=== PATIENT | female | born 1945 | race Caucasian/White ===

== ENCOUNTER → 2017-02-06 | Outpatient (CLI) | payer MEDICARE, SELFPAY | PROVIDERS: Visit Provider Nurse Practitioner Obstetrics & Gynecology | DX: Z12.31 Encounter for screening mammogram for malignant neoplasm of breast (principal) | CPT/HCPCS: 77067; G0202 ==

== ENCOUNTER → 2017-06-05 09:12 | Outpatient (CLI) | payer MEDICARE, SELFPAY ==
[2017-06-05 10:52] LABS: Alanine Aminotransferase 19 U/L (12-78); Albumin/Globulin Ratio 1.3 (1.1-1.8); Alkaline Phosphatase 68 U/L (46-116); Anion Gap 10.3 mEq/L (5-15); Aspartate Amino Transferase 19 U/L (15-37); Bilirubin,Total 0.6 mg/dL (0.2-1.0); Blood Urea Nitrogen 15 mg/dL (7-18); Calcium 9.8 mg/dL (8.5-10.1); Carbon Dioxide 33 mmol/L (21.0-32.0); Chloride 100 mmol/L (98-107); Chol/HDL Ratio 3.6 (1-3.5); Cholesterol 203 mg/dL (140-200); Creatine Kinase 49 U/L (26-192); Creatinine,Serum 0.71 mg/dL (0.55-1.02); Estimated Glomerular Filt Rate 81 ml/min (>60); GFR (African American) 98 ML/MIN (>60); Globulin 3.1 gm/dl (1.3-3.2); Glucose 92 mg/dL (74-106); HDL Cholesterol 56 mg/dL (29-89); LDL Cholesterol 129 mg/dL (0-130); Magnesium 1.9 mg/dL (1.4-2.2); Potassium 4.3 mmoL/L (3.5-5.1); Sodium 139 mmol/L (136-145); Thyroid Stimulating Hormone 2.55 uIU/ml (0.358-3.740); Total Protein,Serum 7.1 gm/dL (6.4-8.2); Triglycerides 90 mg/dL (30-200); VLDL Cholesterol 18 mg/dL (0-40)
[2017-06-06 11:06] LABS: Vitamin D 25 Hydroxy 27.9 ng/mL (30.0-100.0)
== END ==
PROVIDERS: Visit Provider Physician Assistant
DX: M79.1 Myalgia (principal); Z13.29 Encounter for screening for other suspected endocrine disorder; Z13.220 Encounter for screening for lipoid disorders; E55.9 Vitamin D deficiency, unspecified; Z79.899 Other long term (current) drug therapy
CPT/HCPCS: 36415; 80053; 80061; 82550; 82652; 83735; 84443

== ENCOUNTER → 2017-06-11 08:54 | Outpatient (CLI) | payer MEDICARE, SELFPAY ==
--- NOTE | 2017-06-11 09:00 | XR_ITS ---
XR DEXA axial skeleton HISTORY: ITS.REASON: POSTMENOPAUSAL ORDERING PHYSICIAN: John Diallo MD PATIENT AGE: 72 years FINDINGS: The BMD measured at the right femoral neck is 0.826 g/cm squared with a T score of -1.5. This is considered Osteopenic according to the World Health Organization criteria. Fracture risk is Moderate. Treatment is advised. The L1 L4 density has a T score of 0.2 which is within normal limits. IMPRESSION: Osteopenia with moderate fracture risk. Treatment is suggested. Recommend follow-up exam May 2019
== END ==
PROVIDERS: Family Provider Family Medicine; PCP Family Medicine; Visit Provider Family Medicine
DX: Z78.0 Asymptomatic menopausal state (principal)
CPT/HCPCS: 77080

== ENCOUNTER → 2019-01-22 08:19 | Outpatient (CLI) | payer MEDICARE, SELFPAY ==
--- NOTE | 2019-01-22 08:23 | MM_ITS ---
PROCEDURE: MM DIG SC MAMM UNILAT LT CAD CLINICAL INDICATION: SCREENING There has been a previous mastectomy right breast. There is previous history of breast cancer in patient's maternal aunt and maternal great aunt. COMPARISON: [facility] DIG MAMM-SCREENING UNI-LT from 09/26/2014 [facility] DIG MAMM-SCREENING UNI-LT from 12/18/2015 [facility] DIG MAMM-SCREEN JAY W/CAD from 02/06/2017 TECHNIQUE: Standard CC and MLO images were obtained. R2 CAD reviewed. FINDINGS: Moderate fibroglandular densities are seen in the subareolar region. There is a biopsy clip upper outer quadrant. There is a stable small nodular density upper-outer quadrant just anterior and lateral to the biopsy clip. There is no suspicious lesion and no suspicious microcalcifications. IMPRESSION: Moderate breast density with no suspicious lesions seen BI-RAD Category: 2 Benign Finding(s) FOLLOW-UP: 1YR 1 Year Follow-up (A letter has been sent to the patient regarding results of the study.) Dictated by: Dr. Loco Spring MD 01/25/2019 13:[address] Loco Spring MD in [place] 01/25/2019 13:46
== END ==
PROVIDERS: PCP Family Medicine; Visit Provider Family Medicine
DX: Z12.31 Encounter for screening mammogram for malignant neoplasm of breast (principal)
CPT/HCPCS: 77067

== ENCOUNTER 2019-01-31 06:21 | Inpatient (IN) ==
[2019-01-31 06:54] LABS: Microscopic, Urine URINE MICROSCOPIC (MICROSCOPIC)
[2019-01-31 07:01] LABS: Bilirubin,Urine Negative (Negative); Blood, Urine Negative (Negative); Color,Urine YELLOW (Yellow); Glucose,Urine (UA) Negative (Negative); Ketones,Urine Negative (Negative); Leukocyte Esterase,Urine TRACE (Negative); Protein,Urine Negative (Negative); Specific Gravity, Urine 1.025 (1.005-1.030); Urobilinogen,Urine 0.2 EU/dl (0.2)
[2019-01-31 07:12] LABS: Alanine Aminotransferase 69 U/L (12-78); Albumin Level 3.6 gm/dL (3.4-5.0); Albumin/Globulin Ratio 1.1 (1.1-1.8); Alkaline Phosphatase 77 U/L (46-116); Amylase 58 U/L (25-115); Anion Gap 11.3 mEq/L (5-15); Aspartate Amino Transferase 129 U/L (15-37); Bilirubin,Total 0.8 mg/dL (0.2-1.0); Blood Urea Nitrogen 24 mg/dL (7-18); Carbon Dioxide 32 mmol/L (21.0-32.0); Chloride 101 mmol/L (98-107); Globulin 3.4 gm/dl (1.3-3.2); Glucose 122 mg/dL (74-106); Sodium 141 mmol/L (136-145)
[2019-01-31 07:12] LABS: Appearance,Urine Cloudy (Clear)
[2019-01-31 07:18] LABS: Basophils % 0.4 % (0.1-2.0); Eosinophils # 0.1 K/mm3 (0.0-0.4); Hematocrit 45.4 % (37.0-47.0); Hemoglobin 14.9 g/dL (12.2-16.2); Lymphocytes # 1.3 K/mm3 (0.7-4.5); Lymphocytes % 11.1 % (10-50); Mean Corpuscular HGB Conc 32.7 g/dL (31.8-35.4); Mean Corpuscular Volume 91.6 fl (81-99); Mean Platelet Volume 7.3 fl (7.4-10.4); Monocytes # 0.4 K/mm3 (0.1-1.0); Monocytes % 3.7 % (1.7-9.3); Neutrophils # 9.6 K/mm3 (1.8-7.8); Neutrophils % 83.9 % (37.0-80.0); Platelet Count 391 K/mm3 (142-424); Red Blood Count 4.96 M/mm3 (4.20-5.40); Red Cell Distribution Width 13.9 % (11.5-17.5); White Blood Count 11.5 K/mm3 (4.8-10.8)
[2019-01-31 07:20] LABS: Bacteria,Urine 4+ /lpf; Mucus,Urine 1+ /lpf
[2019-01-31 07:25] LABS: C-Reactive Protein < 0.2 mg/dL (0.0-0.9)
[2019-01-31 07:45] LABS: Erythrocyte Sedimentation Rate 6 mm/hr (0-30)
--- NOTE | 2019-01-31 08:22 | Emergency Department Note ---
ED Disposition Clinical Impression: Acute cholecystitis Disposition: Admitted As Inpatient Condition on Discharge: Serious Referrals: Rogelio Pastor MD [Primary Care Provider] - Time of Disposition: 08:45 - Critical Care Critical Care Time: No Attestation: On 01/31/19, the high probability of a clinically significant, sudden or life threatening deterioration of the following system(s) required my full and direct attention, intervention and personal management. The time I documented below is in addition to time spent performing reported procedures but includes the follow ing listed in this critical care notation. Medical Decision Making - Medical Records Medical records reviewed: Yes: I reviewed the patient's medical records. - Chris Inquiry Pt receiving controlled substance: No Vital Signs: 01/31/19 06:36 Temperature 98.1 F Temperature Source Oral Pulse Rate [Left Brachial] 83 Respiratory Rate 20 Blood Pressure [Left Arm] 184/99 H Blood Pressure Mean [Left Arm] 127 Blood Pressure Source [Left Arm] Automatic Cuff Blood Pressure Position [Left Arm] Sitting 02 Sat by Pulse Oximetry 97 Oxygen Delivery Method Room Air - Lab Data Lab results reviewed: Yes: I reviewed the patient's lab results. Lab Results 01/31/19 06:34: Urine Color Yellow, Urine Appearance Cloudy, Urine pH 6.0, Ur Specific [place] 1.025, Urine Protein Negative, Urine Glucose (UA) Negative, Urine Ketones Negative, Urine Blood Negative, Urine Nitrate Negative, Urine Bilirubin Negative, Urine Urobilinogen 0.2, Ur Leukocyte Esterase Trace, Urine RBC 3-5, Urine WBC 10-20, Ur Squamous Epith Cells 5-10, Urine Bacteria 4+, Urine Mucus 1+ 01/31/19 06:34: Influenza Type A Ag Negative, Influenza Type B Ag Negative 01/31/19 06:40: WBC 11.5 H, RBC 4.96, Hgb 14.9, Hct 45.4, MCV 91.6, MCH 30.0, MCHC 32.7, RDW 13.9, Plt Count 391, MPV 7.3 L, Neut % (Auto) 83.9 H, Lymph % (Auto) 11.1, [place] % (Auto) 3.7, Eos % (Auto) 1.0, Baso % (Auto) 0.4, Neut # (Auto) 9.6 H, Lymph # (Auto) 1.3, [place] # (Auto) 0.4, Eos # (Auto) 0.1, Baso # (Auto) 0.0, ESR 6 01/31/19 06:40: Sodium 141, Potassium 3.3 L, Chloride 101, Carbon Dioxide 32, Anion Gap 11.3, BUN 24 H, Creatinine 0.97, Estimated Creat Clear 54, Estimated GFR 56 L, Est GFR ( Amer) 68, Glucose 122 H, Calcium 9.0, Total Bilirubin 0.8, AST 129 H, ALT 69, Alkaline Phosphatase 77, Troponin I < 0.02, C-Reactive Protein < 0.2, Total Protein 7.0, Albumin 3.6, Globulin 3.4 H, Albumin/Globulin Ratio 1.1, Amylase 58 01/31/19 06:40: Lipase 366 Result diagrams: 01/31/19 06:40 01/31/19 06:40 Orders (Tests/Meds): ED MEDICATIONS Discontinued Medications Generic Name Dose Route Start Last Admin Trade Name Freq PRN Reason Stop Dose Admin Sodium Chloride 1,000 mls @ 999 mls/hr 01/31/19 06:45 01/31/19 06:46 Sod Chlor 0.9% 1000ml Bag IV 01/31/19 07:45 999 mls/hr .Q1H1M LILLI Administration Ioversol 75 ml 01/31/19 07:56 01/31/19 07:57 Rad-Optiray 350 100ml Vial IV 01/31/19 07:57 75 ml ONCE ONE Administration Protocol Morphine Sulfate 4 mg 01/31/19 06:44 01/31/19 06:46 Morphine 4mg/Ml Syringe IV 01/31/19 06:45 4 mg ONCE ONE Administration Ondansetron HCl 4 mg 01/31/19 06:44 01/31/19 06:46 Zofran 4mg/2ml Vial IV 01/31/19 06:45 4 mg ONCE ONE Administration Sodium Chloride 10 ml 01/31/19 07:56 01/31/19 07:57 Rad-Saline Flush 10ml Syringe IV 01/31/19 07:57 10 ml ONCE ONE Administration ORDERS Category Date Time Status CT abdomen pelvis w con Stat Cat Scan 01/31/19 06:43 Taken Troponin I Q3H Lab 01/31/19 09:45 Ordered Troponin I Q3H Lab 01/31/19 12:45 Ordered Urine Culture Stat Micro 01/31/19 06:34 Received 12-lead EKG Request [ECG Request by /Merna] Stat Y 01/31/19 06:43 Ordered - CT Data CT Scan: Abdomen, Pelvis Time Received: 08:[address] Reviewed: Yes: I have viewed the radiologist's interpretation Preliminary Findings: Abnormal (Findings indicative of acute cholecystitis.) Abdominal Pain HPI - General Chief Complaint: Abdominal Pain Stated Complaint: Pain in Abdomen around past surgical site Time Seen by Provider: 01/31/19 08:00 Mode of Arrival: Ambulatory Limitations: No Limitations Description of Symptoms (Recalled from ER Triage Doc. by RN): PATIENT PRESENTS TO TX 9 C/O EPIGASTRIC PAIN THAT WOKE HER UP THIS AM. STATES SHE HAS A HISTORY OF HIATAL HERNIA WITH SURGICAL REPAIR IN FEBRUARY 2018. STATES THIS FEELS EXACTLY LIKE THE LAST EPISODE PRIOR TO SURGERY. ALSO REPORTS NAUSEA AND DRY HEAVES. - History of Present Illness HPI narrative: 74-year-old female awoke with sudden severe upper abdominal pain this morning. MD complaint: abdominal pain Onset (ago): hour(s) (4) Consistency: constant Location: epigastric Severity: severe Quality: aching Radiation: none Migration to: no migration Relieving factors: nothing Exacerbating factors: nothing Associated symptoms: nausea, vomiting - Related Data Home Medications Medication Instructions Recorded Confirmed Nebivolol HCl [Bystolic] 5 mg PO DAILY 01/31/19 01/31/19 hydroCHLOROthiazide [HCTZ 12.5mg 12.5 mg PO DAILY 01/31/19 01/31/19 capsule] Allergies Allergy/AdvReac Type Severity Reaction Status Date / Time Penicillins Allergy swelling Verified 07/02/17 09:22 promethazine [From Phenergan] AdvReac Verified 03/02/18 11:17 [facility] History - Hepatitis A Screen Drug use history?: No High risk sexual behaviors?: No History of sexually transmitted infection?: No Currently employed?: No Childcare worker?: No Do you have indoor plumbing?: Yes Do you have electricity?: Yes Attestation statement:: This patient has been screened for Hepatitis A risk factors. I have reviewed the patient's past medical history: Yes Medical History: Reports:: Hypertension Denies:: Diabetes Mellitus Type 1, Diabetes Mellitus Type 2, Internal Pacemaker, Lung Disease, Seizures Comment: Diverticulitis Laterality Cases: Right: Mastectomy Other Surgeries: Yes: Cancer Surgery, Colonoscopy, EGD. No: Pacemaker - Social History Smoking Status: Never smoker Alcohol Intake: never Alcohol Intake Frequency:: other Substance Use Type: denies use Occupational Status: retired Housing: house Household Members: spouse Family Hx:: Hypertension ROS Obtained: Yes Systems reviewed as appropriate & no additional complaints - Constitutional Constitutional: Reports malaise - Eyes Eyes: Reports system reviewed and no additional complaints, except as docu - ENT Ears, Nose, Mouth, and Throat: Reports system reviewed and no additional complaints, except as docu - Cardiovascular Cardiovascular: Reports system reviewed and no additional complaints, except as docu - Respiratory Respiratory: Yes system reviewed and no additional complaints, except as docu - Gastrointestinal Gastrointestingal: Reports: abdominal pain, nausea, vomiting - Genitourinary Female Genitourinary: Reports system reviewed and no additional complaints, except as docu - Musculoskeletal Musculoskeletal: Reports system reviewed and no additional complaints, except as docu - Integumentary/Breasts Skin/Breast: Reports system reviewed and no additional complaints, except as docu - Neurologic Neurologic: Reports system reviewed and no additional complaints, except as docu - Endocrine Endocrine: Reports system reviewed and no additional complaints, except as docu - Hematologic/Lymphatic Henatologic/Lymphatic: Reports system reviewed and no additional complaints, except as docu - Allergic/Immunologic Allergic/Immunologic: Reports system reviewed and no additional complaints, except as docu Physical Exam - General General appearance: alert, in no apparent distress - Head Head exam: atraumatic, normocephalic, normal inspection - Eye Eye exam: Present: normal appearance, PERRL, EOMI - ENT ENT exam: Present: normal exam, normal oropharynx, mucous membranes moist, normal external ear exam - Neck Neck exam: Present: normal inspection, full ROM, trachea midline. Absent: meningismus, lymphadenopathy - Chest Chest inspection: Present: normal inspection, symmetric chest wall rise. Absent: tenderness - Respiratory Respiratory exam: Present: normal lung sounds bilaterally. Absent: respiratory distress - Cardiovascular Cardiovascular exam: Present: regular rate, normal rhythm, normal heart sounds. Absent: JVD - Abdominal Exam Abdominal exam: Present: soft, tenderness, hypoactive bowel sounds. Absent: distention, guarding Abdominal tenderness: Present: epigastrium - Extremities Exam Extremities exam: Present: normal inspection, full ROM, normal capillary refill. Absent: calf tenderness - Back Exam Back exam: Present: normal inspection. Absent: tenderness - Neurological Exam Neurological exam: Present: alert, oriented X3, CN II-XII intact, normal gait. Absent: motor sensory deficit - Psychiatric Psychiatric exam: Present: normal affect, normal mood - Skin Skin exam: Present: warm, dry, intact, normal color
--- NOTE | 2019-01-31 10:25 | History & Physical Report ---
*Admission Date: 01/31/19 *Chief complaint: Epigastric abd pain *History of present illness: 74 year female who was awoken from sleep last night with fairly severe, rated at 9/10, epigastric abdominal pain. She states she had nausea and numerous dry heaves. She denies fever and chills and diarrhea. Patient does have a history of hiatal hernia and gastric outlet obstruction that was treated surgically at in February of 2018. She had a hiatal hernia repair with mesh and a toupet fundoplication. She had an EGD with PEG placement at that time as well. She reports doing well after the surgery and never had to use the PEG tube so it was removed about 6 weeks postoperatively. [facility] History Medical History: Reports:: Cancer (breast cancer 1991), Hyperlipidemia, Hypertension Denies:: Diabetes Mellitus Type 1, Diabetes Mellitus Type 2, Internal Pacemaker, Lung Disease, MRSA, Seizures *Have you ever received a pneumonia vaccine?: Yes (2016) *Have you received a flu vaccine this season?: No Laterality Cases: Right: Mastectomy Other Surgeries: Yes: Cancer Surgery, Colonoscopy, EGD, Other (Hiatal hernia repair with mesh and toupet fundoplication at Feb 2018). No: Pacemaker Amputation: No - *Social History Educational Level: Completed Graduate School Smoking Status: Never smoker Alcohol Intake: never Alcohol Intake Frequency:: other Substance Use Type: denies use *Occupational Status:: retired Housing: house Household Members: spouse *Travel in the last 8 weeks: Inside the [facility] Family Hx:: Hypertension Review of Systems - Constitutional Denies chills, Denies fever(s) - Eyes Denies change in vision - ENT Denies dry mouth, Denies difficulty swallowing - *Cardiovascular Denies chest pain - *Respiratory Denies cough - *Genitourinary Denies difficulty urinating - *Musculoskeletal Denies joint pain - Integumentary/Breasts Denies rash - *Neurologic Denies dizziness Meds Home Medications Medication Instructions Recorded Confirmed Type Nebivolol HCl [Bystolic] 5 mg PO DAILY 01/31/19 01/31/19 History hydroCHLOROthiazide [HCTZ 12.5mg 12.5 mg PO DAILY 01/31/19 01/31/19 History capsule] Allergies Allergy/AdvReac Type Severity Reaction Status Date / Time Penicillins Allergy swelling Verified 01/31/19 10:07 promethazine [From Phenergan] AdvReac Verified 01/31/19 10:07 Exam Vital signs and Labs for Last 24 Hours: Temp Pulse Resp BP Pulse Ox 98.1 F 87 18 145/78 H 97 01/31/19 09:36 01/31/19 09:36 01/31/19 09:36 01/31/19 09:36 01/31/19 06:36 Laboratory Results - last 24 hr 01/31/19 06:34: Urine Color Yellow, Urine Appearance Cloudy, Urine pH 6.0, Ur Specific [place] 1.025, Urine Protein Negative, Urine Glucose (UA) Negative, Urine Ketones Negative, Urine Blood Negative, Urine Nitrate Negative, Urine Bilirubin Negative, Urine Urobilinogen 0.2, Ur Leukocyte Esterase Trace, Urine RBC 3-5, Urine WBC 10-20, Ur Squamous Epith Cells 5-10, Urine Bacteria 4+, Urine Mucus 1+ 01/31/19 06:34: Influenza Type A Ag Negative, Influenza Type B Ag Negative 01/31/19 06:40: WBC 11.5 H, RBC 4.96, Hgb 14.9, Hct 45.4, MCV 91.6, MCH 30.0, MCHC 32.7, RDW 13.9, Plt Count 391, MPV 7.3 L, Neut % (Auto) 83.9 H, Lymph % (Auto) 11.1, [place] % (Auto) 3.7, Eos % (Auto) 1.0, Baso % (Auto) 0.4, Neut # (Auto) 9.6 H, Lymph # (Auto) 1.3, [place] # (Auto) 0.4, Eos # (Auto) 0.1, Baso # (Auto) 0.0, ESR 6 01/31/19 06:40: Sodium 141, Potassium 3.3 L, Chloride 101, Carbon Dioxide 32, Anion Gap 11.3, BUN 24 H, Creatinine 0.97, Estimated Creat Clear 54, Estimated GFR 56 L, Est GFR ( Amer) 68, Glucose 122 H, Calcium 9.0, Total Bilirubin 0.8, AST 129 H, ALT 69, Alkaline Phosphatase 77, Troponin I < 0.02, C-Reactive Protein < 0.2, Total Protein 7.0, Albumin 3.6, Globulin 3.4 H, Albumin/Globulin Ratio 1.1, Amylase 58 01/31/19 06:40: Lipase 366 01/31/19 09:15: Troponin I < 0.02 I & O for Last 24 hours: Intake & Output 01/28/19 01/29/19 01/30/19 01/31/19 23:59 23:59 23:59 23:59 Intake Total 1000 / 1000 Balance 1000 / 1000 Weight 155 lb Radiology Reports for the Last 24 Hours: CT Abd/Pelvis shows evidence of acute cholecystitis - Constitutional no acute distress - *Routine HEENT Exam Head: Present: normocephalic Eye: Present: EOMI, PERRL ENT: Present: mucous membranes moist - *Routine Neck Exam Present: supple. Absent: lymphadenopathy - *Routine Respiratory Exam Present: CTA bilaterally - *Routine Cardiovascular Exam Present: RRR - *Routine Abdominal Exam Present: soft, normoactive bowel sounds. Absent: tenderness - *Routine Extremities Exam Absent: cyanosis, clubbing, edema - *Routine Skin Exam Present: warm. Absent: rash - *Routine Neurological Exam Present: alert, oriented X3 Assessment and Plan (1) HTN (hypertension) Current visit: Yes Status: Acute Category: Medical Code(s): I10 - Essential (primary) hypertension (2) Acute cholecystitis Current visit: Yes Status: Acute Category: Medical Code(s): K81.0 - Acute cholecystitis (3) Hypokalemia Current visit: Yes Status: Acute Category: Medical Code(s): E87.6 - Hypokalemia - Assessment and plan all Dx Assessment and Plan for all problems:: Patient admitted to [facility] for further evaluation and treatment. General surgery has been consulted and patient has been made NPO
--- NOTE | 2019-01-31 18:47 | Consult Report ---
*Admission Date: 01/31/19 *Reason for consult:: Acute cholecystitis. *History of present illness: Ms. Daugherty is a 74-year-old female that awoke from sleep earlier this morning with acute onset epigastric abdominal pain. No radiation. "Burning" in nature. No alleviating factors. Secondary onset of nausea and dry heaves. No significant emesis volume. No other significant complaints. She has not been recently ill. Typically has regular bowel movements. No hematochezia or melena. Reflux symptoms are noted with prior fundoplication in February 2018 at [facility]. Prior colonoscopy noted with Dr. Simpson. Past medical history remarkable for right breast cancer for which she has undergone right mastectomy in 1991. No prior history of biliary tract or liver disease. Review of Systems - Review of Systems Review of systems:: pertinent systems reviewed and negative unless documented below - *Neurologic Denies dizziness [facility] History Medical History: Reports:: Cancer (breast cancer 1991), Hyperlipidemia, Hypertension Denies:: Diabetes Mellitus Type 1, Diabetes Mellitus Type 2, Internal Pacemaker, Lung Disease, MRSA, Seizures *Have you ever received a pneumonia vaccine?: Yes (2016) *Have you received a flu vaccine this season?: No Laterality Cases: Right: Mastectomy Other Surgeries: Yes: Cancer Surgery, Colonoscopy, EGD, Other (Hiatal hernia repair with mesh and toupet fundoplication at Feb 2018). No: Pacemaker Amputation: No - *Social History Educational Level: Completed Graduate School Smoking Status: Never smoker Alcohol Intake: never Alcohol Intake Frequency:: other Substance Use Type: denies use *Occupational Status:: retired Housing: house Household Members: spouse *Travel in the last 8 weeks: Inside the [facility] Family Hx:: Hypertension Meds Home Medications Medication Instructions Recorded Confirmed Type Nebivolol HCl [Bystolic] 5 mg PO DAILY 01/31/19 01/31/19 History hydroCHLOROthiazide [HCTZ 12.5mg 12.5 mg PO DAILY 01/31/19 01/31/19 History capsule] Allergies Allergy/AdvReac Type Severity Reaction Status Date / Time Penicillins Allergy swelling Verified 01/31/19 10:07 promethazine [From Phenergan] AdvReac Verified 01/31/19 10:07 Exam Vital signs and Labs for Last 24 Hours: Temp Pulse Resp BP Pulse Ox 99.9 F H 83 18 113/67 94 L 01/31/19 16:00 01/31/19 16:00 01/31/19 16:00 01/31/19 16:00 01/31/19 16:00 Laboratory Results - last 24 hr 01/31/19 06:34: Urine Color Yellow, Urine Appearance Cloudy, Urine pH 6.0, Ur Specific [place] 1.025, Urine Protein Negative, Urine Glucose (UA) Negative, Urine Ketones Negative, Urine Blood Negative, Urine Nitrate Negative, Urine Bilirubin Negative, Urine Urobilinogen 0.2, Ur Leukocyte Esterase Trace, Urine RBC 3-5, Urine WBC 10-20, Ur Squamous Epith Cells 5-10, Urine Bacteria 4+, Urine Mucus 1+ 01/31/19 06:34: Influenza Type A Ag Negative, Influenza Type B Ag Negative 01/31/19 06:40: WBC 11.5 H, RBC 4.96, Hgb 14.9, Hct 45.4, MCV 91.6, MCH 30.0, MCHC 32.7, RDW 13.9, Plt Count 391, MPV 7.3 L, Neut % (Auto) 83.9 H, Lymph % (Auto) 11.1, [place] % (Auto) 3.7, Eos % (Auto) 1.0, Baso % (Auto) 0.4, Neut # (Auto) 9.6 H, Lymph # (Auto) 1.3, [place] # (Auto) 0.4, Eos # (Auto) 0.1, Baso # (Auto) 0.0, ESR 6 01/31/19 06:40: Sodium 141, Potassium 3.3 L, Chloride 101, Carbon Dioxide 32, Anion Gap 11.3, BUN 24 H, Creatinine 0.97, Estimated Creat Clear 54, Estimated GFR 56 L, Est GFR ( Amer) 68, Glucose 122 H, Calcium 9.0, Total Bilirubin 0.8, AST 129 H, ALT 69, Alkaline Phosphatase 77, Troponin I < 0.02, C-Reactive Protein < 0.2, Total Protein 7.0, Albumin 3.6, Globulin 3.4 H, Albumin/Globulin Ratio 1.1, Amylase 58 01/31/19 06:40: Lipase 366 01/31/19 09:15: Troponin I < 0.02 I & O for Last 24 hours: Intake & Output 12/01/30/19 01/31/19 02/01/19 11:59 11:59 11:59 11:59 Intake Total 1000 / 999 240 / 240 Balance 999 / 999 240 / 240 Weight 74.843 kg - Constitutional Comments: No distress. Pleasant. - *Routine Respiratory Exam Comments: Chest clear. - *Routine Cardiovascular Exam Comments: Regular rate and rhythm. - *Routine Abdominal Exam Comments: Soft. Nondistended. Nontender. No Sanches sign. Results - Labs 01/31/19 06:40 01/31/19 06:40 Laboratory Results - last 24 hr 01/31/19 06:34: Urine Color Yellow, Urine Appearance Cloudy, Urine pH 6.0, Ur Specific [place] 1.025, Urine Protein Negative, Urine Glucose (UA) Negative, Urine Ketones Negative, Urine Blood Negative, Urine Nitrate Negative, Urine Bilirubin Negative, Urine Urobilinogen 0.2, Ur Leukocyte Esterase Trace, Urine RBC 3-5, Urine WBC 10-20, Ur Squamous Epith Cells 5-10, Urine Bacteria 4+, Urine Mucus 1+ 01/31/19 06:34: Influenza Type A Ag Negative, Influenza Type B Ag Negative 01/31/19 06:40: WBC 11.5 H, RBC 4.96, Hgb 14.9, Hct 45.4, MCV 91.6, MCH 30.0, MCHC 32.7, RDW 13.9, Plt Count 391, MPV 7.3 L, Neut % (Auto) 83.9 H, Lymph % (Auto) 11.1, [place] % (Auto) 3.7, Eos % (Auto) 1.0, Baso % (Auto) 0.4, Neut # (Auto) 9.6 H, Lymph # (Auto) 1.3, [place] # (Auto) 0.4, Eos # (Auto) 0.1, Baso # (Auto) 0.0, ESR 6 01/31/19 06:40: Sodium 141, Potassium 3.3 L, Chloride 101, Carbon Dioxide 32, Anion Gap 11.3, BUN 24 H, Creatinine 0.97, Estimated Creat Clear 54, Estimated GFR 56 L, Est GFR ( Amer) 68, Glucose 122 H, Calcium 9.0, Total Bilirubin 0.8, AST 129 H, ALT 69, Alkaline Phosphatase 77, Troponin I < 0.02, C-Reactive Protein < 0.2, Total Protein 7.0, Albumin 3.6, Globulin 3.4 H, Albumin/Globulin Ratio 1.1, Amylase 58 01/31/19 06:40: Lipase 366 01/31/19 09:15: Troponin I < 0.02 - Imaging CT scan - abdomen: report reviewed, image reviewed CT scan - pelvis: report reviewed, image reviewed Assessment and Plan (1) HTN (hypertension) Current visit: Yes Status: Acute Category: Medical Code(s): I10 - Ess ential (primary) hypertension (2) Acute cholecystitis Current visit: Yes Status: Acute Category: Medical Code(s): K81.0 - Acute cholecystitis (3) Hypokalemia Current visit: Yes Status: Acute Category: Medical Code(s): E87.6 - Hypokalemia - Assessment and plan all Dx Assessment and Plan for all problems:: 1. Epigastric abdominal pain. CT imaging completed. Distended gallbladder noted with trace thickening of gallbladder wall. No definitive stones. Symptoms overlap with history of reflux and prior fundoplication. Mildly elevated WBC. Levaquin started. Obtain ultrasound in a.m. Allow clear liquids tonight. NPO after midnight. Clinical history is most consistent with biliary colic/cholecystitis. Will confirm with ultrasound.
[2019-02-01 06:50] LABS: Albumin Level 2.8 gm/dL (3.4-5.0); Albumin/Globulin Ratio 0.9 (1.1-1.8); Anion Gap 9.9 mEq/L (5-15); Bilirubin,Total 0.7 mg/dL (0.2-1.0); Calcium 8.3 mg/dL (8.5-10.1); Chol/HDL Ratio 2.4 (1-3.5); Phosphorous 3.3 mg/dL (2.4-4.9); Total Protein,Serum 5.8 gm/dL (6.4-8.2)
[2019-02-01 07:19] LABS: Eosinophils # 0.2 K/mm3 (0.0-0.4); Monocytes # 0.5 K/mm3 (0.1-1.0); Red Cell Distribution Width 13.9 % (11.5-17.5)
--- NOTE | 2019-02-01 07:22 | Pharmacy Consult Notes ---
[facility] Pharmacy VTE Monitoring - Patient Demographics Admission date: 01/31/19 Report Date: 02/01/19 Time: 07:21 Allergies/Adverse Reactions: Patient Allergies Penicillins Allergy (Verified 01/31/19 10:07) swelling promethazine [From Phenergan] Adverse Reaction (Verified 01/31/19 10:07) Height: 1.6 m Weight: 75.07 kg Patient Problems: Current Active Problems Acute cholecystitis (Acute) HTN (hypertension) (Acute) Hypokalemia (Acute) - VTE Risk Labs: VTE Related Lab Results Hgb 14.9 g/dL (12.2-16.2) 01/31/19 06:40 Hct 45.4 % (37.0-47.0) 01/31/19 06:40 Plt Count 391 K/mm3 (142-424) 01/31/19 06:40 BUN 8 mg/dL (7-18) D 02/01/19 05:36 Creatinine 0.75 mg/dL (0.55-1.02) D 02/01/19 05:36 Estimated Creat Clear 57 mL/min (50-200) 02/01/19 05:36 Was VTE Risk Assessment Performed: No VTE Score: 2 VTE Risk Level: Very Low Risk - Prophylaxis VTE Prophylaxis Ordered?: Yes Types of VTE Prophylaxis: TEDS Knee High Location of Applied Device: Bilateral Lower Extremeties - VTE Diagnosis Confirmed Treatment or plan recommended: Continue Current Treatment
[2019-02-01 07:30] LABS: Basophils # 0.1 K/mm3 (0-0.2); Basophils % 0.8 % (0.1-2.0); Eosinophils % 2.8 % (0.1-12.0); Hematocrit 40.1 % (37.0-47.0); Lymphocytes # 0.9 K/mm3 (0.7-4.5); Mean Corpuscular Volume 91.6 fl (81-99); Mean Platelet Volume 7.8 fl (7.4-10.4); Monocytes % 8.2 % (1.7-9.3); Neutrophils % 72.1 % (37.0-80.0); Platelet Count 301 K/mm3 (142-424); Red Blood Count 4.38 M/mm3 (4.20-5.40); White Blood Count 5.5 K/mm3 (4.8-10.8)
[2019-02-01 07:33] LABS: Hemoglobin 13.2 g/dL (12.2-16.2)
--- NOTE | 2019-02-01 07:59 | Progress Note ---
Subjective Narrative: Patient is a very pleasant 74-year-old female who had antireflux procedure earlier this year [facility]. She was in her usual state of health until yesterday morning at which time she awoke with acute epigastric pain and nausea and dry heaves. She presented to the emergency department where she underwent evaluation and was found to have CT scan possibly suggestive of gallbladder disease. She was admitted for inpatient management. Patient feels somewhat better today. She is having ultrasound today. Exam Vital signs and Labs for Last 24 Hours: Temp Pulse Resp BP Pulse Ox 97.9 F 70 20 146/87 H 94 L 02/01/19 04:00 02/01/19 04:00 02/01/19 04:00 02/01/19 04:00 02/01/19 04:00 Laboratory Results - last 24 hr 01/31/19 09:15: Troponin I < 0.02 02/01/19 05:36: WBC 5.5 D, RBC 4.38, Hgb 13.2 D, Hct 40.1, MCV 91.6, MCH 30.2, MCHC 33.0, RDW 13.9, Plt Count 301, MPV 7.8, Neut % (Auto) 72.1, Lymph % (Auto) 16.0, [place] % (Auto) 8.2, Eos % (Auto) 2.8, Baso % (Auto) 0.8, Neut # (Auto) 4.0, Lymph # (Auto) 0.9, [place] # (Auto) 0.5, Eos # (Auto) 0.2, Baso # (Auto) 0.1 02/01/19 05:36: Sodium 141, Potassium 3.9, Chloride 104, Carbon Dioxide 31, Anion Gap 9.9, BUN 8 D, Creatinine 0.75 D, Estimated Creat Clear 57, Estimated GFR 75, Est GFR ( Amer) 91 D, Glucose 112 H, Calcium 8.3 L, Phosphorus 3.3, Magnesium 1.6, Total Bilirubin 0.7, AST 128 H, ALT 171 H D, Alkaline Phosphatase 81, Total Protein 5.8 L, Albumin 2.8 L D, Globulin 3.0, Albumin/Globulin Ratio 0.9 L, Triglycerides 59, Cholesterol 150, LDL Cholesterol 75, VLDL Cholesterol 12, HDL Cholesterol 63, Cholesterol/HDL Ratio 2.4 I & O for Last 24 hours: Intake & Output 01/29/19 01/30/19 01/31/19 02/01/19 11:59 11:59 11:59 11:59 Intake Total 1000 / 1000 2943 / 2943 Output Total 1050 / 1050 Balance 1000 / 1000 1893 / 1893 Weight 165 lb 165 lb 8 oz Microbiology Reports for the Last 24 Hours: Microbiology 01/31/19 06:34 Urine,Clean Catch Urine Culture - Preliminary NO GROWTH AFTER 24 HOURS - *Routine Abdominal Exam Present: soft. Absent: tenderness Progress Note: A&P (1) HTN (hypertension) Status: Acute Current Visit: Yes (2) Acute cholecystitis Status: Acute Current Visit: Yes (3) Hypokalemia Status: Acute Current Visit: Yes Assessment and Plan for All Diagnoses:: Follow-up on ultrasound today. Possible patient may be able to be managed as an outpatient pending ultrasound findings and post procedure tolerance of liquids.
--- NOTE | 2019-02-01 08:53 | Progress Note ---
Internal Medicine - PN: Subj *Date: 02/01/19 *Time: 08:51 Interval history: No new complaints today, feels much better today. Exam Vital signs and Labs for Last 24 Hours: Temp Pulse Resp BP Pulse Ox 97.9 F 70 20 146/87 H 94 L 02/01/19 04:00 02/01/19 04:00 02/01/19 04:00 02/01/19 04:00 02/01/19 04:00 Laboratory Results - last 24 hr 01/31/19 09:15: Troponin I < 0.02 02/01/19 05:36: WBC 5.5 D, RBC 4.38, Hgb 13.2 D, Hct 40.1, MCV 91.6, MCH 30.2, MCHC 33.0, RDW 13.9, Plt Count 301, MPV 7.8, Neut % (Auto) 72.1, Lymph % (Auto) 16.0, [place] % (Auto) 8.2, Eos % (Auto) 2.8, Baso % (Auto) 0.8, Neut # (Auto) 4.0, Lymph # (Auto) 0.9, [place] # (Auto) 0.5, Eos # (Auto) 0.2, Baso # (Auto) 0.1 02/01/19 05:36: Sodium 141, Potassium 3.9, Chloride 104, Carbon Dioxide 31, Anion Gap 9.9, BUN 8 D, Creatinine 0.75 D, Estimated Creat Clear 57, Estimated GFR 75, Est GFR ( Amer) 91 D, Glucose 112 H, Calcium 8.3 L, Phosphorus 3.3, Magnesium 1.6, Total Bilirubin 0.7, AST 128 H, ALT 171 H D, Alkaline Phosphatase 81, Total Protein 5.8 L, Albumin 2.8 L D, Globulin 3.0, Albumin/Globulin Ratio 0.9 L, Triglycerides 59, Cholesterol 150, LDL Cholesterol 75, VLDL Cholesterol 12, HDL Cholesterol 63, Cholesterol/HDL Ratio 2.4 Vital Signs - 24 hr 01/31/19 09:36 01/31/19 10:54 01/31/19 16:00 Temperature 98.1 F 98.2 F 99.9 F H Pulse Rate 87 Pulse Rate [Left Brachial] 69 83 Respiratory Rate 18 18 18 Blood Pressure 145/78 H Blood Pressure [Left Arm] 144/86 H 113/67 02 Sat by Pulse Oximetry 96 94 L 01/31/19 20:00 02/01/19 04:00 Temperature 98.2 F 97.9 F Pulse Rate Pulse Rate [Left Brachial] 83 70 Respiratory Rate 22 20 Blood Pressure Blood Pressure [Left Arm] 126/73 146/87 H 02 Sat by Pulse Oximetry 94 L 94 L I & O for Last 24 hours: Intake & Output 01/29/19 01/30/19 01/31/19 02/01/19 23:59 23:59 23:59 23:59 Intake Total 1600 / 1600 2343 / 2343 Output Total 1050 / 1050 Balance 1600 / 1600 1293 / 1293 Weight 165 lb 165 lb 8 oz Microbiology Reports for the Last 24 Hours: Microbiology 01/31/19 06:34 Urine,Clean Catch Urine Culture - Preliminary NO GROWTH AFTER 24 HOURS - Constitutional no acute distress - *Routine HEENT Exam Head: Present: normocephalic Eye: Present: EOMI ENT: Present: mucous membranes moist - *Routine Neck Exam Present: supple. Absent: lymphadenopathy - *Routine Respiratory Exam Present: CTA bilaterally - *Routine Cardiovascular Exam Present: RRR - *Routine Abdominal Exam Present: soft, normoactive bowel sounds. Absent: tenderness - *Routine Extremities Exam Absent: cyanosis, clubbing, edema - *Routine Skin Exam Present: warm. Absent: rash - *Routine Neurological Exam Present: alert, oriented X3 Assessment and Plan (1) HTN (hypertension) Current visit: Yes Status: Acute Category: Medical Code(s): I10 - Essential (primary) hypertension (2) Acute cholecystitis Current visit: Yes Status: Acute Category: Medical Code(s): K81.0 - Acute cholecystitis (3) Hypokalemia Current visit: Yes Status: Acute Category: Medical Code(s): E87.6 - Hypokalemia - Assessment and plan all Dx Assessment and Plan for all problems:: Will decrease IVF rate today, await RUQ U/S results.
--- NOTE | 2019-02-01 14:52 | Progress Note ---
Subjective Narrative: Patient did tolerate some full liquid diet. However, she still has have some symptomatology. Her ultrasound reveals multiple gallstones but less impressive than her CT scan. Exam Vital signs and Labs for Last 24 Hours: Temp Pulse Resp BP Pulse Ox 98.8 F 77 18 146/76 H 95 02/01/19 11:58 02/01/19 11:58 02/01/19 11:58 02/01/19 11:58 02/01/19 11:58 Laboratory Results - last 24 hr 01/31/19 06:34: Urine Color Yellow, Urine Appearance Cloudy, Urine pH 6.0, Ur Specific [place] 1.025, Urine Protein Negative, Urine Glucose (UA) Negative, Urine Ketones Negative, Urine Blood Negative, Urine Nitrate Negative, Urine Bilirubin Negative, Urine Urobilinogen 0.2, Ur Leukocyte Esterase Trace, Urine RBC 3-5, Urine WBC 10-20, Ur Squamous Epith Cells 5-10, Urine Bacteria 4+, Urine Mucus 1+ 02/01/19 05:36: WBC 5.5 D, RBC 4.38, Hgb 13.2 D, Hct 40.1, MCV 91.6, MCH 30.2, MCHC 33.0, RDW 13.9, Plt Count 301, MPV 7.8, Neut % (Auto) 72.1, Lymph % (Auto) 16.0, [place] % (Auto) 8.2, Eos % (Auto) 2.8, Baso % (Auto) 0.8, Neut # (Auto) 4.0, Lymph # (Auto) 0.9, [place] # (Auto) 0.5, Eos # (Auto) 0.2, Baso # (Auto) 0.1 02/01/19 05:36: Sodium 141, Potassium 3.9, Chloride 104, Carbon Dioxide 31, Anion Gap 9.9, BUN 8 D, Creatinine 0.75 D, Estimated Creat Clear 57, Estimated GFR 75, Est GFR ( Amer) 91 D, Glucose 112 H, Calcium 8.3 L, Phosphorus 3.3, Magnesium 1.6, Total Bilirubin 0.7, AST 128 H, ALT 171 H D, Alkaline Phosphatase 81, Total Protein 5.8 L, Albumin 2.8 L D, Globulin 3.0, Albumin/Globulin Ratio 0.9 L, Triglycerides 59, Cholesterol 150, LDL Cholesterol 75, VLDL Cholesterol 12, HDL Cholesterol 63, Cholesterol/HDL Ratio 2.4 I & O for Last 24 hours: Intake & Output 01/30/19 01/31/19 02/01/19 02/02/19 11:59 11:59 11:59 11:59 Intake Total 1000 / 1000 3043 / 3043 0 / 0 Output Total 1050 / 1050 Balance 1000 / 1000 1992 0 / 0 Weight 165 lb 165 lb 8 oz Microbiology Reports for the Last 24 Hours: Microbiology 01/31/19 06:34 Urine,Clean Catch Urine Culture - Preliminary Gram Negative Rods - *Routine Abdominal Exam Present: soft Progress Note: A&P (1) HTN (hypertension) Status: Acute Current Visit: Yes (2) Acute cholecystitis Status: Acute Current Visit: Yes (3) Hypokalemia Status: Acute Current Visit: Yes Assessment and Plan for All Diagnoses:: Given the ongoing symptomatology and findings ultrasound the best plan of action may be to proceed with cholecystectomy while an inpatient. I will make arrangements for laparoscopic possibly open cholecystectomy to be done tomorrow. She does have some increased risk from prior emergent laparoscopic fundoplication procedure and gastrostomy tube.
--- NOTE | 2019-02-01 16:59 | Electrocardiograph Report ---
APPROVED REPORT Exam: Resting ECG HR:73 bpm ECG Measurements Heart Rate 73 AXES MN 170 P -9 QRSd 88 QRS -3 QT 408 T2 QTc 449 <Conclusion> Normal sinus rhythm Nonspecific ST-T wave abnormalities Abnormal ECG Electronically signed by : Bradley Velez, 02/01/2019 16:58:44
--- NOTE | 2019-02-02 06:57 | Progress Note ---
Subjective Patient reports: no new complaints Exam Vital signs and Labs for Last 24 Hours: Temp Pulse Resp BP Pulse Ox 98.1 F 74 18 142/87 H 94 L 02/02/19 04:00 02/02/19 04:00 02/02/19 04:00 02/02/19 04:00 02/02/19 04:00 Laboratory Results - last 24 hr 01/31/19 06:34: Urine Color Yellow, Urine Appearance Cloudy, Urine pH 6.0, Ur Specific [place] 1.025, Urine Protein Negative, Urine Glucose (UA) Negative, Urine Ketones Negative, Urine Blood Negative, Urine Nitrate Negative, Urine Bilirubin Negative, Urine Urobilinogen 0.2, Ur Leukocyte Esterase Trace, Urine RBC 3-5, Urine WBC 10-20, Ur Squamous Epith Cells 5-10, Urine Bacteria 4+, Urine Mucus 1+ 02/01/19 05:36: WBC 5.5 D, RBC 4.38, Hgb 13.2 D, Hct 40.1, MCV 91.6, MCH 30.2, MCHC 33.0, RDW 13.9, Plt Count 301, MPV 7.8, Neut % (Auto) 72.1, Lymph % (Auto) 16.0, [place] % (Auto) 8.2, Eos % (Auto) 2.8, Baso % (Auto) 0.8, Neut # (Auto) 4.0, Lymph # (Auto) 0.9, [place] # (Auto) 0.5, Eos # (Auto) 0.2, Baso # (Auto) 0.1 02/01/19 05:36: Sodium 141, Potassium 3.9, Chloride 104, Carbon Dioxide 31, Anion Gap 9.9, BUN 8 D, Creatinine 0.75 D, Estimated Creat Clear 57, Estimated GFR 75, Est GFR ( Amer) 91 D, Glucose 112 H, Calcium 8.3 L, Phosphorus 3.3, Magnesium 1.6, Total Bilirubin 0.7, AST 128 H, ALT 171 H D, Alkaline Phosphatase 81, Total Protein 5.8 L, Albumin 2.8 L D, Globulin 3.0, Albumin/Globulin Ratio 0.9 L, Triglycerides 59, Cholesterol 150, LDL Cholesterol 75, VLDL Cholesterol 12, HDL Cholesterol 63, Cholesterol/HDL Ratio 2.4 I & O for Last 24 hours: Intake & Output 01/30/19 01/31/19 02/01/19 02/02/19 11:59 11:59 11:59 11:59 Intake Total 1000 / 1000 3043 / 3043 2229 / 2229 Output Total 1050 / 1050 1475 / 1475 Balance 1000 / 1000 1992 754 / 754 Weight 165 lb 165 lb 8 oz 162 lb Microbiology Reports for the Last 24 Hours: Microbiology 01/31/19 06:34 Urine,Clean Catch Urine Culture - Preliminary Gram Negative Rods - *Routine Abdominal Exam Present: soft Progress Note: A&P (1) HTN (hypertension) Status: Acute Current Visit: Yes (2) Acute cholecystitis Status: Acute Assessment and plan: Tentatively plan for laparoscopic possibly open cholecystectomy later this morning. However, due to slight elevation of transaminases and generous common bile duct on ultrasound we will tentatively plan for cholangiogram as well if feasible. Plan to recheck liver function test this morning. Current Visit: Yes (3) Hypokalemia Status: Acute Current Visit: Yes
--- NOTE | 2019-02-02 08:14 | Progress Note ---
<Lou Mclean - Last Filed: 02/02/19 08:11> Internal Medicine - PN: Subj *Date: 02/02/19 *Time: 08:11 Interval history: Patient has had no further nausea. Her abdomen is sore after the ultrasound yesterday. She is n.p.o. for surgery today. She did sleep some last night. She is voiding without difficulty. Bowels have not moved. Excited to have the surgery and move on Elevated liver function studies yesterday. Exam Vital signs and Labs for Last 24 Hours: Temp Pulse Resp BP Pulse Ox 97.8 F 75 18 158/96 H 95 02/02/19 08:00 02/02/19 08:00 02/02/19 08:00 02/02/19 08:00 02/02/19 08:00 Laboratory Results - last 24 hr 01/31/19 06:34: Urine Color Yellow, Urine Appearance Cloudy, Urine pH 6.0, Ur Specific [place] 1.025, Urine Protein Negative, Urine Glucose (UA) Negative, Urine Ketones Negative, Urine Blood Negative, Urine Nitrate Negative, Urine Bilirubin Negative, Urine Urobilinogen 0.2, Ur Leukocyte Esterase Trace, Urine RBC 3-5, Urine WBC 10-20, Ur Squamous Epith Cells 5-10, Urine Bacteria 4+, Urine Mucus 1+ I & O for Last 24 hours: Intake & Output 01/30/19 01/31/19 02/01/19 02/02/19 11:59 11:59 11:59 11:59 Intake Total 1000 / 1000 3043 / 3043 2229 / 2229 Output Total 1050 / 1050 1475 / 1475 Balance 1000 / 1000 1992 754 / 754 Weight 165 lb 165 lb 8 oz 162 lb Microbiology Reports for the Last 24 Hours: Microbiology 01/31/19 06:34 Urine,Clean Catch Urine Culture - Preliminary Gram Negative Rods Assessment and Plan (1) HTN (hypertension) Current visit: Yes Status: Acute Category: Medical Code(s): I10 - Essential (primary) hypertension (2) Acute cholecystitis Current visit: Yes Status: Acute Category: Medical Code(s): K81.0 - Acute cholecystitis (3) Hypokalemia Current visit: Yes Status: Acute Category: Medical Code(s): E87.6 - Hypokalemia (4) Abnormal results of liver function studies Current visit: Yes Status: Acute Category: Medical Code(s): R94.5 - Abnormal results of liver function studies - Assessment and plan all Dx Assessment and Plan for all problems:: To have cholecystectomy today. <Rogelio Pastor - Last Filed: 02/02/19 08:33> Internal Medicine - PN: Subj *Date: 02/02/19 *Time: 08:32 Exam Vital signs and Labs for Last 24 Hours: Temp Pulse Resp BP Pulse Ox 97.8 F 75 18 158/96 H 95 02/02/19 08:00 02/02/19 08:00 02/02/19 08:00 02/02/19 08:00 02/02/19 08:00 Laboratory Results - last 24 hr 01/31/19 06:34: Urine Color Yellow, Urine Appearance Cloudy, Urine pH 6.0, Ur Specific [place] 1.025, Urine Protein Negative, Urine Glucose (UA) Negative, Urine Ketones Negative, Urine Blood Negative, Urine Nitrate Negative, Urine Bilirubin Negative, Urine Urobilinogen 0.2, Ur Leukocyte Esterase Trace, Urine RBC 3-5, Urine WBC 10-20, Ur Squamous Epith Cells 5-10, Urine Bacteria 4+, Urine Mucus 1+ I & O for Last 24 hours: Intake & Output 01/30/19 01/31/19 02/01/19 02/02/19 23:59 23:59 23:59 23:59 Intake Total 1700 / 1700 3768 / 3768 804 / 804 Output Total 2525 / 2525 Balance 1700 / 1700 1243 / 1243 804 / 804 Weight 165 lb 165 lb 8 oz 162 lb Microbiology Reports for the Last 24 Hours: Microbiology 01/31/19 06:34 Urine,Clean Catch Urine Culture - Preliminary Gram Negative Rods Assessment and Plan (1) HTN (hypertension) Current visit: Yes Status: Acute Category: Medical Code(s): I10 - Essential (primary) hypertension (2) Acute cholecystitis Current visit: Yes Status: Acute Category: Medical Code(s): K81.0 - Acute cholecystitis (3) Hypokalemia Current visit: Yes Status: Acute Category: Medical Code(s): E87.6 - Hypokalemia (4) Abnormal results of liver function studies Current visit: Yes Status: Acute Category: Medical Code(s): R94.5 - Abnormal results of liver function studies - Assessment and plan all Dx Assessment and Plan for all problems:: Saw patient, agree with above note.
[2019-02-02 08:33] LABS: Albumin Level 3.2 gm/dL (3.4-5.0); Bilirubin,Direct 0.2 mg/dL (0.0-0.2); Bilirubin,Indirect 0.3 mg/dL (0.0-0.9); Bilirubin,Total 0.5 mg/dL (0.2-1.0); Total Protein,Serum 6.8 gm/dL (6.4-8.2)
--- NOTE | 2019-02-02 10:18 | Progress Note ---
[facility] Anesthesia Checklist - Patient Identification Patient Identification: Arm Band - Structural Data Admitted From: Inpatient Planned Operative Procedure/s: laparoscopic cholecystectomy Consent for Planned Operative Procedure(s) Verified: Yes Verified Documents: Surgical Consent, History and Physical - NPO Status Verified Time NPO: 00:00 - Additional verifications Anesthesia Reactions: No - Airway Assessment C-Spine Mobility Assessed: Yes (mp2) TMJ Mobility Assessed: Yes Dentition: Good Dentition - Neurological Assessment Level of Consciousness: Awake, Alert - Anesthesia Plan Anesthesia Risk discussed: Yes Anesthesia Plan: Verified ASA Class: II Anesthesia Type: General [facility] History I have reviewed the patient's past medical history: Yes Medical History: Reports:: Cancer (breast cancer 1991), Hyperlipidemia, Hyp ertension Denies:: Diabetes Mellitus Type 1, Diabetes Mellitus Type 2, Internal Pacemaker, Lung Disease, MRSA, Seizures *Have you ever received a pneumonia vaccine?: Yes (2016) *Have you received a flu vaccine this season?: No Anesthesia experience/problems:: nac Laterality Cases: Right: Mastectomy Other Surgeries: Yes: Cancer Surgery, Colonoscopy, EGD, Other (Hiatal hernia repair with mesh and toupet fundoplication at Feb 2018). No: Pacemaker Amputation: No - *Social History Educational Level: Completed Graduate School Smoking Status: Never smoker Alcohol Intake: never Alcohol Intake Frequency:: other Substance Use Type: denies use *Occupational Status:: retired Housing: house Household Members: spouse *Travel in the last 8 weeks: Inside the [facility] Family Hx:: Hypertension
--- NOTE | 2019-02-02 13:01 | Operative Note ---
Date of procedure: 02/02/19 Pre-op Diagnosis:: Cholecystitis Post-op Diagnosis:: Same Procedure performed:: 1. Laparoscopic cholecystectomy with intraoperative cholangiogram 2. Open repair of umbilical hernia Surgeon:: Diony Ramos MD Anesthesia: JU Estimated blood loss (mL): 20 Clinical Note:: Patient is a very pleasant 74-year-old female. She states that earlier this year she had undergone emergent laparoscopic repair of hiatal hernia [facility]. She did have a gastrostomy tube placed at that time as well. She had presented to the emergency department this past weekend with acute onset of epigastric pain. Evaluation in the emergency department included CT scan which revealed radiographic evidence of probable cholecystitis. She was admitted for inpatient management and surgical consultation was obtained the following morning, yesterday, 02/01/2019. She did have some improvement in her symptoms. She underwent dedicated gallbladder ultrasound which revealed gallstones with a 9 mm common bile duct. Plan was made for cholecystectomy the following morning. She did have her liver function tests rechecked as they were slightly elevated on 02/01/2019. She had some improvement in her transaminases but still somewhat above normal. Plan was made for attempt at laparoscopic with possibly open cholecystectomy with probable intraoperative cholangiogram given the ductal dilatation and slight elevation of transaminases. Operative findings:: She had a markedly distended gallbladder with adhesions. She did have adhesions in the epigastrium and right upper quadrant due to prior surgical intervention for hiatal hernia. She had a moderate hernia at the umbilical area with a defect measuring approximately 2-1/2 to 3 cm. Operative note:: Patient was taken to the operating room. She was given preoperative intravenous antibiotics. In the operating room she was placed in a supine position. General anesthesia was induced via endotracheal tube. Her abdomen was prepped and draped in the standard surgical fashion. Supraumbilical incision was made and her prior laparoscopy scar. Blunt dissection was carried down through subcutaneous tissues and the hernia sac was entered. Peritoneal cavity was entered. She did have a moderate sized hernia defect measuring approximately 2- 1/2 to 3 cm. 0 Vicryl fascial stay sutures were placed and Zaman blunt trocar was inserted into the peritoneal cavity. CO2 pneumoperitoneum was achieved to 15 mmHg. Laparoscope was inserted. Laparoscopic surveillance was carried out and she did have some adhesions of the stomach to the anterior abdominal wall and adhesions in the epigastrium from her prior surgical intervention. She was positioned in reverse Trendelenburg left side down. A couple of 5 mm trochars were inserted in the right upper abdomen under laparoscopic visualization. 10 mm trocar was inserted in the epigastrium. Gallbladder was grasped retracted anteriorly and superiorly over the dome of the liver. There were adhesions to the gallbladder which were taken down using blunt dissection. Gallbladder was appreciably distended and elongated. Infundibulum/Vargas's pouch the gallbladder was retracted anterior laterally. Blunt dissection was carried out at the neck of the gallbladder identifying and dissecting free the cystic duct and cystic artery. There was some bleeding from the cystic artery and clips were placed. This resulted in good hemostasis. The cystic duct was clipped proximal to the gallbladder. Through approximately a 2 mm incision in the right upper abdomen taut cholangiocatheter introducer was inserted. Cholangiocatheter was inserted. Small incision was made in the cystic duct and the cholangiocatheter was manipulated into the cystic duct where it was secured with a Hemoclip. Intraoperative cholangiogram was performed using fluoroscopy which revealed filling of the biliary tree without any evidence of obstruction. The common bile duct was generous but there was no evidence of any filling defect or obstruction. Please note that the final radiology report is pending. Patient was repositioned and the cholangiocatheter was removed. The cystic duct was multiply clipped and sharply divided. Cystic artery was carefully coagulated with BECCA ultrasonic harmonic delaney. Gallbladder was dissected free from the liver in a retrograde fashion using BECCA ultrasonic harmonic delaney. Gallbladder was placed within an Endo Catch retrieval device and removed from the peritoneal cavity via the umbilical trocar site. Gallbladder fossa was irrigated and aspirated until clear. There is good hemostasis. Trochars were removed as CO2 pneumoperitoneum was evacuated. At this point inspection of the hernia defect revealed this to be an appreciable hernia. Hernia sac was dissected free from subcutaneous tissues and down to the fascial edges using electrocautery. Ext raneous peritoneum of the hernia sac was sent off as specimen labeled hernia sac. The fascial defect was then closed with multiple interrupted 0 Ethibond sutures. Approximately 8 sutures were placed. Local anesthetic was infiltrated. Skin was closed with 4-0 Monocryl in a subcuticular fashion. Steri-Strips and dressings were applied. Condition: stable Disposition: PACU Specimens:: Gallbladder and contents Hernia sac Complications:: None immediately apparent
--- NOTE | 2019-02-02 13:11 | Progress Note ---
[facility] Anesthesia Record Part I Intake, IV Amount: 1,300 Estimated blood loss (mL): 10 Urine output (mL): 0 Blood Pressure: 153/97 SaO2: 95 Pulse Rate: 91 Respiratory Rate: 16 Temperature: 99 F Patient is:: Drowsy, Stable Stable to PACU at:: 13:00
--- NOTE | 2019-02-02 13:37 | Progress Note ---
[facility] Anesthesia Record Part II Discharge Time: 13:30 Destination: Medical Surgical Department PACU nurse assessment reviewed?: Yes Patient Condition:: Good Anesthesia Complications:: None Swallowing reflex intact?: Yes Cyanosis?: No Blood Pressure: 155/88 Pulse Rate: 72 Temperature: 97.9 F Mental Status: Alert & Oriented Pain level:: 0 Nausea and/or vomitting:: None Intake, IV Amount: 0
--- NOTE | 2019-02-03 06:55 | Progress Note ---
Subjective Patient reports: feels better Exam Vital signs and Labs for Last 24 Hours: Temp Pulse Resp BP Pulse Ox 98.3 F 75 18 166/69 H 95 02/03/19 04:00 02/03/19 04:00 02/03/19 04:00 02/03/19 04:00 02/03/19 04:00 Laboratory Results - last 24 hr 02/02/19 08:10: Total Bilirubin 0.5, Direct Bilirubin 0.2, Indirect Bilirubin 0.3, AST 64 H D, ALT 127 H D, Alkaline Phosphatase 92, Total Protein 6.8, Albumin 3.2 L D I & O for Last 24 hours: Intake & Output 01/31/19 02/01/19 02/02/19 02/03/19 11:59 11:59 11:59 11:59 Intake Total 1000 / 1000 3143 / 3143 2229 / 2229 3338 / 3338 Output Total 1050 / 1050 1475 / 1475 Balance 1000 / 1000 2093 / 2093 754 / 754 3338 / 3338 Weight 165 lb 165 lb 8 oz 162 lb Microbiology Reports for the Last 24 Hours: Microbiology 01/31/19 06:34 Urine,Clean Catch Urine Culture - Final Escherichia coli - *Routine Abdominal Exam Present: soft Progress Note: A&P (1) HTN (hypertension) Status: Acute Current Visit: Yes (2) Acute cholecystitis Status: Acute Current Visit: Yes (3) Hypokalemia Status: Acute Current Visit: Yes (4) Abnormal results of liver function studies Status: Acute Current Visit: Yes Assessment and Plan for All Diagnoses:: Should be okay for discharge home today.
--- NOTE | 2019-02-03 08:10 | Progress Note ---
<Lou Mclean - Last Filed: 02/03/19 08:07> Internal Medicine - PN: Subj *Date: 02/03/19 *Time: 08:07 Interval history: Patient is ready to go home. She did well through the night. She received morphine and Zofran this morning. She is eating without further nausea. She has been up to the bathroom several times throughout the night. Urine culture shows E. coli sensitive to Levaquin which she is on. Exam Vital signs and Labs for Last 24 Hours: Temp Pulse Resp BP Pulse Ox 98.0 F 72 19 156/91 H 95 02/03/19 07:56 02/03/19 07:56 02/03/19 07:56 02/03/19 07:56 02/03/19 07:56 Laboratory Results - last 24 hr 02/02/19 08:10: Total Bilirubin 0.5, Direct Bilirubin 0.2, Indirect Bilirubin 0.3, AST 64 H D, ALT 127 H D, Alkaline Phosphatase 92, Total Protein 6.8, Albumin 3.2 L D I & O for Last 24 hours: Intake & Output 01/31/19 02/01/19 02/02/19 02/03/19 11:59 11:59 11:59 11:59 Intake Total 1000 / 1000 3143 / 3143 2229 / 2229 3338 / 3338 Output Total 1050 / 1050 1475 / 1475 Balance 1000 / 1000 2093 / 2093 754 / 754 3338 / 3338 Weight 165 lb 165 lb 8 oz 162 lb Microbiology Reports for the Last 24 Hours: Microbiology 01/31/19 06:34 Urine,Clean Catch Urine Culture - Final Escherichia coli - Constitutional no acute distress Comments: Sitting up in the bed eating her breakfast - *Routine Respiratory Exam Present: CTA bilaterally (Anteriorly and posteriorly) - *Routine Cardiovascular Exam Present: RRR - *Routine Abdominal Exam Present: soft, normoactive bowel sounds. Absent: distended Comments: Normal postop tenderness. Surgical sites with Telfa are clean and dry - *Routine Extremities Exam Absent: edema, calf tenderness - *Routine Neurological Exam Present: alert, oriented X3 Assessment and Plan (1) HTN (hypertension) Current visit: Yes Status: Acute Category: Medical Code(s): I10 - Essential (primary) hypertension (2) Acute cholecystitis Current visit: Yes Status: Acute Category: Medical Code(s): K81.0 - Acute cholecystitis (3) Hypokalemia Current visit: Yes Status: Acute Category: Medical Code(s): E87.6 - Hypokalemia (4) Abnormal results of liver function studies Current visit: Yes Status: Acute Category: Medical Code(s): R94.5 - Abnormal results of liver function studies (5) E. coli urinary tract infection Current visit: Yes Status: Acute Category: Medical Code(s): N39.0 - Urinary tract infection, site not specified; B96.20 - Unspecified Escherichia coli [E. coli] as the cause of diseases classified elsewhere - Assessment and plan all Dx Assessment and Plan for all problems:: Patient is ready to go home. Discussed diet with her. We will discharged her on antibiotic for her UTI. <Rogelio Pastor - Last Filed: 02/03/19 08:47> Internal Medicine - PN: Subj *Date: 02/03/19 *Time: 08:46 Exam Vital signs and Labs for Last 24 Hours: Temp Pulse Resp BP Pulse Ox 98.0 F 72 19 156/91 H 95 02/03/19 07:56 02/03/19 07:56 02/03/19 07:56 02/03/19 07:56 02/03/19 07:56 I & O for Last 24 hours: Intake & Output 01/31/19 02/01/19 02/02/19 02/03/19 23:59 23:59 23:59 23:59 Intake Total 1700 / 1700 3868 / 3868 3549 / 3549 593 / 593 Output Total 2525 / 2525 Balance 1700 / 1700 1343 / 1343 3549 / 3549 593 / 593 Weight 165 lb 165 lb 8 oz 162 lb Microbiology Reports for the Last 24 Hours: Microbiology 01/31/19 06:34 Urine,Clean Catch Urine Culture - Final Escherichia coli Assessment and Plan (1) HTN (hypertension) Current visit: Yes Status: Acute Category: Medical Code(s): I10 - Essential (primary) hypertension (2) Acute cholecystitis Current visit: Yes Status: Acute Category: Medical Code(s): K81.0 - Acute cholecystitis (3) Hypokalemia Current visit: Yes Status: Acute Category: Medical Code(s): E87.6 - Hypokalemia (4) Abnormal results of liver function studies Current visit: Yes Status: Acute Category: Medical Code(s): R94.5 - Abnormal results of liver function studies (5) E. coli urinary tract infection Current visit: Yes Status: Acute Category: Medical Code(s): N39.0 - Urina ry tract infection, site not specified; B96.20 - Unspecified Escherichia coli [E. coli] as the cause of diseases classified elsewhere - Assessment and plan all Dx Assessment and Plan for all problems:: Saw patient, agree with above note.
--- NOTE | 2019-02-03 16:46 | Discharge Summary ---
General - General Admission date:: 02/02/19 Discharge date: 02/03/19 HPI HPI: 74 year female who was awoken from sleep last night with fairly severe, rated at 9/10, epigastric abdominal pain. She states she had nausea and numerous dry heaves. She denies fever and chills and diarrhea. Patient does have a history of hiatal hernia and gastric outlet obstruction that was treated surgically at in February of 2018. She had a hiatal hernia repair with mesh and a toupet fundoplication. She had an EGD with PEG placement at that time as well. She reports doing well after the surgery and never had to use the PEG tube so it was removed about 6 weeks postoperatively. Hospital Course Hospital Course: The patient had a CT of her abdomen and pelvis showing findings consistent with a developing cholecystitis. Her common duct was dilated down to the ampulla and there was associated intrahepatic ductal dilatation and periportal edema. The patient was admitted and general surgery was consulted. She was seen by Dr. Pavon who started her on Levaquin and ordered an ultrasound. The ultrasound showed cholelithiasis with mild gallbladder distention and mild prominence of the common bile duct at 9 mm. She did begin feeling better. Her liver function tests were elevated. She was given a full liquid diet and still had some symptomatology. Dr. Ramos saw the patient in consultation and felt she would need to proceed with a cholecystectomy while inpatient and made arrangements. She had a cholecystectomy on 02/02/2019 and had an intraoperative cholangiogram which showed a prominent common bile duct without obvious retained common duct stones. There was possible spasm of the distal common bile duct versus a small stricture. Dr. Ramos also repaired an umbilical hernia during the cholecystectomy. The patient tolerated the procedure well and felt much better. Her liver function tests were trending down post-procedure. She began to eat without any nausea and was able to get up and go to the bathroom throughout the night. Her urine culture did return positive for E. coli sensitive to Levaquin, which she was taking. She was stable to be discharged home on pain medication as well as Levaquin. She will follow-up with Dr. Pastor as well as Dr. Ramos. Objective Vital signs: Temp Pulse Resp BP Pulse Ox 98.0 F 72 19 156/91 H 95 02/03/19 07:56 02/03/19 07:56 02/03/19 07:56 02/03/19 07:56 02/03/19 08:00 Narrative: - Constitutional no acute distress - *Routine HEENT Exam Head: Present: normocephalic Eye: Present: EOMI, PERRL ENT: Present: mucous membranes moist - *Routine Neck Exam Present: supple. Absent: lymphadenopathy - *Routine Respiratory Exam Present: CTA bilaterally - *Routine Cardiovascular Exam Present: RRR - *Routine Abdominal Exam Present: soft, normoactive bowel sounds. Absent: tenderness - *Routine Extremities Exam Absent: cyanosis, clubbing, edema - *Routine Skin Exam Present: warm. Absent: rash - *Routine Neurological Exam Present: alert, oriented X3 DS: Diagnosis - Discharge Diagnosis (1) HTN (hypertension) Status: Acute (2) Acute cholecystitis Status: Acute (3) Hypokalemia Status: Acute (4) Abnormal results of liver function studies Status: Acute (5) E. coli urinary tract infection Status: Acute Discharge Plan - Patient Discharge Instructions ACTIVITY: Continue current activity DIET: continue same diet Patient Instructions: Treatments for High Blood Pressure: More Than Just Taking a Pill, DI for Cholecystectomy, DI for Hypokalemia, DI for Surgical Site Infection, DI for Cholecystitis - Follow up Plan Follow up with: Rogelio Pastor MD [Primary Care Provider] - (as needed) Diony Ramos MD [Staff Physician] - 02/19/19 1:00 pm Disposition: Home, Self-Senior Care Medications: Home Medications Medication Instructions Recorded Confirmed Type Nebivolol HCl [Bystolic] 5 mg PO DAILY 01/31/19 01/31/19 History hydroCHLOROthiazide [HCTZ 12.5mg 12.5 mg PO DAILY 01/31/19 01/31/19 History capsule] Hydrocod/Acet 5/325 mg [[place] 1 - 2 tab PO Q6HP PRN #21 tab 02/03/19 Rx 5/325mg tablet] levoFLOXacin [Levaquin 500mg 500 mg PO DAILY #5 tab 02/03/19 Rx tab] Prescriptions/Medication Reconciliation: New Hydrocod/Acet 5/325 mg [[place] 5/325mg tablet] 1 - 2 tab PO Q6HP PRN #21 tab PRN Reason: Moderate Pain levoFLOXacin [Levaquin 500mg tab] 500 mg PO DAILY #5 tab Continued hydroCHLOROthiazide [HCTZ 12.5mg capsule] 12.5 mg PO DAILY Nebivolol HCl [Bystolic] 5 mg PO DAILY - Problem Reconciliation Problems Reviewed?: Yes
== END 2019-02-03 10:56 | disposition home or self-care (01) | DRG 418 ==
LOC: ER 06:21 → 2ND 09:18 → INTOOBSV 09:52
PROVIDERS: ADMIT Family Medicine; ATTEND Family Medicine
CPT/HCPCS: 36415; 74177; 74300; 76705; 80053; 80061; 80076; 81001; 82150; 83690; 83735; 84100; 84484; 85025; 85651; 86140; 87086; 87088; 87186; 87275; 87276; 88302; 88304; 90686; 93005; 96365; 96375; 99284; G0378; J1956; J2405; J2710; Q9967; S0077

== ENCOUNTER → 2019-10-26 09:28 | Outpatient (CLI) | payer MEDICARE, SELFPAY ==
[2019-10-26 10:46] LABS: Alanine Aminotransferase 14 U/L (12-78); Albumin Level 4.1 g/dl (3.5-5.0); Albumin/Globulin Ratio 1.5 (1.1-1.8); Alkaline Phosphatase 81 U/L (38-126); Anion Gap 11.4 mEq/L (5-15); Aspartate Amino Transferase 31 U/L (14-36); Bilirubin,Total 0.6 mg/dl (0.2-1.3); Blood Urea Nitrogen 14 mg/dl (7-17); Calcium 9.8 mg/dl (8.4-10.2); Carbon Dioxide 33 mmol/L (22.0-30.0); Chloride 98 mmol/L (98-107); Chol/HDL Ratio 3.3 (1-3.5); Cholesterol 216 mg/dl (140-200); Estimated Glomerular Filt Rate 97 ml/min (>60); GFR (African American) 118 ML/MIN (>60); Globulin 2.8 g/dL (1.3-3.2); Glucose 100 mg/dl (74-100); HDL Cholesterol 66 mg/dl (40-60); Potassium 4.4 mmoL/L (3.5-5.1); Sodium 138 mmol/L (136-145); Total Protein,Serum 6.9 g/dl (6.3-8.2); Triglycerides 97 mg/dl (30-150); VLDL Cholesterol 19 mg/dL (0-40)
[2019-10-26 11:19] LABS: Thyroid Stimulating Hormone 2.76 uIU/mL (0.465-4.68)
== END ==
PROVIDERS: Visit Provider Physician Assistant
DX: I10 Essential (primary) hypertension (principal); E55.9 Vitamin D deficiency, unspecified
CPT/HCPCS: 36415; 80053; 80061; 82306; 84443

== ENCOUNTER → 2020-05-12 08:08 | Outpatient (CLI) | payer MEDICARE, SELFPAY ==
--- NOTE | 2020-05-12 08:12 | XR_ITS ---
PROCEDURE: XR DEXA AXIAL SKELETON CLINICAL HISTORY: OSTEOPOROSIS COMPARISON: CR DEXAAX XR DEXA axial skeleton from 06/11/2017 FINDINGS: The right hip BMD is 0.635 with a T-score of -1.9. The left hip BMD is 0.624 with a T-score of -2.0. The lumbar spine BMD is 1.020 with a T-score of -0.2. Previously the lowest density was in the right femoral neck with a T-score of -1.5 IMPRESSION: This patient is considered osteopenic according to the World Health Organization criteria. Bone density is between 10 and 25 percent below young normal. Fracture risk is moderate. Treatment is advised. Based on these results a follow-up exam is recommended in 2 year. Dictated by: Alex Crenshaw MD 05/13/2020 03:46 Alex Crenshaw MD in [place] 05/13/2020 03:46
--- NOTE | 2020-05-12 08:12 | MM_ITS ---
PROCEDURE: MM DIG SC MAMM UNILAT LT CAD Digital Breast Tomosynthesis Included CLINICAL INDICATION: SCREENING COMPARISON: MG MM DIG SC MAMM UNILAT LT CAD from 01/22/2019 TECHNIQUE: Standard CC and MLO images and 3D Tomosynthesis was obtained. R2 CAD reviewed. FINDINGS: The left breast is heterogeneously dense, may obscure small masses. Nodular densities are noted in the left breast with central lucency, most likely represents intramammary lymph nodes. No dominant mass lesions, suspicious calcification or architectural distortion is noted. Biopsy marker is noted in the left upper outer quadrant. Benign-appearing calcification noted. IMPRESSION: Intramammary lymph nodes. No suspicious findings. BI-RAD Category: 2 Benign Finding(s) FOLLOW-UP: 1YR 1 Year Follow-up (A letter has been sent to the patient regarding results of the study.) Dictated by: Kayla Doshi 05/17/2020 13:20 Kayla Doshi in [place] 05/17/2020 13:20
== END ==
PROVIDERS: PCP Family Medicine; Visit Provider Family Medicine
DX: Z12.31 Encounter for screening mammogram for malignant neoplasm of breast (principal); M81.0 Age-related osteoporosis without current pathological fracture
CPT/HCPCS: 77063; 77067; 77080

== ENCOUNTER → 2020-08-09 09:01 | Outpatient (CLI) | payer MEDICARE, SELFPAY ==
[2020-08-09 09:20] LABS: Basophils # 0.1 K/mm3 (0-0.2); Basophils % 1.1 % (0.1-2.0); Eosinophils # 0.3 K/mm3 (0.0-0.4); Eosinophils % 3.2 % (0.1-12.0); Hematocrit 47.7 % (37.0-47.0); Hemoglobin 16.3 g/dL (12.2-16.2); Lymphocytes # 1.9 K/mm3 (0.7-4.5); Lymphocytes % 24.3 % (10-50); Mean Corpuscular HGB Conc 34.1 g/dL (31.8-35.4); Mean Corpuscular Hemoglobin 30.2 pg (27.0-31.2); Mean Corpuscular Volume 88.5 fl (81-99); Mean Platelet Volume 7.4 fl (7.4-10.4); Monocytes # 0.6 K/mm3 (0.1-1.0); Monocytes % 7.2 % (1.7-9.3); Neutrophils % 64.2 % (37.0-80.0); Platelet Count 500 K/mm3 (142-424); Red Blood Count 5.39 M/mm3 (4.20-5.40); Red Cell Distribution Width 13.8 % (11.5-17.5); White Blood Count 7.9 K/mm3 (4.8-10.8)
[2020-08-09 09:56] LABS: Anion Gap 11.2 mEq/L (5-15); Blood Urea Nitrogen 16 mg/dl (7-17); Calcium 9.5 mg/dl (8.4-10.2); Carbon Dioxide 34 mmol/L (22.0-30.0); Chloride 96 mmol/L (98-107); Estimated Glomerular Filt Rate 70 ml/min (>60); GFR (African American) 84 ML/MIN (>60); Glucose 105 mg/dl (74-100); Potassium 4.2 mmoL/L (3.5-5.1); Sodium 137 mmol/L (136-145)
== END ==
PROVIDERS: Visit Provider Surgery
DX: C44.629 Squamous cell carcinoma of skin of left upper limb, including shoulder (principal); Z01.812 Encounter for preprocedural laboratory examination; Z20.822 Contact with and (suspected) exposure to COVID-19
CPT/HCPCS: 36415; 80048; 85025; U0003

== ENCOUNTER 2020-08-11 08:58 | Day surgery (SDC) | payer MEDICARE, SELFPAY ==
[2020-08-07 12:53] VITALS: BMI 29.2
[2020-08-11] VITALS (10 sets, daily range): BP systolic 122–191; BP diastolic 51–103; PULSE 67–75; RESP 16–18; TEMP 36.4–36.9; O2SAT 93–98
--- NOTE | 2020-08-11 10:59 | P.PN_ITS ---
[facility] Anesthesia Checklist - Patient Identification Patient Identification: Arm Band - Structural Data Admitted From: Home Planned Operative Procedure/s: Excision neoplasm/lesion of lt hand Consent for Planned Operative Procedure(s) Verified: Yes - NPO Status Verified Time NPO: 00:00 - Additional verifications Anesthesia Reactions: No Hx Blood Transfusions: No Blood Transfusion Reaction: No - Airway Assessment C-Spine Mobility Assessed: Yes TMJ Mobility Assessed: Yes Dentition: Good Dentition - Neurological Assessment Level of Consciousness: Awake Hx Seizures: No Numbness or tingling in extremities: No - Anesthesia Plan Anesthesia Risk discussed: Yes Anesthesia Plan: Verified ASA Class: III Anesthesia Type: General [facility] History I have reviewed the patient's past medical history: Yes Medical History: Reports:: Cancer (breast cancer 1991), Hyperlipidemia, Hypertension Denies:: Diabetes Mellitus Type 1, Diabetes Mellitus Type 2, Internal Pacemaker, Lung Disease, MRSA, Seizures *Have you ever received a pneumonia vaccine?: Yes *Have you received a flu vaccine this season?: Yes Other Medical History: Denies: Blood Transfusion Reaction Anesthesia experience/problems:: None Laterality Cases: Right: Mastectomy Other Surgeries: Yes: Cancer Surgery, Cholecystectomy, Colonoscopy, EGD, Hernia Repair, Other (Hiatal hernia repair with mesh and toupet fundoplication at Feb 2018). No: Pacemaker Amputation: No Fractures: No - *Social History Last grade of school completed: Advanced degree Smoking Status: Never smoker Alcohol Intake: never Alcohol Intake Frequency:: other Substance Use Type: denies use *Occupational Status:: retired Housing: house Household Members: spouse *Travel in the last 8 weeks: None Family Hx:: Hypertension
--- NOTE | 2020-08-11 12:17 | HMH.OPNOTE ---
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 General anesthesia with laryngeal mask airway was achieved. Her left hand was prepped and draped in a sterile fashion. After infiltration with local anesthetic an elliptical incision was made around the lesion. At least a 5 mm margin was achieved (as dictated/limited by location). A combination of sharp dissection with scalpel and electrocautery was utilized to dissect the subcutaneous tissue. The thenar side of the lesion was marked with a short suture and the proximal side of the lesion was marked with a long suture (for orientation). The lesion was excised in toto and passed off for pathologic evaluation. Electrocautery was utilized to achieve hemostasis. The skin was then reapproximated with interrupted 4-0 nylon. Dressings were applied and the patient was transferred to recovery in stable condition after removal of her laryngeal mask airway Condition: stable Disposition: PACU Specimens:: Left hand squamous cell carcinoma Complications:: No immediate
--- NOTE | 2020-08-11 12:28 | P.PN_ITS ---
[facility] Anesthesia Record Part I Intake, IV Amount: 300 Estimated blood loss (mL): 5 Urine output (mL): 0 Blood Pressure: 149/79 SaO2: 93 Pulse Rate: 71 Respiratory Rate: 16 Temperature: 97.6 F Patient is:: Drowsy, Stable Stable to PACU at:: 12:25
--- NOTE | 2020-08-14 08:49 | HMH.ANESII ---
[facility] Anesthesia Record Part II Discharge Time: 12:55 Destination: Surgical Day Care (OP Surgery) PACU nurse assessment reviewed?: Yes Patient Condition:: Good Anesthesia Complications:: None Swallowing reflex intact?: Yes Cyanosis?: No Blood Pressure: 148/69 Pulse Rate: 73 Temperature: 97.5 F Mental Status: Alert & Oriented Pain level:: 0 Nausea and/or vomitting:: None Intake, IV Amount: 0
[2020-08-14 08:50] VITALS: BP 148/69; PULSE 73; TEMP 36.4
== END 2020-08-11 13:50 | disposition home or self-care (01) ==
LOC: OR 08:59
PROVIDERS: PCP Family Medicine; Visit Provider Surgery
DX: C44.629 Squamous cell carcinoma of skin of left upper limb, including shoulder; Z85.3 Personal history of malignant neoplasm of breast; E78.5 Hyperlipidemia, unspecified; I10 Essential (primary) hypertension; Z82.49 Family history of ischemic heart disease and other diseases of the circulatory system
CPT/HCPCS: 11622; 88305

== ENCOUNTER 2020-12-07 11:00 | Emergency (ER) | payer MEDICARE, SELFPAY ==
[2020-12-07 11:29] VITALS: BP 191/97; PULSE 80; RESP 18; TEMP 37; O2SAT 99; BMI 29.2
[2020-12-07 11:36] LABS: Apearance,Urine Clear (Clear); Bilirubin,Urine Negative (Negative); Blood, Urine Negative (Negative); Color,Urine Yellow (Yellow); Glucose,Urine (UA) Negative (Negative); Ketones,Urine Negative (Negative); PH,Urine 5.5 (5.0-8.5); Protein,Urine Negative (Negative); UTC Leukocyte Esterase,Urine Trace (Negative); Urobilinogen,Urine 0.2 EU/dl (0.2)
[2020-12-07 11:37] LABS: UTC Nitrate,Urine Negative (Negative)
--- NOTE | 2020-12-07 11:40 | HMH.EDUTC ---
[facility] Disposition Clinical Impression: UTI (urinary tract infection) Qualifiers: Urinary tract infection type: acute cystitis Hematuria presence: without hematuria Qualified Code(s): N30.00 - Acute cystitis without hematuria Disposition: Home, Self-Care Condition on Discharge: Good Instructions: Urinary Tract Infection Additional Instructions: Increase fluids, water and not soda or tea. Can drink cranberry juice or cranberry extract. White front to back Wear cotton underwear Empty bladder after intercourse Start antibiotics immediately and make sure you take the full course although you may start to see improvement over the next 48 hours. You can eat yogurt or take probiotics to decrease diarrhea or yeast infection caused by the antibiotic Be sure to follow-up anytime for new or worsening symptoms in 48 hours for wound urine culture results be sure to let you PCP no recent urine for culture so they can request records and ensure that you have appropriate antibiotic if you are not getting better or getting worse. If symptoms worsen or do not improve return or be seen in the ER. Follow-up with primary care this week. Prescriptions: cephALEXin [Cephalexin 500mg Tab] 500 mg PO BID 7 Days #14 tab Transmission Status: Pending to [id number] Referrals: Mima Dawson PA [Primary Care Provider] - Time of Disposition: 11:43 Medical Decision Making - Chris Inquiry Pt receiving controlled substance: No Vital Signs: 12/07/20 11:29 Temperature 98.6 F Temperature Source Oral Pulse Rate [Right Radial] 80 Respiratory Rate 18 Blood Pressure [Right Arm] 191/97 H Blood Pressure Mean [Right Arm] 128 Blood Pressure Source [Right Arm] Automatic Cuff Blood Pressure Position [Right Arm] Sitting 02 Sat by Pulse Oximetry 99 Oxygen Delivery Method Room Air - Lab Data Lab Results 12/07/20 11:33: Urine Color Yellow, Urine Appearance Clear, Urine pH 5.5, Ur Specific [place] 1.020, Urine Protein Negative, Urine Glucose (UA) Negative, Urine Ketones Negative, Urine Blood Negative, Urine Nitrate Negative, Urine Bilirubin Negative, Urine Urobilinogen 0.2, Ur Leukocyte Esterase Trace [facility] HPI - General Chief complaint: Urgent Treatment Center Stated complaint: possible uti Time Seen by Provider: 12/07/20 11:40 Mode of Arrival: Ambulatory Source of Information: Patient Limitations: No Limitations Description of Symptoms (Recalled from Triage Doc. by RN): c/o possible UTI HEENT Symptoms (Recalled from RN notes): No Resp Symptoms (Recalled from RN notes): No Skin Symptoms (Recalled from RN notes): No MS Symptoms (Recalled from RN notes): No Functional Status (Recalled from RN notes): n/a - History of Present Illness Provider Complaint: 75 yr old female presents for uti symptoms such as freq,urgency,burning and pressure. - Related Data Home Medications Medication Instructions Recorded Confirmed Nebivolol HCl [Bystolic] 5 mg PO DAILY 01/31/19 08/30/20 hydroCHLOROthiazide [HCTZ 12.5mg 12.5 mg PO DAILY 01/31/19 08/30/20 capsule] raloxifene 60 mg tablet 60 mg PO DAILY tab 08/02/20 08/30/20 irbesartan 300 mg tablet 300 mg PO DAILY tab 08/30/20 08/30/20 Previous Rx's Medication Instructions Recorded cephALEXin [Cephalexin 500mg Tab] 500 mg PO BID 7 Days #14 tab 12/07/20 Allergies Allergy/AdvReac Type Severity Reaction Status Date / Time Penicillins Allergy swelling Verified 08/30/20 14:08 promethazine [From Phenergan] AdvReac Verified 08/30/20 14:08 - Worker's Comp Is this a Worker's Comp case?: No [facility] History - Hepatitis A Screen Drug use history?: No High risk sexual behaviors?: No History of sexually transmitted infection?: No Currently employed?: No Childcare worker?: No Do you have indoor plumbing?: Yes Do you have electricity?: Yes Attestation statement:: This patient has been screened for Hepatitis A risk factors. I have reviewed the patient's past medical history: Yes
[2020-12-07 12:05] VITALS: BP 191/97; PULSE 80; RESP 18; TEMP 37; O2SAT 99
== END 2020-12-07 12:07 | disposition home or self-care (01) ==
PROVIDERS: Emergency Provider Nurse Practitioner Family; PCP Physician Assistant
DX: N30.00 Acute cystitis without hematuria (principal); I10 Essential (primary) hypertension; E78.5 Hyperlipidemia, unspecified
CPT/HCPCS: G0463; 81003; 87086; 99202

== ENCOUNTER → 2021-07-06 10:18 | Outpatient (CLI) | payer MEDICARE, SELFPAY ==
--- NOTE | 2021-07-06 10:22 | MM_ITS ---
PROCEDURE INFORMATION: Exam: MG Left Screening 3D Mammography Exam date and time: 07/06/2021 10:16 AM Age: 76 years old Clinical indication: Screening the mammogram. Left mastectomy for carcinoma TECHNIQUE: Imaging protocol: Left Screening tomosynthesis and 2D mammography including computer-aided detection (CAD) when performed. COMPARISON: 1. MG MM DIG SC MAMM UNILAT LT CAD 05/12/2020 8:32 AM 2. MG MM DIG SC MAMM UNILAT LT CAD 01/22/2019 8:44 AM 3. MG DMSB DIG MAMM-SCREEN JAY W/CAD 02/06/2017 9:16 AM 4. MG DMSUL DIG MAMM-SCREENING UNI-LT 12/18/2015 9:22 AM FINDINGS: MAMMOGRAPHY: Breast composition: The breast is heterogeneously dense, which may obscure small masses. Mass: Stable benign-appearing subcentimeter nodules are present in the left breast. No new or morphologically suspicious nodule has developed to suggest malignancy. Architectural distortion: No new or suspicious architectural distortion. Calcifications: No new or suspicious calcifications are present Asymmetric density: No new or suspicious asymmetric density is present Skin thickening: None. Axillary adenopathy: None. IMPRESSION: No mammographic evidence of malignancy. Recommend annual screening mammography unless otherwise clinically indicated. ASSESSMENT: BI-RADS category 2: Benign
== END ==
PROVIDERS: PCP Physician Assistant; Visit Provider Family Medicine
DX: Z12.31 Encounter for screening mammogram for malignant neoplasm of breast (principal)
CPT/HCPCS: 77063; 77067

== ENCOUNTER → 2022-05-15 11:48 | Outpatient (CLI) | payer MEDICARE, SELFPAY | PROVIDERS: PCP Nurse Practitioner Family; Visit Provider Nurse Practitioner Family | DX: N30.00 Acute cystitis without hematuria (principal); B96.89 Other specified bacterial agents as the cause of diseases classified elsewhere | CPT/HCPCS: 87086; 87088; 87186 ==

== ENCOUNTER → 2022-05-28 08:36 | Outpatient (POV) | payer MEDICARE, SELFPAY | PROVIDERS: Visit Provider Dermatology | DX: Z00.00 Encounter for general adult medical examination without abnormal findings (principal) ==

== ENCOUNTER → 2022-07-09 12:45 | Outpatient (POV) | payer MEDICARE, SELFPAY | PROVIDERS: Visit Provider Dermatology | DX: Z00.00 Encounter for general adult medical examination without abnormal findings (principal) ==

== ENCOUNTER 2023-05-08 09:05 | Outpatient (CLI) | payer MEDICARE, SELFPAY ==
--- NOTE | 2023-05-08 09:10 | XR_ITS ---
FINAL REPORT TECHNIQUE: Bone densitometry calculations of the lumbar spine and left hip were obtained. CLINICAL HISTORY: POSTMENOPAUSAL FINDINGS: Using L1-4, the bone mineral density of the spine is 1.020 g/cm2, corresponding to T-score of -0.2. Using the left hip, the bone mineral density of the femoral neck is 0.783 g/cm2, corresponding to a T-score of -1.3. Using the right hip, the bone mineral density of the femoral neck is 0.831 g/cm2, corresponding to a T-score of -0.9. NOTE: T-score: Standard deviation compared with peak bone mass of young adult mean. *Following the recommendations of the International Society of Bone densitometry, classification of hip BMD is based on the lower of two T-scores; total hip or femoral neck. IMPRESSION: Low bone mineral density of the lumbar spine and hips. Reviewed, Interpreted and Dictated by Diony Johnston III, MD Transcribed by Shantelle Gomes Authenticated and . [facility]
--- NOTE | 2023-05-08 09:10 | MM_ITS ---
PROCEDURE INFORMATION: Exam: MG Left Screening 3D Mammography Exam date and time: 05/08/2023 9:19 AM Age: 78 years old Clinical indication: Screening examination; h/o RT breast cancer treated with mastectomy TECHNIQUE: Imaging protocol: Left Screening tomosynthesis and 2D mammography including computer-aided detection (CAD) when performed. COMPARISON: 1. MG MM DIG SC MAMM UNILAT LT CAD 07/06/2021 10:16 AM 2. MG MM DIG SC MAMM UNILAT LT CAD 05/12/2020 8:32 AM FINDINGS: MAMMOGRAPHY: Breast composition: The breast is heterogeneously dense, which may obscure small masses. Mass: None. Architectural distortion: None. Calcifications: No suspicious calcifications. Asymmetric density: None. Skin thickening: None. Axillary adenopathy: None. Other findings: The patient is status post right mastectomy IMPRESSION: No mammographic evidence of malignancy. Annual screening is recommended unless otherwise clinically indicated. ASSESSMENT: BI-RADS Category 1: Negative
== END 2023-05-08 23:59 ==
LOC: RAD 09:06
PROVIDERS: PCP Physician Assistant; Visit Provider Physician Assistant
DX: Z78.0 Asymptomatic menopausal state (principal); Z12.31 Encounter for screening mammogram for malignant neoplasm of breast
CPT/HCPCS: 77063; 77067; 77080

== ENCOUNTER 2023-07-01 14:22 | Outpatient (CLI) | payer MEDICARE, SELFPAY ==
--- NOTE | 2023-07-01 14:29 | XR_ITS ---
FINAL REPORT CLINICAL HISTORY: cough, wheezing COMPARISON: None FINDINGS: Two views of the chest were obtained. The heart size and pulmonary vascularity are within normal limits. The mediastinum is normal. Mild linear opacities in both lungs are consistent with atelectasis. There is no pneumothorax. The bony thorax is intact. IMPRESSION: Bilateral mild linear opacities consistent with atelectasis. Reviewed, Interpreted and Dictated by Diony Johnston III, MD Transcribed by Lala Crisostomo Authenticated and [facility]
== END 2023-07-01 23:59 | disposition home or self-care (01) ==
PROVIDERS: PCP Family Medicine; Visit Provider Student in an Organized Health Care Education/Training Program
DX: R05.9 Cough, unspecified (principal); R06.2 Wheezing
CPT/HCPCS: 71046; 87635

== ENCOUNTER 2023-07-03 12:27 | Inpatient (IN) | payer MEDICARE, SELFPAY ==
[2023-07-03] VITALS (13 sets, daily range): BP systolic 136–170; BP diastolic 46–111; PULSE 62–83; RESP 16–18; TEMP 36.6–37; O2SAT 90–98; BMI 28.3; BMI 32.6
[2023-07-03 12:55] LABS: Basophils % 0.4 % (0.1-2.0); Eosinophils % 0.2 % (0.1-12.0); Hematocrit 50.1 % (37.0-47.0); Hemoglobin 16.7 g/dL (12.2-16.2); Lymphocytes # 1.4 K/mm3 (0.7-4.5); Lymphocytes % 14.9 % (10-50); Mean Corpuscular HGB Conc 33.3 g/dL (31.8-35.4); Mean Corpuscular Hemoglobin 30.3 pg (27.0-31.2); Mean Corpuscular Volume 91.2 fl (81-99); Mean Platelet Volume 7.5 fl (7.4-10.4); Monocytes # 0.5 K/mm3 (0.1-1.0); Monocytes % 5.4 % (1.7-9.3); Neutrophils # 7.6 K/mm3 (1.8-7.8); Neutrophils % 79.1 % (37.0-80.0); Platelet Count 608 K/mm3 (142-424); Red Blood Count 5.49 M/mm3 (4.20-5.40); Red Cell Distribution Width 14.3 % (11.5-17.5); White Blood Count 9.6 K/mm3 (4.8-10.8)
[2023-07-03 13:04] LABS: Chloride 82 mmol/L (98-107); Potassium 3.5 mmoL/L (3.5-5.1); Sodium 119 mmol/L (136-145)
[2023-07-03 13:07] LABS: Alanine Aminotransferase 23 U/L (12-78); Albumin Level 4.3 g/dl (3.5-5.0); Albumin/Globulin Ratio 1.3 (1.1-1.8); Alkaline Phosphatase 60 U/L (38-126); Anion Gap 14.5 mEq/L (5-15); Aspartate Amino Transferase 40 U/L (14-36); Blood Urea Nitrogen 19 mg/dl (7-17); Calcium 9.2 mg/dl (8.4-10.2); Carbon Dioxide 26 mmol/L (22.0-30.0); Creatinine Clearance Estimated 52 mL/min (50-200); Estimated Glomerular Filt Rate 69 ml/min (>60); GFR (African American) 84 ML/MIN (>60); Globulin 3.2 g/dL (1.3-3.2); Glucose 124 mg/dl (74-100); Total Protein,Serum 7.5 g/dl (6.3-8.2)
[2023-07-03 13:08] LABS: Magnesium 1.6 mg/dl (1.6-2.3)
[2023-07-03] MEDS: LACTATED RINGERS 1000ML 2,000 ML 999 ML IV (13:19)
[2023-07-03] MEDS: ONDANSETRON 4MG/2ML VIAL 4 MG IV ×3 (13:19→22:02)
--- NOTE | 2023-07-03 13:19 | HMH.EDGENADL ---
Discharge Plan Disposition Patient Disposition: Admitted Chief Complaint: Nausea/Vomiting/Diarrhea Prescriptions Prescriptions: No Action raloxifene 60 mg tablet 60 mg PO DAILY Patient Comments: TAKE 1 TABLET BY MOUTH ONCE DAILY irbesartan 300 mg tablet 300 mg PO DAILY Patient Comments: TAKE 1 TABLET BY MOUTH ONCE DAILY metoprolol succinate 100 mg tablet extended release 24 hr 100 mg PO DAILY Patient Comments: TAKE 1 TABLET BY MOUTH ONCE DAILY prednisone 10 mg tablet 10 mg PO BID Qty: 10 0RF levofloxacin 750 mg tablet 750 mg PO DAILY Qty: 7 0RF hydrochlorothiazide 12.5 MG capsule 12.5 mg PO DAILY Patient Comments: TAKE 1 CAPSULE BY MOUTH ONCE DAILY FOR 90 DAYS Referrals Follow up/Referrals: Mima Dawson PA [Primary Care Provider] - See instructions Clinical Impressions Clinical Impression: Acute hyponatremia, Vomiting, Generalized weakness Instructions Patient Instructions: DI for Diarrhea and Traveler's Diarrhea -- Adult, DI for Diarrhea and Traveler's Diarrhea -- Child, DI for Nausea -- Adult, DI for Nausea -- Child Discharge ED Provider: David Bell General Adult HPI General Chief complaint: Nausea/Vomiting/Diarrhea Stated complaint: nausea X2 days Time Seen by Provider: 07/03/23 12:37 Mode of Arrival: Wheelchair Source of Information: Patient Limitations: No Limitations Description of Symptoms (Recalled from ER Triage Doc. by RN): Patient states she was seen at [facility] on Friday and diagnosed with bronchitis was given medication, but is not feeling better, now has been having nausea and vomiting. Unable to tolerate PO intake. Patient denies pain, fever, and diarrhea. History of Present Illness HPI narrative: This is an incredibly pleasant 78-year-old female history of hypertension, hyperlipidemia, recent diagnosis pneumonia presenting with vomiting and decreased p.o. intake. This been going on for a few days. Patient saw family doctor, concern for pneumonia, started on levofloxacin and prednisone. Patient states that she has been vomiting and dry heaving the past few days, largely unable to keep anything down, has been able to keep her antibiotics down however. No fevers or chills, diarrhea, abdominal pain, or any other concerns. Feels that she is dehydrated, weak. No acute, focal complaints. Please note that above description of symptoms, in this electronic medical record under categorization of recalled from ER triage doctor by RN are reflective of an initial nursing assessment, however, is not reflective of my full history and physical exam that was personally taken and clarified. Consequentially, this preceding description of symptoms, which may include the patient's categorized chief complaint in the EMR, do not reflect my personal clinical impression, and the ultimate description of history of present illness and patient stated complaints should be deferred to this section of the note. Unless stated otherwise or congruent with this section of the note, additional signs, symptoms, or incongruence should be interpreted as inaccurate with my clinical impression. Related Data Home Medications Medication Instructions Recorded Confirmed hydrochlorothiazide 12.5 mg capsule 12.5 mg PO DAILY Hypertension 01/31/19 07/01/23 raloxifene 60 mg tablet 60 mg PO DAILY Supplement 08/02/20 07/01/23 irbesartan 300 mg tablet 300 mg PO DAILY 08/30/20 07/01/23 metoprolol succinate 100 mg 100 mg PO DAILY 07/01/23 07/01/23 tablet,extended release 24 hr Previous Rx's Medication Instructions Recorded levofloxacin 750 mg tablet 750 mg PO DAILY #7 tabs 07/01/23 prednisone 10 mg tablet 10 mg PO BID #10 tabs 07/01/23 Allergies Allergy/AdvReac Type Severity Reaction Status Date / Time Penicillins Allergy swelling Verified 07/01/23 13:35 promethazine [From Phenergan] AdvReac Verified 07/01/23 13:35 [facility] Disclaimer: The information contained in this section may have been updated after the patient was seen, as this information can be updated by other users. Medical History Acute cholecystitis Diaphragmatic hernia Gastric outlet obstruction Abnormal results of liver function studies Hypokalemia HTN (hypertension) Diverticulitis Surgical History No significant past surgical history Family History Other No significant family history Social History Smoking Status: Never smoker second hand exposure: Yes alcohol intake: never counseling provided: none substance use type: denies use current occupational status: retired Travel in the last 8 weeks: None household members: spouse housing: house caffeine: Yes ROS Obtained: Yes All systems reviewed & no additional complaints except as documented Physical Exam General General appearance: alert and in no apparent distress Head Head exam: atraumatic and normocephalic Eye Eye exam: Present normal appearance, PERRL and EOMI ENT ENT exam: Present mucous membranes moist Neck Neck exam: Present normal inspection, full ROM and trachea midline Respiratory Respiratory exam: Present normal lung sounds bilaterally; Absent respiratory distress, wheezes, stridor, accessory muscle use or prolonged expiratory phase Cardiovascular Cardiovascular exam: Present normal rhythm and tachycardia Abdominal Exam Abdominal exam: Present soft; Absent distention, tenderness, guarding, rebound or rigidity Extremities Exam Extremities exam: Absent edema Neurological Exam Neurological exam: Present alert, oriented X3, CN II-XII intact and normal gait; Absent motor sensory deficit Skin Skin exam: Present warm and dry; Absent diaphoresis or erythema Medical Decision Making Medical Records Medical records reviewed: Yes I reviewed the patient's medical records. Chris Inquiry Pt receiving controlled substance: No Chris was queried for this patient: No Vital Signs: 07/03/23 12:28 07/03/23 12:41 07/03/23 13:01 Temperature 98.4 F Temperature Source Oral Pulse Rate 63 62 Respiratory Rate 18 Blood Pressure 169/46 H 167/84 H Blood Pressure [Right Arm] 169/66 H Blood Pressure Mean 134 111 Blood Pressure Mean [Right Arm] 100 Blood Pressure Source [Right Arm] Automatic Cuff 02 Sat by Pulse Oximetry 96 95 96 Oxygen Delivery Method Room Air 07/03/23 13:31 07/03/23 14:00 07/03/23 14:31 Temperature Temperature Source Pulse Rate 63 62 64 Respiratory Rate Blood Pressure 136/66 149/78 H 166/83 H Blood Pressure [Right Arm] Blood Pressure Mean 100 101 110 Blood Pressure Mean [Right Arm] Blood Pressure Source [Right Arm] 02 Sat by Pulse Oximetry 91 L 92 L 92 L Oxygen Delivery Method 07/03/23 14:54 Temperature Temperature Source Pulse Rate 67 Respiratory Rate Blood Pressure 170/111 H Blood Pressure [Right Arm] Blood Pressure Mean Blood Pressure Mean [Right Arm] Blood Pressure Source [Right Arm] 02 Sat by Pulse Oximetry 93 L Oxygen Delivery Method Room Air Lab Data Lab Results 07/03/23 12:38: WBC 9.6, RBC 5.49 H, Hgb 16.7 H, Hct 50.1 H, MCV 91.2, MCH 30.3, MCHC 33.3, RDW 14.3, Plt Count 608 H, MPV 7.5, Neut % (Auto) 79.1, Lymph % (Auto) 14.9, [place] % (Auto) 5.4, Eos % (Auto) 0.2, Baso % (Auto) 0.4, Neut # (Auto) 7.6, Lymph # (Auto) 1.4, [place] # (Auto) 0.5, Eos # (Auto) 0.0, Baso # (Auto) 0.0, Sodium 119 L, Potassium 3.5, Chloride 82 L, Carbon Dioxide 26, Anion Gap 14.5, BUN 19 H, Creatinine 0.80, Estimated Creat Clear 52, Estimated GFR 69, Est GFR ( Amer) 84, Glucose 124 H, Calcium 9.2, Magnesium 1.6, Total Bilirubin 1.0, AST 40 H, ALT 23, Alkaline Phosphatase 60, Total Protein 7.5, Albumin 4.3, Globulin 3.2, Albumin/Globulin Ratio 1.3, Lipase 95 07/03/23 12:38 07/03/23 12:38 Orders (Tests/Meds): ED MEDICATIONS Discontinued Medications Generic Name Dose Route Start Last Admin Trade Name Freq PRN Reason Stop Dose Admin Lactated Ringer's 2,000 mls @ 999 mls/hr 07/03/23 12:47 07/03/23 13:19 Lactated Ringer's 1000 Ml Bag IV 07/03/23 14:47 999 mls/hr .Q2H1M ONE Administration Ondansetron HCl 4 mg 07/03/23 12:47 07/03/23 13:19 Ondansetron 4mg/2ml Vial IV 07/03/23 12:48 4 mg ONCE ONE Administration ORDERS Category Date Time Status CBC w/Auto Diff [Complete Blood Count Auto Diff] Stat Lab 07/03/23 12:38 Completed CMP [Comprehensive Metabolic Panel] Stat Lab 07/03/23 12:38 Completed Lipase Stat Lab 07/03/23 12:38 Completed Magnesium Stat Lab 07/03/23 12:38 Completed Medical Decision Narrative: This is an incredibly pleasant 78-year-old female history of hypertension, hyperlipidemia, recent diagnosis pneumonia presenting with vomiting and decreased p.o. intake. This been going on for a few days. Patient saw family doctor, concern for pneumonia, started on levofloxacin and prednisone. Patient states that she has been vomiting and dry heaving the past few days, largely unable to keep anything down, has been able to keep her antibiotics down however. No fevers or chills, diarrhea, abdominal pain, or any other concerns. Feels that she is dehydrated, weak. No acute, focal complaints. History was obtained via conversation with patient and daughter. On arrival, patient hemodynamically stable, alert, oriented x4, appropriate, GCS 15, moving all extremities spontaneously, pupils equal and reactive to light. Full physical exam performed and significant for tachycardic, hypertensive. Overall very well-appearing. Cardio exam within normal limits, no lower extremity edema. Differential includes gastritis, enteritis, ACS, AK, pancreatitis, dehydration, among others Patient was given 2 L fluid, Zofran 4 mg IV for symptomatic management and correction of underlying abnormalities. Workup independently interpreted and significant hypokalemia 119. Otherwise unremarkable workup. On reevaluation, patient feeling better in terms of nausea, still nauseated, but able to tolerate p.o. intake with Gatorade. States he feels generally weak, does not feel comfortable going home given profound weakness. Hospital medicine was contacted and case was discussed at length, patient be admitted for further evaluation. Java Developer [employer] disclaimer Much of this encounter note is an electronic superintendent horticulture spoken language to printed text. Electronic superintendent horticulture of the spoken language may permit errors. Although I have reviewed the note, some errors may still exist. Critical Care Critical Care Time Critical Care Time: No
[2023-07-03 13:33] LABS: Lipase 95 U/L (23-300)
--- NOTE | 2023-07-03 15:36 | PC.NURSE ---
rounded on pt. expressed no needs at this time.
[2023-07-03] MEDS: ACETAMINOPHEN 500MG TAB 1000 MG PO (16:17)
--- NOTE | 2023-07-03 16:19 | PC.NURSE ---
report called to [facility]
--- NOTE | 2023-07-03 16:43 | PC.NURSE ---
b/p not taken on right arm because of limb alert (mastectomy), nurse confirmed pt has history of elevated b/p
--- NOTE | 2023-07-03 16:59 | EXP.HP ---
History of Present Illness *Admission Date: 07/03/23 *Reason for visit:: nausea vomiting *History of present illness: Patient is a 78-year-old female with past medical history of hypertension who presented to hospital due to nausea vomiting and decreased p.o. intake. According to patient, symptoms ongoing for about a week, has been getting worse, she has not been able to hold down any food. Denies any current nausea vomiting. She mentions she feels dehydrated. [facility] Disclaimer: The information contained in this section may have been updated after the patient was seen, as this information can be updated by other users. Medical History Abnormal results of liver function studies Hypokalemia HTN (hypertension) Acute cholecystitis Diverticulitis Diaphragmatic hernia Gastric outlet obstruction Surgical History Hx of cholecystectomy H/O hernia repair History of mastectomy No significant past surgical history Family History Other No significant family history Social History Smoking Status: Never smoker second hand exposure: Yes alcohol intake: never counseling provided: none substance use type: denies use current occupational status: retired Travel in the last 8 weeks: None household members: spouse housing: house caffeine: Yes Review of Systems Review of Systems Review of systems:: pertinent systems reviewed and negative unless documented below Meds Home Medications and Allergies Home Medications Medication Instructions Recorded Confirmed Type hydrochlorothiazide 12.5 mg capsule 12.5 mg PO DAILY Hypertension 01/31/19 07/03/23 History raloxifene 60 mg tablet 60 mg PO DAILY Supplement 08/02/20 07/03/23 History irbesartan 300 mg tablet 300 mg PO DAILY 08/30/20 07/03/23 History levofloxacin 750 mg tablet 750 mg PO DAILY #7 tabs 07/01/23 07/03/23 Rx metoprolol succinate 100 mg 100 mg PO DAILY 07/01/23 07/03/23 History tablet,extended release 24 hr prednisone 10 mg tablet 10 mg PO BID #10 tabs 07/01/23 07/03/23 Rx New Prescriptions to Start Prescriptions: Allergies Allergy/AdvReac Type Severity Reaction Status Date / Time Penicillins Allergy swelling Verified 07/01/23 13:35 promethazine [From Phenergan] AdvReac Verified 07/01/23 13:35 Exam Data for Last 24 hours Vital signs and Labs for Last 24 Hours: Temp Pulse Resp BP Pulse Ox O2 Del Method 98.3 F 83 17 169/92 H 92 L Room Air 07/03/23 16:43 07/03/23 15:31 07/03/23 16:43 07/03/23 16:43 07/03/23 16:43 07/03/23 16:43 Laboratory Results - last 24 hr 07/03/23 12:38: WBC 9.6, RBC 5.49 H, Hgb 16.7 H, Hct 50.1 H, MCV 91.2, MCH 30.3, MCHC 33.3, RDW 14.3, Plt Count 608 H, MPV 7.5, Neut % (Auto) 79.1, Lymph % (Auto) 14.9, [place] % (Auto) 5.4, Eos % (Auto) 0.2, Baso % (Auto) 0.4, Neut # (Auto) 7.6, Lymph # (Auto) 1.4, [place] # (Auto) 0.5, Eos # (Auto) 0.0, Baso # (Auto) 0.0, Sodium 119 L, Potassium 3.5, Chloride 82 L, Carbon Dioxide 26, Anion Gap 14.5, BUN 19 H, Creatinine 0.80, Estimated Creat Clear 52, Estimated GFR 69, Est GFR ( Amer) 84, Glucose 124 H, Calcium 9.2, Magnesium 1.6, Total Bilirubin 1.0, AST 40 H, ALT 23, Alkaline Phosphatase 60, Total Protein 7.5, Albumin 4.3, Globulin 3.2, Albumin/Globulin Ratio 1.3, Lipase 95 I & O for Last 24 hours: Intake & Output 06/30/23 07/01/23 07/02/23 07/03/23 23:59 23:59 23:59 23:59 Weight 86.268 kg Constitutional Constitutional: no acute distress *Routine HEENT Exam Head: Present normocephalic Eye: Present EOMI and PERRL ENT: Present mucous membranes moist *Routine Neck Exam Neck: Present supple; Absent lymphadenopathy *Routine Respiratory Exam Respiratory: Present CTA bilaterally *Routine Cardiovascular Exam Cardiovascular: Present RRR *Routine Abdominal Exam Abdominal: Present soft and normoactive bowel sounds; Absent tenderness *Routine Rectal Exam Rectal:: deferred *Routine Genitalia Exam Genitalia:: deferred *Routine Extremities Exam Extremities: Absent cyanosis, clubbing or edema *Routine Skin Exam Skin: Present warm; Absent rash *Routine Neurological Exam Neurological: Present alert and oriented X3 Assessment and Plan *Assessment and plan (1) Generalized weakness: Status: Acute Category: Medical Code(s): R53.1 - Weakness (2) Vomiting: Status: Acute Category: Medical Code(s): R11.10 - Vomiting, unspecified (3) Acute hyponatremia: Status: Acute Category: Medical Code(s): E87.1 - Hypo-osmolality and hyponatremia (4) HTN (hypertension): Status: Acute Qualifiers: Hypertension type: unspecified Qualified Code(s): I10 - Essential (primary) hypertension Category: Medical Code(s): I10 - Essential (primary) hypertension Plan Patient is a 78-year-old female with past medical history of hypertension who presented to hospital due to nausea vomiting and decreased p.o. intake. According to patient, symptoms ongoing for about a week, has been getting worse, she has not been able to hold down any food. Denies any current nausea vomiting. She mentions she feels dehydrated. Assessment and plan Hyponatremia likely secondary to dehydration Nausea vomiting Likely viral gastroenteritis Decreased p.o. intake Started on IV normal saline, check BMP every 12 hours Monitor and replace electrolytes Hold diuretics including HCTZ, irbesartan Hypotension Okay to continue metoprolol DVT prophylaxis-heparin
--- NOTE | 2023-07-03 17:14 | PC.NURSE ---
Patient new admit from ER. Patient a&ox4 and vss.
[2023-07-03] MEDS: 0.9 % SODIUM CHLORIDE 1000ML 1,000 ML 75 ML IV (18:01)
[2023-07-03] MEDS: predniSONE 10MG TAB 10 MG PO (20:26)
[2023-07-03] MEDS: PROCHLORPERAZINE 10MG/2ML VIAL 5 MG IV (23:24)
[2023-07-04] VITALS (7 sets, daily range): BP systolic 133–169; BP diastolic 61–109; PULSE 72–84; RESP 17–18; TEMP 36.6–37.2; O2SAT 92–95; BMI 33.1
--- NOTE | 2023-07-04 04:27 | PC.NURSE ---
Compazine worked well for nausea. Has a frontal H/A and requesting Tylenol. Has congested cough now. Justyn Lopez ACNP notified.
[2023-07-04] MEDS: ACETAMINOPHEN 325MG TAB 650 MG PO (04:36)
[2023-07-04] MEDS: guaiFENesin 600 MG TAB.ER.12H PO (04:36)
--- NOTE | 2023-07-04 04:49 | PC.NURSE ---
BP 166/109. PATIENT COUGHING/CONGESTED. Justyn ODONNELL ACNP NOTIFIED AND ORDERS FOR TYLENOL 650 MG AND MUCINEX 600 MG RECEIVED AND ADMINISTERED AT 0436. ER NURSE Chucky GREEN RN CAME AND INSERTED #18 G U/S GUIDED IV INTO NERY IV SITE TO LFA INFILTRATED AND IV SITE TO LAC PATENT BUT VERY POSITIONAL.
--- NOTE | 2023-07-04 05:15 | PC.NURSE ---
IVFs WILL NOT INFUSE TO NEW U/S GUIDED IV NERY OR LAC. (LFA SITE INFILTRATED AND REMOVED). HAS HAD A MASTECTOMY AND SAYS NO STICKS IN THE RA. Justyn ODONNELL [facility] NOTIFIED.
[2023-07-04 06:11] LABS: Basophils % 0.3 % (0.1-2.0); Eosinophils # 0.1 K/mm3 (0.0-0.4); Eosinophils % 0.5 % (0.1-12.0); Hematocrit 46.9 % (37.0-47.0); Hemoglobin 15.6 g/dL (12.2-16.2); Lymphocytes # 1.2 K/mm3 (0.7-4.5); Lymphocytes % 12.6 % (10-50); Mean Corpuscular HGB Conc 33.2 g/dL (31.8-35.4); Mean Corpuscular Hemoglobin 30.4 pg (27.0-31.2); Mean Corpuscular Volume 91.4 fl (81-99); Mean Platelet Volume 7.8 fl (7.4-10.4); Monocytes # 0.6 K/mm3 (0.1-1.0); Neutrophils # 7.8 K/mm3 (1.8-7.8); Neutrophils % 80.5 % (37.0-80.0); Platelet Count 527 K/mm3 (142-424); Red Blood Count 5.14 M/mm3 (4.20-5.40); Red Cell Distribution Width 14.4 % (11.5-17.5); White Blood Count 9.7 K/mm3 (4.8-10.8)
[2023-07-04 06:23] LABS: Anion Gap 12.7 mEq/L (5-15); Blood Urea Nitrogen 14 mg/dl (7-17); Calcium 8.3 mg/dl (8.4-10.2); Carbon Dioxide 24 mmol/L (22.0-30.0); Chloride 85 mmol/L (98-107); Creatinine Clearance Estimated 63 mL/min (50-200); Estimated Glomerular Filt Rate 96 ml/min (>60); GFR (African American) 117 ML/MIN (>60); Glucose 106 mg/dl (74-100); Potassium 3.7 mmoL/L (3.5-5.1); Sodium 118 mmol/L (136-145)
--- NOTE | 2023-07-04 07:13 | HMH.PHAINT1 ---
Pharmacy Intervention Comments: MEDICATION RECONCILIATION COMPLETED ON PATIENT USING EXTERNAL FILL HISTORY FROM PHARMACY AND DISCHARGE SUMMARY FROM ER VISIT. -VÍCTOR ALEXANDER, TAMMID
--- NOTE | 2023-07-04 08:37 | XR_ITS ---
FINAL REPORT CLINICAL HISTORY: wheezing COMPARISON: 07/01/2023 FINDINGS: A single portable view of the chest was obtained. Cardiomegaly is present. The mediastinum is within normal limits. There is linear bilateral atelectasis present in the lung abarca. On today's examination, multiple foreign bodies overlie the upper abdomen, and appear to be on the patient. The bony thorax is intact. IMPRESSION: Linear atelectasis present in the lung abarca bilaterally. There are multiple foreign bodies overlying the upper abdomen, which appear to be on the surface of the patient. Reviewed, Interpreted and Dictated by Diony Johnston III, MD Transcribed by Ssuan Art Authenticated and [facility]
--- NOTE | 2023-07-04 08:41 | EXP.ACUTE.PN ---
Subjective *Date: 07/04/23 *Time: 09:10 Interval history: Ms. Daugherty was inadvertently admitted to the hospitalist and is a patient of [facility], therefore we will be assuming care. She states that she had what she thought was bronchitis and was seen in the urgent treatment center and started on Levaquin and prednisone at the beginning of the week. She took 3 doses of Levaquin before admission to the hospital. She started having nausea, vomiting, and diarrhea a few days ago and has been unable to eat or drink anything. She was found to have hyponatremia in the ER and was admitted. IV access has been difficult, therefore she has not had appropriate fluids. She is now able to drink and would like gatorade. Medical Exam Vital signs and Labs for Last 24 Hours: Vital Signs Temp Pulse Pulse Resp BP BP BP 07/04/23 07:59 97.9 F 84 18 159/90 H 07/04/23 06:29 07/04/23 04:43 07/04/23 04:00 98.1 F 80 17 166/109 H 07/04/23 03:00 07/04/23 00:53 07/03/23 23:54 98.6 F 77 18 158/94 H 07/03/23 23:00 07/03/23 20:51 07/03/23 19:53 07/03/23 19:43 98.4 F 72 16 156/83 H 07/03/23 16:58 98 F 83 18 169/92 H 07/03/23 16:43 98.3 F 17 169/92 H 07/03/23 15:31 83 169/88 H 07/03/23 14:54 67 170/111 H 07/03/23 14:31 64 166/83 H 07/03/23 14:00 62 149/78 H 07/03/23 13:31 63 136/66 07/03/23 13:01 62 167/84 H 07/03/23 12:41 63 169/46 H 07/03/23 12:28 98.4 F 18 169/66 H Pulse Ox O2 Del Method 07/04/23 07:59 92 L Room Air 07/04/23 06:29 Room Air 07/04/23 04:43 Room Air 07/04/23 04:00 93 L Room Air 07/04/23 03:00 Room Air 07/04/23 00:53 Room Air 07/03/23 23:54 90 L Room Air 07/03/23 23:00 Room Air 07/03/23 20:51 Room Air 07/03/23 19:53 90 L Room Air 07/03/23 19:43 90 L Room Air 07/03/23 16:58 Room Air 07/03/23 16:43 92 L Room Air 07/03/23 15:31 98 Room Air 07/03/23 14:54 93 L Room Air 07/03/23 14:31 92 L 07/03/23 14:00 92 L 07/03/23 13:31 91 L 07/03/23 13:01 96 07/03/23 12:41 95 07/03/23 12:28 96 Room Air Intake and Output 07/03/23 07/04/23 07/04/23 19:59 03:59 11:59 Intake Total 270 / 2068 1057 / 2068 741 / 2068 Output Total 0 / 2 2 / 2 0 / 2 Balance 270 / 2066 1055 / 2066 741 / 2066 Intake: Intake, Oral Amount 270 / 1525 880 / 1525 375 / 1525 Intake, Total IV Amount 177 / 543 366 / 543 0.9 % Sodium Chloride 1000ML 1, 177 / 543 366 / 543 000 ml @ 75 mls/hr IV .[id number] [facility] Rx#:[id number] Output: Output, Urine Amount 0 / 2 2 / 2 0 / 2 Other: Number of Voids 3 Number of Unmeasured Voids 1 1 1 Weight 190 lb 3 oz 194 lb 3.2 oz Patient Weight 07/04/23 11:59 Weight 194 lb 3.2 oz Laboratory Results - last 24 hr 07/03/23 12:38: WBC 9.6, RBC 5.49 H, Hgb 16.7 H, Hct 50.1 H, MCV 91.2, MCH 30.3, MCHC 33.3, RDW 14.3, Plt Count 608 H, MPV 7.5, Neut % (Auto) 79.1, Lymph % (Auto) 14.9, [place] % (Auto) 5.4, Eos % (Auto) 0.2, Baso % (Auto) 0.4, Neut # (Auto) 7.6, Lymph # (Auto) 1.4, [place] # (Auto) 0.5, Eos # (Auto) 0.0, Baso # (Auto) 0.0, Sodium 119 L, Potassium 3.5, Chloride 82 L, Carbon Dioxide 26, Anion Gap 14.5, BUN 19 H, Creatinine 0.80, Estimated Creat Clear 52, Estimated GFR 69, Est GFR ( Amer) 84, Glucose 124 H, Calcium 9.2, Magnesium 1.6, Total Bilirubin 1.0, AST 40 H, ALT 23, Alkaline Phosphatase 60, Total Protein 7.5, Albumin 4.3, Globulin 3.2, Albumin/Globulin Ratio 1.3, Lipase 95 07/04/23 05:52: WBC 9.7, RBC 5.14, Hgb 15.6, Hct 46.9, MCV 91.4, MCH 30.4, MCHC 33.2, RDW 14.4, Plt Count 527 H, MPV 7.8, Neut % (Auto) 80.5 H, Lymph % (Auto) 12.6, [place] % (Auto) 6.0, Eos % (Auto) 0.5, Baso % (Auto) 0.3, Neut # (Auto) 7.8, Lymph # (Auto) 1.2, [place] # (Auto) 0.6, Eos # (Auto) 0.1, Baso # (Auto) 0.0, Sodium 118 L, Potassium 3.7, Chloride 85 L, Carbon Dioxide 24, Anion Gap 12.7, BUN 14 D, Creatinine 0.60 D, Estimated Creat Clear 63, Estimated GFR 96, Est GFR ( Amer) 117 D, Glucose 106 H, Calcium 8.3 L I & O for Labs for Last 24 Hours: Intake & Output 07/01/23 07/02/23 07/03/23 07/04/23 11:59 11:59 11:59 11:59 Intake Total 2067 Output Total Balance 2065 Weight 194 lb 3.2 oz Constitutional: Present no acute distress Respiratory: Present rhonchi and wheezes Cardiac: Present Reg Rate and Rhythm GI: Present soft and tenderness (diffuse); Absent distention Extremities: Present edema (bilateral LE) Skin: Present intact Neuro: Present alert and awake Assessment and Plan *Assessment and plan (1) Acute hyponatremia: Status: Acute Category: Medical Code(s): E87.1 - Hypo-osmolality and hyponatremia (2) Vomiting: Status: Acute Category: Medical Code(s): R11.10 - Vomiting, unspecified (3) Bronchitis: Status: Acute Category: Medical Code(s): J40 - Bronchitis, not specified as acute or chronic (4) Generalized weakness: Status: Acute Category: Medical Code(s): R53.1 - Weakness (5) HTN (hypertension): Status: Acute Qualifiers: Hypertension type: unspecified Qualified Code(s): I10 - Essential (primary) hypertension Category: Medical Code(s): I10 - Essential (primary) hypertension Plan Will get a respiratory panel and a CXR. Will start on nebs. Will get a midline for IV access so she can receive IVF's. Dr. Pastor entry - Saw patient, agree with above note.
[2023-07-04] MEDS: METOPROLOL SUCCINATE XL 100MG TABLET 100 MG PO (09:30)
[2023-07-04] MEDS: predniSONE 10MG TAB 10 MG PO ×2 (09:33→20:01)
[2023-07-04] MEDS: ALBUTEROL 0.083% 2.5 MG/3 ML NEB IH ×3 (10:05→19:02)
[2023-07-04] MEDS: RALOXIFENE 60 MG 60 EACH PO (10:05)
[2023-07-04 10:46] LABS: Adenovirus,PCR Not Detected (NotDetected); Bordetella Pertussis Not Detected (NotDetected); Chlamydophila Pneumoniae, PCR Not Detected (NotDetected); Coronavirus 19, PCR Not Detected (NotDetected); Coronavirus 229E Not Detected (NotDetected); Coronavirus NL63 Not Detected (NotDetected); Coronavirus OC43 Not Detected (NotDetected); Coronovirus HKU1,PCR Not Detected (NotDetected); Human Metapneumovirus Not Detected (NotDetected); Influenza A, PCR Not Detected (NotDetected); Influenza AH1, 2009 Not Detected (NotDetected); Influenza AH1, PCR Not Detected (NotDetected); Influenza AH3,PCR Not Detected (NotDetected); Influenza B, PCR Not Detected (NotDetected); Mycoplasma Pneumoniae, PCR Not Detected (NotDetected); Parainfluenza 1, PCR Not Detected (NotDetected); Parainfluenza 2, PCR Not Detected (NotDetected); Parainfluenza 4, PCR Not Detected (NotDetected); Respiratory Syncytial Virus Not Detected (NotDetected); Rhinovirus/Enterovirus Not Detected (NotDetected)
[2023-07-04 13:41] LABS: Parainfluenza 3, PCR Detected (NotDetected)
--- NOTE | 2023-07-04 18:21 | PC.NURSE ---
Pt has been up to chair this afternoon. Ambulated to BR with assist x1. Tolerated well. Midline to NERY. DSG changed this afternoon due to bloody drainage. Upon assessment this evening, it is C/D/I and is patent. NS infusing @ 75 ml/hr. No complaints stated. Call light within reach. Family at bedside.
[2023-07-04] MEDS: 0.9 % SODIUM CHLORIDE 1000ML 1,000 ML 75 ML IV (18:41)
[2023-07-04] MEDS: LEVOFLOXACIN/D5W 750 MG/150 ML 750 MG/150 ML PIGGYBACK 100 MG IV (18:42)
[2023-07-04] MEDS: ONDANSETRON 4MG/2ML VIAL 4 MG IV (23:04)
[2023-07-05] VITALS (8 sets, daily range): BP systolic 118–180; BP diastolic 74–99; PULSE 62–80; RESP 16–22; TEMP 36.5–37.1; O2SAT 92–95; BMI 33.1
[2023-07-05] MEDS: ACETAMINOPHEN 325MG TAB 650 MG PO (00:21)
--- NOTE | 2023-07-05 04:00 | PC.NURSE ---
paged dr sheffield regarding patient accidentally pulling her midline out when getting up to go to the bathroom. Stated patient has some intermittent confusion when going into the room, had an episode of vomiting, and made him aware of patients last sodium level and that shes been receiving iv normal saline and prn nausea med. he stated to not page surgery for midline placement that they aren't going to come out at [address] a line and to put a consult in for the morning. stated if we cant get iv access to switch her nausea meds to po.
[2023-07-05] MEDS: ONDANSETRON 4MG/2ML VIAL 4 MG IV ×3 (04:27→17:50)
--- NOTE | 2023-07-05 05:01 | PC.NURSE ---
paged dr sheffield over patients pressure being 180/95, stated to give 5mg amlodipine x1.
[2023-07-05] MEDS: AMLODIPINE 5MG TABLET 5 MG PO (05:06)
--- NOTE | 2023-07-05 06:04 | PC.NURSE ---
spoke with dr sheffield regarding placing iv in right side due to no sticks from a prior mastectomy. stated it was okay to use that arm for iv access
[2023-07-05] MEDS: ALBUTEROL 0.083% 2.5 MG/3 ML NEB IH ×3 (06:07→14:05)
--- NOTE | 2023-07-05 06:29 | PC.NURSE ---
pt had some intermittent confusion this shift, nausea and one episode of vomiting. pt is receiving iv fluids. daughter at bedside,
[2023-07-05 08:29] LABS: Potassium 3.4 mmoL/L (3.5-5.1)
[2023-07-05 08:31] LABS: Anion Gap 12.4 mEq/L (5-15); Blood Urea Nitrogen 8 mg/dl (7-17); Calcium 8.2 mg/dl (8.4-10.2); Carbon Dioxide 29 mmol/L (22.0-30.0); Chloride 77 mmol/L (98-107); Creatinine Clearance Estimated 63 mL/min (50-200); Estimated Glomerular Filt Rate 119 ml/min (>60); GFR (African American) 144 ML/MIN (>60); Glucose 109 mg/dl (74-100)
[2023-07-05 08:37] LABS: Sodium 115 mmol/L (136-145)
[2023-07-05 08:43] LABS: Basophils % 0.3 % (0.1-2.0); Eosinophils % 0.1 % (0.1-12.0); Hematocrit 47.3 % (37.0-47.0); Hemoglobin 16.2 g/dL (12.2-16.2); Lymphocytes # 1.5 K/mm3 (0.7-4.5); Lymphocytes % 13.3 % (10-50); Mean Corpuscular HGB Conc 34.2 g/dL (31.8-35.4); Mean Corpuscular Hemoglobin 30.7 pg (27.0-31.2); Mean Corpuscular Volume 89.9 fl (81-99); Mean Platelet Volume 8.1 fl (7.4-10.4); Monocytes # 0.7 K/mm3 (0.1-1.0); Monocytes % 6.5 % (1.7-9.3); Neutrophils # 8.9 K/mm3 (1.8-7.8); Neutrophils % 79.7 % (37.0-80.0); Platelet Count 659 K/mm3 (142-424); Red Blood Count 5.27 M/mm3 (4.20-5.40); Red Cell Distribution Width 14.5 % (11.5-17.5); White Blood Count 11.2 K/mm3 (4.8-10.8)
--- NOTE | 2023-07-05 08:58 | P.PN_ITS ---
Subjective *Date: 07/05/23 *Time: 08:58 Interval history: Patient had some confusion overnight and pulled out her mid line. A new peripheral IV was started. She feels a little better this morning but is still nauseated. Medical Exam Vital signs and Labs for Last 24 Hours: Vital Signs Temp Pulse Pulse Resp BP BP Pulse Ox 07/05/23 07:31 97.7 F 69 22 118/74 95 07/05/23 06:34 07/05/23 06:23 69 07/05/23 06:23 71 07/05/23 05:00 07/05/23 04:00 98.7 F 62 18 180/95 H 92 L 07/05/23 03:00 07/05/23 01:00 80 16 130/95 H 95 07/05/23 01:00 07/04/23 23:00 07/04/23 21:00 07/04/23 19:48 98.5 F 72 18 169/61 H 92 L 07/04/23 19:30 07/04/23 18:31 07/04/23 17:00 07/04/23 16:00 98.7 F 73 18 133/72 95 07/04/23 15:00 07/04/23 14:13 78 07/04/23 14:13 77 07/04/23 13:00 07/04/23 12:00 99.0 F 74 18 138/84 94 L 07/04/23 11:00 07/04/23 10:17 82 07/04/23 10:17 84 07/04/23 09:00 O2 Del Method 07/05/23 07:31 Room Air 07/05/23 06:34 Room Air 07/05/23 06:23 07/05/23 06:23 07/05/23 05:00 Room Air 07/05/23 04:00 Room Air 07/05/23 03:00 Room Air 07/05/23 01:00 Room Air 07/05/23 01:00 Room Air 07/04/23 23:00 Room Air 07/04/23 21:00 Room Air 07/04/23 19:48 Room Air 07/04/23 19:30 Room Air 07/04/23 18:31 Room Air 07/04/23 17:00 Room Air 07/04/23 16:00 Room Air 07/04/23 15:00 Room Air 07/04/23 14:13 07/04/23 14:13 07/04/23 13:00 Room Air 07/04/23 12:00 Room Air 07/04/23 11:00 Room Air 07/04/23 10:17 07/04/23 10:17 07/04/23 09:00 Room Air Intake and Output 07/04/23 07/05/23 07/05/23 23:59 07:59 15:59 Intake Total 1182 / 2668 475 / 475 Output Total 0 / 0 0 / 0 Balance 1182 / 2668 475 / 475 Intake: Intake, Oral Amount 1182 / 1927 100 / 100 Intake, Total IV Amount 375 / 375 0.9 % Sodium Chloride 1000ML 1, 375 / 375 000 ml @ 75 mls/hr IV .[id number] [facility] Rx#:[id number] Output: Output, Urine Amount 0 / 0 0 / 0 Other: Number of Voids 1 Number of Unmeasured Voids 2 1 Weight 194 lb 0.108 oz Patient Weight 07/05/23 23:59 Weight 194 lb 0.108 oz Laboratory Results - last 24 hr 07/04/23 10:40: Chlamy pneumoniae PCR Not detected, Adenovirus (PCR) Not detected, B. pertussis DNA (PCR) Not detected, Coronavirus OC43 (PCR) Not detected, Coronavirus HKU1 (PCR) Not detected, Coronavirus 229E (PCR) Not detected, SARS-CoV-2 (PCR) Not detected, Coronavirus NL63 (PCR) Not detected, Human Metapneumovir PCR Not detected, Influenza A (H1) PCR Not detected, Influ A (H1N1/09) PCR Not detected, Influenza A (H3) PCR Not detected, Influenza Type A (PCR) Not detected, Influenza Type B (PCR) Not detected, M. pneumoniae (PCR) Not detected, Parainfluenza 1 (PCR) Not detected, Parainfluenza 2 (PCR) Not detected, Parainfluenza 3 (PCR) Detected A, Parainfluenza 4 (PCR) Not detected, RSV (PCR) Not detected, Entero/Rhino (PCR) Not detected 07/05/23 06:30: Sodium 115 L, Potassium 3.4 L, Chloride 77 L, Carbon Dioxide 29, Anion Gap 12.4, BUN 8 D, Creatinine 0.50 L, Estimated Creat Clear 63, Estimated GFR 119, Est GFR ( Amer) 144 D, Glucose 109 H, Calcium 8.2 L I & O for Labs for Last 24 Hours: Intake & Output 07/02/23 07/03/23 07/04/23 07/05/23 23:59 23:59 23:59 23:59 Intake Total 1327 / 1327 2193 / 2668 475 / 475 Output Total / 0 / 0 0 / 0 Balance 1325 / 1325 2193 / 2668 475 / 475 Weight 190 lb 3 oz 194 lb 0.108 oz 194 lb 0.108 oz Constitutional: Present no acute distress Respiratory: Present normal respiratory effort Cardiac: Present Reg Rate and Rhythm GI: Present normal bowel sounds; Absent tenderness Extremities: Present normal inspection and full ROM Skin: Present intact; Absent erythema Neuro: Present Grossly Intact and moves all extremities Assessment and Plan *Assessment and plan (1) Acute hyponatremia: Status: Acute Category: Medical Code(s): E87.1 - Hypo-osmolality and hyponatremia (2) Vomiting: Status: Acute Category: Medical Code(s): R11.10 - Vomiting, unspecified (3) Bronchitis: Status: Acute Category: Medical Code(s): J40 - Bronchitis, not specified as acute or chronic (4) Generalized weakness: Status: Acute Category: Medical Code(s): R53.1 - Weakness (5) HTN (hypertension): Status: Acute Qualifiers: Hypertension type: unspecified Qualified Code(s): I10 - Essential (primary) hypertension Category: Medical Code(s): I10 - Essential (primary) hypertension Plan Will give some hypertonic saline today and recheck labs tomorrow. Add Lovenox for DVT prophylaxis.
[2023-07-05] MEDS: SODIUM CHLORIDE 3% 45 ML IV ×2 (09:23→22:19)
[2023-07-05] MEDS: ENOXAPARIN 40MG/0.4ML SYRINGE 40 MG SQ (09:24)
[2023-07-05] MEDS: RALOXIFENE 60 MG 60 EACH PO (09:25)
[2023-07-05] MEDS: METOPROLOL SUCCINATE XL 100MG TABLET 100 MG PO (09:25)
[2023-07-05] MEDS: predniSONE 10MG TAB 10 MG PO ×2 (09:26→20:45)
[2023-07-05] MEDS: LEVOFLOXACIN/D5W 750 MG/150 ML 750 MG/150 ML PIGGYBACK 100 MG IV (14:39)
--- NOTE | 2023-07-05 18:29 | PC.NURSE ---
no acute events this shift. has sat up to chair for most of the day. tolerating room air and ambulating to restroom. medicated for n/v x2 this shift.
--- NOTE | 2023-07-05 22:17 | PC.NURSE ---
Spoke to Angela regarding fluid order, Angela stated she would fix the order to [facility] i will be able to scan the new 500ml bag, Patient has currently only gotten 1 500ml bag, a 2nd bag needs to be hung in order to complete the order
[2023-07-05 22:30] LABS: Chloride 88 mmol/L (98-107)
[2023-07-05 22:31] LABS: Potassium 4.3 mmoL/L (3.5-5.1)
[2023-07-05 22:33] LABS: Anion Gap 10.3 mEq/L (5-15); Blood Urea Nitrogen 7 mg/dl (7-17); Carbon Dioxide 21 mmol/L (22.0-30.0); Creatinine Clearance Estimated 63 mL/min (50-200); Estimated Glomerular Filt Rate 154 ml/min (>60); GFR (African American) 186 ML/MIN (>60)
[2023-07-05 22:34] LABS: Calcium 8.1 mg/dl (8.4-10.2); Glucose 100 mg/dl (74-100)
[2023-07-05 22:42] LABS: Sodium 115 mmol/L (136-145)
[2023-07-06 04:00] VITALS: BP 162/87; PULSE 86; RESP 18; TEMP 37; O2SAT 94; BMI 34.0
--- NOTE | 2023-07-06 04:52 | PC.NURSE ---
Patient has had a great shift. Patient was up in the chair when RN came on shift and once patient got into the bed has been able to rest through the night. Has been up to void a couple times and has done well with 1 assist. No other issues this shift
[2023-07-06] MEDS: ALBUTEROL 0.083% 2.5 MG/3 ML NEB IH (06:46)
[2023-07-06 06:50] VITALS: PULSE 70; PULSE 72
[2023-07-06 08:00] VITALS: BP 163/95; PULSE 76; RESP 22; TEMP 36.9; O2SAT 94
[2023-07-06 08:13] LABS: Basophils % 0.3 % (0.1-2.0); Eosinophils % 0.1 % (0.1-12.0); Hematocrit 46.7 % (37.0-47.0); Hemoglobin 15.9 g/dL (12.2-16.2); Lymphocytes # 1.4 K/mm3 (0.7-4.5); Lymphocytes % 15.3 % (10-50); Mean Corpuscular HGB Conc 34.1 g/dL (31.8-35.4); Mean Platelet Volume 7.5 fl (7.4-10.4); Monocytes # 0.8 K/mm3 (0.1-1.0); Neutrophils # 7.2 K/mm3 (1.8-7.8); Neutrophils % 76.4 % (37.0-80.0); Platelet Count 620 K/mm3 (142-424); Red Blood Count 5.13 M/mm3 (4.20-5.40); Red Cell Distribution Width 14.5 % (11.5-17.5); White Blood Count 9.5 K/mm3 (4.8-10.8)
[2023-07-06 08:18] LABS: Chloride 94 mmol/L (98-107); Potassium 3.5 mmoL/L (3.5-5.1); Sodium 127 mmol/L (136-145)
[2023-07-06 08:21] LABS: Anion Gap 8.5 mEq/L (5-15); Blood Urea Nitrogen 8 mg/dl (7-17); Carbon Dioxide 28 mmol/L (22.0-30.0); Creatinine Clearance Estimated 65 mL/min (50-200); Estimated Glomerular Filt Rate 96 ml/min (>60); GFR (African American) 117 ML/MIN (>60)
[2023-07-06 08:22] LABS: Calcium 8.5 mg/dl (8.4-10.2); Glucose 113 mg/dl (74-100)
--- NOTE | 2023-07-06 08:40 | EXP.ACUTE.PN ---
Subjective *Date: 07/06/23 *Time: 08:40 Interval history: Patient slept well last night, feels much better today, tolerating a regular diet. Medical Exam Vital signs and Labs for Last 24 Hours: Vital Signs Temp Pulse Pulse Resp BP BP Pulse Ox 07/06/23 08:00 98.4 F 76 22 163/95 H 94 L 07/06/23 06:50 70 07/06/23 06:50 72 07/06/23 06:49 07/06/23 05:00 07/06/23 04:00 98.6 F 86 18 162/87 H 94 L 07/06/23 03:00 07/06/23 01:00 07/05/23 23:00 07/05/23 21:00 07/05/23 20:00 07/05/23 20:00 98.1 F 68 16 145/83 H 94 L 07/05/23 18:28 07/05/23 17:00 07/05/23 16:00 98.6 F 79 22 155/99 H 93 L 07/05/23 15:00 07/05/23 14:06 73 07/05/23 14:06 76 07/05/23 13:00 07/05/23 11:00 07/05/23 09:58 70 07/05/23 09:58 74 07/05/23 09:00 O2 Del Method 07/06/23 08:00 Room Air 07/06/23 06:50 07/06/23 06:50 07/06/23 06:49 Room Air 07/06/23 05:00 Room Air 07/06/23 04:00 Room Air 07/06/23 03:00 Room Air 07/06/23 01:00 Room Air 07/05/23 23:00 Room Air 07/05/23 21:00 Room Air 07/05/23 20:00 Room Air 07/05/23 20:00 Room Air 07/05/23 18:28 Room Air 07/05/23 17:00 Room Air 07/05/23 16:00 Room Air 07/05/23 15:00 Room Air 07/05/23 14:06 07/05/23 14:06 07/05/23 13:00 Room Air 07/05/23 11:00 Room Air 07/05/23 09:58 07/05/23 09:58 07/05/23 09:00 Room Air Intake and Output 07/05/23 07/06/23 07/06/23 23:59 07:59 15:59 Intake Total 240 / 1225 0 / 0 Output Total 0 / 0 0 / 0 0 / 0 Balance 240 / 1225 0 / 0 0 / 0 Intake: Intake, Oral Amount 240 / 850 0 / 0 Output: Output, Urine Amount 0 / 0 0 / 0 0 / 0 Other: Number of Unmeasured Voids 1 1 Weight 199 lb 6.4 oz Patient Weight 07/06/23 23:59 Weight 199 lb 6.4 oz Laboratory Results - last 24 hr 07/05/23 06:30: WBC 11.2 H, RBC 5.27, Hgb 16.2, Hct 47.3 H, MCV 89.9, MCH 30.7, MCHC 34.2, RDW 14.5, Plt Count 659 H D, MPV 8.1, Neut % (Auto) 79.7, Lymph % (Auto) 13.3, [place] % (Auto) 6.5, Eos % (Auto) 0.1, Baso % (Auto) 0.3, Neut # (Auto) 8.9 H, Lymph # (Auto) 1.5, [place] # (Auto) 0.7, Eos # (Auto) 0.0, Baso # (Auto) 0.0 07/05/23 22:05: Sodium 115 L, Potassium 4.3 D, Chloride 88 L, Carbon Dioxide 21 L, Anion Gap 10.3, BUN 7, Creatinine 0.40 L, Estimated Creat Clear 63, Estimated GFR 154, Est GFR ( Amer) 186 D, Glucose 100, Calcium 8.1 L 07/06/23 07:25: WBC 9.5, RBC 5.13, Hgb 15.9, Hct 46.7, MCV 91.0, MCH 31.0, MCHC 34.1, RDW 14.5, Plt Count 620 H, MPV 7.5, Neut % (Auto) 76.4, Lymph % (Auto) 15.3, [place] % (Auto) 8.0, Eos % (Auto) 0.1, Baso % (Auto) 0.3, Neut # (Auto) 7.2, Lymph # (Auto) 1.4, [place] # (Auto) 0.8, Eos # (Auto) 0.0, Baso # (Auto) 0.0, Sodium 127 L, Potassium 3.5, Chloride 94 L, Carbon Dioxide 28, Anion Gap 8.5, BUN 8, Creatinine 0.60 D, Estimated Creat Clear 65, Estimated GFR 96, Est GFR ( Amer) 117 D, Glucose 113 H, Calcium 8.5 I & O for Labs for Last 24 Hours: Intake & Output 07/03/23 07/04/23 07/05/23 07/06/23 23:59 23:59 23:59 23:59 Intake Total 1327 / 1327 2193 / 2668 1225 / 1225 0 / 0 Output Total 2 / 2 0 / 0 0 / 0 0 / 0 Balance 1325 / 1325 2193 / 2668 1225 / 1225 0 / 0 Weight 190 lb 3 oz 194 lb 0.108 oz 194 lb 0.108 oz 199 lb 6.4 oz Constitutional: Present no acute distress Respiratory: Present normal respiratory effort Cardiac: Present Reg Rate and Rhythm GI: Present normal bowel sounds; Absent tenderness Extremities: Present normal inspection and full ROM Skin: Present intact; Absent erythema Neuro: Present Grossly Intact and moves all extremities Assessment and Plan *Assessment and plan (1) Acute hyponatremia: Status: Acute Category: Medical Code(s): E87.1 - Hypo-osmolality and hyponatremia (2) Vomiting: Status: Acute Category: Medical Code(s): R11.10 - Vomiting, unspecified (3) Bronchitis: Status: Acute Category: Medical Code(s): J40 - Bronchitis, not specified as acute or chronic (4) Generalized weakness: Status: Acute Category: Medical Code(s): R53.1 - Weakness (5) HTN (hypertension): Status: Acute Qualifiers: Hypertension type: unspecified Qualified Code(s): I10 - Essential (primary) hypertension Category: Medical Code(s): I10 - Essential (primary) hypertension Plan Sodium is up to 127. OK to discharge home today, with office f/u later this week. Will hold HCTZ and double amlodipine dose for this week.
--- NOTE | 2023-07-08 00:04 | EXP.DC.SUM ---
General Admission date:: 07/03/23 Discharge date: 07/06/23 HPI HPI HPI: Patient is a 78-year-old female with past medical history of hypertension who presented to hospital due to nausea vomiting and decreased p.o. intake. According to patient, symptoms ongoing for about a week, has been getting worse, she has not been able to hold down any food. Denies any current nausea vomiting. She mentions she feels dehydrated. Hospital Course Hospital Course Hospital Course: The patient was started on IV fluids due to hyponatremia and dehydration. Her diuretics were held. She was inadvertently admitted to the hospitalist and was switched to [facility]. She did state she had had what she thought was bronchitis and was seen in the urgent treatment center and started on Levaquin and prednisone prior to her hospital admission. She did started having nausea, vomiting, and diarrhea a few days prior to admission and had been unable to eat or drink anything. IV access had been difficult. The patient was unable to get appropriate fluids via IV but she was able to drink some Gatorade. Her sodium continued to decline therefore a midline was ordered for IV access. A respiratory panel and a chest x-ray were also ordered and she was started on neb treatments. She had some confusion during the night and pulled out her midline. A new peripheral IV was started her respiratory panel came back for parainfluenza 3. Her sodium continued to decrease and was in 115 on 07/05/2023. She was given hypertonic saline and Lovenox was added for DVT prophylaxis. By 07/06/2023, she had slept well and felt much better. She was tolerating a regular diet and her sodium had improved to 127. She was stable to be discharged home and will follow-up in the office of [facility]. Her HCTZ will be held and her amlodipine dose will be doubled Exam Data for Last 24 hours Vital signs and Labs for Last 24 Hours: Temp Pulse Resp BP Pulse Ox O2 Del Method 98.4 F 76 22 163/95 H 94 L Room Air 07/06/23 08:00 07/06/23 08:00 07/06/23 08:00 07/06/23 08:00 07/06/23 08:00 07/06/23 08:00 I & O for Last 24 hours: Intake & Output 07/05/23 07/06/23 07/07/23 07/08/23 11:59 11:59 11:59 11:59 Intake Total 2196 750 / 750 Output Total 0 / 0 0 / 0 Balance 2196 750 / 750 Weight 194 lb 0.108 oz 199 lb 6.4 oz Narrative: Constitutional Constitutional: no acute distress *Routine HEENT Exam Head: Present normocephalic Eye: Present EOMI and PERRL ENT: Present mucous membranes moist *Routine Neck Exam Neck: Present supple; Absent lymphadenopathy *Routine Respiratory Exam Respiratory: Present CTA bilaterally *Routine Cardiovascular Exam Cardiovascular: Present RRR *Routine Abdominal Exam Abdominal: Present soft and normoactive bowel sounds; Absent tenderness *Routine Rectal Exam Rectal:: deferred *Routine Genitalia Exam Genitalia:: deferred *Routine Extremities Exam Extremities: Absent cyanosis, clubbing or edema *Routine Skin Exam Skin: Present warm; Absent rash *Routine Neurological Exam Neurological: Present alert and oriented X3 DS: Diagnosis Discharge Diagnosis (1) Acute hyponatremia: Status: Acute Code(s): E87.1 - Hypo-osmolality and hyponatremia (2) Vomiting: Status: Acute Code(s): R11.10 - Vomiting, unspecified (3) Bronchitis: Status: Acute Code(s): J40 - Bronchitis, not specified as acute or chronic (4) Generalized weakness: Status: Acute Code(s): R53.1 - Weakness (5) HTN (hypertension): Status: Acute Code(s): I10 - Essential (primary) hypertension Qualifiers: Hypertension type: unspecified Qualified Code(s): I10 - Essential (primary) hypertension Meds Home Medications and Allergies Home Medications Medication Instructions Recorded Confirmed Type hydrochlorothiazide 12.5 mg capsule 12.5 mg PO DAILY 01/31/19 07/03/23 History raloxifene 60 mg tablet 60 mg PO DAILY Supplement 08/02/20 07/03/23 History metoprolol succinate 100 mg 100 mg PO DAILY 07/01/23 07/03/23 History tablet,extended release 24 hr prednisone 10 mg tablet 10 mg PO BID #10 tabs 07/01/23 07/03/23 Rx amlodipine 5 mg tablet 10 mg (2 x 5 mg) PO DAILY #1 tab 07/06/23 07/04/23 Rx New Prescriptions to Start Prescriptions: Allergies Allergy/AdvReac Type Severity Reaction Status Date / Time Penicillins Allergy swelling Verified 07/01/23 13:35 promethazine [From Phenergan] AdvReac Verified 07/01/23 13:35 Discharge Plan Disposition Patient Disposition: Home, Self-Care Condition: Good Discharge Order Discharge Orders: Discharge Order (Routine); Ordered 07/06/23 Ordered By: Rogelio Pastor Follow up Plan Follow up with: Rogelio Pastor MD [Primary Care Provider] - 07/10/23 (Please call and make a follow up appt. ) Prescriptions/Medication Reconciliation: Continued raloxifene 60 mg tablet 60 mg PO DAILY Patient Comments: TAKE 1 TABLET BY MOUTH ONCE DAILY metoprolol succinate 100 mg tablet extended release 24 hr 100 mg PO DAILY Patient Comments: TAKE 1 TABLET BY MOUTH ONCE DAILY prednisone 10 mg tablet 10 mg PO BID Qty: 10 0RF Changed amlodipine 5 mg tablet 10 mg PO DAILY Qty: 1 0RF Patient Comments: TAKE 1 TABLET BY MOUTH ONCE DAILY FOR 90 DAYS Held hydrochlorothiazide 12.5 MG capsule 12.5 mg PO DAILY Hold Instructions: Resume on 07/11/23. Patient Comments: TAKE 1 CAPSULE BY MOUTH ONCE DAILY FOR 90 DAYS Discontinued levofloxacin 750 mg tablet 750 mg PO DAILY Qty: 7 0RF Problem Reconciliation Problems Reviewed?: Yes Patient Discharge Instructions ACTIVITY: Limited activity DIET: continue same diet Patient Instructions: DI for Dehydration -- Adult, DI for Hyponatremia, DI for Nausea -- Adult Providers Primary Care Provider: Rogelio Pastor Admit Provider: Ghislaine Mac Attending Provider: Rogelio Pastor
--- NOTE | 2023-07-08 14:35 | CARE MANAGER ---
Attempted to contact patient x2 related to hospital discharge. Left VM message. SUZANNA Moran
== END 2023-07-06 09:15 | disposition home or self-care (01) | DRG 641 ==
LOC: ER 15:32 → 2ND 16:18
PROVIDERS: Internal Medicine Adolescent Medicine; Physician Assistant; Admitting Provider Internal Medicine; Emergency Provider Emergency Medicine; PCP Family Medicine; Visit Provider Family Medicine
DX: E87.1 Hypo-osmolality and hyponatremia (principal); E86.0 Dehydration; I10 Essential (primary) hypertension; J40 Bronchitis, not specified as acute or chronic; E78.5 Hyperlipidemia, unspecified
CPT/HCPCS: 36410; 36415; 71045; 71046; 80048; 80053; 83690; 83735; 85025; 87581; 87632; 87635; 87798; 94640; 99285; J1956; J2405

== ENCOUNTER 2024-02-20 13:27 | Inpatient (IN) | payer MEDICARE, SELFPAY ==
[2024-02-20] VITALS (23 sets, daily range): BP systolic 111–174; BP diastolic 64–142; PULSE 54–141; RESP 16–28; TEMP 36.4–36.7; O2SAT 92–98; BMI 31.1
--- NOTE | 2024-02-20 13:52 | ECG_ITS ---
APPROVED REPORT Exam: Resting ECG HR:135 bpm ECG Measurements Heart Rate 135 AXES QRSd 89 QRS 97 QT 318 T 71 QTc 397 Conclusion ATRIAL FIBRILLATION WITH RAPID VENTRICULAR RESPONSE BORDERLINE RIGHT AXIS DEVIATION [QRS AXIS > 90] ABNORMAL RHYTHM ECG UNCONFIRMED REPORT Electronically signed by : Mumtaz Valdez, 02/20/2024 16:01:19
--- NOTE | 2024-02-20 13:55 | PC.NURSE ---
Dr. Valdez at [facility] for pt eval
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
[2024-02-20] MEDS: METOPROLOL TARTRATE 5MG/5ML VIAL 5 MG IV ×3 (14:05→16:26)
--- NOTE | 2024-02-20 14:06 | ED_ITS ---
Discharge Plan Disposition Patient Disposition: Admitted Chief Complaint: Arrhythmia/Palpitations Prescriptions Prescriptions: No Action raloxifene 60 mg tablet 60 mg PO DAILY Patient Comments: TAKE 1 TABLET BY MOUTH ONCE DAILY metoprolol succinate 100 mg tablet extended release 24 hr 100 mg PO DAILY Patient Comments: TAKE 1 TABLET BY MOUTH ONCE DAILY prednisone 10 mg tablet 10 mg PO BID Qty: 10 0RF hydrochlorothiazide 12.5 MG capsule 12.5 mg PO DAILY Patient Comments: TAKE 1 CAPSULE BY MOUTH ONCE DAILY FOR 90 DAYS amlodipine 5 mg tablet 10 mg PO DAILY Qty: 1 0RF Patient Comments: TAKE 1 TABLET BY MOUTH ONCE DAILY FOR 90 DAYS Referrals Follow up/Referrals: Mima Dawson PA [Primary Care Provider] - See instructions Clinical Impressions Clinical Impression: New onset of congestive heart failure, Atrial fibrillation, new onset, Pulmonary edema Print Language Print Language: Japanese Discharge ED Provider: David Bell General Adult HPI <Justyn Valdez MD - Last Filed: 02/20/24 15:48> General Chief complaint: Arrhythmia/Palpitations Stated complaint: bp 200/150 Time Seen by Provider: 02/20/24 13:54 History of Present Illness HPI narrative: Patient is an 79-year-old female who presents today with generalized malaise nausea and headache. No history of any arrhythmia that she is aware of. She denies any chest pain or shortness of breath. No neurologic complaints. No fevers or chills however she was diagnosed with the flu 2 weeks ago. She does take metoprolol and hydrochlorothiazide for chronic hypertension. Related Data Home Medications ?Medication ?Instructions ?Recorded ?Confirmed hydrochlorothiazide 12.5 mg capsule 12.5 mg PO DAILY 01/31/19 07/03/23 raloxifene 60 mg tablet 60 mg PO DAILY Supplement 08/02/20 07/03/23 metoprolol succinate 100 mg 100 mg PO DAILY 07/01/23 07/03/23 tablet,extended release 24 hr Previous Rx's ?Medication ?Instructions ?Recorded prednisone 10 mg tablet 10 mg PO BID #10 tabs 07/01/23 amlodipine 5 mg tablet 10 mg (2 x 5 mg) PO DAILY #1 tab 07/06/23 Allergies Allergy/AdvReac Type Severity Reaction Status Date / Time Penicillins Allergy swelling Verified 07/01/23 13:35 promethazine (From Phenergan) AdvReac Verified 07/01/23 13:35 PFSH <Justyn Valdez MD - Last Filed: 02/20/24 15:48> [facility] Disclaimer: The information contained in this section may have been updated after the patient was seen, as this information can be updated by other users. Medical History (Updated 02/20/24 @ 17:26 by David Bell MD) Abnormal results of liver function studies Hypokalemia HTN (hypertension) Acute cholecystitis Diverticulitis Diaphragmatic hernia Gastric outlet obstruction Surgical History Hx of cholecystectomy H/O hernia repair History of mastectomy No significant past surgical history Family History Other No significant family history Social History Smoking Status: Never smoker second hand exposure: Yes alcohol intake: never counseling provided: none substance use type: denies use current occupational status: retired Travel in the last 8 weeks: None household members: spouse housing: house caffeine: Yes Have you lived/traveled outside [place] in past 30 days?: No Contact w/someone who lives/traveled outside US past 30 days?: No Exposure to someone with infectious disease in past 14 days?: No Do you have a fever (greater than 100.4 F or 38 C)?: No Have you tested positive for COVID-19: No Exposed to someone with COVID-19 in past 14 days?: No Do you have a sore throat?: No Do you have a cough?: No Do you have any weakness?: No Do you have any diarrhea?: No Are you experiencing any unusual bleeding?: No Do you have any muscle aches/pain?: No Do you have any abdominal pain?: No Are you experiencing loss of taste or smell?: No Other Medical History Have you received the Flu Vaccine for this season: No Have you received the Pneumonia Vaccine: No <Justyn Valdez MD - Last Filed: 02/20/24 15:48> ROS Obtained: Yes All systems reviewed & no additional complaints except as documented Physical Exam <Justyn Valdez MD - Last Filed: 02/20/24 15:48> General General appearance: alert and in no apparent distress Respiratory Respiratory exam: Present normal lung sounds bilaterally Cardiovascular Cardiovascular exam: Present tachycardia and irregular rhythm Neurological Exam Neurological exam: Present alert and oriented X3 Medical Decision Making <Justyn Valdez MD - Last Filed: 02/20/24 15:48> Medical Records Screening: Per USPSTF and CDC recommendations, given the prevalence of disease in our region, it is our hospital?s policy to screen for HIV and viral Hepatitis for all patients aged 18 and over and those with ongoing risk factors. Chris Inquiry Pt receiving controlled substance: No Vital Signs: 02/20/24 14:00 02/20/24 14:20 02/20/24 14:30 Temperature 98.0 F Temperature Source Oral Pulse Rate 125 H 54 L Pulse Rate [Right Brachial] 141 H Respiratory Rate 20 28 H Blood Pressure 173/125 H 165/130 H Blood Pressure [Left Arm] 156/102 H Blood Pressure [Right Arm] 173/125 H Blood Pressure Mean [Left Arm] 120 Blood Pressure Mean [Right Arm] 141 Blood Pressure Source [Left Arm] Manual Cuff/ Palpation Blood Pressure Source [Right Arm] Automatic Cuff Blood Pressure Position [Left Arm] Sitting Blood Pressure Position [Right Arm] Sitting 02 Sat by Pulse Oximetry 93 L 96 94 L Oxygen Delivery Method Room Air Room Air Room Air 02/20/24 15:00 02/20/24 15:30 02/20/24 16:04 Temperature Temperature Source Pulse Rate 129 H 113 H Pulse Rate [Right Brachial] Respiratory Rate 25 H 27 H 18 Blood Pressure 151/113 H Blood Pressure [Left Arm] Blood Pressure [Right Arm] Blood Pressure Mean [Left Arm] Blood Pressure Mean [Right Arm] Blood Pressure Source [Left Arm] Blood Pressure Source [Right Arm] Blood Pressure Position [Left Arm] Blood Pressure Position [Right Arm] 02 Sat by Pulse Oximetry 93 L 92 L Oxygen Delivery Method Room Air Room Air 02/20/24 16:19 02/20/24 16:30 02/20/24 16:31 Temperature Temperature Source Pulse Rate 102 H 125 H Pulse Rate [Right Brachial] Respiratory Rate 23 16 27 H Blood Pressure 174/111 H Blood Pressure [Left Arm] Blood Pressure [Right Arm] Blood Pressure Mean [Left Arm] Blood Pressure Mean [Right Arm] Blood Pressure Source [Left Arm] Blood Pressure Source [Right Arm] Blood Pressure Position [Left Arm] Blood Pressure Position [Right Arm] 02 Sat by Pulse Oximetry 95 93 L Oxygen Delivery Method 02/20/24 16:45 Temperature Temperature Source Pulse Rate 97 H Pulse Rate [Right Brachial] Respiratory Rate 23 Blood Pressure Blood Pressure [Left Arm] Blood Pressure [Right Arm] Blood Pressure Mean [Left Arm] Blood Pressure Mean [Right Arm] Blood Pressure Source [Left Arm] Blood Pressure Source [Right Arm] Blood Pressure Position [Left Arm] Blood Pressure Position [Right Arm] 02 Sat by Pulse Oximetry 92 L Oxygen Delivery Method Lab Data Lab results reviewed: Yes I reviewed the patient's lab results. Lab Results 02/20/24 14:55: WBC 9.1, RBC 4.91, Hgb 14.8, Hct 44.0, MCV 89.6, MCH 30.1, MCHC 33.6, RDW 13.4, Plt Count 427 H, MPV 10.4, Neut % (Auto) 76.1, Lymph % (Auto) 14.1, [place] % (Auto) 7.8, Eos % (Auto) 0.7, Baso % (Auto) 0.8, Neut # (Auto) 6.9, Lymph # (Auto) 1.3, [place] # (Auto) 0.7, Eos # (Auto) 0.1, Baso # (Auto) 0.1, D- Dimer 0.70 H, Sodium 131 L, Potassium 3.8, Chloride 99, Carbon Dioxide 24, Anion Gap 11.8, BUN 15, Creatinine 0.60, Estimated Creat Clear 56, Estimated GFR 96, Est GFR ( Amer) 116, Glucose 111 H, Calcium 9.0, Magnesium 1.5 L, Total Bilirubin 0.9, AST 39 H, ALT 29, Alkaline Phosphatase 50, Troponin I < 0.01, N T-Pro-B Natriuret Pep 3730 H, Total Protein 6.3, Albumin 3.7, Globulin 2.6, Albumin/Globulin Ratio 1.4, TSH 2.46 02/20/24 14:55 02/20/24 14:55 Orders (Tests/Meds): ED MEDICATIONS Discontinued Medications Generic Name Dose Route Start Last Admin Trade Name Freq PRN Reason Stop Dose Admin Acetaminophen 1,000 mg 02/20/24 14:05 02/20/24 15:08 Acetaminophen 1,000mg/100ml Vial IV 02/20/24 14:06 1,000 mg ONCE ONE Administration Furosemide 40 mg 02/20/24 16:16 02/20/24 16:20 Furosemide 40mg/4ml Vial IV 02/20/24 16:17 40 mg ONCE ONE Administration Lactated Ringer's 1,000 mls @ 999 mls/hr 02/20/24 14:15 02/20/24 15:08 Lactated Ringer's 1000 Ml Bag IV 02/20/24 15:15 999 mls/hr .Q1H1M LILLI Administration Magnesium Sulfate 2 gm in 50 mls @ 50 mls/hr 02/20/24 14:01 02/20/24 15:07 Magnesium Sulfate 2gm/50ml Premix IV 02/20/24 15:00 50 mls/hr ONCE ONE Administration Magnesium Sulfate 2 gm in 50 mls @ 50 mls/hr 02/20/24 16:00 02/20/24 16:19 Magnesium Sulfate 2gm/50ml Premix IV 02/20/24 16:59 50 mls/hr ONCE ONE Administration Magnesium Oxide 800 mg 02/20/24 16:00 02/20/24 16:19 Magnesium Oxide 400mg Tablet PO 02/20/24 16:01 800 mg ONCE ONE Administration Metoprolol Tartrate 5 mg 02/20/24 14:01 02/20/24 14:05 Metoprolol Tartrate 5mg/5ml Vial IV 02/20/24 14:02 5 mg ONCE ONE Administration Metoprolol Tartrate 5 mg 02/20/24 16:22 02/20/24 16:00 Metoprolol Tartrate 5mg/5ml Vial IV 02/20/24 16:23 5 mg ONCE ONE Administration Metoprolol Tartrate 5 mg 02/20/24 16:24 02/20/24 16:26 Metoprolol Tartrate 5mg/5ml Vial IV 02/20/24 16:25 5 mg ONCE ONE Administration ORDERS Category Date Time Status CT chest wo con Stat Cat Scan 02/20/24 15:43 Taken CXR --portable [XR chest portable] Stat Exams 02/20/24 14:01 Completed BNP [NT Pro Brain Natriuretic Pep.] Stat Lab 02/20/24 14:55 Completed CBC w/Auto Diff [Complete Blood Count Auto Diff] Stat Lab 02/20/24 14:55 Completed CMP [Comprehensive Metabolic Panel] Stat Lab 02/20/24 14:55 Completed D-Dimer Stat Lab 02/20/24 14:55 Completed HIV (1&2) Antibody Rapid Stat Lab 02/20/24 14:28 Ordered Hep C Ab with Reflex to RNA Stat Lab 02/20/24 14:28 Ordered Magnesium Stat Lab 02/20/24 14:55 Completed TSH [Thyroid Stimulating Hormone] Stat Lab 02/20/24 14:55 Completed Trop I [Troponin I] Stat Lab 02/20/24 14:55 Completed Troponin I Q3H Lab 02/20/24 17:15 Ordered Troponin I Q3H Lab 02/20/24 20:15 Ordered ECG Data Tracing #1: I reviewed this ECG and interpreted as documented below: Ventricular rate of 135 atrial fibrillation with rapid ventricular sponsor no acute ischemic changes noted normal axis/borderline right axis deviation Medical Decision Narrative: 79-year-old nontoxic-appearing female presenting today with a tachycardic rhythm that is irregularly irregular and EKG consistent with A-fib with RVR. This is a new diagnosis for her. Will attempt to get her rate controlled with IV metoprolol given the fact that she already is taking a beta-robb also will administer IV magnesium. She will need to be anticoagulated and will need to be admitted for transition to appropriate oral regimen for rate control. Additional workup will need to include electrolyte abnormalities thyroid dysfunction underlying NE pulmonary embolism etc. Initial workup has been initiated and will reassess. Chest x-ray performed which I personally interpreted shows a hilar opacity versus mass will get a noncontrasted CT scan to further evaluate this. Still awaiting response from IV metoprolol we may need to add a beta- robb/diltiazem onto this patient if she cannot get rate control. Can will be transitioned to Dr. David Bell at 4 PM for final evaluation management disposition. <David Bell MD - Last Filed: 02/20/24 17:26> Vital Signs: 02/20/24 14:00 02/20/24 14:20 02/20/24 14:30 Temperature 98.0 F Temperature Source Oral Pulse Rate 125 H 54 L Pulse Rate [Right Brachial] 141 H Respiratory Rate 20 28 H Blood Pressure 173/125 H 165/130 H Blood Pressure [Left Arm] 156/102 H Blood Pressure [Right Arm] 173/125 H Blood Pressure Mean [Left Arm] 120 Blood Pressure Mean [Right Arm] 141 Blood Pressure Source [Left Arm] Manual Cuff/ Palpation Blood Pressure Source [Right Arm] Automatic Cuff Blood Pressure Position [Left Arm] Sitting Blood Pressure Position [Right Arm] Sitting 02 Sat by Pulse Oximetry 93 L 96 94 L Oxygen Delivery Method Room Air Room Air Room Air 02/20/24 15:00 02/20/24 15:30 02/20/24 16:04 Temperature Temperature Source Pulse Rate 129 H 113 H Pulse Rate [Right Brachial] Respiratory Rate 25 H 27 H 18 Blood Pressure 151/113 H Blood Pressure [Left Arm] Blood Pressure [Right Arm] Blood Pressure Mean [Left Arm] Blood Pressure Mean [Right Arm] Blood Pressure Source [Left Arm] Blood Pressure Source [Right Arm] Blood Pressure Position [Left Arm] Blood Pressure Position [Right Arm] 02 Sat by Pulse Oximetry 93 L 92 L Oxygen Delivery Method Room Air Room Air 02/20/24 16:19 02/20/24 16:30 02/20/24 16:31 Temperature Temperature Source Pulse Rate 102 H 125 H Pulse Rate [Right Brachial] Respiratory Rate 23 16 27 H Blood Pressure 174/111 H Blood Pressure [Left Arm] Blood Pressure [Right Arm] Blood Pressure Mean [Left Arm] Blood Pressure Mean [Right Arm] Blood Pressure Source [Left Arm] Blood Pressure Source [Right Arm] Blood Pressure Position [Left Arm] Blood Pressure Position [Right Arm] 02 Sat by Pulse Oximetry 95 93 L Oxygen Delivery Method 02/20/24 16:45 Temperature Temperature Source Pulse Rate 97 H Pulse Rate [Right Brachial] Respiratory Rate 23 Blood Pressure Blood Pressure [Left Arm] Blood Pressure [Right Arm] Blood Pressure Mean [Left Arm] Blood Pressure Mean [Right Arm] Blood Pressure Source [Left Arm] Blood Pressure Source [Right Arm] Blood Pressure Position [Left Arm] Blood Pressure Position [Right Arm] 02 Sat by Pulse Oximetry 92 L Oxygen Delivery Method Lab Data Lab Results 02/20/24 14:55: WBC 9.1, RBC 4.91, Hgb 14.8, Hct 44.0, MCV 89.6, MCH 30.1, MCHC 33.6, RDW 13.4, Plt Count 427 H, MPV 10.4, Neut % (Auto) 76.1, Lymph % (Auto) 14.1, [place] % (Auto) 7.8, Eos % (Auto) 0.7, Baso % (Auto) 0.8, Neut # (Auto) 6.9, Lymph # (Auto) 1.3, [place] # (Auto) 0.7, Eos # (Auto) 0.1, Baso # (Auto) 0.1, D- Dimer 0.70 H, Sodium 131 L, Potassium 3.8, Chloride 99, Carbon Dioxide 24, Anion Gap 11.8, BUN 15, Creatinine 0.60, Estimated Creat Clear 56, Estimated GFR 96, Est GFR ( Amer) 116, Glucose 111 H, Calcium 9.0, Magnesium 1.5 L, Total Bilirubin 0.9, AST 39 H, ALT 29, Alkaline Phosphatase 50, Troponin I < 0.01, N T-Pro-B Natriuret Pep 3730 H, Total Protein 6.3, Albumin 3.7, Globulin 2.6, Albumin/Globulin Ratio 1.4, TSH 2.46 Orders (Tests/Meds): ED MEDICATIONS Discontinued Medications Generic Name Dose Route Start Last Admin Trade Name Freq PRN Reason Stop Dose Admin Acetaminophen 1,000 mg 02/20/24 14:05 02/20/24 15:08 Acetaminophen 1,000mg/100ml Vial IV 02/20/24 14:06 1,000 mg ONCE ONE Administration Furosemide 40 mg 02/20/24 16:16 02/20/24 16:20 Furosemide 40mg/4ml Vial IV 02/20/24 16:17 40 mg ONCE ONE Administration Lactated Ringer's 1,000 mls @ 999 mls/hr 02/20/24 14:15 02/20/24 15:08 Lactated Ringer's 1000 Ml Bag IV 02/20/24 15:15 999 mls/hr .Q1H1M LILLI Administration Magnesium Sulfate 2 gm in 50 mls @ 50 mls/hr 02/20/24 14:01 02/20/24 15:07 Magnesium Sulfate 2gm/50ml Premix IV 02/20/24 15:00 50 mls/hr ONCE ONE Administration Magnesium Sulfate 2 gm in 50 mls @ 50 mls/hr 02/20/24 16:00 02/20/24 16:19 Magnesium Sulfate 2gm/50ml Premix IV 02/20/24 16:59 50 mls/hr ONCE ONE Administration Magnesium Oxide 800 mg 02/20/24 16:00 02/20/24 16:19 Magnesium Oxide 400mg Tablet PO 02/20/24 16:01 800 mg ONCE ONE Administration Metoprolol Tartrate 5 mg 02/20/24 14:01 02/20/24 14:05 Metoprolol Tartrate 5mg/5ml Vial IV 02/20/24 14:02 5 mg ONCE ONE Administration Metoprolol Tartrate 5 mg 02/20/24 16:22 02/20/24 16:00 Metoprolol Tartrate 5mg/5ml Vial IV 02/20/24 16:23 5 mg ONCE ONE Administration Metoprolol Tartrate 5 mg 02/20/24 16:24 02/20/24 16:26 Metoprolol Tartrate 5mg/5ml Vial IV 02/20/24 16:25 5 mg ONCE ONE Administration ORDERS Category Date Time Status CT chest wo con Stat Cat Scan 02/20/24 15:43 Taken CXR --portable [XR chest portable] Stat Exams 02/20/24 14:01 Completed BNP [NT Pro Brain Natriuretic Pep.] Stat Lab 02/20/24 14:55 Completed CBC w/Auto Diff [Complete Blood Count Auto Diff] Stat Lab 02/20/24 14:55 Completed CMP [Comprehensive Metabolic Panel] Stat Lab 02/20/24 14:55 Completed D-Dimer Stat Lab 02/20/24 14:55 Completed HIV (1&2) Antibody Rapid Stat Lab 02/20/24 14:28 Ordered Hep C Ab with Reflex to RNA Stat Lab 02/20/24 14:28 Ordered Magnesium Stat Lab 02/20/24 14:55 Completed TSH [Thyroid Stimulating Hormone] Stat Lab 02/20/24 14:55 Completed Trop I [Troponin I] Stat Lab 02/20/24 14:55 Completed Troponin I Q3H Lab 02/20/24 17:15 Ordered Troponin I Q3H Lab 02/20/24 20:15 Ordered Medical Decision Narrative: 79-year-old nontoxic-appearing female presenting today with a tachycardic rhythm that is irregularly irregular and EKG consistent with A-fib with RVR. This is a new diagnosis for her. Will attempt to get her rate controlled with IV metoprolol given the fact that she already is taking a beta-robb also will administer IV magnesium. She will need to be anticoagulated and will need to be admitted for transition to appropriate oral regimen for rate control. Additional workup will need to include electrolyte abnormalities thyroid dysfunction underlying NE pulmonary embolism etc. Initial workup has been initiated and will reassess. Chest x-ray performed which I personally interpreted shows a hilar opacity versus mass will get a noncontrasted CT scan to further evaluate this. Still awaiting response from IV metoprolol we may need to add a beta- robb/diltiazem onto this patient if she cannot get rate control. Can will be transitioned to Dr. David Bell at 4 PM for final evaluation management disposition. Arabella: I assumed primary responsibility for this patient after signout from previous physician. On my evaluation, patient speaking full sentences, no acute distress, has no acute complaints and appears very well. She does have a right upper sternal border murmur and apical murmur. Lungs are clear. After third dose of IV metoprolol 5 mg, patient's heart rate 100-1 10. Remains hypertensive 157/103. I feel patient's tachycardia and hypertension likely secondary to fluid overload and startling effect, so 40 mg IV Lasix administered. Patient also received 2 more grams magnesium IV and 800 p.o. Independent interpretation of hematologic workup with nonactionable CBC. Dimer 0.7 years and age-adjusted negative. Hyponatremia, likely secondary to hypervolemia. Troponin negative, BNP elevated over 3700. Chest x-ray independently interpreted and patient has cephalization of vessels, hilar fullness, left-sided pleural effusion and cardiomegaly CT of the chest was ordered to assess hilar fullness on the right to rule out mass. Consistent with pulmonary vascular congestion. Hospital medicine was contacted and case was discussed at length for admission and diuresis with further cardiac management, agreeable to this plan. Anticoagulation was not initiated down here after conversation with hospitalist who would like to initiate upstairs. Because patient high risk for clinical decompensation, deemed appropriate for inpatient admission. Results were relayed to patient who voiced understanding and patient was agreeable to inpatient admission and management. Patient was admitted to the hospital for further definitive management. Critical Care <Justyn Valdez MD - Last Filed: 02/20/24 15:48> Critical Care Time Critical Care Time: Yes Attestation: On , the high probability of a clinically significant, sudden or life threatening deterioration of the following system(s) required my full and direct attention, intervention and personal management. The time I documented below is in addition to time spent performing reported procedures but includes the following listed in this critical care notation. Total Time Total Critical Care Time: 35
--- NOTE | 2024-02-20 14:29 | PC.NURSE ---
pt. laying in bed. no needs at this time. Call light in reach
[2024-02-20] MEDS: MAGNESIUM SULFATE IN WATER 2 GM/50 ML PIGGYBACK IV ×2 (15:07→16:19)
[2024-02-20 15:08] LABS: Basophils # 0.1 K/mm3 (0-0.2); Eosinophils # 0.1 K/mm3 (0.0-0.4); Eosinophils % 0.7 % (0.1-12.0); Lymphocytes # 1.3 K/mm3 (0.7-4.5); Monocytes # 0.7 K/mm3 (0.1-1.0); Red Cell Distribution Width 13.4 % (11.5-17.5)
[2024-02-20] MEDS: LACTATED RINGERS 1000ML 1,000 ML 999 ML IV (15:08)
[2024-02-20] MEDS: ACETAMINOPHEN 1,000MG/100ML VIAL 1000 MG IV (15:08)
[2024-02-20 15:19] LABS: Alanine Aminotransferase 29 U/L (12-78); Albumin Level 3.7 g/dl (3.5-5.0); Albumin/Globulin Ratio 1.4 (1.1-1.8); Alkaline Phosphatase 50 U/L (38-126); Aspartate Amino Transferase 39 U/L (14-36); Bilirubin,Total 0.9 mg/dl (0.2-1.3); Blood Urea Nitrogen 15 mg/dl (7-17); Carbon Dioxide 24 mmol/L (22.0-30.0); Chloride 99 mmol/L (98-107); Creatinine Clearance Estimated 56 mL/min (50-200); Estimated Glomerular Filt Rate 96 ml/min (>60); GFR (African American) 116 ML/MIN (>60); Globulin 2.6 g/dL (1.3-3.2); Glucose 111 mg/dl (74-100); Magnesium 1.5 mg/dl (1.6-2.3); Sodium 131 mmol/L (136-145); Total Protein,Serum 6.3 g/dl (6.3-8.2)
[2024-02-20 15:32] LABS: NT Pro Brain Natriuretic Pep. 3730 pg/mL (0-450)
[2024-02-20 15:43] LABS: Troponin I < 0.01 ng/ml (0.00-0.034)
--- NOTE | 2024-02-20 15:43 | CT_ITS ---
FINAL REPORT TECHNIQUE: Axial images were obtained through the chest without contrast. Coronal and sagittal reconstruction images were obtained and reviewed. This study was performed with techniques to keep radiation doses as low as reasonably achievable, (ALARA). Individualized dose reduction techniques using automated exposure control or adjustment of mA and/or kV according to the patient's size were employed. CLINICAL HISTORY: f/u abnormal CXR; right perihilar and left lung base opacity COMPARISON: None FINDINGS: There are multiple small mediastinal lymph nodes measuring up to 1.6 cm individually. Prominence of the right hilum is probably related to underlying right hilar adenopathy which measures up to 2.0 cm. The heart size is normal. There is no pericardial or pleural effusion. There is minimal consolidation and atelectasis in the lingula and scarring at the lung bases. Limited images of the upper abdomen demonstrate no acute findings. The gallbladder is surgically absent. Densities at the GE junction are probably postsurgical, well seen on images 63-66 of series 3. IMPRESSION: Mild mediastinal adenopathy, particularly evident in the right hilar region, may be reactive postinflammatory. Mild consolidation and atelectasis in the lingula. Reviewed, Interpreted and Dictated by Nadeem Heredia MD Transcribed by Lala Crisostomo Authenticated and [facility]
[2024-02-20 15:51] LABS: Thyroid Stimulating Hormone 2.46 uIU/mL (0.465-4.68)
[2024-02-20 15:55] LABS: Anion Gap 11.8 mEq/L (5-15); Potassium 3.8 mmoL/L (3.5-5.1)
[2024-02-20 16:01] LABS: Basophils % 0.8 % (0.1-2.0); Hemoglobin 14.8 g/dL (12.2-16.2); Lymphocytes % 14.1 % (10-50); Mean Corpuscular HGB Conc 33.6 g/dL (31.8-35.4); Mean Corpuscular Hemoglobin 30.1 pg (27.0-31.2); Mean Corpuscular Volume 89.6 fl (81-99); Mean Platelet Volume 10.4 fl (7.4-10.4); Monocytes % 7.8 % (1.7-9.3); Neutrophils # 6.9 K/mm3 (1.8-7.8); Neutrophils % 76.1 % (37.0-80.0); Platelet Count 427 K/mm3 (142-424); Red Blood Count 4.91 M/mm3 (4.20-5.40); White Blood Count 9.1 K/mm3 (4.8-10.8)
[2024-02-20] MEDS: MAGNESIUM OXIDE 400MG TABLET 800 MG PO (16:19)
[2024-02-20] MEDS: FUROSEMIDE 40MG/4ML VIAL 40 MG IV (16:20)
--- NOTE | 2024-02-20 18:00 | PC.NURSE ---
Orders to hold nitro drip at this time per MD due to hypotension.
[2024-02-20] MEDS: ONDANSETRON 4MG/2ML VIAL 4 MG IV (18:09)
[2024-02-20 19:38] LABS: Troponin I < 0.01 ng/ml (0.00-0.034)
--- NOTE | 2024-02-20 19:57 | PC.NURSE ---
report called to Sandra BRISENO
[2024-02-20 20:27] LABS: HIV Combo NEGATIVE (Negative)
--- NOTE | 2024-02-20 20:50 | PC.NURSE ---
pt arrived to ICU unit via wheelchair @20:25
[2024-02-20] MEDS: ENOXAPARIN 100MG/ML SYRINGE 80 MG SUBCUT (21:39)
[2024-02-20] MEDS: METOPROLOL TARTRATE 25MG TABLET 25 MG PO (21:39)
[2024-02-20 23:00] LABS: Troponin I < 0.01 ng/ml (0.00-0.034)
[2024-02-21] VITALS (27 sets, daily range): BP systolic 119–158; BP diastolic 79–121; PULSE 85–122; RESP 16–24; TEMP 36.6–37; O2SAT 86–96; BMI 31.1; BMI 31.3
[2024-02-21 07:12] LABS: Basophils # 0.1 K/mm3 (0-0.2); Basophils % 0.6 % (0.1-2.0); Eosinophils # 0.1 K/mm3 (0.0-0.4); Eosinophils % 1.3 % (0.1-12.0); Hematocrit 42.2 % (37.0-47.0); Hemoglobin 14.2 g/dL (12.2-16.2); Lymphocytes # 1.5 K/mm3 (0.7-4.5); Lymphocytes % 15.6 % (10-50); Mean Corpuscular HGB Conc 33.6 g/dL (31.8-35.4); Mean Corpuscular Hemoglobin 29.6 pg (27.0-31.2); Mean Corpuscular Volume 88.1 fl (81-99); Mean Platelet Volume 9.7 fl (7.4-10.4); Monocytes # 0.8 K/mm3 (0.1-1.0); Monocytes % 8.7 % (1.7-9.3); Neutrophils % 73.4 % (37.0-80.0); Platelet Count 575 K/mm3 (142-424); Red Blood Count 4.79 M/mm3 (4.20-5.40); Red Cell Distribution Width 13.2 % (11.5-17.5); White Blood Count 9.5 K/mm3 (4.8-10.8)
[2024-02-21 07:34] LABS: Alanine Aminotransferase 27 U/L (12-78); Albumin Level 3.4 g/dl (3.5-5.0); Albumin/Globulin Ratio 1.3 (1.1-1.8); Alkaline Phosphatase 56 U/L (38-126); Aspartate Amino Transferase 35 U/L (14-36); Bilirubin,Total 0.6 mg/dl (0.2-1.3); Blood Urea Nitrogen 11 mg/dl (7-17); Calcium 8.8 mg/dl (8.4-10.2); Carbon Dioxide 31 mmol/L (22.0-30.0); Chloride 93 mmol/L (98-107); Creatinine Clearance Estimated 59 mL/min (50-200); Estimated Glomerular Filt Rate 81 ml/min (>60); GFR (African American) 97 ML/MIN (>60); Globulin 2.6 g/dL (1.3-3.2); Glucose 89 mg/dl (74-100); Magnesium 2.1 mg/dl (1.6-2.3); Sodium 131 mmol/L (136-145)
[2024-02-21 08:57] LABS: Anion Gap 10.3 mEq/L (5-15); Potassium 3.3 mmoL/L (3.5-5.1)
--- NOTE | 2024-02-21 09:54 | [facility].PHAINT1 ---
Pharmacy Intervention Comments: MEDICATION RECONCILIATION COMPLETE USING EXTERNAL PHARMACY FILL HISTORY.
--- NOTE | 2024-02-21 10:12 | P.HP_ITS ---
History of Present Illness *Admission Date: 02/20/24 *Reason for visit:: High blood pressure *History of present illness: Mrs. Daugherty is an 79 year old patient of [facility] who presented to [facility] ER yesterday with complaints of elevated blood pressure and some shortness of breath. She measured her blood pressure at home around 200/120 on several different BP monitors yesterday. She also noted some headache and generalized fatigue. She reports having a lumbar spine epidural a few days ago and her BP was noted to be high then as well. [facility] Disclaimer: The information contained in this section may have been updated after the patient was seen, as this information can be updated by other users. Medical History (Updated 02/21/24 @ 10:19 by Rogelio Pastor MD) Acute hyponatremia Rheumatoid arthritis Allergic rhinitis Rheumatic fever Age related osteoporosis Colon polyp Mitral regurgitation Breast cancer Hyperlipidemia Abnormal results of liver function studies Hypokalemia HTN (hypertension) Acute cholecystitis Diverticulitis Diaphragmatic hernia Gastric outlet obstruction Surgical History Hx of cholecystectomy H/O hernia repair History of mastectomy No significant past surgical history Family History Other No significant family history Social History (Updated 02/20/24 @ 18:16 by Ibis El RN) Smoking Status: Never smoker second hand exposure: Yes alcohol intake: never counseling provided: none substance use type: denies use current occupational status: retired Travel in the last 8 weeks: None household members: spouse housing: house caffeine: Yes Have you lived/traveled outside [place] in past 30 days?: No Contact w/someone who lives/traveled outside US past 30 days?: No Exposure to someone with infectious disease in past 14 days?: No Do you have a fever (greater than 100.4 F or 38 C)?: No Have you tested positive for COVID-19: No Exposed to someone with COVID-19 in past 14 days?: No Do you have a sore throat?: No Do you have a cough?: No Do you have any weakness?: No Do you have any diarrhea?: No Are you experiencing any unusual bleeding?: No Do you have any muscle aches/pain?: No Do you have any abdominal pain?: No Are you experiencing loss of taste or smell?: No Other Medical History Have you received the Flu Vaccine for this season: No Have you received the Pneumonia Vaccine: No Review of Systems Constitutional Constitutional: Denies chills and Denies fever(s) ENT Ears, Nose, Mouth, and Throat: Denies dizziness *Cardiovascular Cardiovascular: Denies chest pain and Reports dyspnea *Respiratory Respiratory: Reports dyspnea *Gastrointestinal Gastrointestinal: Denies abdominal pain *Genitourinary Genitourinary: Denies difficulty voiding *Musculoskeletal Musculoskeletal: Reports back pain *Neurologic Neurologic: Denies dizziness Meds Home Medications and Allergies Home Medications ?Medication ?Instructions ?Recorded ?Confirmed ?Type hydrochlorothiazide 12.5 mg capsule 12.5 mg PO DAILY 01/31/19 02/21/24 History raloxifene 60 mg tablet 60 mg PO DAILY Supplement 08/02/20 02/21/24 History metoprolol succinate 100 mg 100 mg PO DAILY 07/01/23 02/21/24 History tablet,extended release 24 hr hydroxychloroquine 200 mg tablet 200 mg PO BID 02/21/24 02/21/24 History meloxicam 7.5 mg tablet 7.5 mg PO DAILY 02/21/24 02/21/24 History New Prescriptions to Start Prescriptions: Allergies Allergy/AdvReac Type Severity Reaction Status Date / Time Penicillins Allergy swelling Verified 07/01/23 13:35 promethazine (From Phenergan) AdvReac Verified 07/01/23 13:35 Exam Data for Last 24 hours Vital signs and Labs for Last 24 Hours: Temp Pulse Resp BP Pulse Ox O2 Del Method O2 Flow Rate 97.9 F 122 H 20 120/80 95 Nasal Cannula 2 02/21/24 10:02/21/24 10:02/21/24 10:02/21/24 10:02/21/24 10:02/21/24 10:02/21/24 10:01 Laboratory Results - last 24 hr 02/20/24 14:55: WBC 9.1, RBC 4.91, Hgb 14.8, Hct 44.0, MCV 89.6, MCH 30.1, MCHC 33.6, RDW 13.4, Plt Count 427 H, MPV 10.4, Neut % (Auto) 76.1, Lymph % (Auto) 14.1, [place] % (Auto) 7.8, Eos % (Auto) 0.7, Baso % (Auto) 0.8, Neut # (Auto) 6.9, Lymph # (Auto) 1.3, [place] # (Auto) 0.7, Eos # (Auto) 0.1, Baso # (Auto) 0.1, D- Dimer 0.70 H, Sodium 131 L, Potassium 3.8, Chloride 99, Carbon Dioxide 24, Anion Gap 11.8, BUN 15, Creatinine 0.60, Estimated Creat Clear 56, Estimated GFR 96, Est GFR ( Amer) 116, Glucose 111 H, Calcium 9.0, Magnesium 1.5 L, Total Bilirubin 0.9, AST 39 H, ALT 29, Alkaline Phosphatase 50, Troponin I < 0.01, NT-Pro-B Natriuret Pep 3730 H, Total Protein 6.3, Albumin 3.7, Globulin 2.6, Albumin/Globulin Ratio 1.4, TSH 2.46 02/20/24 19:08: Troponin I < 0.01, HIV Ag/Ab Combo Qual Negative 02/20/24 22:28: Troponin I < 0.01 02/21/24 06:46: WBC 9.5, RBC 4.79, Hgb 14.2, Hct 42.2, MCV 88.1, MCH 29.6, MCHC 33.6, RDW 13.2, Plt Count 575 H D, MPV 9.7, Neut % (Auto) 73.4, Lymph % (Auto) 15.6, [place] % (Auto) 8.7, Eos % (Auto) 1.3, Baso % (Auto) 0.6, Neut # (Auto) 7.0, Lymph # (Auto) 1.5, [place] # (Auto) 0.8, Eos # (Auto) 0.1, Baso # (Auto) 0.1, Sodium 131 L, Potassium 3.3 L, Chloride 93 L, Carbon Dioxide 31 H, Anion Gap 10.3, BUN 11 D, Creatinine 0.70, Estimated Creat Clear 59, Estimated GFR 81, Est GFR ( Amer) 97, Glucose 89, Calcium 8.8, Magnesium 2.1 D, Total Bilirubin 0.6, AST 35, ALT 27, Alkaline Phosphatase 56, Total Protein 6.0 L, Albumin 3.4 L, Globulin 2.6, Albumin/Globulin Ratio 1.3 I & O for Last 24 hours: Intake & Output 02/18/24 02/19/24 02/20/24 02/21/24 23:59 23:59 23:59 23:59 Intake Total 120 / 120 Output Total 250 / 250 800 / 800 Balance -250 / -250 -680 / -680 Weight 182 lb 11.2 oz 182 lb 11.153 oz Constitutional Constitutional: no acute distress *Routine HEENT Exam Head: Present normocephalic Eye: Present EOMI and PERRL ENT: Present mucous membranes moist *Routine Neck Exam Neck: Present supple; Absent lymphadenopathy *Routine Respiratory Exam Respiratory: Present CTA bilaterally *Routine Cardiovascular Exam Cardiovascular: Present tachycardia and irregularly irregular *Routine Abdominal Exam Abdominal: Present soft and normoactive bowel sounds; Absent tenderness *Routine Rectal Exam Rectal:: deferred *Routine Genitalia Exam Genitalia:: deferred *Routine Extremities Exam Extremities: Absent cyanosis, clubbing or edema *Routine Skin Exam Skin: Present warm; Absent rash *Routine Neurological Exam Neurological: Present alert and oriented X3 Assessment and Plan *Assessment and plan (1) Pulmonary edema: Status: Acute Category: Medical Code(s): J81.1 - Chronic pulmonary edema (2) Atrial fibrillation, new onset: Status: Acute Category: Medical Code(s): I48.91 - Unspecified atrial fibrillation (3) Generalized weakness: Status: Acute Category: Medical Code(s): R53.1 - Weakness (4) HTN (hypertension): Status: Acute Qualifiers: Hypertension type: unspecified Qualified Code(s): I10 - Essential (primary) hypertension Category: Medical Code(s): I10 - Essential (primary) hypertension (5) Elevated brain natriuretic peptide (BNP) level: Status: Acute Category: Medical Code(s): R79.89 - Other specified abnormal findings of blood chemistry (6) Hypokalemia: Status: Resolved Category: Medical Code(s): E87.6 - Hypokalemia Plan Patient admitted for further evaluation and management. She was given IV Lasix, NTG and Metoprolol last night. BP has improved, she is still in A fib with RVR, will start Cardizem drip now and start Eliquis, check Echo, replace potassium.
[2024-02-21] MEDS: dilTIAZem HCL 100 MG in 0.9 % SODIUM CHLORIDE 100 ML IV ×2 (11:00→23:00)
[2024-02-21] MEDS: FUROSEMIDE 40MG/4ML VIAL 40 MG IV (11:01)
[2024-02-21] MEDS: APIXABAN 5MG TABLET 5 MG PO ×2 (11:01→20:15)
[2024-02-21] MEDS: POTASSIUM CHLORIDE 20MEQ TAB 20 MEQ PO ×2 (11:03→20:15)
[2024-02-21] MEDS: dilTIAZem 25MG/5ML VIAL 5 MG IV (12:09)
[2024-02-21] MEDS: ONDANSETRON 4MG/2ML VIAL 4 MG IV ×2 (15:18→17:37)
[2024-02-21] MEDS: FAMOTIDINE 20MG/2ML VIAL 20 MG IV (16:55)
[2024-02-22] VITALS (35 sets, daily range): BP systolic 110–171; BP diastolic 46–110; PULSE 43–111; RESP 11–27; TEMP 36.6–37.3; O2SAT 89–95; BMI 31.3
--- NOTE | 2024-02-22 02:58 | PC.NURSE ---
She is A&Ox4. She continues with 2LPM n/c. Cardizem gtt @5. She is voiding per purewick; was changed at the beginning of the shift. Her urine is yellow, clear. Family is at bedside. Afib on telemetry.
[2024-02-22 07:29] LABS: Basophils # 0.1 K/mm3 (0-0.2); Basophils % 0.6 % (0.1-2.0); Eosinophils # 0.1 K/mm3 (0.0-0.4); Eosinophils % 1.7 % (0.1-12.0); Hematocrit 41.2 % (37.0-47.0); Hemoglobin 13.9 g/dL (12.2-16.2); Lymphocytes # 1.5 K/mm3 (0.7-4.5); Lymphocytes % 18.2 % (10-50); Mean Corpuscular HGB Conc 33.7 g/dL (31.8-35.4); Mean Corpuscular Hemoglobin 29.7 pg (27.0-31.2); Mean Platelet Volume 9.7 fl (7.4-10.4); Monocytes # 0.8 K/mm3 (0.1-1.0); Monocytes % 9.7 % (1.7-9.3); Neutrophils # 5.6 K/mm3 (1.8-7.8); Neutrophils % 69.4 % (37.0-80.0); Platelet Count 511 K/mm3 (142-424); Red Blood Count 4.68 M/mm3 (4.20-5.40); Red Cell Distribution Width 13.1 % (11.5-17.5)
[2024-02-22] MEDS: POTASSIUM CHLORIDE 20MEQ TAB 20 MEQ PO ×2 (08:00→20:03)
[2024-02-22] MEDS: APIXABAN 5MG TABLET 5 MG PO ×2 (08:05→20:02)
[2024-02-22 08:08] LABS: HCV Ab Non Reactive (Non Reactive)
[2024-02-22 08:19] LABS: Alanine Aminotransferase 22 U/L (12-78); Albumin Level 3.3 g/dl (3.5-5.0); Albumin/Globulin Ratio 1.3 (1.1-1.8); Alkaline Phosphatase 47 U/L (38-126); Anion Gap 9.2 mEq/L (5-15); Aspartate Amino Transferase 48 U/L (14-36); Bilirubin,Total 0.8 mg/dl (0.2-1.3); Blood Urea Nitrogen 12 mg/dl (7-17); Calcium 8.6 mg/dl (8.4-10.2); Carbon Dioxide 27 mmol/L (22.0-30.0); Chloride 92 mmol/L (98-107); Creatinine Clearance Estimated 59 mL/min (50-200); Estimated Glomerular Filt Rate 96 ml/min (>60); GFR (African American) 116 ML/MIN (>60); Globulin 2.6 g/dL (1.3-3.2); Glucose 83 mg/dl (74-100); Magnesium 1.8 mg/dl (1.6-2.3); Potassium 4.2 mmoL/L (3.5-5.1); Sodium 124 mmol/L (136-145); Total Protein,Serum 5.9 g/dl (6.3-8.2)
--- NOTE | 2024-02-22 09:00 | EXP.ACUTE.PN ---
Subjective *Date: 02/22/24 *Time: 09:00 Interval history: Patient had some nausea yesterday, seems to be related to dizziness. Medical Exam Vital signs and Labs for Last 24 Hours: Vital Signs Temp Pulse Pulse Pulse Resp BP Pulse Ox 02/22/24 08:00 98.0 F 02/22/24 08:00 146/96 H 02/22/24 08:00 84 89 L 02/22/24 07:51 132/81 02/22/24 07:51 97 H 90 L 02/22/24 07:00 156/103 H 02/22/24 07:00 91 H 27 H 92 L 02/22/24 06:45 92 H 11 L 145/96 H 90 L 02/22/24 06:29 02/22/24 06:00 103 H 21 157/100 H 91 L 02/22/24 05:47 171/101 H 02/22/24 05:47 43 L 17 95 02/22/24 05:00 95 H 160/110 H 92 L 02/22/24 05:00 02/22/24 04:00 143/100 H 02/22/24 04:00 98.1 F 92 H 19 143/100 H 92 L 02/22/24 04:00 85 02/22/24 03:00 154/95 H 02/22/24 03:00 100 H 24 154/95 H 92 L 02/22/24 03:00 91 L 02/22/24 02:54 02/22/24 02:00 144/94 H 02/22/24 02:00 94 H 20 144/94 H 91 L 02/22/24 01:01 99 H 93 L 02/22/24 01:01 147/101 H 02/22/24 01:00 02/22/24 01:00 88 20 147/101 H 94 L 02/22/24 00:09 82 02/22/24 00:00 02/22/24 00:00 128/90 02/22/24 00:00 98.1 F 96 H 20 128/90 93 L 02/21/24 23:00 93 H 22 137/94 H 92 L 02/21/24 23:00 02/21/24 22:00 107 H 24 132/93 H 91 L 02/21/24 21:00 125/89 02/21/24 21:00 96 H 18 125/89 92 L 02/21/24 20:54 02/21/24 20:00 96 H 02/21/24 20:00 107 H 90 L 02/21/24 20:00 138/98 H 02/21/24 20:00 98.0 F 93 H 18 138/98 H 91 L 02/21/24 19:00 152/107 H 02/21/24 19:00 101 H 19 93 L 02/21/24 19:00 02/21/24 18:00 134/79 02/21/24 18:00 98 H 21 86 L 02/21/24 17:00 02/21/24 17:00 145/83 H 02/21/24 17:00 96 H 19 91 L 02/21/24 16:40 104 H 91 L 02/21/24 16:18 98.6 F 02/21/24 16:00 110 H 02/21/24 16:00 85 16 96 02/21/24 16:00 128/93 H 02/21/24 15:15 02/21/24 15:00 97 H 18 135/82 94 L 02/21/24 14:00 104 H 20 127/95 H 92 L 02/21/24 13:00 95 H 20 119/81 90 L 02/21/24 12:44 02/21/24 12:01 103 H 18 126/97 H 92 L 02/21/24 12:00 98.2 F 02/21/24 12:00 100 H 02/21/24 12:00 112 H 95 02/21/24 11:34 111 H 22 130/87 92 L 02/21/24 11:00 02/21/24 10:01 97.9 F 122 H 20 120/80 95 O2 Del Method O2 Flow Rate 02/22/24 08:00 02/22/24 08:00 02/22/24 08:00 02/22/24 07:51 02/22/24 07:51 02/22/24 07:00 02/22/24 07:00 02/22/24 06:45 02/22/24 06:29 Nasal Cannula 2 02/22/24 06:00 02/22/24 05:47 02/22/24 05:47 02/22/24 05:00 02/22/24 05:00 Nasal Cannula 2 02/22/24 04:00 02/22/24 04:00 Nasal Cannula 2 02/22/24 04:00 02/22/24 03:00 02/22/24 03:00 Nasal Cannula 2 02/22/24 03:00 Nasal Cannula 2 02/22/24 02:54 Nasal Cannula 2 02/22/24 02:00 02/22/24 02:00 Nasal Cannula 2 02/22/24 01:01 02/22/24 01:01 02/22/24 01:00 Nasal Cannula 02/22/24 01:00 Nasal Cannula 2 02/22/24 00:09 02/22/24 00:00 Nasal Cannula 2 02/22/24 00:00 02/22/24 00:00 Nasal Cannula 2 02/21/24 23:00 Nasal Cannula 2 02/21/24 23:00 Nasal Cannula 2 02/21/24 22:00 Nasal Cannula 2 02/21/24 21:00 02/21/24 21:00 Nasal Cannula 2 02/21/24 20:54 Nasal Cannula 2 02/21/24 20:00 02/21/24 20:00 Nasal Cannula 2 02/21/24 20:00 02/21/24 20:00 Nasal Cannula 2 02/21/24 19:00 02/21/24 19:00 02/21/24 19:00 Nasal Cannula 2 02/21/24 18:00 02/21/24 18:00 02/21/24 17:00 Nasal Cannula 2 02/21/24 17:00 02/21/24 17:00 02/21/24 16:40 Nasal Cannula 2 02/21/24 16:18 02/21/24 16:00 02/21/24 16:00 02/21/24 16:00 02/21/24 15:15 Nasal Cannula 2 02/21/24 15:00 Nasal Cannula 2 02/21/24 14:00 Nasal Cannula 2 02/21/24 13:00 Non-Rebreather 2 02/21/24 12:44 Nasal Cannula 2 02/21/24 12:01 Nasal Cannula 2 02/21/24 12:00 02/21/24 12:00 02/21/24 12:00 Nasal Cannula 2 02/21/24 11:34 Nasal Cannula 2 02/21/24 11:00 Nasal Cannula 02/21/24 10:01 Nasal Cannula 2 Intake and Output 02/21/24 02/22/24 02/22/24 23:59 07:59 15:59 Intake Total 48.766 / 996.466 265 / 810 545 / 810 Output Total 250 / 1550 260 / 260 Balance -201.234 / -553.534 5 / 550 545 / 550 Intake: Intake, Oral Amount 250 / 790 540 / 790 Intake, Total IV Amount 48.766 / 86.466 dilTIAZem HCL 100 mg In 0.9 % Sodium Chloride 100 ml @ 10 MG/ HR 10 mls/hr IV .Q10H [facility] Rx#: [id number] Output: Output, Urine Amount 250 / 1550 260 / 260 Other: Number of Unmeasured Voids 0 Weight 183 lb 7.005 oz Patient Weight 02/22/24 23:59 Weight 183 lb 7.005 oz Laboratory Results - last 24 hr 02/20/24 14:28: Hepatitis C Antibody Non reactive 02/22/24 06:21: WBC 8.0, RBC 4.68, Hgb 13.9, Hct 41.2, MCV 88.0, MCH 29.7, MCHC 33.7, RDW 13.1, Plt Count 511 H, MPV 9.7, Neut % (Auto) 69.4, Lymph % (Auto) 18.2, [place] % (Auto) 9.7 H, Eos % (Auto) 1.7, Baso % (Auto) 0.6, Neut # (Auto) 5.6, Lymph # (Auto) 1.5, [place] # (Auto) 0.8, Eos # (Auto) 0.1, Baso # (Auto) 0.1, Sodium 124 L, Potassium 4.2 D, Chloride 92 L, Carbon Dioxide 27, Anion Gap 9.2, BUN 12, Creatinine 0.60, Estimated Creat Clear 59, Estimated GFR 96, Est GFR ( Amer) 116, Glucose 83, Calcium 8.6, Magnesium 1.8 D, Total Bilirubin 0.8, AST 48 H D, ALT 22, Alkaline Phosphatase 47, Total Protein 5.9 L, Albumin 3.3 L, Globulin 2.6, Albumin/Globulin Ratio 1.3 I & O for Labs for Last 24 Hours: Intake & Output 02/19/24 02/20/24 02/21/24 02/22/24 23:59 23:59 23:59 23:59 Intake Total 731.466 / 996.466 810 / 810 Output Total 250 / 250 1550 / 1550 260 / 260 Balance -250 / -250 -818.534 / -553.534 550 / 550 Weight 182 lb 11.2 oz 183 lb 7 oz 183 lb 7.005 oz Constitutional: Present no acute distress Respiratory: Present normal respiratory effort Cardiac: Present Irregularly Regular and Tachycardia GI: Present normal bowel sounds; Absent tenderness Extremities: Present normal inspection and full ROM Skin: Present intact; Absent erythema Neuro: Present Grossly Intact and moves all extremities Assessment and Plan *Assessment and plan (1) Pulmonary edema: Status: Acute Category: Medical Code(s): J81.1 - Chronic pulmonary edema (2) Atrial fibrillation, new onset: Status: Acute Category: Medical Code(s): I48.91 - Unspecified atrial fibrillation (3) Generalized weakness: Status: Acute Category: Medical Code(s): R53.1 - Weakness (4) HTN (hypertension): Status: Acute Qualifiers: Hypertension type: unspecified Qualified Code(s): I10 - Essential (primary) hypertension Category: Medical Code(s): I10 - Essential (primary) hypertension (5) Elevated brain natriuretic peptide (BNP) level: Status: Acute Category: Medical Code(s): R79.89 - Other specified abnormal findings of blood chemistry (6) Hypokalemia: Status: Resolved Category: Medical Code(s): E87.6 - Hypokalemia Plan Patient is still in A. fib, will titrate cardizem drip up, plan a trial of Meclizine as well.
[2024-02-22] MEDS: MECLIZINE 25MG TABLET 25 MG PO (09:37)
[2024-02-22] MEDS: dilTIAZem HCL 100 MG in 0.9 % SODIUM CHLORIDE 100 ML 10 MG IV (13:37)
[2024-02-22] MEDS: FUROSEMIDE 40MG/4ML VIAL 40 MG IV (14:34)
--- NOTE | 2024-02-22 18:24 | PC.NURSE ---
MD called to check on pt, notified md that pt hr has been in the 90's but rhythm is still Afib. pt hr will increase to 110's when repositioning in bed, dilt infusing at 15ml. asked if md would like cardiology consult entered. ok per md to place cardiology consult and ok to transfer pt to [facility]. pt lungs are clear with crackles in [place] bases. pt remains on 1.5 lpm nc. pt bowel sounds are active in all quads, states she does feel like she may need to have a bm relatively soon. pt is voiding yellow urine per mikey. pt is a/o x 4 nad. pt is at bedside. pt has not had any episodes of dizziness or nv this shift. pt has received 1 dose of meclizine earlier in the shift.
--- NOTE | 2024-02-22 18:51 | ECG_ITS ---
APPROVED REPORT Exam: Resting ECG HR:99 bpm ECG Measurements Heart Rate 99 AXES FL 166 P -8 QRSd 88 QRS 101 QT 360 T 42 QTc 417 Conclusion SINUS RHYTHM RIGHT AXIS DEVIATION [QRS AXIS > 100] ABNORMAL ECG UNCONFIRMED REPORT Electronically signed by : Tomi Andrade MD 02/24/2024 10:48:10
--- NOTE | 2024-02-22 19:39 | PC.NURSE ---
She is A&Ox4. She has a limb alert on her right hand. She converted to NSR at shift change; MD was contacted and verbal order was given to give patient cardizem 30mg and then every 6 hours and turn cardizem gtt off in 1 hour. She was educated on the doctors orders and the process of getting her off the cardizem gtt; she verbalizes understanding. She denies any SOA, nausea, or pain. She does have trace edema at her ankles. She turns herself independently. She states that at home when she gets up that she had transitioned from a walker to a cane at home, but uses the walker while in the hospital. She is voiding per a ne. Her urine is yellow, clear. She states that she got cleaned up and her gown changed today and denies any additional needs at this time. Her is at the bedside.
[2024-02-22] MEDS: dilTIAZem 30MG TABLET 30 MG PO (19:40)
[2024-02-23] VITALS (32 sets, daily range): BP systolic 117–168; BP diastolic 55–110; PULSE 79–146; RESP 13–29; TEMP 36.6–37.2; O2SAT 88–96; BMI 32.3
[2024-02-23] MEDS: dilTIAZem 30MG TABLET 30 MG PO (02:52)
--- NOTE | 2024-02-23 03:03 | PC.NURSE ---
She continues on 1.5LPM n/c. She has been NSR majority of the shift since converting but does have some periods of tachycardia with an occasional PVC. She remains asymptomatic and denies any complaints. Purewick has been changed.
[2024-02-23] MEDS: ONDANSETRON 4MG/2ML VIAL 4 MG IV (04:42)
--- NOTE | 2024-02-23 04:45 | PC.NURSE ---
She woke up nauseated. PRN zofran given.
--- NOTE | 2024-02-23 06:21 | ECG_ITS ---
APPROVED REPORT Exam: Resting ECG HR:115 bpm ECG Measurements Heart Rate 115 AXES QRSd 94 QRS 99 QT 325 T 68 QTc 393 Conclusion ATRIAL FIBRILLATION WITH RAPID VENTRICULAR RESPONSE WITH ABERRANT CONDUCTION OR VENTRICULAR PREMATURE COMPLEXES BORDERLINE RIGHT AXIS DEVIATION [QRS AXIS > 90] ABNORMAL RHYTHM ECG UNCONFIRMED REPORT Electronically signed by : SOCO HOYOS, 02/23/2024 06:37:22
[2024-02-23] MEDS: METOCLOPRAMIDE HCL 10MG/2ML VIAL 5 MG IVP (06:34)
[2024-02-23] MEDS: dilTIAZem HCL 100 MG in 0.9 % SODIUM CHLORIDE 100 ML 15 MG IV ×2 (06:46→14:20)
[2024-02-23] MEDS: dilTIAZem 25MG/5ML VIAL 10 MG IV (06:48)
--- NOTE | 2024-02-23 07:00 | CA_ITS ---
APPROVED REPORT EXAM: Comprehensive 2D, Doppler, and color-flow Echocardiogram Utility Bagger: Reyna Leach RT(R) Ht: 5 ft 4 in Wt: 182lbs BSA: 1.88 BP: 179/111 mmHg Indications: Afib with RVR, HTN, flu 2 weeks ago, pulmonary edema. 2D Dimensions LA Volume 83.00 mL LA Volume Index 44.15 mL/m2 (M/F) 16-34 EF AP4 26.50 % GL Strain -0.8 % M-Mode Dimensions RVDd 3.18 cm (0.9-2.6) LA Diam 4.44 cm (1.9-4.0) LVDd 4.95 cm (3.5-5.7) LVDs 3.66 cm (3.5-5.7) IVSd 0.93 cm (0.6-1.1) PWd 0.93 cm (0.6-1.1) EF (Teich) 51.00% FS 26.10% EDV (Teich) 115.50 mL ESV (Teich) 56.60 mL Left Ventricle The left ventricle is normal size. There is moderate to severe reduction LV systolic function. Proximal septal thickening is noted. Diastolic function is indeterminate. There is moderate to severe global hypokinesis. LVEF is 30%. Right Ventricle The right ventricle is normal size. The right ventricular systolic function is normal. Atria The left atrium is moderately dilated. The right atrium is moderately dilated. There is notable evidence of interatrial shunt. Aortic Valve The aortic valve is mildly thickened. There is no hemodynamically significant aortic stenosis. Mild aortic regurgitation. Mitral Valve The mitral valve leaflets are mildly thickened. Mild mitral regurgitation. No evidence of mitral valve stenosis. Tricuspid Valve The tricuspid valve leaflets are thin and pliable. Trace tricuspid regurgitation. There is insufficient TR jet to estimate RVSP. Pulmonic Valve The pulmonary valve is normal in structure. Trace pulmonic regurgitation. Great Vessels The aortic root is normal in size. IVC is normal in size and collapses >50% with inspiration. Pericardium There is no pericardial effusion. Other Information Study Quality: Fair Conclusion Moderate to severe reduction global LV systolic function (LVEF 30%). Moderate biatrial dilation. Mild AI, mild MR. Electronically signed by : Lashon Newell MD 02/23/2024 17:12:10
[2024-02-23 07:39] LABS: Basophils # 0.1 K/mm3 (0-0.2); Basophils % 0.7 % (0.1-2.0); Eosinophils # 0.2 K/mm3 (0.0-0.4); Eosinophils % 2.4 % (0.1-12.0); Hematocrit 44.1 % (37.0-47.0); Hemoglobin 14.9 g/dL (12.2-16.2); Lymphocytes # 1.1 K/mm3 (0.7-4.5); Lymphocytes % 14.5 % (10-50); Mean Corpuscular HGB Conc 33.8 g/dL (31.8-35.4); Mean Corpuscular Hemoglobin 30.3 pg (27.0-31.2); Mean Corpuscular Volume 89.8 fl (81-99); Mean Platelet Volume 9.6 fl (7.4-10.4); Monocytes # 0.8 K/mm3 (0.1-1.0); Monocytes % 10.2 % (1.7-9.3); Neutrophils # 5.5 K/mm3 (1.8-7.8); Neutrophils % 71.4 % (37.0-80.0); Platelet Count 575 K/mm3 (142-424); Red Blood Count 4.91 M/mm3 (4.20-5.40); Red Cell Distribution Width 13.2 % (11.5-17.5); White Blood Count 7.6 K/mm3 (4.8-10.8)
[2024-02-23 07:58] LABS: Alanine Aminotransferase 20 U/L (12-78); Albumin Level 3.5 g/dl (3.5-5.0); Albumin/Globulin Ratio 1.4 (1.1-1.8); Alkaline Phosphatase 56 U/L (38-126); Aspartate Amino Transferase 32 U/L (14-36); Bilirubin,Total 0.5 mg/dl (0.2-1.3); Blood Urea Nitrogen 13 mg/dl (7-17); Carbon Dioxide 34 mmol/L (22.0-30.0); Chloride 91 mmol/L (98-107); Creatinine Clearance Estimated 61 mL/min (50-200); Estimated Glomerular Filt Rate 81 ml/min (>60); GFR (African American) 97 ML/MIN (>60); Globulin 2.5 g/dL (1.3-3.2); Glucose 96 mg/dl (74-100); Magnesium 1.8 mg/dl (1.6-2.3); Sodium 128 mmol/L (136-145)
[2024-02-23] MEDS: FUROSEMIDE 40MG/4ML VIAL 40 MG IV (08:53)
[2024-02-23] MEDS: POTASSIUM CHLORIDE 20MEQ TAB 20 MEQ PO ×2 (08:53→20:17)
[2024-02-23] MEDS: APIXABAN 5MG TABLET 5 MG PO ×2 (08:53→20:17)
--- NOTE | 2024-02-23 09:58 | EXP.ACUTE.PN ---
Subjective *Date: 02/23/24 *Time: 09:58 Interval history: Patient states her nausea is better today. Nurses report that she converted to sinus rhythm yesterday and was changed over to oral cardizem but early this morning she went back into A. fib with RVR and the cardizem drip was resumed. Medical Exam Vital signs and Labs for Last 24 Hours: Vital Signs Temp Pulse Pulse Resp BP BP Pulse Ox 02/23/24 09:00 02/23/24 09:00 102 H 18 122/89 92 L 02/23/24 08:00 02/23/24 08:00 144/81 H 02/23/24 08:00 98.9 F 102 H 20 144/81 H 90 L 02/23/24 06:04 02/23/24 06:00 133/79 02/23/24 06:00 120 H 22 90 L 02/23/24 05:00 79 16 90 L 02/23/24 05:00 106 H 20 138/82 92 L 02/23/24 04:46 02/23/24 04:00 143/82 H 02/23/24 04:00 101 H 19 89 L 02/23/24 03:39 90 02/23/24 03:00 109 H 18 93 L 02/23/24 03:00 98.0 F 84 22 140/85 96 02/23/24 02:55 93 L 02/23/24 02:54 02/23/24 02:00 138/81 02/23/24 02:00 98.0 F 83 16 138/81 93 L 02/23/24 01:00 98.4 F 100 H 14 126/83 92 L 02/23/24 01:00 100 H 93 L 02/23/24 00:37 02/23/24 00:00 125/80 02/23/24 00:00 89 21 94 L 02/22/24 23:20 90 02/22/24 23:00 117/73 02/22/24 23:00 97.9 F 86 25 H 125/80 91 L 02/22/24 23:00 02/22/24 22:00 125/84 02/22/24 22:00 103 H 24 89 L 02/22/24 21:00 94 H 27 H 92 L 02/22/24 21:00 126/80 02/22/24 20:46 02/22/24 20:00 98.7 F 104 H 14 125/84 91 L 02/22/24 20:00 98.1 F 97 H 27 H 127/76 92 L 02/22/24 20:00 90 02/22/24 19:51 92 L 02/22/24 19:01 96 H 22 125/70 90 L 02/22/24 19:00 100 H 23 91 L 02/22/24 18:41 02/22/24 18:01 111 H 26 H 110/46 L 92 L 02/22/24 17:14 02/22/24 17:02 104 H 18 140/90 93 L 02/22/24 16:47 107 H 93 L 02/22/24 16:00 99.1 F 02/22/24 16:00 116/77 02/22/24 16:00 88 19 92 L 02/22/24 16:00 90 02/22/24 15:13 02/22/24 15:00 81 22 121/71 92 L 02/22/24 14:01 109 H 21 136/84 90 L 02/22/24 13:18 02/22/24 13:00 90 23 90 L 02/22/24 13:00 150/86 H 02/22/24 12:00 107 H 21 130/98 H 93 L 02/22/24 12:00 90 02/22/24 12:00 105 H 94 L 02/22/24 11:00 103 H 23 146/94 H 94 L 02/22/24 11:00 02/22/24 10:00 145/94 H 02/22/24 10:00 100 H 12 93 L O2 Del Method O2 Flow Rate 02/23/24 09:00 Nasal Cannula 1.5 02/23/24 09:00 Nasal Cannula 3 02/23/24 08:00 Nasal Cannula 1.5 02/23/24 08:00 02/23/24 08:00 02/23/24 06:04 Nasal Cannula 1.5 02/23/24 06:00 02/23/24 06:00 02/23/24 05:00 02/23/24 05:00 02/23/24 04:46 Nasal Cannula 1.5 02/23/24 04:00 02/23/24 04:00 02/23/24 03:39 02/23/24 03:00 02/23/24 03:00 02/23/24 02:55 Room Air 02/23/24 02:54 Nasal Cannula 1.5 02/23/24 02:00 02/23/24 02:00 Nasal Cannula 1.5 02/23/24 01:00 Nasal Cannula 1.5 02/23/24 01:00 02/23/24 00:37 Nasal Cannula 1.5 02/23/24 00:00 02/23/24 00:00 02/22/24 23:20 02/22/24 23:00 02/22/24 23:00 Nasal Cannula 1.5 02/22/24 23:00 Nasal Cannula 1.5 02/22/24 22:00 02/22/24 22:00 Nasal Cannula 1.5 02/22/24 21:00 02/22/24 21:00 02/22/24 20:46 Nasal Cannula 1.5 02/22/24 20:00 Nasal Cannula 1.5 02/22/24 20:00 Room Air 02/22/24 20:00 02/22/24 19:51 Nasal Cannula 1.5 02/22/24 19:01 02/22/24 19:00 02/22/24 18:41 Nasal Cannula 1.5 02/22/24 18:01 Nasal Cannula 1.5 02/22/24 17:14 Nasal Cannula 1.5 02/22/24 17:02 Nasal Cannula 1.5 02/22/24 16:47 Nasal Cannula 1.5 02/22/24 16:00 02/22/24 16:00 02/22/24 16:00 02/22/24 16:00 02/22/24 15:13 Nasal Cannula 1.5 02/22/24 15:00 Nasal Cannula 1.5 02/22/24 14:01 Nasal Cannula 1.5 02/22/24 13:18 Nasal Cannula 1.5 02/22/24 13:00 02/22/24 13:00 02/22/24 12:00 Nasal Cannula 02/22/24 12:00 02/22/24 12:00 Nasal Cannula 2 02/22/24 11:00 Nasal Cannula 02/22/24 11:00 Nasal Cannula 1.5 02/22/24 10:00 02/22/24 10:00 Intake and Output 02/22/24 02/23/24 02/23/24 23:59 07:59 15:59 Intake Total 625.667 / 1924.750 Output Total 500 / 1000 0 / 0 Balance 125.667 / 924.750 . Intake: Intake, Oral Amount 535 / 1760 Intake, Oral Supplement Amount Intake, Total IV Amount 90.667 / 164.750 Output: Output, Urine Amount 500 / 1000 0 / 0 Other: Weight 189 lb 3 oz Patient Weight 02/23/24 23:59 Weight 189 lb 3 oz Laboratory Results - last 24 hr 02/23/24 06:27: WBC 7.6, RBC 4.91, Hgb 14.9, Hct 44.1, MCV 89.8, MCH 30.3, MCHC 33.8, RDW 13.2, Plt Count 575 H, MPV 9.6, Neut % (Auto) 71.4, Lymph % (Auto) 14.5, [place] % (Auto) 10.2 H, Eos % (Auto) 2.4, Baso % (Auto) 0.7, Neut # (Auto) 5.5, Lymph # (Auto) 1.1, [place] # (Auto) 0.8, Eos # (Auto) 0.2, Baso # (Auto) 0.1, Sodium 128 L, Potassium 4.0, Chloride 91 L, Carbon Dioxide 34 H, Anion Gap 7.0, BUN 13, Creatinine 0.70, Estimated Creat Clear 61, Estimated GFR 81, Est GFR ( Amer) 97, Glucose 96, Calcium 9.0, Magnesium 1.8, Total Bilirubin 0.5, AST 32 D, ALT 20, Alkaline Phosphatase 56, Total Protein 6.0 L, Albumin 3.5, Globulin 2.5, Albumin/Globulin Ratio 1.4 I & O for Labs for Last 24 Hours: Intake & Output 02/20/24 02/21/24 02/22/24 02/23/24 23:59 23:59 23:59 23:59 Intake Total 731.466 / 969.659 3986.750 / 1924.750 . / . Output Total 250 / 250 1550 / 1550 1000 / 1000 0 / 0 Balance -250 / -250 -818.534 / -553.534 924.750 / 924.750 94.25 / 94.25 Weight 182 lb 11.2 oz 183 lb 7 oz 183 lb 7.005 oz 189 lb 3 oz Constitutional: Present no acute distress Respiratory: Present normal respiratory effort Cardiac: Present Irregularly Regular and Tachycardia GI: Present normal bowel sounds; Absent tenderness Extremities: Present normal inspection and full ROM Skin: Present intact; Absent erythema Neuro: Present Grossly Intact and moves all extremities Assessment and Plan *Assessment and plan (1) Pulmonary edema: Status: Acute Category: Medical Code(s): J81.1 - Chronic pulmonary edema (2) Atrial fibrillation, new onset: Status: Acute Category: Medical Code(s): I48.91 - Unspecified atrial fibrillation (3) Generalized weakness: Status: Acute Category: Medical Code(s): R53.1 - Weakness (4) HTN (hypertension): Status: Acute Qualifiers: Hypertension type: unspecified Qualified Code(s): I10 - Essential (primary) hypertension Category: Medical Code(s): I10 - Essential (primary) hypertension (5) Elevated brain natriuretic peptide (BNP) level: Status: Acute Category: Medical Code(s): R79.89 - Other specified abnormal findings of blood chemistry (6) Hypokalemia: Status: Resolved Category: Medical Code(s): E87.6 - Hypokalemia Plan Cont. cardizem drip, echo and cardiology consult today.
--- NOTE | 2024-02-23 11:25 | PC.NURSE ---
Patient was given Lasix and has now had 950 mL out via purwick. Patient stated it won't stop coming out but I can't believe I am still dry with this thing on. Canister emptied and purwick changed. Patient offered assistance to get cleaned up/ bed linens changed and patient declined- she stated she would let me know if she wanted to later. Patient given bath yesterday. Patient's ice water refilled per request. Call light within reach and family at bedside.
[2024-02-23] MEDS: DIGOXIN 0.25MG/ML 2ML AMPUL 250 MCG IV (17:52)
[2024-02-23] MEDS: AMIODARONE HCL 150 MG in DEXTROSE 5 % IN WATER 100 ML 600 MG IV (17:52)
[2024-02-23] MEDS: AMIODARONE HCL 900 MG in DEXTROSE 5 % IN WATER 500 ML 34.53 MG IV (18:17)
[2024-02-23] MEDS: ESMOLOL HCL IN STERILE WATER 2,500 MG/250 ML PIGGYBACK 25.74 MG IV (18:25)
--- NOTE | 2024-02-23 18:40 | PC.NURSE ---
Dr. Draper paged due to patient's heart rate being 110's-160's. Patient's ef 30% and dilt drip d/c'd. Esmolol and amio started. Patient alert and oriented times 4, bp stable and patient remained on 1.5 LNC.
--- NOTE | 2024-02-23 21:04 | PC.NURSE ---
BP cuff readjusted to upper arm. BP 163/93
[2024-02-24] VITALS (46 sets, daily range): BP systolic 127–217; BP diastolic 73–157; PULSE 60–119; RESP 12–31; TEMP 36.4–37; O2SAT 89–99; BMI 31.4
--- NOTE | 2024-02-24 02:15 | PC.NURSE ---
This RN went to reassess BP cuff position on pt r/t high BP reading and noticed IV in upper chest was leaking from hub. IV dressing changed and hub tightened after confirming IV was still patent.
--- NOTE | 2024-02-24 02:16 | INFXCTL.NOTE ---
let nurse know about elevated b/p
[2024-02-24] MEDS: ESMOLOL HCL IN STERILE WATER 2,500 MG/250 ML PIGGYBACK 51.49 MG IV (04:10)
--- NOTE | 2024-02-24 04:14 | PC.NURSE ---
Esmolol titrated to 100mcg/kg/min d/t elevated BP at this time
--- NOTE | 2024-02-24 05:09 | PC.NURSE ---
Paged for manager call at this time
[2024-02-24] MEDS: NITROGLYCERIN 1 GM OINTMENT TD (06:04)
--- NOTE | 2024-02-24 06:12 | PC.NURSE ---
Addendum entered by Keyon Osborn RN 02/24/24 07:55: Time correction- Spoke with at 0521 and at 0533. Original Note: I spoke with and in regards to pt's elevated BP despite Esmolol titration. Both recommended and inch of nitro paste. Orders carried out per APR. Pt remains asymptomatic and has no complaints. Attempted a manual BP using left radial wrist. Able to hear systolic at 165.
--- NOTE | 2024-02-24 06:37 | PC.NURSE ---
Estella Draper MD d/t increasing BP and pt c/o headache now. Discussed with MD about source and reliability of BP measurement with pt hx of right masectomy. Determined to get a manual on right arm and BP was 175/110. Baron gave orders to start nipride gtt per protocol for BP.
[2024-02-24 07:08] LABS: Basophils # 0.1 K/mm3 (0-0.2); Basophils % 0.5 % (0.1-2.0); Eosinophils # 0.3 K/mm3 (0.0-0.4); Eosinophils % 2.5 % (0.1-12.0); Hematocrit 43.7 % (37.0-47.0); Hemoglobin 14.3 g/dL (12.2-16.2); Lymphocytes % 9.8 % (10-50); Mean Corpuscular HGB Conc 32.7 g/dL (31.8-35.4); Mean Corpuscular Hemoglobin 29.7 pg (27.0-31.2); Mean Corpuscular Volume 90.7 fl (81-99); Mean Platelet Volume 9.7 fl (7.4-10.4); Monocytes # 1.2 K/mm3 (0.1-1.0); Monocytes % 11.5 % (1.7-9.3); Neutrophils # 7.5 K/mm3 (1.8-7.8); Neutrophils % 75.2 % (37.0-80.0); Platelet Count 548 K/mm3 (142-424); Red Blood Count 4.82 M/mm3 (4.20-5.40); Red Cell Distribution Width 13.5 % (11.5-17.5)
[2024-02-24] MEDS: NITROPRUSSIDE SODIUM 50 MG in DEXTROSE 5 % IN WATER 250 ML 7.57 MG IV (07:10)
--- NOTE | 2024-02-24 07:15 | PC.NURSE ---
assessed pt prior to report being received. pt is a/o x 4, lung sounds are tight and diminished with expiratory wheezes throughout. bowel sounds are active in all quads.
--- NOTE | 2024-02-24 07:28 | PC.NURSE ---
Pt placed on BiPAP per Dr Florez
--- NOTE | 2024-02-24 07:38 | P.PN_ITS ---
Critical Care Event Note Summary Code activated: No Narrative: This case had a high probability of a clinically significant, sudden, or life threatening deterioration of this patient's condition which required my full and direct attention, intervention and personal management. I was called upstairs to evaluate the patient after a precipitous decline. In summary, this is an 79-year-old female who was admitted for hypertensive urgency with new onset atrial fibrillation. Her pressures were doing well throughout the night but this morning she began to precipitously climb and had significantly worsening respiratory distress. On arrival they were unable to get good cuff pressures, but they were suggesting pressures 230s over 150s. She was on nonrebreather with significant respiratory distress, crackles in all lung abarca, accessory muscle use. History and exam is consistent with sympathetic crashing acute pulmonary edema. Patient was on esmolol. I placed 2 peripheral IVs via ultrasound and placed a left radial ultrasound to better assess blood pressure in order to titrate medications. Patient was uptitrated to 200 mics per kilo per minute of esmolol and nitroprusside was added. Patient was also initiated on BiPAP. As I left, patient was much more comfortable from respiratory standpoint and blood pressure was 200s over 110s on the arterial line. Critical care time: 75 - 104 [address] [facility] Critical Care Exam Physical Exam Vital signs: Temp Pulse Resp BP Pulse Ox O2 Del Method O2 Flow Rate 97.9 F 85 25 H 168/105 H 93 L Nasal Cannula 2 02/24/24 03:50 02/24/24 06:00 02/24/24 06:00 02/24/24 06:00 02/24/24 06:00 02/24/24 04:00 02/24/24 04:00 FiO2 80 02/24/24 07:27 Narrative: in extremis Routine HEENT Exam Head: Present normocephalic and atraumatic Routine Neck Exam Neck: Present supple and full ROM Routine Chest/Breast/Axilla Exam Chest wall: Absent tenderness Routine Respiratory Exam Respiratory: Present accessory muscle use, rales, respiratory distress and wheezes Routine Abdominal Exam Abdominal: Present soft Routine Extremities Exam Extremities: Present edema Routine Skin Exam Skin: Present intact Routine Neurological Exam Neurological: Present alert and oriented X3 [facility] Cardiology Procedures Arterial Line Time out performed: Yes Size (Gauge): 20 Technique used: guide wire technique Post-Procedure: line sutured into place and dry sterile dressing placed Patient tolerated procedure: well Complications: none Site: left and radial EJ/Peripheral Line Arm L: Skin cleansed in sterile fashion: Yes Size (gauge): 18 IV secured and dressing applied: Yes Patient tolerated procedure: well Arm R: Skin cleansed in sterile fashion: Yes Size (gauge): 18 IV secured and dressing applied: Yes Patient tolerated procedure: well
--- NOTE | 2024-02-24 07:46 | XR_ITS ---
FINAL REPORT CLINICAL HISTORY: Shortness of breath COMPARISON: 02/20/2024 FINDINGS: The heart size is normal. The mediastinum is normal. New dense airspace opacity right perihilar region and left lung base, probably due to acute pneumonia. There are no pleural effusions. There is no pneumothorax. There is no osseous abnormality. IMPRESSION: Acute pneumonia right perihilar region and left lung base. Reviewed, Interpreted and Dictated by Nadeem Heredia MD Transcribed by Lala Crisostomo Authenticated and . [facility]
[2024-02-24] MEDS: FUROSEMIDE 40MG/4ML VIAL 40 MG IV ×2 (07:50→17:41)
--- NOTE | 2024-02-24 08:00 | PC.NURSE ---
0634- Nitro paste was removed. When attempting to find another IV site to start nipride gtt, pt seemed more uncomfortable and when asked if she had any new complaints other than her as mentioned headache, she stated it was a little harder to breath . Pt was placed on non-rebreather and Rapid response was called. arrived and assisted with obtaining IV access in right forearm (18g) and an art line in left radial wrist. 07- updated on situation 0734- Nipride gtt started at 0.1mcg/kg/min (3ml/hr) Orders for chest xray, EKG, ABG and to give 0900 40mg lasix dose now per Lou Mclean.
--- NOTE | 2024-02-24 08:04 | P.PN_ITS ---
Subjective *Date: 02/24/24 *Time: 08:47 Interval history: Narrative: This case had a high probability of a clinically significant, sudden, or life threatening deterioration of this patient's condition which required my full and direct attention, intervention and personal management. I was called upstairs to evaluate the patient after a precipitous decline. In summary, this is an 79-year-old female who was admitted for hypertensive urgency with new onset atrial fibrillation. Her pressures were doing well throughout the night but this morning she began to precipitously climb and had significantly worsening respiratory distress. On arrival they were unable to get good cuff pressures, but they were suggesting pressures 230s over 150s. She was on nonrebreather with significant respiratory distress, crackles in all lung abarca, accessory muscle use. History and exam is consistent with sympathetic crashing acute pulmonary edema. Patient was on esmolol. I placed 2 peripheral IVs via ultrasound and placed a left radial ultrasound to better assess blood pressure in order to titrate medications. Patient was uptitrated to 200 mics per kilo per minute of esmolol and nitroprusside was added. Patient was also initiated on BiPAP. As I left, patient was much more comfortable from respiratory standpoint and blood pressure was 200s over 110s on the arterial line. Critical care time: 75 - 104 mins Above event noted. Was being given Lasix as ordered for Dr. Pastor. With this visit patient indicates that she is feeling better. She feels her breathing is better since being placed on BiPAP. She remains on BiPAP. She denies any chest pain. She continues with a Esmolol and nitroprusside drips. Patient is also on an amiodarone drip. Art line was also placed per ER physician. Laboratory data this morning at 6:27 AM show low sodium at 128 which is low but improved. Potassium is 4. BUN is 13 and creatinine 0.7. Magnesium is normal at 1.8. CBC with a white blood cell count of 10,000 and hemoglobin is 14.3 and hematocrit 43.7. Medical Exam Vital signs and Labs for Last 24 Hours: Vital Signs Temp Pulse Pulse Resp BP BP Pulse Ox 02/24/24 07:27 02/24/24 07:00 02/24/24 06:00 85 25 H 168/105 H 93 L 02/24/24 05:48 173/110 H 02/24/24 05:48 85 25 H 94 L 02/24/24 05:30 156/99 H 02/24/24 05:30 21 02/24/24 05:07 172/115 H 02/24/24 05:07 83 20 92 L 02/24/24 05:01 167/116 H 02/24/24 05:01 93 H 12 96 02/24/24 05:00 02/24/24 05:00 90 16 96 02/24/24 05:00 178/106 H 02/24/24 04:59 182/114 H 02/24/24 04:59 89 19 92 L 02/24/24 04:57 185/108 H 02/24/24 04:57 84 22 97 02/24/24 04:30 83 27 H 167/104 H 94 L 02/24/24 04:00 85 02/24/24 04:00 92 H 96 02/24/24 03:50 97.9 F 02/24/24 03:30 91 H 20 149/79 H 94 L 02/24/24 03:00 02/24/24 02:59 90 26 H 95 02/24/24 02:33 72 24 169/111 H 99 02/24/24 02:01 110 H 26 H 140/107 H 91 L 02/24/24 01:00 85 151/94 H 93 L 02/24/24 01:00 02/24/24 00:30 90 156/93 H 92 L 02/24/24 00:00 90 02/24/24 00:00 90 167/93 H 91 L 02/23/24 23:32 97.9 F 02/23/24 23:00 95 H 164/97 H 91 L 02/23/24 23:00 02/23/24 22:05 91 H 150/86 H 94 L 02/23/24 21:04 85 16 168/93 H 88 L 02/23/24 20:50 02/23/24 20:30 97 H 26 H 139/110 H 95 02/23/24 20:16 114 H 28 H 157/97 H 93 L 02/23/24 20:07 98.4 F 02/23/24 20:00 110 H 02/23/24 20:00 97 H 94 L 02/23/24 20:00 111 H 15 154/110 H 94 L 02/23/24 19:00 115 H 25 H 132/101 H 93 L 02/23/24 18:38 02/23/24 18:01 101 H 17 94 L 02/23/24 18:01 136/96 H 02/23/24 18:00 105 H 13 94 L 02/23/24 17:52 114 H 02/23/24 17:00 146 H 29 H 91 L 02/23/24 17:00 119/86 02/23/24 17:00 02/23/24 16:01 131 H 17 93 L 02/23/24 16:01 98.0 F 117/55 L 02/23/24 16:00 100 H 17 93 L 02/23/24 16:00 114 H 02/23/24 15:37 02/23/24 15:00 120/79 02/23/24 15:00 124 H 29 H 92 L 02/23/24 15:00 02/23/24 14:00 134/80 02/23/24 14:00 117 H 22 95 02/23/24 13:00 118/77 02/23/24 13:00 110 H 19 91 L 02/23/24 13:00 02/23/24 12:00 100 H 02/23/24 12:00 123/73 02/23/24 12:00 92 H 21 91 L 02/23/24 11:00 124/89 02/23/24 11:00 86 23 90 L 02/23/24 11:00 02/23/24 10:00 79 16 133/76 90 L 02/23/24 09:00 02/23/24 09:00 102 H 18 122/89 92 L O2 Del Method O2 Flow Rate FiO2 02/24/24 07:27 80 02/24/24 07:00 Non-Rebreather 02/24/24 06:00 02/24/24 05:48 02/24/24 05:48 02/24/24 05:30 02/24/24 05:30 02/24/24 05:07 02/24/24 05:07 02/24/24 05:01 02/24/24 05:01 02/24/24 05:00 Nasal Cannula 2 02/24/24 05:00 02/24/24 05:00 02/24/24 04:59 02/24/24 04:59 02/24/24 04:57 02/24/24 04:57 02/24/24 04:30 02/24/24 04:00 02/24/24 04:00 Nasal Cannula 2 02/24/24 03:50 02/24/24 03:30 02/24/24 03:00 Nasal Cannula 2 02/24/24 02:59 02/24/24 02:33 02/24/24 02:01 02/24/24 01:00 02/24/24 01:00 Nasal Cannula 2 02/24/24 00:30 02/24/24 00:00 02/24/24 00:00 02/23/24 23:32 02/23/24 23:00 02/23/24 23:00 Nasal Cannula 2 02/23/24 22:05 02/23/24 21:04 02/23/24 20:50 Nasal Cannula 1.5 02/23/24 20:30 02/23/24 20:16 02/23/24 20:07 02/23/24 20:00 02/23/24 20:00 Nasal Cannula 1.5 02/23/24 20:00 02/23/24 19:00 02/23/24 18:38 Nasal Cannula 1.5 02/23/24 18:01 02/23/24 18:01 02/23/24 18:00 02/23/24 17:52 02/23/24 17:00 02/23/24 17:00 02/23/24 17:00 Nasal Cannula 1.5 02/23/24 16:01 02/23/24 16:01 02/23/24 16:00 02/23/24 16:00 02/23/24 15:37 Nasal Cannula 02/23/24 15:00 02/23/24 15:00 02/23/24 15:00 Nasal Cannula 1.5 02/23/24 14:00 02/23/24 14:00 02/23/24 13:00 02/23/24 13:00 02/23/24 13:00 Nasal Cannula 02/23/24 12:00 02/23/24 12:00 02/23/24 12:00 02/23/24 11:00 02/23/24 11:00 02/23/24 11:00 Nasal Cannula 1.5 02/23/24 10:00 Nasal Cannula 3 02/23/24 09:00 Nasal Cannula 1.5 02/23/24 09:00 Nasal Cannula 3 Intake and Output 02/23/24 02/24/24 02/24/24 19:59 03:59 11:59 Intake Total 775.75 / 775.75 522.698 / 1298.448 455.341 / 1753.789 Output Total 450 / 450 350 / 800 Balance 775.75 / 775.75 72.698 / 848.448 105.341 / 953.789 Intake: Intake, Oral Amount 720 / 720 Intake, Total IV Amount 55.75 / 55.75 522.698 / 578.448 455.341 / 1033.789 Amiodarone HCl 900 mg In 183 / 183 66 / 249 Dextrose 5 % in Water 500 ml @ 1 MG/MIN 34.533 mls/hr IV . Q15H1M [facility] Rx#:[id number] Esmolol HCl in Sterile Water 2, 140 / 140 93 / 233 500 mg In 250 ml @ 50 MCG/KG/ MIN 25.744 mls/hr IV .Q9H43M [facility] Rx#:[id number] Output: Output, Urine Amount 450 / 450 350 / 800 Other: Number of Unmeasured Voids 1 0 Weight 184 lb Patient Weight 02/24/24 11:59 Weight 184 lb Laboratory Results - last 24 hr 02/23/24 06:27: Sodium 128 L, Potassium 4.0, Chloride 91 L, Carbon Dioxide 34 H, Anion Gap 7.0, BUN 13, Creatinine 0.70, Estimated Creat Clear 61, Estimated GFR 81, Est GFR ( Amer) 97, Glucose 96, Calcium 9.0, Magnesium 1.8, Total Bilirubin 0.5, AST 32 D, ALT 20, Alkaline Phosphatase 56, Total Protein 6.0 L, Albumin 3.5, Globulin 2.5, Albumin/Globulin Ratio 1.4 02/24/24 06:27: WBC 10.0 D, RBC 4.82, Hgb 14.3, Hct 43.7, MCV 90.7, MCH 29.7, MCHC 32.7, RDW 13.5, Plt Count 548 H, MPV 9.7, Neut % (Auto) 75.2, Lymph % (Auto) 9.8 L, [place] % (Auto) 11.5 H, Eos % (Auto) 2.5, Baso % (Auto) 0.5, Neut # (Auto) 7.5, Lymph # (Auto) 1.0, [place] # (Auto) 1.2 H, Eos # (Auto) 0.3, Baso # (Auto) 0.1 I & O for Labs for Last 24 Hours: Intake & Output 02/21/24 02/22/24 02/23/24 02/24/24 11:59 11:59 11:59 11:59 Intake Total 120 / 120 1426.716 / 8488.056 9823.750 / 3269.433 4112.789 / 1753.789 Output Total 1050 / 1050 1010 / 1010 1690 / 1690 800 / 800 Balance -930 / -930 416.716 / 416.716 -486.250 / -486.250 953.789 / 953.789 Weight 182 lb 11.153 oz 183 lb 7.005 oz 189 lb 3 oz 184 lb Constitutional: Present moderate distress Comment:: On BiPAP and breathing appears easy at present. Respiratory: Present crackles (Bilateral) Cardiac: Present Irregularly Regular and pedal pulses present GI: Present soft and normal bowel sounds; Absent distention, tenderness or guarding Extremities: Absent tenderness or edema Skin: Present dry and warm Neuro: Present alert and awake Assessment and Plan *Assessment and plan (1) Pulmonary edema: Status: Acute Category: Medical Code(s): J81.1 - Chronic pulmonary edema (2) Atrial fibrillation, new onset: Status: Acute Category: Medical Code(s): I48.91 - Unspecified atrial fibrillation (3) Generalized weakness: Status: Acute Category: Medical Code(s): R53.1 - Weakness (4) HTN (hypertension): Status: Acute Qualifiers: Hypertension type: unspecified Qualified Code(s): I10 - Essential (primary) hypertension Category: Medical Code(s): I10 - Essential (primary) hypertension (5) Elevated brain natriuretic peptide (BNP) level: Status: Acute Category: Medical Code(s): R79.89 - Other specified abnormal findings of blood chemistry (6) Hypokalemia: Status: Resolved Category: Medical Code(s): E87.6 - Hypokalemia (7) Acute respiratory failure with hypoxia: Status: Acute Category: Medical Code(s): J96.01 - Acute respiratory failure with hypoxia (8) New onset of congestive heart failure: Status: Acute Category: Medical Code(s): I50.9 - Heart failure, unspecified (9) Hypertensive urgency: Status: Acute Category: Medical Code(s): I16.0 - Hypertensive urgency Plan Will also obtain chest x-ray, EKG, and ABGs. Continue with BiPAP. Cardiology also to see this a.m. Dr. Pastor entry - Saw patient, events of this morning reviewed with nurse. Patient has improved, she received IV Lasix and BP is 140's/90's now, HR is still around 110, will wean off of BiPAP to [place] oxygen, no need to check ABG now, Echo shows low LV EF of 30%.
[2024-02-24 08:40] LABS: Alanine Aminotransferase 19 U/L (12-78); Albumin Level 3.9 g/dl (3.5-5.0); Albumin/Globulin Ratio 1.6 (1.1-1.8); Alkaline Phosphatase 61 U/L (38-126); Anion Gap 13.2 mEq/L (5-15); Aspartate Amino Transferase 33 U/L (14-36); Bilirubin,Total 0.9 mg/dl (0.2-1.3); Blood Urea Nitrogen 15 mg/dl (7-17); Calcium 9.4 mg/dl (8.4-10.2); Carbon Dioxide 27 mmol/L (22.0-30.0); Chloride 93 mmol/L (98-107); Creatinine Clearance Estimated 59 mL/min (50-200); Estimated Glomerular Filt Rate 96 ml/min (>60); GFR (African American) 116 ML/MIN (>60); Globulin 2.5 g/dL (1.3-3.2); Glucose 181 mg/dl (74-100); Magnesium 1.6 mg/dl (1.6-2.3); Potassium 5.2 mmoL/L (3.5-5.1); Sodium 128 mmol/L (136-145); Total Protein,Serum 6.4 g/dl (6.3-8.2)
[2024-02-24] MEDS: APIXABAN 5MG TABLET 5 MG PO ×2 (09:09→20:07)
[2024-02-24] MEDS: ESMOLOL HCL IN STERILE WATER 2,500 MG/250 ML PIGGYBACK 77.23 MG IV ×4 (09:15→22:04)
--- NOTE | 2024-02-24 12:27 | ECG_ITS ---
APPROVED REPORT Exam: Resting ECG HR:92 bpm ECG Measurements Heart Rate 92 AXES DC 225 P 31 QRSd 87 QRS 124 QT 240 T 33 QTc 290 Conclusion SINUS RHYTHM WITH FIRST DEGREE AV BLOCK POSSIBLE RIGHT VENTRICULAR HYPERTROPHY [SOME/ALL OF: PROMINENT R IN V1, LATE TRANSITION, RAD, CAITLIN, SSS] ABNORMAL ECG UNCONFIRMED REPORT Electronically signed by : Tomi Andrade MD 02/28/2024 08:34:16
--- NOTE | 2024-02-24 12:37 | HMH.ITSTN ---
CALLED AND SPOKE WITH NURSE, ADVISED HER WE WOULD BRING PROTOCOL SHEET UP FOR CORONARY, TOLD HER WHAT [facility] RATE WAS AND SHE ADVISED SHE WOULD CALL US BACK WHEN SHE GETS EVERYTHING SITUATED.
[2024-02-24] MEDS: METOPROLOL SUCCINATE XL 100MG TABLET 100 MG PO ×2 (13:00→20:07)
[2024-02-24] MEDS: SPIRONOLACTONE 25MG TABLET 25 MG PO (13:00)
[2024-02-24] MEDS: SACUBITRIL/VALSARTAN 24-26MG TABLET 1 EACH PO ×2 (13:00→20:07)
[2024-02-24] MEDS: AMIODARONE HCL 900 MG in DEXTROSE 5 % IN WATER 500 ML 17.27 MG IV (13:08)
[2024-02-24] MEDS: ESMOLOL HCL IN STERILE WATER 2,500 MG/250 ML PIGGYBACK 102.98 MG IV ×2 (13:11→15:43)
[2024-02-24] MEDS: IVABRADINE HCL 7.5MG TABLET *IVABRADINE+METOPROLOL REGIMINE 15 MG PO (13:28)
--- NOTE | 2024-02-24 14:08 | EXP.CARD.CON ---
History of Present Illness History of Present Illness Consult date: 02/24/24 Requesting physician: Rogelio Pastor Chief complaint: high blood pressure History of present illness: This is an 79-year-old white female who presented to the emergency department with complaints of high blood pressure. The patient states that she had been having headaches and neck pain at home and decided to check her blood pressure. She states that it was extremely elevated at home and she also noticed her heart rate was elevated. Her blood pressure was high as 200/120 at home. Her daughter reports that on she went to see pain management and have a lumbar pain injection and at that time they told her her heart rate was irregular and her blood pressure was extremely elevated. She was told that she needed to be seen by her primary care provider as soon as possible. The patient had an appoint with her primary care provider the day of admission but she decided not to go because she did not feel bad. She ended up coming into the emergency department that evening. She denies any chest pain or pressure. She denies any shortness of breath until last night. She denied any lower extremity edema. She denied any fever, chills, nausea, vomiting, diarrhea, PND or orthopnea. She states that she only had headaches and neck pain when her blood pressure was extremely elevated. Upon arrival to the emergency department the patient was found to have malignant hypertension and atrial fibrillation with RVR. The patient was in the hospital being treated for the hypertension and atrial fibrillation. Through the night last night she did have a rapid response where her blood pressure significantly elevated and she was having shortness of breath with worsening respiratory distress. The patient was placed on a nonrebreather and was still having respiratory distress with crackles in her lungs and accessory muscle use. She was having acute flash pulmonary edema. An arterial line was placed and the patient was started on a nipride drip in addition to the esmolol and amiodarone for her atrial fibrillation. She was then initiated on BiPAP. Her respiratory status improved but her blood pressure remained elevated. This morning she remains on the esmolol, amiodarone and nipride drips. Her heart rate is improved down to the 80s and 90s and she appears to be in sinus rhythm. Her blood pressure is around 140-150 systolic. She currently denies any chest pain or pressure. She denies any shortness of breath. She states when she was put on BiPAP her shortness of breath resolved. [facility] Disclaimer: The information contained in this section may have been updated after the patient was seen, as this information can be updated by other users. Medical History (Updated 02/24/24 @ 14:15 by Caitlin Staley APRN) Atrial fibrillation, new onset Hypertensive urgency Acute respiratory failure with hypoxia Pulmonary edema Acute HFrEF (heart failure with reduced ejection fraction) Acute hyponatremia Rheumatoid arthritis Allergic rhinitis Rheumatic fever Age related osteoporosis Colon polyp Mitral regurgitation Breast cancer Hyperlipidemia Abnormal results of liver function studies Hypokalemia HTN (hypertension) Acute cholecystitis Diverticulitis Diaphragmatic hernia Gastric outlet obstruction Surgical History Hx of cholecystectomy H/O hernia repair History of mastectomy No significant past surgical history Family History Other No significant family history Social History (Updated 02/20/24 @ 18:16 by Ibis El RN) Smoking Status: Never smoker second hand exposure: Yes alcohol intake: never counseling provided: none substance use type: denies use current occupational status: retired Travel in the last 8 weeks: None household members: spouse housing: house caffeine: Yes Have you lived/traveled outside [place] in past 30 days?: No Contact w/someone who lives/traveled outside [place] past 30 days?: No Exposure to someone with infectious disease in past 14 days?: No Do you have a fever (greater than 100.4 F or 38 C)?: No Have you tested positive for COVID-19: No Exposed to someone with COVID-19 in past 14 days?: No Do you have a sore throat?: No Do you have a cough?: No Do you have any weakness?: No Do you have any diarrhea?: No Are you experiencing any unusual bleeding?: No Do you have any muscle aches/pain?: No Do you have any abdominal pain?: No Are you experiencing loss of taste or smell?: No Review of Systems Review of Systems Review of systems:: pertinent systems reviewed and negative unless documented below Constitutional Constitutional: Reports system reviewed and no additional complaints, except as documented, Reports fatigue, Reports headache(s) and Reports lethargy Eyes Eyes: Reports system reviewed and no additional complaints, except as documented ENT Ears, Nose, Mouth, and Throat: Reports system reviewed and no additional complaints, except as documented, Denies dizziness, Reports headache(s) and Reports neck pain *Cardiovascular Cardiovascular: Reports system reviewed and no additional complaints, except as documented, Denies chest pain and Reports dyspnea *Respiratory Respiratory: Reports system reviewed and no additional complaints, except as documented and Reports dyspnea *Gastrointestinal Gastrointestinal: Reports system reviewed and no additional complaints, except as documented *Genitourinary Genitourinary: Reports system reviewed and no additional complaints, except as documented *Musculoskeletal Musculoskeletal: Reports system reviewed and no additional complaints, except as documented and Reports neck pain Integumentary/Breasts Skin/Breast: Reports system reviewed and no additional complaints, except as documented *Neurologic Neurologic: Reports system reviewed and no additional complaints, except as documented, Denies dizziness and Reports headache(s) Psychiatric Psychiatric: Reports system reviewed and no additional complaints, except as documented Endocrine Endocrine: Reports system reviewed and no additional complaints, except as documented and Reports fatigue Hematologic/Lymphatic Hematologic/Lymphatic: Reports system reviewed and no additional complaints, except as documented Allergic/Immunologic Allergic/Immunologic: Reports system reviewed and no additional complaints, except as documented Exam Data for Last 24 hours Vital signs and Labs for Last 24 Hours: Temp Pulse Resp BP Pulse Ox O2 Del Method O2 Flow Rate 98.5 F 87 24 140/80 93 L Nasal Cannula 5 02/24/24 13:00 02/24/24 13:00 02/24/24 13:00 02/24/24 13:00 02/24/24 13:00 02/24/24 11:00 02/24/24 11:00 FiO2 80 02/24/24 07:27 Laboratory Results - last 24 hr 02/24/24 06:27: WBC 10.0 D, RBC 4.82, Hgb 14.3, Hct 43.7, MCV 90.7, MCH 29.7, MCHC 32.7, RDW 13.5, Plt Count 548 H, MPV 9.7, Neut % (Auto) 75.2, Lymph % (Auto) 9.8 L, [place] % (Auto) 11.5 H, Eos % (Auto) 2.5, Baso % (Auto) 0.5, Neut # (Auto) 7.5, Lymph # (Auto) 1.0, [place] # (Auto) 1.2 H, Eos # (Auto) 0.3, Baso # (Auto) 0.1, Sodium 128 L, Potassium 5.2 H D, Chloride 93 L, Carbon Dioxide 27, Anion Gap 13.2, BUN 15, Creatinine 0.60, Estimated Creat Clear 59, Estimated GFR 96, Est GFR ( Amer) 116, Glucose 181 H D, Calcium 9.4, Magnesium 1.6 D, Total Bilirubin 0.9, AST 33, ALT 19, Alkaline Phosphatase 61, Total Protein 6.4, Albumin 3.9 D, Globulin 2.5, Albumin/Globulin Ratio 1.6 I & O for Last 24 hours: Intake & Output 02/21/24 02/22/24 02/23/24 02/24/24 23:59 23:59 23:59 23:59 Intake Total 731.466 / 763.849 3507.750 / 3301.153 5576.00 / 1193.00 1535.838 / 1535.838 Output Total 1550 / 1550 1000 / 1000 950 / 1400 1450 / 1450 Balance -818.534 / -553.534 924.750 / 924.750 243.00 / -207.00 85.838 / 85.838 Weight 183 lb 7 oz 183 lb 7.005 oz 189 lb 3 oz 183 lb 15.965 oz Constitutional Constitutional: no acute distress and average body habitus *Routine HEENT Exam Head: Present normocephalic and atraumatic ENT: Present mucous membranes moist *Routine Neck Exam Neck: Present supple, full ROM and normal carotid upstroke; Absent JVD, carotid bruit or lymphadenopathy *Routine Respiratory Exam Respiratory: Present CTA bilaterally, normal respiratory effort, able to speak in complete sentences and symmetric chest movement *Routine Cardiovascular Exam Cardiovascular: Present RRR, Normal S1 and Normal S2; Absent murmur or gallop *Routine Abdominal Exam Abdominal: Present soft and normoactive bowel sounds; Absent tenderness, distended or organomegaly *Routine Extremities Exam Extremities: Present full ROM, pulses intact and normal capillary refill; Absent cyanosis, clubbing or edema *Routine Skin Exam Skin: Present intact and warm; Absent erythema *Routine Neurological Exam Neurological: Present alert, oriented X3 and CN II-XII intact; Absent sensory deficit or motor deficit Routine Psychiatric Exam Psychiatric: Present normal affect Meds Home Medications and Allergies Home Medications ?Medication ?Instructions ?Recorded ?Confirmed ?Type hydrochlorothiazide 12.5 mg capsule 12.5 mg PO DAILY 01/31/19 02/21/24 History raloxifene 60 mg tablet 60 mg PO DAILY Supplement 08/02/20 02/21/24 History metoprolol succinate 100 mg 100 mg PO DAILY 07/01/23 02/21/24 History tablet,extended release 24 hr hydroxychloroquine 200 mg tablet 200 mg PO BID 02/21/24 02/21/24 History meloxicam 7.5 mg tablet 7.5 mg PO DAILY 02/21/24 02/21/24 History New Prescriptions to Start Prescriptions: Allergies Allergy/AdvReac Type Severity Reaction Status Date / Time Penicillins Allergy swelling Verified 07/01/23 13:35 promethazine (From Phenergan) AdvReac Verified 07/01/23 13:35 Assessment and Plan *Assessment and plan (1) Acute HFrEF (heart failure with reduced ejection fraction): Status: Acute Category: Medical Code(s): I50.21 - Acute systolic (congestive) heart failure (2) Pulmonary edema: Status: Acute Qualifiers: Chronicity: acute Qualified Code(s): J81.0 - Acute pulmonary edema Category: Medical Code(s): J81.1 - Chronic pulmonary edema (3) Acute respiratory failure with hypoxia: Status: Acute Category: Medical Code(s): J96.01 - Acute respiratory failure with hypoxia (4) Hypertensive urgency: Status: Acute Category: Medical Code(s): I16.0 - Hypertensive urgency (5) Atrial fibrillation, new onset: Status: Acute Category: Medical Code(s): I48.91 - Unspecified atrial fibrillation Plan Plan: 1. The patient was admitted to the hospital with hypertensive urgency and atrial fibrillation with RVR. The patient was initially given diltiazem but her ejection fraction came back at 30% so the diltiazem had to be stopped. She was subsequently switched over to an amiodarone drip. The patient remained tachycardic in atrial fibrillation so she was also initiated on an esmolol drip. She was also given a one-time dose of IV digoxin. This morning she has converted to sinus rhythm. Will continue the esmolol and amiodarone drips to maintain sinus rhythm. 2. The patient has been started on Eliquis for long-term anticoagulation secondary to the atrial fibrillation. 3. The patient's blood pressure has remained malignantly elevated and she was started on a Nipride drip. Her blood pressure has improved and is around 1 40-150 systolic. Continue nipride drip. 4. Start Entresto 24/26 mg p.o. twice daily for better blood pressure control and HFrEF. 5. Start spironolactone 25 mg daily for better blood pressure control and HFrEF. 6. Start Toprol 100 mg twice daily for better blood pressure control and HFrEF. 7. Patient had an echocardiogram which shows an ejection fraction of 30% and mild AI and mild MR. This is new onset cardiomyopathy and HFrEF. The patient will need an ischemic evaluation. Will plan to proceed with CCTA to evaluate her coronary artery disease. 8. Increase her Lasix to 40 mg IV twice daily for diuresis secondary to her acute HFrEF and acute pulmonary edema exacerbation this morning. 9. Consider Jardiance once she is euvolemic. 10. Further recommendations were made pending the patient's response to treatment and the results of her CCTA today. Thank you for the opportunity to have participate in the care of this patient. All recommendations and orders are per Dr. Newell.
[2024-02-25] VITALS (48 sets, daily range): BP systolic 120–213; BP diastolic 74–121; PULSE 43–92; RESP 12–24; TEMP 36.4–36.5; O2SAT 82–96; BMI 32.5
--- NOTE | 2024-02-25 | IR_ITS ---
APPROVED REPORT Patient Location: Inpatient PROCEDURES Selective coronary angiogram Bilateral selective renal angiogram INDICATION Systolic congestive heart failure, Malignant hypertension, Suspected renal artery stenosis Informed consent was obtained prior to the procedure. COMPLICATIONS None Estimated Blood Loss: Less than 10 mls TECHNIQUE One percent lidocaine used to anesthetize the right anterior aspect of the wrist. The right radial artery was accessed via the Seldinger technique. A 6 Congolese sheath was placed in the right radial artery. 2.5 mg of Verapamil, 800 mcg of nitroglycerin, 1mg Lidocaine and 5000 U Heparin were given through the arterial sheath. The papa catheter was used to perform bilateral selective renal angiogram as well as selective coronary angiogram. At the end of the procedure the sheath was removed good hemostasis was achieved using Traclet band, patient was transferred to the postop holding area in stable condition. ANGIOGRAPHIC RESULTS The left main artery Normal The left anterior descending artery Mild diffuse 10% luminal regularities The circumflex artery Normal The right coronary artery Mild 10% luminal regularities The RYAN ventriculogram reveals Not performed The left ventricular end-diastolic pressure Not measured Right renal artery singular normal Left renal artery singular normal IMPRESSION Mild luminal regularities involving the coronary arteries Normal bilateral renal arteries PLAN 1. Treatment of LV dysfunction 2. Treatment of hypertension 3. Recommend starting carvedilol and uptitrating Electronically signed by : Nitin Draper MD 02/25/2024 16:21:24
[2024-02-25] MEDS: ONDANSETRON 4MG/2ML VIAL 4 MG IV ×3 (01:10→21:13)
[2024-02-25] MEDS: ESMOLOL HCL IN STERILE WATER 2,500 MG/250 ML PIGGYBACK 77.23 MG IV ×3 (01:23→11:54)
[2024-02-25 06:05] LABS: Basophils % 0.2 % (0.1-2.0); Eosinophils # 0.1 K/mm3 (0.0-0.4); Eosinophils % 0.7 % (0.1-12.0); Hematocrit 41.1 % (37.0-47.0); Hemoglobin 14.6 g/dL (12.2-16.2); Lymphocytes # 0.8 K/mm3 (0.7-4.5); Lymphocytes % 6.4 % (10-50); Mean Corpuscular HGB Conc 35.5 g/dL (31.8-35.4); Mean Corpuscular Hemoglobin 31.3 pg (27.0-31.2); Mean Corpuscular Volume 88.2 fl (81-99); Mean Platelet Volume 9.5 fl (7.4-10.4); Monocytes # 0.8 K/mm3 (0.1-1.0); Monocytes % 6.7 % (1.7-9.3); Neutrophils # 10.5 K/mm3 (1.8-7.8); Neutrophils % 85.3 % (37.0-80.0); Platelet Count 595 K/mm3 (142-424); Red Blood Count 4.66 M/mm3 (4.20-5.40); Red Cell Distribution Width 13.4 % (11.5-17.5); White Blood Count 12.4 K/mm3 (4.8-10.8)
[2024-02-25 06:11] LABS: MANUAL DIFFERENTIAL MANUAL DIFFERENTIAL (MANUAL DIFF)
[2024-02-25 06:15] LABS: Alanine Aminotransferase 20 U/L (12-78); Albumin Level 3.3 g/dl (3.5-5.0); Albumin/Globulin Ratio 1.4 (1.1-1.8); Alkaline Phosphatase 43 U/L (38-126); Anion Gap 9.1 mEq/L (5-15); Aspartate Amino Transferase 40 U/L (14-36); Bilirubin,Total 1.5 mg/dl (0.2-1.3); Blood Urea Nitrogen 14 mg/dl (7-17); Calcium 8.5 mg/dl (8.4-10.2); Carbon Dioxide 30 mmol/L (22.0-30.0); Chloride 84 mmol/L (98-107); Creatinine Clearance Estimated 61 mL/min (50-200); Estimated Glomerular Filt Rate 96 ml/min (>60); GFR (African American) 116 ML/MIN (>60); Globulin 2.4 g/dL (1.3-3.2); Glucose 124 mg/dl (74-100); Magnesium 1.4 mg/dl (1.6-2.3); Potassium 4.1 mmoL/L (3.5-5.1); Sodium 119 mmol/L (136-145); Total Protein,Serum 5.7 g/dl (6.3-8.2)
[2024-02-25 07:07] LABS: Lymphocytes % 10 % (10-50); Neutrophils % 90 % (42-76); Platelet Estimate Slight Increase; RBC Morphology Normal; Total Cells Counted 100
[2024-02-25] MEDS: APIXABAN 5MG TABLET 5 MG PO ×2 (08:39→20:40)
[2024-02-25] MEDS: METOPROLOL SUCCINATE XL 100MG TABLET 100 MG PO ×2 (08:40→20:40)
[2024-02-25] MEDS: FUROSEMIDE 40MG/4ML VIAL 40 MG IV ×2 (08:40→15:47)
--- NOTE | 2024-02-25 08:40 | P.PN_ITS ---
Subjective *Date: 02/25/24 *Time: 09:18 Interval history: Patient is nauseated and her BP is up again this am. She has vomited a few times. She denies any pain or SOA. Medical Exam Vital signs and Labs for Last 24 Hours: Vital Signs Temp Pulse Pulse Resp BP BP Pulse Ox 02/25/24 06:55 02/25/24 06:00 177/91 H 02/25/24 06:00 64 20 177/91 H 93 L 02/25/24 05:00 02/25/24 05:00 167/84 H 02/25/24 05:00 64 15 167/84 H 95 02/25/24 04:01 80 16 94 L 02/25/24 04:01 213/114 H 02/25/24 04:00 70 02/25/24 04:00 97.6 F 63 143/75 H 92 L 02/25/24 04:00 75 16 95 02/25/24 04:00 63 91 L 02/25/24 03:00 02/25/24 03:00 189/95 H 02/25/24 03:00 63 14 189/95 H 95 02/25/24 02:00 176/92 H 02/25/24 02:00 63 18 96 02/25/24 01:50 02/25/24 01:00 02/25/24 01:00 157/74 H 02/25/24 01:00 62 16 157/74 H 89 L 02/25/24 00:00 97.6 F 02/25/24 00:00 60 90 L 02/25/24 00:00 60 02/25/24 00:00 63 21 170/87 H 94 L 02/25/24 00:00 170/87 H 02/24/24 23:16 02/24/24 23:00 02/24/24 23:00 174/89 H 02/24/24 23:00 65 20 93 L 02/24/24 22:12 164/85 H 02/24/24 22:12 67 16 90 L 02/24/24 22:10 64 19 169/79 H 91 L 02/24/24 22:10 169/79 H 02/24/24 22:01 152/79 H 02/24/24 22:01 62 20 152/79 H 89 L 02/24/24 22:00 63 19 90 L 02/24/24 21:00 02/24/24 21:00 66 20 153/76 H 95 02/24/24 20:00 70 02/24/24 20:00 70 20 148/75 H 91 L 02/24/24 20:00 98.6 F 02/24/24 19:54 75 93 L 02/24/24 19:32 69 23 152/95 H 89 L 02/24/24 19:32 152/95 H 02/24/24 19:18 02/24/24 19:00 72 20 130/79 91 L 02/24/24 18:00 82 17 152/89 H 96 02/24/24 17:00 83 18 136/78 94 L 02/24/24 17:00 02/24/24 16:00 76 91 L 02/24/24 16:00 60 02/24/24 16:00 98.5 F 86 23 127/73 93 L 02/24/24 15:00 02/24/24 15:00 85 17 165/96 H 97 02/24/24 14:00 87 24 158/92 H 93 L 02/24/24 13:00 02/24/24 13:00 98.5 F 87 24 140/80 93 L 02/24/24 12:50 89 94 L 02/24/24 12:00 90 02/24/24 12:00 89 26 H 151/86 H 95 02/24/24 11:00 02/24/24 11:00 88 20 159/93 H 96 02/24/24 10:00 86 21 152/85 H 92 L 02/24/24 09:00 O2 Del Method O2 Flow Rate FiO2 02/25/24 06:55 Nasal Cannula 5 02/25/24 06:00 02/25/24 06:00 02/25/24 05:00 Nasal Cannula 2 02/25/24 05:00 02/25/24 05:00 02/25/24 04:01 02/25/24 04:01 02/25/24 04:00 02/25/24 04:00 02/25/24 04:00 02/25/24 04:00 Nasal Cannula 5 02/25/24 03:00 Nasal Cannula 5 02/25/24 03:00 02/25/24 03:00 02/25/24 02:00 02/25/24 02:00 02/25/24 01:50 80 02/25/24 01:00 Nasal Cannula 5 02/25/24 01:00 02/25/24 01:00 02/25/24 00:00 02/25/24 00:00 Nasal Cannula 5 02/25/24 00:00 02/25/24 00:00 02/25/24 00:00 02/24/24 23:16 Nasal Cannula 5 02/24/24 23:00 Nasal Cannula 5 02/24/24 23:00 02/24/24 23:00 02/24/24 22:12 02/24/24 22:12 02/24/24 22:10 02/24/24 22:10 02/24/24 22:01 02/24/24 22:01 02/24/24 22:00 02/24/24 21:00 Nasal Cannula 5 02/24/24 21:00 Vapotherm 40 02/24/24 20:00 02/24/24 20:00 02/24/24 20:00 02/24/24 19:54 Nasal Cannula 5 02/24/24 19:32 02/24/24 19:32 02/24/24 19:18 Nasal Cannula 5 02/24/24 19:00 02/24/24 18:00 02/24/24 17:00 Nasal Cannula 02/24/24 17:00 Nasal Cannula 5 02/24/24 16:00 Nasal Cannula 5 02/24/24 16:00 02/24/24 16:00 02/24/24 15:00 Nasal Cannula 5 02/24/24 15:00 02/24/24 14:00 02/24/24 13:00 Nasal Cannula 5 02/24/24 13:00 02/24/24 12:50 Nasal Cannula 5 02/24/24 12:00 02/24/24 12:00 02/24/24 11:00 Nasal Cannula 5 02/24/24 11:00 5 02/24/24 10:00 02/24/24 09:00 Nasal Cannula 5 Intake and Output 02/24/24 02/25/24 02/25/24 19:59 03:59 11:59 Intake Total 1241.601 / 2102.597 586.015 / 2102.597 274.981 / 2102.597 Output Total 650 / 1850 1200 / 1850 Balance 591.601 / 252.597 -613.985 / 252.597 274.981 / 252.597 Intake: Intake, Oral Amount 360 / 360 0 / 360 0 / 360 Intake, Total IV Amount 881.601 / 1742.597 586.015 / 1742.597 274.981 / 1742.597 Output: Output, Urine Amount 650 / 1850 1200 / 1850 Other: Number of Unmeasured Voids 1 0 Weight 190 lb 4.8 oz Patient Weight 02/25/24 11:59 Weight 190 lb 4.8 oz Laboratory Results - last 24 hr 02/24/24 06:27: Sodium 128 L, Potassium 5.2 H D, Chloride 93 L, Carbon Dioxide 27, Anion Gap 13.2, BUN 15, Creatinine 0.60, Estimated Creat Clear 59, Estimated GFR 96, Est GFR ( Amer) 116, Glucose 181 H D, Calcium 9.4, Magnesium 1.6 D, Total Bilirubin 0.9, AST 33, ALT 19, Alkaline Phosphatase 61, Total Protein 6.4, Albumin 3.9 D, Globulin 2.5, Albumin/Globulin Ratio 1.6 02/25/24 05:25: WBC 12.4 H, RBC 4.66, Hgb 14.6, Hct 41.1, MCV 88.2, MCH 31.3 H, MCHC 35.5 H, RDW 13.4, Plt Count 595 H, MPV 9.5, Neut % (Auto) 85.3 H, Lymph % (Auto) 6.4 L, [place] % (Auto) 6.7, Eos % (Auto) 0.7, Baso % (Auto) 0.2, Neut # (Auto) 10.5 H, Lymph # (Auto) 0.8, [place] # (Auto) 0.8, Eos # (Auto) 0.1, Baso # (Auto) 0.0, Total Counted 100, Neutrophils % (Manual) 90 H, Lymphocytes % (Manual) 10, Platelet Estimate Slight increase, RBC Morphology Normal, Sodium 119 L, Potassium 4.1 D, Chloride 84 L, Carbon Dioxide 30, Anion Gap 9.1, BUN 14, Creatinine 0.60, Estimated Creat Clear 61, Estimated GFR 96, Est GFR ( Amer) 116, Glucose 124 H D, Calcium 8.5, Magnesium 1.4 L D, Total Bilirubin 1.5 H, AST 40 H, ALT 20, Alkaline Phosphatase 43, Total Protein 5.7 L, Albumin 3.3 L D, Globulin 2.4, Albumin/Globulin Ratio 1.4 I & O for Labs for Last 24 Hours: Intake & Output 02/22/24 02/23/24 02/24/24 02/25/24 11:59 11:59 11:59 11:59 Intake Total 1426.716 / 5487.208 0793.750 / 3670.899 6240.236 / 2282.236 2102.597 / 2102.597 Output Total 1010 / 1010 1690 / 1690 800 / 1450 1850 / 1850 Balance 416.716 / 416.716 -486.250 / -599.233 3867.236 / 832.236 252.597 / 252.597 Weight 183 lb 7.005 oz 189 lb 3 oz 183 lb 15.965 oz 190 lb 4.8 oz Constitutional: Present mild distress Respiratory: Present crackles (Bilateral) Cardiac: Present Irregularly Regular (rate in the 70's) and pedal pulses present GI: Present soft and normal bowel sounds; Absent distention, tenderness or guarding Extremities: Absent tenderness or edema Skin: Present dry and warm Neuro: Present alert and awake Assessment and Plan *Assessment and plan (1) Pulmonary edema: Status: Acute Qualifiers: Chronicity: acute Qualified Code(s): J81.0 - Acute pulmonary edema Category: Medical Code(s): J81.1 - Chronic pulmonary edema (2) Atrial fibrillation, new onset: Status: Acute Category: Medical Code(s): I48.91 - Unspecified atrial fibrillation (3) Generalized weakness: Status: Acute Category: Medical Code(s): R53.1 - Weakness (4) HTN (hypertension): Status: Acute Qualifiers: Hypertension type: unspecified Qualified Code(s): I10 - Essential (primary) hypertension Category: Medical Code(s): I10 - Essential (primary) hypertension (5) Elevated brain natriuretic peptide (BNP) level: Status: Acute Category: Medical Code(s): R79.89 - Other specified abnormal findings of blood chemistry (6) Hypokalemia: Status: Resolved Category: Medical Code(s): E87.6 - Hypokalemia (7) Acute respiratory failure with hypoxia: Status: Acute Category: Medical Code(s): J96.01 - Acute respiratory failure with hypoxia (8) New onset of congestive heart failure: Status: Acute Category: Medical Code(s): I50.9 - Heart failure, unspecified (9) Hypertensive urgency: Status: Acute Category: Medical Code(s): I16.0 - Hypertensive urgency (10) Acute HFrEF (heart failure with reduced ejection fraction): Status: Acute Category: Medical Code(s): I50.21 - Acute systolic (congestive) heart failure Plan Patient was unable to tolerate BIPAP. She is now on NC at 5L. Her HR has improved into the 70's. BP has gone back up. Cardiology to follow. Dr. Pastor entry - Saw patient, agree with above note.
[2024-02-25] MEDS: SPIRONOLACTONE 25MG TABLET 25 MG PO (08:41)
[2024-02-25] MEDS: SACUBITRIL/VALSARTAN 24-26MG TABLET 1 EACH PO (08:41)
[2024-02-25] MEDS: MECLIZINE 25MG TABLET 25 MG PO (08:42)
--- NOTE | 2024-02-25 09:40 | PC.NURSE ---
919 upon am rounds it was noted that pt r ua iv appeared infiltrated. site was swollen and solid to touch. medications infusing were Amiodarone and Esmolol. infusions were changed to drip in upper left arm at this time. 914 called and spoke to pharmacy in regards to if an antidote was needed for those medications. per pharmacy both of the medications use the same antidote. recommendations are to apply warm compress for 24 hours, apply topical steroid cream tid to affected area and inject 0.2units of hyaluronidase 150units/ml. [address] Pastor. advised him of iv infiltrating and pharmacy recommendations for antidote. ok per md to order meds per pharm recommendations.
[2024-02-25 09:54] LABS: Chol/HDL Ratio 3.8 (1-3.5); Cholesterol 150 mg/dl (140-200); HDL Cholesterol 40 mg/dl (40-60); Triglycerides 88 mg/dl (30-150); VLDL Cholesterol 18 mg/dL (0-40)
[2024-02-25 10:05] LABS: Direct LDL Cholesterol 88.94 mg/dL (100-129)
[2024-02-25] MEDS: HYALURONIDASE, HUMAN RECOMB. 150 UNIT/ML VIAL IJ (10:46)
--- NOTE | 2024-02-25 11:01 | P.PN_ITS ---
Subjective Subjective Date: 02/25/24 Time: 10:00 Principal diagnosis: acute HFrEF, pulmonary edema, hypertensive urgency/malignant hypertension Interval history: The patient was admitted to the hospital with malignant hypertension. She is also found to have acute HFrEF and was in atrial fibrillation with RVR. She did convert to sinus rhythm and remains on an amiodarone and esmolol drip this morning. She also remains on nipride drip this morning for her blood pressure. The patient's blood pressure remains elevated. She denies any chest pain or pressure this morning. She has been having intermittent episodes of shortness of breath. She did have flash pulmonary edema early yesterday morning and had to be placed on a BiPAP. She is currently on room IR. She states that she does not feel well today. She states that she is extremely fatigued and tired. She states that she feels very nauseated but does not have to vomit. She denies any fever, chills, vomiting, diarrhea. Exam Data for Last 24 hours Vital signs and Labs for Last 24 Hours: Temp Pulse Resp BP Pulse Ox O2 Del Method O2 Flow Rate 97.6 F 68 23 168/83 H 95 Nasal Cannula 5 02/25/24 04:00 02/25/24 10:00 02/25/24 10:00 02/25/24 10:00 02/25/24 10:00 02/25/24 09:00 02/25/24 09:00 FiO2 80 02/25/24 01:50 Laboratory Results - last 24 hr 02/25/24 05:25: WBC 12.4 H, RBC 4.66, Hgb 14.6, Hct 41.1, MCV 88.2, MCH 31.3 H, MCHC 35.5 H, RDW 13.4, Plt Count 595 H, MPV 9.5, Neut % (Auto) 85.3 H, Lymph % (Auto) 6.4 L, Bland % (Auto) 6.7, Eos % (Auto) 0.7, Baso % (Auto) 0.2, Neut # (Auto) 10.5 H, Lymph # (Auto) 0.8, Bland # (Auto) 0.8, Eos # (Auto) 0.1, Baso # (Auto) 0.0, Total Counted 100, Neutrophils % (Manual) 90 H, Lymphocytes % (Manual) 10, Platelet Estimate Slight increase, RBC Morphology Normal, Sodium 119 L, Potassium 4.1 D, Chloride 84 L, Carbon Dioxide 30, Anion Gap 9.1, BUN 14, Creatinine 0.60, Estimated Creat Clear 61, Estimated GFR 96, Est GFR ( Amer) 116, Glucose 124 H D, Calcium 8.5, Magnesium 1.4 L D, Total Bilirubin 1.5 H, AST 40 H, ALT 20, Alkaline Phosphatase 43, Total Protein 5.7 L, Albumin 3.3 L D, Globulin 2.4, Albumin/Globulin Ratio 1.4, Triglycerides 88, Cholesterol 150, LDL Cholesterol Direct 88.94 L, VLDL Cholesterol 18, HDL Cholesterol 40, Cholesterol/HDL Ratio 3.8 H I & O for Last 24 hours: Intake & Output 02/22/24 02/23/24 02/24/24 02/25/24 23:59 23:59 23:59 23:59 Intake Total 1924.750 / 8859.532 5430.00 / 1193.00 2675.087 / 2675.087 610.996 / 610.996 Output Total 1000 / 1000 950 / 1400 1450 / 2650 1200 / 1200 Balance 924.750 / 924.750 243.00 / -207.00 1225.087 / 25.087 -589.004 / -589.004 Weight 183 lb 7.005 oz 189 lb 3 oz 183 lb 15.965 oz 190 lb 4.8 oz Constitutional Constitutional: no acute distress and average body habitus *Routine HEENT Exam Head: Present normocephalic and atraumatic ENT: Present mucous membranes moist *Routine Neck Exam Neck: Present supple, full ROM and normal carotid upstroke; Absent JVD, carotid bruit or lymphadenopathy *Routine Respiratory Exam Respiratory: Present CTA bilaterally, normal respiratory effort, able to speak in complete sentences and symmetric chest movement *Routine Cardiovascular Exam Cardiovascular: Present RRR, Normal S1 and Normal S2; Absent murmur or gallop *Routine Abdominal Exam Abdominal: Present soft and normoactive bowel sounds; Absent tenderness, distended or organomegaly *Routine Extremities Exam Extremities: Present full ROM, pulses intact and normal capillary refill; Absent cyanosis, clubbing or edema *Routine Skin Exam Skin: Present intact and warm; Absent erythema *Routine Neurological Exam Neurological: Present alert, oriented X3 and CN II-XII intact; Absent sensory deficit or motor deficit Routine Psychiatric Exam Psychiatric: Present normal affect Progress Note: A&P Assessment and plan (1) Acute HFrEF (heart failure with reduced ejection fraction): Status: Acute (2) Hypertensive urgency: Status: Acute (3) Acute respiratory failure with hypoxia: Status: Acute (4) Pulmonary edema: Status: Acute (5) Atrial fibrillation, new onset: Status: Acute (6) HTN (hypertension): Status: Acute Assessment and Plan Assessment and Plan for All Diagnoses:: Plan: 1. The patient was admitted to the hospital with acute HFrEF. Her ejection fraction is estimated at 30%. The patient did have an episode of acute pulmonary edema yesterday morning where she had to be BiPAP. She has now been weaned to room air. She is continues to get IV diuresis as well as oral spironolactone. Will continue with IV diuretics and spironolactone at this time. 2. CCTA was unable to be completed as the patient's heart rate remained eleva rosales. She continues to be symptomatic this morning with fatigue and nausea. Will plan to proceed with left cardiac catheterization to evaluate for coronary artery disease giving her new onset cardiomyopathy, acute HFrEF, pulmonary edema. 3. The patient has been educated the risk and benefits of proceeding with left cardiac catheterization. The patient verbalizes understanding and is agreeable in proceeding with the procedure. 4. The patient's blood pressure remains malignantly elevated despite being on an esmolol drip and nipride drip. She was also started on oral Entresto and spironolactone yesterday without significant improvement in her blood pressure. At the time of her left cardiac catheterization we will also proceed with a renal angiogram to rule out renal artery stenosis. 5. The patient has been educated risk and benefits of proceeding with renal angiogram. The patient verbalized understanding and is agreeable in proceeding with that procedure as well. 6. The patient will be n.p.o. in preparation for left cardiac catheterization and renal angiogram today. 7. The patient was in atrial fibrillation with RVR. She did convert to sinus rhythm with the esmolol and amiodarone drips. Will start her on amiodarone 400 mg p.o. 3 times daily. 1 hour after the initiation of her first oral dose of amiodarone the amiodarone drip can be stopped. 8. She has been started on Eliquis for long-term anticoagulation secondary to atrial fibrillation. 9. Increase Entresto to 49/51 mg p.o. twice daily for better blood pressure control and HFrEF. 10. Continue current dose of spironolactone and Toprol for hypertension and HFrEF. 11. Consider Jardiance once she is euvolemic. 12. Her LDL goal is less than 100. Her LDL is 88. If her left cardiac catheterization does show coronary artery disease then the patient will need to be started on a statin. 13. Further recommendations will be made pending the patient's response to treatment and the results of her left cardiac catheterization and renal angiogram today. Thank you for the opportunity to have participate in the care of this patient. All recommendations and orders are per Dr. Newell.
[2024-02-25] MEDS: NITROPRUSSIDE SODIUM 50 MG in DEXTROSE 5 % IN WATER 250 ML 12.62 MG IV (11:10)
[2024-02-25] MEDS: AMIODARONE 200MG TABLET 400 MG PO ×2 (11:18→20:40)
[2024-02-25] MEDS: SACUBITRIL/VALSARTAN 24-26MG TABLET 2 EACH PO ×2 (11:18→20:40)
--- NOTE | 2024-02-25 12:27 | PC.NURSE ---
amio drip stopped at 1227
[2024-02-25] MEDS: HEPARIN 1,000 UNITS/ML 10ML VIAL (CATH LAB) 10000 UNIT IV (12:58)
[2024-02-25] MEDS: VERAPAMIL 2.5MG/ML 2ML VIAL 2.5 MG IV (12:58)
[2024-02-25] MEDS: LIDOCAINE 1% 10ML MDV 20 ML IJ (12:59)
[2024-02-25] MEDS: 0.9 % SODIUM CHLORIDE 500 ML 25 ML IV (12:59)
[2024-02-25] MEDS: HEPARIN 1,000 UNITS/500ML NS (CATH LAB) 3000 UNIT IV (12:59)
[2024-02-25] MEDS: diphenhydrAMINE 50MG/ML VIAL 50 MG IV (12:59)
[2024-02-25] MEDS: FENTANYL 100MCG/2ML VIAL 25 MCG IV (13:26)
[2024-02-25] MEDS: MIDAZOLAM HCL 1MG/ML 5ML VIAL 1 MG IV (13:26)
[2024-02-25] MEDS: SPIRONOLACTONE 25MG TABLET 50 MG PO (14:16)
[2024-02-25] MEDS: ISOSORBIDE DINITRATE 10 MG TABLET PO ×3 (14:16→20:41)
[2024-02-25] MEDS: TRIAMCINOLONE ACETONIDE CREAM 30GM TUBE TP ×2 (14:17→20:42)
[2024-02-25] MEDS: IOPAMIDOL-370 (76%);100ML BOTTLE 50 ML IV (16:28)
--- NOTE | 2024-02-25 17:55 | PC.NURSE ---
1600 2ml of air removed from radial band, no hematoma or bleeding noted at site. 1615 2ml of air removed from radial band, no hematoma or bleeding noted at site. 1630 2ml of air removed from radial band, no hematoma or bleeding noted at site. 1645 2ml of air removed from radial band, no hematoma or bleeding noted at site. 1700 2ml of air removed from radial band, no hematoma or bleeding noted at site. 1730 radial band removed. area cleaned with chlorhexadine and dressed with t/t. no hematoma or bleeding noted at site
--- NOTE | 2024-02-25 18:08 | PC.NURSE ---
Addendum entered by Tatiana Watkins RN 02/25/24 18:15: Dr Pastor called this RN and gave a 1 time dose for isordil 10mg as pt bp is labile. 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 pt is at bedside. notified Dr Pastor face to face about orders from cardiology to dc esmolol and start isordil. states that med can be increased in strength if needed. also per lauro christine, stop pt nipride drip. may restart if needed. no new orders from Dr Pastor at this time. pt has tolerated having an art line in place and has tolerated the radial band. band removed at approx 1730.
--- NOTE | 2024-02-25 18:47 | PC.NURSE ---
0745 art line zeroed 1130 art line zeroed 1400 art line zeroed 1630 art line zeroed 1845 art line zeroed
[2024-02-25] MEDS: TRAZODONE 50MG TABLET 50 MG PO (22:53)
[2024-02-26] VITALS (65 sets, daily range): BP systolic 62–195; BP diastolic 17–115; PULSE 57–95; RESP 12–24; TEMP 36.5–37.2; O2SAT 87–97; BMI 30.9
--- NOTE | 2024-02-26 01:09 | PC.NURSE ---
At 0047 nurse noticed pts A-Line rhythm had dampened and was not picking up a good reading. Nurse went into pts room and assessed the a-line site. Nurse noticed a small amount of bleeding on pts pillow. Upon even further assessment nurse noticed the pts a-line had came out mostly with the tip of the cannula still in / sutures still in place. Nurse called for assistance and immediately started holding pressure. At 0050 Rebecca RN came and assisted nurse. The a-line was removed along with both sutures. Nurse assessed site to monitor bleeding, small amount of bleeding was noted along with a small hematoma. Pts site was cleaned with chg and a pressure dressing was applied. Dressing is clean/dry/intact. Pt is not complaining of any soa, or discomfort at this time. Vital signs taken immediately after are as shown below: BP- 159/83 HR-69 O2- 94 on 5L NC RR- 15 Blood pressure cuff is placed on pts right lower leg due to incompatibility to use any upper extremity.
--- NOTE | 2024-02-26 01:56 | ECG_ITS ---
APPROVED REPORT Exam: Resting ECG HR:95 bpm ECG Measurements Heart Rate 95 AXES QRSd 93 QRS 133 QT 373 T 15 QTc 426 Conclusion ATRIAL FIBRILLATION INCOMPLETE RIGHT BUNDLE BRANCH BLOCK [90+ ms QRS DURATION, TERMINAL R IN V1/V2, 40+ ms S IN I/aVL/V4/V5/V6] POSSIBLE RIGHT VENTRICULAR HYPERTROPHY [SOME/ALL OF: PROMINENT R IN V1, LATE TRANSITION, RAD, CAITLIN, SSS] MINIMAL ST DEPRESSION [0.025+ mV ST DEPRESSION] ABNORMAL ECG UNCONFIRMED REPORT Electronically signed by : Tomi Andrade MD 02/28/2024 08:31:53
--- NOTE | 2024-02-26 02:17 | PC.NURSE ---
0140 - Pt became sinus tach and hypertensive with systolics in the 180s. 0145 - Pt converted back into afib. Manual BP was taken : 194/80. HR 100-110s 0156- EKG was obtained. EKG read afib. Bp taken again read 156/101 0156- Provider was paged [phone] - Provider called back nurse with new orders (see MAR)
[2024-02-26] MEDS: METOPROLOL TARTRATE 5MG/5ML VIAL 10 MG IV (02:25)
[2024-02-26] MEDS: METOCLOPRAMIDE HCL 10MG/2ML VIAL 5 MG IVP (03:32)
[2024-02-26 06:43] LABS: Basophils % 0.2 % (0.1-2.0); Eosinophils % 0.2 % (0.1-12.0); Hemoglobin 15.5 g/dL (12.2-16.2); Lymphocytes % 7.8 % (10-50); Mean Corpuscular HGB Conc 35.2 g/dL (31.8-35.4); Mean Corpuscular Hemoglobin 30.2 pg (27.0-31.2); Mean Corpuscular Volume 85.6 fl (81-99); Mean Platelet Volume 9.5 fl (7.4-10.4); Monocytes # 1.6 K/mm3 (0.1-1.0); Monocytes % 11.7 % (1.7-9.3); Neutrophils # 10.5 K/mm3 (1.8-7.8); Neutrophils % 79.3 % (37.0-80.0); Platelet Count 627 K/mm3 (142-424); Red Blood Count 5.14 M/mm3 (4.20-5.40); Red Cell Distribution Width 13.2 % (11.5-17.5); White Blood Count 13.3 K/mm3 (4.8-10.8)
[2024-02-26 07:02] LABS: Blood Urea Nitrogen 22 mg/dl (7-17); Calcium 8.8 mg/dl (8.4-10.2); Carbon Dioxide 30 mmol/L (22.0-30.0); Chloride 80 mmol/L (98-107); Creatinine Clearance Estimated 58 mL/min (50-200); Estimated Glomerular Filt Rate 69 ml/min (>60); GFR (African American) 84 ML/MIN (>60); Glucose 115 mg/dl (74-100); Sodium 116 mmol/L (136-145)
[2024-02-26] MEDS: SACUBITRIL/VALSARTAN 24-26MG TABLET 2 EACH PO (08:20)
[2024-02-26] MEDS: APIXABAN 5MG TABLET 5 MG PO ×2 (08:20→20:05)
[2024-02-26] MEDS: ISOSORBIDE DINITRATE 10 MG TABLET PO ×2 (08:20→12:55)
[2024-02-26] MEDS: MECLIZINE 25MG TABLET 25 MG PO (08:21)
[2024-02-26] MEDS: AMIODARONE 200MG TABLET 400 MG PO ×3 (08:21→20:05)
[2024-02-26] MEDS: METOPROLOL SUCCINATE XL 100MG TABLET 100 MG PO (08:21)
--- NOTE | 2024-02-26 08:46 | EXP.ACUTE.PN ---
Subjective *Date: 02/26/24 *Time: 09:03 Interval history: Patient is much more alert and awake this am. She had some confusion during the night. Her BP has improved but nursing reports that her sodium is low this am. Medical Exam Vital signs and Labs for Last 24 Hours: Vital Signs Temp Pulse Pulse Resp BP BP BP 02/26/24 08:00 95 H 02/26/24 08:00 95 H 18 140/87 02/26/24 07:00 02/26/24 07:00 80 16 130/85 02/26/24 06:00 70 22 132/67 02/26/24 05:30 22 126/83 02/26/24 05:10 125/62 02/26/24 05:10 63 18 02/26/24 05:00 02/26/24 05:00 59 L 24 114/79 02/26/24 05:00 114/79 02/26/24 04:50 137/60 02/26/24 04:50 69 22 02/26/24 04:40 148/75 H 02/26/24 04:40 81 19 02/26/24 04:00 87 02/26/24 04:00 124/82 02/26/24 04:00 98.1 F 77 20 02/26/24 04:00 85 02/26/24 03:00 02/26/24 03:00 139/73 02/26/24 03:00 68 18 139/73 02/26/24 02:51 75 17 02/26/24 02:51 133/74 02/26/24 02:41 72 20 02/26/24 02:41 145/83 H 02/26/24 02:32 86 18 02/26/24 02:32 159/88 H 02/26/24 02:29 136/85 02/26/24 02:29 79 20 02/26/24 02:00 156/101 H 02/26/24 02:00 57 L 19 156/101 H 02/26/24 01:50 194/80 H 02/26/24 01:38 189/83 H 02/26/24 01:38 73 18 02/26/24 01:35 195/115 H 02/26/24 01:35 82 20 02/26/24 01:34 77 17 02/26/24 01:34 187/84 H 02/26/24 01:32 159/108 H 02/26/24 01:32 69 17 02/26/24 01:30 66 13 02/26/24 01:30 179/109 H 02/26/24 01:06 76 18 02/26/24 01:06 159/83 H 02/26/24 01:00 171/93 H 02/26/24 01:00 69 13 159/83 H 02/26/24 01:00 02/26/24 00:31 168/83 H 02/26/24 00:31 80 18 02/26/24 00:00 70 02/26/24 00:00 78 02/26/24 00:00 132/90 02/26/24 00:00 61 13 132/90 02/25/24 23:30 70 20 02/25/24 23:30 141/87 H 02/25/24 23:00 02/25/24 23:00 157/87 H 02/25/24 23:00 73 14 157/87 H 02/25/24 22:30 165/87 H 02/25/24 22:30 72 24 02/25/24 22:00 150/83 H 02/25/24 22:00 69 21 150/83 H 02/25/24 21:30 146/76 H 02/25/24 21:30 92 H 21 02/25/24 21:01 162/92 H 02/25/24 21:01 76 12 129/79 02/25/24 21:00 02/25/24 20:30 145/91 H 02/25/24 20:30 76 20 02/25/24 20:00 70 02/25/24 20:00 68 02/25/24 20:00 161/94 H 02/25/24 20:00 97.7 F 76 22 122/77 02/25/24 19:30 164/86 H 02/25/24 19:00 66 20 02/25/24 19:00 161/103 H 02/25/24 18:59 02/25/24 18:45 89 14 120/83 180/121 H 02/25/24 18:01 206/116 H 02/25/24 18:01 77 17 02/25/24 17:45 78 15 181/98 H 180/107 H 02/25/24 17:30 180/107 H 02/25/24 17:30 73 23 02/25/24 17:00 73 19 188/105 H 02/25/24 17:00 02/25/24 16:45 70 21 146/83 H 173/119 H 02/25/24 16:31 173/119 H 02/25/24 16:31 74 16 02/25/24 16:16 142/103 H 02/25/24 16:16 68 19 02/25/24 16:15 92 H 18 158/86 H 192/100 H 02/25/24 16:00 70 02/25/24 16:00 192/100 H 02/25/24 16:00 69 22 02/25/24 15:45 70 19 158/88 H 190/105 H 02/25/24 15:45 71 02/25/24 15:45 68 18 02/25/24 15:45 197/100 H 02/25/24 15:30 190/105 H 02/25/24 15:30 43 L 13 02/25/24 15:15 74 17 154/85 H 181/103 H 02/25/24 15:15 190/96 H 02/25/24 15:15 68 20 02/25/24 15:00 67 18 02/25/24 15:00 181/103 H 02/25/24 15:00 02/25/24 14:45 67 20 153/84 H 203/109 H 02/25/24 14:45 180/97 H 02/25/24 14:45 68 20 02/25/24 14:30 203/109 H 02/25/24 14:30 73 22 02/25/24 14:30 71 18 203/109 H 163/92 H 02/25/24 14:15 68 21 02/25/24 14:15 183/100 H 02/25/24 14:15 66 18 164/89 H 183/100 H 02/25/24 14:00 68 16 173/94 H 201/111 H 02/25/24 14:00 197/109 H 02/25/24 14:00 68 15 02/25/24 13:58 02/25/24 13:58 62 16 02/25/24 13:58 201/111 H 02/25/24 13:45 68 16 150/82 H 02/25/24 13:40 67 16 131/75 02/25/24 13:35 70 16 143/82 H 02/25/24 13:30 71 16 156/87 H 02/25/24 12:00 68 02/25/24 12:00 161/82 H 02/25/24 12:00 69 21 02/25/24 12:00 70 02/25/24 11:00 02/25/24 11:00 188/97 H 02/25/24 11:00 68 20 02/25/24 10:00 168/83 H 02/25/24 10:00 68 23 02/25/24 09:00 02/25/24 09:00 195/93 H 02/25/24 09:00 67 22 Pulse Ox O2 Del Method O2 Flow Rate 02/26/24 08:00 92 L Nasal Cannula 5 02/26/24 08:00 92 L Nasal Cannula 5 02/26/24 07:00 Nasal Cannula 5 02/26/24 07:00 94 L Nasal Cannula 5 02/26/24 06:00 93 L Nasal Cannula 5 02/26/24 05:30 02/26/24 05:10 02/26/24 05:10 92 L 02/26/24 05:00 Nasal Cannula 5 02/26/24 05:00 94 L Nasal Cannula 5 02/26/24 05:00 02/26/24 04:50 02/26/24 04:50 95 02/26/24 04:40 02/26/24 04:40 93 L 02/26/24 04:00 02/26/24 04:00 02/26/24 04:00 93 L 02/26/24 04:00 91 L Nasal Cannula 5 02/26/24 03:00 Nasal Cannula 5 02/26/24 03:00 02/26/24 03:00 92 L Nasal Cannula 5 02/26/24 02:51 88 L 02/26/24 02:51 02/26/24 02:41 87 L 02/26/24 02:41 02/26/24 02:32 91 L 02/26/24 02:32 02/26/24 02:29 02/26/24 02:29 95 02/26/24 02:00 02/26/24 02:00 93 L Nasal Cannula 5 02/26/24 01:50 02/26/24 01:38 02/26/24 01:38 93 L 02/26/24 01:35 02/26/24 01:35 94 L 02/26/24 01:34 95 02/26/24 01:34 02/26/24 01:32 02/26/24 01:32 95 02/26/24 01:30 95 02/26/24 01:30 02/26/24 01:06 94 L 02/26/24 01:06 02/26/24 01:00 02/26/24 01:00 93 L Nasal Cannula 5 02/26/24 01:00 Nasal Cannula 5 02/26/24 00:31 02/26/24 00:31 91 L 02/26/24 00:00 02/26/24 00:00 92 L Nasal Cannula 5 02/26/24 00:00 02/26/24 00:00 92 L Nasal Cannula 5 02/25/24 23:30 93 L 02/25/24 23:30 02/25/24 23:00 Nasal Cannula 5 02/25/24 23:00 02/25/24 23:00 94 L Nasal Cannula 5 02/25/24 22:30 02/25/24 22:30 94 L 02/25/24 22:00 02/25/24 22:00 94 L Nasal Cannula 5 02/25/24 21:30 02/25/24 21:30 95 02/25/24 21:01 02/25/24 21:01 92 L Nasal Cannula 5 02/25/24 21:00 Nasal Cannula 5 02/25/24 20:30 02/25/24 20:30 91 L 02/25/24 20:00 02/25/24 20:00 94 L Nasal Cannula 5 02/25/24 20:00 02/25/24 20:00 94 L Nasal Cannula 5 02/25/24 19:30 02/25/24 19:00 93 L 02/25/24 19:00 02/25/24 18:59 Nasal Cannula 5 02/25/24 18:45 93 L Nasal Cannula 5 02/25/24 18:01 02/25/24 18:01 93 L 02/25/24 17:45 93 L Nasal Cannula 5 02/25/24 17:30 02/25/24 17:30 93 L 02/25/24 17:00 93 L 02/25/24 17:00 Nasal Cannula 5 02/25/24 16:45 94 L Nasal Cannula 5 02/25/24 16:31 02/25/24 16:31 92 L 02/25/24 16:16 02/25/24 16:16 93 L 02/25/24 16:15 92 L Nasal Cannula 5 02/25/24 16:00 02/25/24 16:00 02/25/24 16:00 94 L 02/25/24 15:45 93 L Nasal Cannula 5 02/25/24 15:45 94 L Nasal Cannula 5 02/25/24 15:45 95 02/25/24 15:45 02/25/24 15:30 02/25/24 15:30 93 L 02/25/24 15:15 88 L Nasal Cannula 5 02/25/24 15:15 02/25/24 15:15 88 L 02/25/24 15:00 90 L 02/25/24 15:00 02/25/24 15:00 Nasal Cannula 5 02/25/24 14:45 90 L Nasal Cannula 5 02/25/24 14:45 02/25/24 14:45 90 L 02/25/24 14:30 02/25/24 14:30 95 02/25/24 14:30 92 L Nasal Cannula 5 02/25/24 14:15 93 L 02/25/24 14:15 02/25/24 14:15 93 L Nasal Cannula 5 02/25/24 14:00 92 L Nasal Cannula 5 02/25/24 14:00 02/25/24 14:00 93 L 02/25/24 13:58 Nasal Cannula 5 02/25/24 13:58 91 L 02/25/24 13:58 02/25/24 13:45 95 02/25/24 13:40 92 L 02/25/24 13:35 92 L 02/25/24 13:30 02/25/24 12:00 93 L Nasal Cannula 5 02/25/24 12:00 02/25/24 12:00 96 02/25/24 12:00 02/25/24 11:00 Nasal Cannula 5 02/25/24 11:00 02/25/24 11:00 94 L 02/25/24 10:00 02/25/24 10:00 95 02/25/24 09:00 Nasal Cannula 5 02/25/24 09:00 02/25/24 09:00 96 Intake and Output 02/25/24 02/26/24 02/26/24 19:59 03:59 11:59 Intake Total 98.357 / 228.357 120 / 228.357 10 / 228.357 Output Total 900 / 1350 450 / 1350 Balance -801.643 / -1121.643 120 / -1121.643 -440 / -1121.643 Intake: Intake, Oral Amount 120 / 130 10 / 130 Intake, Total IV Amount 98.357 / 98.357 Output: Output, Urine Amount 900 / 1350 450 / 1350 Other: Weight 181 lb 1.6 oz Patient Weight 02/26/24 11:59 Weight 181 lb 1.6 oz Laboratory Results - last 24 hr 02/25/24 05:25: Triglycerides 88, Cholesterol 150, LDL Cholesterol Direct 88.94 L, VLDL Cholesterol 18, HDL Cholesterol 40, Cholesterol/HDL Ratio 3.8 H 02/26/24 05:31: WBC 13.3 H, RBC 5.14, Hgb 15.5, Hct 44.0, MCV 85.6, MCH 30.2, MCHC 35.2, RDW 13.2, Plt Count 627 H, MPV 9.5, Neut % (Auto) 79.3, Lymph % (Auto) 7.8 L, Davison % (Auto) 11.7 H, Eos % (Auto) 0.2, Baso % (Auto) 0.2, Neut # (Auto) 10.5 H, Lymph # (Auto) 1.0, Davison # (Auto) 1.6 H, Eos # (Auto) 0.0, Baso # (Auto) 0.0, Sodium 116 L, Potassium 4.0, Chloride 80 L, Carbon Dioxide 30, Anion Gap 10.0, BUN 22 H D, Creatinine 0.80 D, Estimated Creat Clear 58, Estimated GFR 69, Est GFR ( Amer) 84 D, Glucose 115 H, Calcium 8.8 I & O for Labs for Last 24 Hours: Intake & Output 02/23/24 02/24/24 02/25/24 02/26/24 11:59 11:59 11:59 11:59 Intake Total 1203.750 / 1355.123 9537.236 / 2282.236 2405.410 / 2405.410 228.357 / 228.357 Output Total 1690 / 1690 800 / 1450 2550 / 2550 1350 / 1350 Balance -486.250 / -509.317 0421.236 / 832.236 -144.590 / -144.590 -1121.643 / -1121.643 Weight 189 lb 3 oz 183 lb 15.965 oz 190 lb 4.8 oz 181 lb 1.6 oz Constitutional: Present no acute distress Respiratory: Present crackles (Bilateral) Cardiac: Present Irregularly Regular (rate in the 70's) and pedal pulses present GI: Present soft and normal bowel sounds; Absent distention, tenderness or guarding Extremities: Absent tenderness or edema Skin: Present dry and warm Neuro: Present alert, awake and moves all extremities (some twitching of arms and legs) Assessment and Plan *Assessment and plan (1) Pulmonary edema: Status: Acute Qualifiers: Chronicity: acute Qualified Code(s): J81.0 - Acute pulmonary edema Category: Medical Code(s): J81.1 - Chronic pulmonary edema (2) Atrial fibrillation, new onset: Status: Acute Category: Medical Code(s): I48.91 - Unspecified atrial fibrillation (3) Generalized weakness: Status: Acute Category: Medical Code(s): R53.1 - Weakness (4) HTN (hypertension): Status: Acute Qualifiers: Hypertension type: unspecified Qualified Code(s): I10 - Essential (primary) hypertension Category: Medical Code(s): I10 - Essential (primary) hypertension (5) Elevated brain natriuretic peptide (BNP) level: Status: Acute Category: Medical Code(s): R79.89 - Other specified abnormal findings of blood chemistry (6) Hypokalemia: Status: Resolved Category: Medical Code(s): E87.6 - Hypokalemia (7) Acute respiratory failure with hypoxia: Status: Acute Category: Medical Code(s): J96.01 - Acute respiratory failure with hypoxia (8) New onset of congestive heart failure: Status: Acute Category: Medical Code(s): I50.9 - Heart failure, unspecified (9) Hypertensive urgency: Status: Acute Category: Medical Code(s): I16.0 - Hypertensive urgency (10) Acute HFrEF (heart failure with reduced ejection fraction): Status: Acute Category: Medical Code(s): I50.21 - Acute systolic (congestive) heart failure (11) Hyponatremia: Status: Acute Category: Medical Code(s): E87.1 - Hypo-osmolality and hyponatremia (12) Cough: Status: Acute Category: Medical Code(s): R05.9 - Cough, unspecified (13) Tremor: Status: Acute Category: Medical Code(s): R25.1 - Tremor, unspecified Plan Sodium is low this am. She has been getting IV lasix twice a day. Will discuss with Dr. Pastor. Cardiology to follow. BP has improved. Dr. Pastor entry - Saw patient, agree with above note. Patient was disoriented overnight. She went back into A. fib, IV Metoprolol was given x 1, Plan to give 500 mL of 3% saline today due to low sodium, check CXR, hold Lasix and Aldactone today.
--- NOTE | 2024-02-26 09:08 | XR_ITS ---
FINAL REPORT CLINICAL HISTORY: Cough, weakness COMPARISON: 02/24/2024 FINDINGS: The heart size is normal. The mediastinum is normal. The lungs are underinflated. The previously noted airspace opacity and atelectasis has resolved. No acute infiltrate is seen on today's exam. There are no pleural effusions. There is no pneumothorax. There is no osseous abnormality. IMPRESSION: No acute cardiopulmonary process identified on today's exam. Resolution of previously seen airspace opacities and atelectasis. Reviewed, Interpreted and Dictated by Nadeem Heredia MD Transcribed by Lala Crisostomo Authenticated and [facility]
[2024-02-26] MEDS: TRIAMCINOLONE ACETONIDE CREAM 30GM TUBE TP ×3 (09:11→20:05)
[2024-02-26] MEDS: SODIUM CHLORIDE 3 % 500 ML 40 ML IV (09:11)
--- NOTE | 2024-02-26 09:12 | PC.NURSE ---
radiology at bedside.
--- NOTE | 2024-02-26 09:42 | US_ITS ---
FINAL REPORT CLINICAL HISTORY: malignant htn FINDINGS: RENAL ULTRASOUND Ultrasound images of the kidneys were obtained. The right kidney measures 8.7 cm in length. It is normal echogenicity. There is no hydronephrosis. The left kidney measures 10.1 cm in length. It is normal echogenicity. There is no hydronephrosis. There is an anechoic structure in the left kidney measuring 1.3 x 1.8 cm consistent with a benign cyst. The spleen is unremarkable. IMPRESSION: Benign left renal cyst. Reviewed, Interpreted and Dictated by Nadeem Heredia MD Transcribed by Lou Whitaker Authenticated and [facility]
[2024-02-26] MEDS: GUAIFENESIN/DEXTROMETHORPHAN 200MG/20MG 10ML UDC 10 ML PO (11:59)
--- NOTE | 2024-02-26 11:59 | P.PN_ITS ---
Subjective Subjective Date: 02/26/24 Time: 09:00 Principal diagnosis: acute HFrEF, pulmonary edema, hypertensive urgency/malignant hypertension Interval history: The patient was admitted to the hospital with malignant hypertension and found to have acute HFrEF. The patient was also in atrial fibrillation with RVR and did convert to sinus rhythm on amiodarone and esmolol drips. Her drips were stopped yesterday and she was converted to oral amiodarone and remained on oral metoprolol. The patient did go back into atrial fibrillation with RVR through the night last night. She was treated with a dose of IV metoprolol and she remains in atrial fibrillation this morning with a rate in the 80s. She does have some sinus beats so it appears that the patient is trying to convert again today. She underwent left cardiac catheterization and renal angiogram yesterday which showed mild nonocclusive coronary artery disease and normal renal arteries. This morning she denies any chest pain or pressure. She denies any shortness of breath or edema. She denies any fever, chills, nausea, vomiting, diarrhea. She states that she just feels very fatigued and tired. She did get a little confused yesterday but she states that this is much better and she is feeling better today. Exam Data for Last 24 hours Vital signs and Labs for Last 24 Hours: Temp Pulse Resp BP Pulse Ox O2 Del Method O2 Flow Rate 98.9 F 85 18 113/84 95 Nasal Cannula 5 02/26/24 08:00 02/26/24 11:49 02/26/24 11:49 02/26/24 11:49 02/26/24 11:49 02/26/24 11:49 02/26/24 11:49 FiO2 80 02/25/24 01:50 Laboratory Results - last 24 hr 02/26/24 05:31: WBC 13.3 H, RBC 5.14, Hgb 15.5, Hct 44.0, MCV 85.6, MCH 30.2, MCHC 35.2, RDW 13.2, Plt Count 627 H, MPV 9.5, Neut % (Auto) 79.3, Lymph % (Auto) 7.8 L, [place] % (Auto) 11.7 H, Eos % (Auto) 0.2, Baso % (Auto) 0.2, Neut # (Auto) 10.5 H, Lymph # (Auto) 1.0, [place] # (Auto) 1.6 H, Eos # (Auto) 0.0, Baso # (Auto) 0.0, Sodium 116 L, Potassium 4.0, Chloride 80 L, Carbon Dioxide 30, Anion Gap 10.0, BUN 22 H D, Creatinine 0.80 D, Estimated Creat Clear 58, Estimated GFR 69, Est GFR ( Amer) 84 D, Glucose 115 H, Calcium 8.8 I & O for Last 24 hours: Intake & Output 02/23/24 02/24/24 02/25/24 02/26/24 23:59 23:59 23:59 23:59 Intake Total 1193.00 / 1193.00 2675.087 / 2675.087 1012.166 / 1132.166 130 / 130 Output Total 950 / 1400 1450 / 2650 2800 / 2800 450 / 450 Balance 243.00 / -207.00 1225.087 / 25.087 -1787.834 / -1667.834 -320 / -320 Weight 189 lb 3 oz 183 lb 15.965 oz 190 lb 4.8 oz 181 lb 1.6 oz Constitutional Constitutional: no acute distress and average body habitus *Routine HEENT Exam Head: Present normocephalic and atraumatic ENT: Present mucous membranes moist *Routine Neck Exam Neck: Present supple, full ROM and normal carotid upstroke; Absent JVD, carotid bruit or lymphadenopathy *Routine Respiratory Exam Respiratory: Present CTA bilaterally, normal respiratory effort, able to speak in complete sentences and symmetric chest movement *Routine Cardiovascular Exam Cardiovascular: Present Normal S1, Normal S2 and irregularly irregular; Absent murmur or gallop *Routine Abdominal Exam Abdominal: Present soft and normoactive bowel sounds; Absent tenderness, distended or organomegaly *Routine Extremities Exam Extremities: Present full ROM, pulses intact and normal capillary refill; Absent cyanosis, clubbing or edema *Routine Skin Exam Skin: Present intact and warm; Absent erythema *Routine Neurological Exam Neurological: Present alert, oriented X3 and CN II-XII intact; Absent sensory deficit or motor deficit Routine Psychiatric Exam Psychiatric: Present normal affect Progress Note: A&P Assessment and plan (1) Acute HFrEF (heart failure with reduced ejection fraction): Status: Acute (2) Hypertensive urgency: Status: Acute (3) Pulmonary edema: Status: Acute (4) Atrial fibrillation, new onset: Status: Acute (5) Acute respiratory failure with hypoxia: Status: Acute (6) Hyponatremia: Status: Acute (7) Cough: Status: Acute (8) Tremor: Status: Acute (9) Coronary artery disease: Status: Acute (10) Hyperlipidemia: Status: Acute Assessment and Plan Assessment and Plan for All Diagnoses:: Plan: 1. The patient was admitted to the hospital with acute HFrEF. Her ejection fraction is estimated at 30%. The patient did have an episode of acute pulmonary edema where she had to be BiPAP. She has now been weaned to room air. The patient was being diuresed with IV Lasix. But this has been stopped today due to hyponatremia. She will likely need to be put back on diuretics in the near future because of her acute HFrEF and we do not want her to go back into pulmonary edema. Will continue to hold diuretics for today. 2. The patient underwent left cardiac catheterization yesterday and was found to have mild nonocclusive coronary artery disease. Recommend aspirin 81 mg daily. 3. On admission the patient was found to be in atrial fibrillation with RVR. She did convert to sinus rhythm on amiodarone and esmolol drips. These drips were stopped yesterday and she was converted to p.o. medications. She did go back in atrial fibrillation with RVR through the night last night and was treated with IV metoprolol. Will continue oral metoprolol and oral amiodarone at this time it does appear that the patient is having some sinus beats it looks like she is trying to convert back into sinus rhythm. 4. Continue Eliquis for long-term anticoagulation. 5. The patient's blood pressure has improved. She is now off of the nipride drip. Continue Isordil, Toprol, Entresto and Aldactone for her hypertension. 6. Acute HFrEF is present. Continue Entresto Toprol and Aldactone. 7. Consider Jardiance once she is euvolemic. 8. Patient is hyponatremic with a sodium of 116. She is getting 3% saline. Will repeat a BMP at noon today to reevaluate her hyponatremia. We do not want the patient to get fluid overloaded again and go back into pulmonary edema. 9. Her LDL goal is less than 55. Her LDL is 88. She has been started on a statin. 10. Renal duplex to rule out any renal masses as the cause of her malignant hypertension. 11. Further recommendations will be made pending the patient's response to treatment. Thank you for the opportunity to have participate in the care of this patient. All recommendations and orders are per Dr. Newell. Addendum: Sodium at noon was 122. Her sodium has improved by 6 points and we do not want to correct this too quickly. Stop 3% saline. Will continue to hold diuretics today.
[2024-02-26 12:28] LABS: Chloride 82 mmol/L (98-107)
[2024-02-26 12:29] LABS: Sodium 122 mmol/L (136-145)
[2024-02-26 12:32] LABS: Blood Urea Nitrogen 29 mg/dl (7-17); Calcium 8.6 mg/dl (8.4-10.2); Carbon Dioxide 31 mmol/L (22.0-30.0); Creatinine Clearance Estimated 58 mL/min (50-200); Estimated Glomerular Filt Rate 53 ml/min (>60); GFR (African American) 65 ML/MIN (>60); Glucose 124 mg/dl (74-100)
[2024-02-26] MEDS: ASPIRIN EC 81MG TABLET 81 MG PO (12:56)
--- NOTE | 2024-02-26 12:59 | DIET.NUTRFU ---
Provider aware of no BM since admit, patient is not eating well and provider will wait to add any medications in. Upon interview pateint did report regular bowel movement Q3-4 days to her usual. Will monitor for any discomfort.
--- NOTE | 2024-02-26 13:07 | PC.NURSE ---
Dr. Newell to pt's bedside. Informed to stop 3% Sodium, hold Lasix and encourage PO intake.
--- NOTE | 2024-02-26 18:50 | PC.NURSE ---
pt alert to self and birthday unable to answer any other questions. pt has been NSR- afib on the monitor t/o the day. pt has had periods of hypotension, in which cardiology adjusted pt's BP medications. pt currently on 3LNC with sats of 94%. Lung sounds CTA. pt has intermittent dry, hacky cough, has prn cough medication. abdomen soft, nontender, bowel sounds active. no bowel movement. pt has not wanted much of her meals today. pt encourage to increase po intake. pt has purewick in place with less than 5ml out this shift, Dr. Pastor notified. pt meds are being crushed. pt has been encourage to turn t/o shift. family has been at bedside. bed alarm in place and call light w/i reach.
[2024-02-26] MEDS: 0.9 % SODIUM CHLORIDE 1000ML 500 ML 100 ML IV (19:48)
[2024-02-26] MEDS: ATORVASTATIN 20MG TABLET 20 MG PO (20:05)
--- NOTE | 2024-02-26 23:15 | PC.NURSE ---
Pt was bladder scanned at 2200 due to inadequate urine output. Bladder scan showed 180mL urine. Pt was bladder scanned again at 2315 after nurse noticed slight bladder distention. Bladder scan showed 88mL urine. Pt urinated minimal amount shortly after.
[2024-02-26 23:51] LABS: Adenovirus F 40/41, stool Not Detected (NotDetected); Astrovirus Not Detected (NotDetected); Campylobacter Not Detected (NotDetected); Clostridium Difficile A/B, PCR Not Detected (NotDetected); Cryptosporidium Not Detected (NotDetected); Cyclospora Cayetanesis Not Detected (NotDetected); Entamoeba histolytica Not Detected (NotDetected); Enteroaggregative E coli Not Detected (NotDetected); Enteropathogenic E coli Not Detected (NotDetected); Enterotoxigenic E coli Not Detected (NotDetected); Giardia lamblia Not Detected (NotDetected); Norovirus Not Detected (NotDetected); Plesimonas Shigalloides, PCR Not Detected (NotDetected); Rotavirus A Not Detected (NotDetected); Salmonella, PCR Not Detected (NotDetected); Sapovirus Not Detected (NotDetected); Shiga-like toxin E coli Not Detected (NotDetected); Shigella Enterovasive E coli Not Detected (NotDetected); Vibrio Cholerae Not Detected (NotDetected); Vibrio, PCR Not Detected (NotDetected); Yersinia Entercolitica, PCR Not Detected (NotDetected)
[2024-02-27] VITALS (30 sets, daily range): BP systolic 71–148; BP diastolic 44–83; PULSE 60–91; RESP 12–23; TEMP 36.2–36.6; O2SAT 87–97; BMI 30.9
[2024-02-27 00:15] LABS: Occult Blood,Stool Positive (Negative)
[2024-02-27 06:34] LABS: Basophils # 0.1 K/mm3 (0-0.2); Basophils % 0.3 % (0.1-2.0); Eosinophils % 0.1 % (0.1-12.0); Hematocrit 43.1 % (37.0-47.0); Hemoglobin 14.8 g/dL (12.2-16.2); Lymphocytes # 1.2 K/mm3 (0.7-4.5); Lymphocytes % 5.2 % (10-50); Mean Corpuscular HGB Conc 34.3 g/dL (31.8-35.4); Mean Corpuscular Hemoglobin 29.9 pg (27.0-31.2); Mean Corpuscular Volume 87.1 fl (81-99); Mean Platelet Volume 9.9 fl (7.4-10.4); Monocytes # 2.4 K/mm3 (0.1-1.0); Monocytes % 10.2 % (1.7-9.3); Neutrophils # 19.3 K/mm3 (1.8-7.8); Neutrophils % 83.6 % (37.0-80.0); Platelet Count 504 K/mm3 (142-424); Red Blood Count 4.95 M/mm3 (4.20-5.40); Red Cell Distribution Width 13.2 % (11.5-17.5); White Blood Count 23.1 K/mm3 (4.8-10.8)
[2024-02-27 06:53] LABS: Anion Gap 12.3 mEq/L (5-15); Blood Urea Nitrogen 44 mg/dl (7-17); Calcium 8.3 mg/dl (8.4-10.2); Carbon Dioxide 24 mmol/L (22.0-30.0); Chloride 87 mmol/L (98-107); Creatinine Clearance Estimated 58 mL/min (50-200); Estimated Glomerular Filt Rate 53 ml/min (>60); GFR (African American) 65 ML/MIN (>60); Glucose 81 mg/dl (74-100); Potassium 4.3 mmoL/L (3.5-5.1); Sodium 119 mmol/L (136-145)
[2024-02-27 07:03] LABS: MANUAL DIFFERENTIAL MANUAL DIFFERENTIAL (MANUAL DIFF)
[2024-02-27 08:09] LABS: Microscopic, Urine URINE MICROSCOPIC (MICROSCOPIC)
--- NOTE | 2024-02-27 08:16 | EXP.ACUTE.PN ---
Subjective *Date: 02/27/24 *Time: 09:05 Interval history: Patient states she is feeling better this am. She was finally able to sleep last night. She thinks her cough and SOA have improved. She denies any pain. She was able to eat a few bites of breakfast. Medical Exam Vital signs and Labs for Last 24 Hours: Vital Signs Temp Pulse Pulse Resp BP Pulse Ox O2 Del Method 02/27/24 07:00 80 20 107/65 L 95 Nasal Cannula 02/27/24 06:56 Nasal Cannula 02/27/24 06:00 93/67 L 02/27/24 06:00 86 17 93/67 L 92 L Nasal Cannula 02/27/24 05:30 101/57 L 02/27/24 05:30 71 19 92 L 02/27/24 05:00 Nasal Cannula 02/27/24 05:00 79 18 111/59 L 89 L 02/27/24 05:00 111/59 L 02/27/24 04:31 130/69 02/27/24 04:31 91 H 23 92 L 02/27/24 04:14 71/45 L 02/27/24 04:14 74 19 94 L 02/27/24 04:00 80/44 L 02/27/24 04:00 97.7 F 74 20 130/69 94 L 02/27/24 04:00 60 02/27/24 04:00 80 94 L Nasal Cannula 02/27/24 03:30 102/56 L 02/27/24 03:30 68 19 97 02/27/24 03:00 94/49 L 02/27/24 03:00 82 18 96 02/27/24 03:00 Nasal Cannula 02/27/24 02:00 83 20 101/49 L 94 L Nasal Cannula 02/27/24 02:00 101/49 L 02/27/24 01:30 83/59 L 02/27/24 01:30 91 H 12 94 L 02/27/24 01:00 106/57 L 02/27/24 01:00 73 18 106/57 L 96 Nasal Cannula 02/27/24 01:00 Nasal Cannula 02/27/24 00:30 97/49 L 02/27/24 00:30 77 22 87 L 02/27/24 00:00 70 02/27/24 00:00 83 90 L Nasal Cannula 02/27/24 00:00 73 18 94/52 L 95 Nasal Cannula 02/27/24 00:00 94/52 L 02/26/24 23:30 102/64 L 02/26/24 23:30 69 12 92 L 02/26/24 23:13 91/53 L 02/26/24 23:13 75 17 93 L 02/26/24 23:00 Nasal Cannula 02/26/24 23:00 91/53 L 02/26/24 23:00 65 22 91/53 L 93 L Nasal Cannula 02/26/24 22:37 105/65 L 02/26/24 22:37 75 18 91 L 02/26/24 22:01 107/87 L 02/26/24 22:01 75 14 94 L 02/26/24 22:00 71 13 107/87 L 95 Nasal Cannula 02/26/24 21:30 106/59 L 02/26/24 21:30 73 23 95 02/26/24 21:04 88/42 L 02/26/24 21:04 74 19 92 L 02/26/24 21:01 95 H 20 106/59 L 93 L Nasal Cannula 02/26/24 21:01 88/38 L 02/26/24 21:00 73 17 88 L 02/26/24 21:00 71/45 L 02/26/24 21:00 Nasal Cannula 02/26/24 20:35 90/49 L 02/26/24 20:35 67 17 92 L 02/26/24 20:30 81 16 93 L 02/26/24 20:30 82/50 L 02/26/24 20:00 70 02/26/24 20:00 66 92 L Nasal Cannula 02/26/24 20:00 94/55 L 02/26/24 20:00 98.4 F 79 20 94/55 L 94 L Nasal Cannula 02/26/24 19:31 72 18 94 L 02/26/24 19:31 92/49 L 02/26/24 19:11 94 L Nasal Cannula 02/26/24 19:00 114/70 02/26/24 19:00 68 16 93 L 02/26/24 19:00 Nasal Cannula 02/26/24 19:00 87 18 114/70 97 Nasal Cannula 02/26/24 18:30 96/55 L 02/26/24 18:30 71 21 89 L 02/26/24 18:23 82 18 92 L 02/26/24 18:23 112/67 02/26/24 18:00 75 17 93 L 02/26/24 18:00 96/65 L 02/26/24 17:51 86 18 120/72 92 L Nasal Cannula 02/26/24 17:43 120/72 02/26/24 17:43 76 16 93 L 02/26/24 17:38 80 16 93 L 02/26/24 17:38 62/17 L 02/26/24 17:31 64/38 L 02/26/24 17:31 76 20 95 02/26/24 17:30 74 20 95 02/26/24 17:30 65/34 L 02/26/24 17:16 78 21 95 02/26/24 17:16 80/35 L 02/26/24 17:13 71/34 L 02/26/24 17:13 78 18 95 02/26/24 17:00 64 20 94 L 02/26/24 17:00 Nasal Cannula 02/26/24 17:00 75 18 118/65 94 L Nasal Cannula 02/26/24 16:00 98.3 F 02/26/24 16:00 74 94 L Nasal Cannula 02/26/24 16:00 77 18 93/52 L 94 L Nasal Cannula 02/26/24 14:55 Nasal Cannula 02/26/24 14:55 87 18 81/43 L 96 Nasal Cannula 02/26/24 14:50 81/43 L 02/26/24 14:36 113/49 L 02/26/24 14:20 64/42 L 02/26/24 14:00 92 H 18 88/40 L 92 L Nasal Cannula 02/26/24 13:00 Nasal Cannula 02/26/24 13:00 95 H 18 108/72 L 95 Nasal Cannula 02/26/24 12:00 97.7 F 02/26/24 11:49 85 95 Nasal Cannula 02/26/24 11:49 85 18 113/84 95 Nasal Cannula 02/26/24 10:51 Nasal Cannula 02/26/24 10:51 82 16 105/65 L 95 Nasal Cannula 02/26/24 09:53 90 16 108/57 L 95 Nasal Cannula 02/26/24 09:00 Nasal Cannula 02/26/24 09:00 87 16 121/70 97 Nasal Cannula O2 Flow Rate 02/27/24 07:00 3 02/27/24 06:56 3 02/27/24 06:00 02/27/24 06:00 3 02/27/24 05:30 02/27/24 05:30 02/27/24 05:00 3 02/27/24 05:00 02/27/24 05:00 02/27/24 04:31 02/27/24 04:31 02/27/24 04:14 02/27/24 04:14 02/27/24 04:00 02/27/24 04:00 02/27/24 04:00 02/27/24 04:00 3 02/27/24 03:30 02/27/24 03:30 02/27/24 03:00 02/27/24 03:00 02/27/24 03:00 3 02/27/24 02:00 3 02/27/24 02:00 02/27/24 01:30 02/27/24 01:30 02/27/24 01:00 02/27/24 01:00 3 02/27/24 01:00 3 02/27/24 00:30 02/27/24 00:30 02/27/24 00:00 02/27/24 00:00 3 02/27/24 00:00 3 02/27/24 00:00 02/26/24 23:30 02/26/24 23:30 02/26/24 23:13 02/26/24 23:13 02/26/24 23:00 3 02/26/24 23:00 02/26/24 23:00 3 02/26/24 22:37 02/26/24 22:37 02/26/24 22:01 02/26/24 22:01 02/26/24 22:00 3 02/26/24 21:30 02/26/24 21:30 02/26/24 21:04 02/26/24 21:04 02/26/24 21:01 3 02/26/24 21:01 02/26/24 21:00 02/26/24 21:00 02/26/24 21:00 3 02/26/24 20:35 02/26/24 20:35 02/26/24 20:30 02/26/24 20:30 02/26/24 20:00 02/26/24 20:00 3 02/26/24 20:00 02/26/24 20:00 3 02/26/24 19:31 02/26/24 19:31 02/26/24 19:11 3 02/26/24 19:00 02/26/24 19:00 02/26/24 19:00 3 02/26/24 19:00 3 02/26/24 18:30 02/26/24 18:30 02/26/24 18:23 02/26/24 18:23 02/26/24 18:00 02/26/24 18:00 02/26/24 17:51 3 02/26/24 17:43 02/26/24 17:43 02/26/24 17:38 02/26/24 17:38 02/26/24 17:31 02/26/24 17:31 02/26/24 17:30 02/26/24 17:30 02/26/24 17:16 02/26/24 17:16 02/26/24 17:13 02/26/24 17:13 02/26/24 17:00 02/26/24 17:00 2 02/26/24 17:00 2 02/26/24 16:00 02/26/24 16:00 2 02/26/24 16:00 3 02/26/24 14:55 5 02/26/24 14:55 5 02/26/24 14:50 02/26/24 14:36 02/26/24 14:20 02/26/24 14:00 5 02/26/24 13:00 5 02/26/24 13:00 5 02/26/24 12:00 02/26/24 11:49 5 02/26/24 11:49 5 02/26/24 10:51 5 02/26/24 10:51 5 02/26/24 09:53 5 02/26/24 09:00 5 02/26/24 09:00 5 Intake and Output 02/26/24 02/27/24 02/27/24 19:59 03:59 11:59 Intake Total 217 / 217 0 / 217 Output Total 0 / 0 0 / 0 Balance 217 / 217 0 / 217 0 / 217 Intake: Intake, Oral Amount 60 / 60 0 / 60 Intake, Total IV Amount 157 / 157 Sodium Chloride 3 % 500 ml @ 40 157 / 157 mls/hr IV .[id number] [facility] Rx#: [id number] Output: Output, Urine Amount 0 / 0 0 / 0 Other: Number of Unmeasured Voids 1 Number of Bowel Movements 1 1 Weight 181 lb 4.225 oz Patient Weight 02/27/24 11:59 Weight 181 lb 4.225 oz Laboratory Results - last 24 hr 02/26/24 12:14: Sodium 122 L, Potassium 4.0, Chloride 82 L, Carbon Dioxide 31 H, Anion Gap 13.0, BUN 29 H D, Creatinine 1.00 D, Estimated Creat Clear 58, Estimated GFR 53 L, Est GFR ( Amer) 65 D, Glucose 124 H, Calcium 8.6 02/26/24 23:35: Stool Occult Blood Positive A, Stl Aeromonas (PCR) Not detected, Stl C. cayetanensis PCR Not detected, Stool Rotavirus (PCR) Not detected, Stl Adenov F 40/41 PCR Not detected, Stool Astrovirus (PCR) Not detected, Stool Campylobacter PCR Not detected, Stl C.difficile Tox PCR Not detected, Stool Cryptosporidium PCR Not detected, Stl E.coli Shiga Tox PCR Not detected, Stool E coli O157 PCR Not detected, Stl Enterotoxigenic E PCR Not detected, Stool EPEC (PCR) Not detected, Stool EAEC (PCR) Not detected, Stl E. histolytica PCR Not detected, Stool Giardia Lamblia PCR Not detected, Stool Salmonella PCR Not detected, Stool Sapovirus (PCR) Not detected, Stl P. shigelloides PCR Not detected, Stl Shigella/EIEC PCR Not detected, St Y.enterocolitica PCR Not detected, Stool Vibrio (PCR) Not detected, Stl Vibrio cholerae PCR Not detected, Stl Norovirus GI/GII PCR Not detected 02/27/24 05:25: WBC 23.1 H* D, RBC 4.95, Hgb 14.8, Hct 43.1, MCV 87.1, MCH 29.9, MCHC 34.3, RDW 13.2, Plt Count 504 H, MPV 9.9, Neut % (Auto) 83.6 H, Lymph % (Auto) 5.2 L, [place] % (Auto) 10.2 H, Eos % (Auto) 0.1, Baso % (Auto) 0.3, Neut # (Auto) 19.3 H, Lymph # (Auto) 1.2, [place] # (Auto) 2.4 H, Eos # (Auto) 0.0, Baso # (Auto) 0.1, Sodium 119 L, Potassium 4.3, Chloride 87 L, Carbon Dioxide 24, Anion Gap 12.3, BUN 44 H D, Creatinine 1.00, Estimated Creat Clear 58, Estimated GFR 53 L, Est GFR ( Amer) 65, Glucose 81 D, Calcium 8.3 L I & O for Labs for Last 24 Hours: Intake & Output 02/24/24 02/25/24 02/26/24 02/27/24 11:59 11:59 11:59 11:59 Intake Total 2282.236 / 2282.236 2405.410 / 2405.410 228.357 / 385.357 217 / 217 Output Total 800 / 1450 2550 / 2550 1350 / 1350 0 / 0 Balance 1482.236 / 832.236 -144.590 / -144.590 -1121.643 / -964.643 217 / 217 Weight 183 lb 15.965 oz 190 lb 4.8 oz 181 lb 1.6 oz 181 lb 4.225 oz Constitutional: Present no acute distress Respiratory: Present decreased breath sounds; Absent rhonchi or wheezes Cardiac: Present Irregularly Regular GI: Present soft and normal bowel sounds; Absent distention, tenderness or guarding Extremities: Absent tenderness or edema Skin: Present dry and warm Neuro: Present alert, awake and moves all extremities (some twitching of arms and legs) Assessment and Plan *Assessment and plan (1) Pulmonary edema: Status: Acute Qualifiers: Chronicity: acute Qualified Code(s): J81.0 - Acute pulmonary edema Category: Medical Code(s): J81.1 - Chronic pulmonary edema (2) Atrial fibrillation, new onset: Status: Acute Category: Medical Code(s): I48.91 - Unspecified atrial fibrillation (3) Generalized weakness: Status: Acute Category: Medical Code(s): R53.1 - Weakness (4) HTN (hypertension): Status: Acute Qualifiers: Hypertension type: unspecified Qualified Code(s): I10 - Essential (primary) hypertension Category: Medical Code(s): I10 - Essential (primary) hypertension (5) Elevated brain natriuretic peptide (BNP) level: Status: Acute Category: Medical Code(s): R79.89 - Other specified abnormal findings of blood chemistry (6) Hypokalemia: Status: Resolved Category: Medical Code(s): E87.6 - Hypokalemia (7) Acute respiratory failure with hypoxia: Status: Acute Category: Medical Code(s): J96.01 - Acute respiratory failure with hypoxia (8) New onset of congestive heart failure: Status: Acute Category: Medical Code(s): I50.9 - Heart failure, unspecified (9) Hypertensive urgency: Status: Acute Category: Medical Code(s): I16.0 - Hypertensive urgency (10) Acute HFrEF (heart failure with reduced ejection fraction): Status: Acute Category: Medical Code(s): I50.21 - Acute systolic (congestive) heart failure (11) Hyponatremia: Status: Acute Category: Medical Code(s): E87.1 - Hypo-osmolality and hyponatremia (12) Cough: Status: Acute Category: Medical Code(s): R05.9 - Cough, unspecified (13) Tremor: Status: Acute Category: Medical Code(s): R25.1 - Tremor, unspecified Plan WBC is very elevated today. A urine has been collected for urinalysis. CXR from yesterday showed improvement and no pneumonia. Her sodium improved to 122 yesterday. Cardiology stopped the 3% saline after she received about 200mL and continued to hold her diuretics. Her BP was low last night, so she was given normal saline and some of her medications were held. She states she did have a few BM's last night and some were loose. Will discuss further care with Dr. Pastor. Cardiology to follow. Dr. Pastor entry - Saw patient, BP has been low at times over the past 24 hours. Pt received 1 500 mL bolus of 0.9% NS last night. She has had several bowel movements overnight. WBC count is higher today, stool is positive for occult blood and UA shows 4+ bacteria, CXR is clear, plan to start Invaz emperically today.
[2024-02-27 08:17] LABS: Appearance,Urine CLOUDY (Clear); Blood, Urine TRACE-I (Negative); Color,Urine YELLOW (Yellow); Glucose,Urine (UA) Negative (Negative); Ketones,Urine TRACE (Negative); Leukocyte Esterase,Urine Negative (Negative); Nitrate,Urine Negative (Negative); PH,Urine 5.5 (5.0-8.5); Protein,Urine Negative (Negative); Specific Gravity, Urine >= 1.030 (1.005-1.030)
[2024-02-27 08:27] LABS: Bilirubin,Urine 1+ (Negative)
[2024-02-27 08:28] LABS: Lymphocytes % 9 % (10-50); Monocytes % 2 % (2-9); Neutrophils % 89 % (42-76); Platelet Estimate Moderate Increase; RBC Morphology Normal; Total Cells Counted 100
[2024-02-27] MEDS: SACUBITRIL/VALSARTAN 24-26MG TABLET 1 EACH PO (08:28)
[2024-02-27] MEDS: AMIODARONE 200MG TABLET 400 MG PO ×3 (08:28→21:28)
[2024-02-27] MEDS: APIXABAN 5MG TABLET 5 MG PO ×2 (08:28→21:28)
[2024-02-27] MEDS: ASPIRIN EC 81MG TABLET 81 MG PO (08:28)
[2024-02-27] MEDS: TRIAMCINOLONE ACETONIDE CREAM 30GM TUBE TP ×3 (08:29→21:28)
[2024-02-27 08:34] LABS: Bacteria,Urine 4+ /lpf; Squamous Epithelial Cell,Urine Occasional #/hpf (0-5); WBC,Urine Occasional #/hpf (0-3)
--- NOTE | 2024-02-27 09:05 | PC.NURSE ---
Dr Pastor at bedside rounding on pt.
[2024-02-27] MEDS: ERTAPENEM SODIUM 1 GM in 0.9 % SODIUM CHLORIDE 50 ML IV (09:43)
[2024-02-27] MEDS: FAMOTIDINE 20MG TABLET 20 MG PO ×2 (09:43→21:28)
--- NOTE | 2024-02-27 09:59 | EXP.CARD.PN ---
Subjective Subjective Date: 02/27/24 Time: 09:30 Principal diagnosis: acute HFrEF, pulmonary edema, hypertensive urgency/malignant hypertension Interval history: The patient was admitted to the hospital with malignant hypertension and found to have acute HFrEF. The patient was also in atrial fibrillation with RVR and did convert to sinus rhythm on amiodarone and esmolol drips. Her drips were stopped once she initially converted and was started on oral amiodarone and remained on oral metoprolol. The patient did go back into atrial fibrillation with RVR. She was treated with a dose of IV metoprolol and she remains in atrial fibrillation this morning with a rate in the 70s. She underwent left cardiac catheterization and renal angiogram which showed mild nonocclusive coronary artery disease and normal renal arteries. This morning she denies any chest pain or pressure. She denies any shortness of breath or edema. She denies any fever, chills, nausea, vomiting, diarrhea. She states that she just feels very fatigued and tired. She is much more alert today and more talkative than yesterday. She states that she is feeling much better. She did get hypotensive yesterday and her blood pressure medications have been adjusted. Her blood pressure is well-controlled today. Exam Data for Last 24 hours Vital signs and Labs for Last 24 Hours: Temp Pulse Resp BP Pulse Ox O2 Del Method O2 Flow Rate 97.5 F L 82 15 115/64 93 L Nasal Cannula 2 02/27/24 08:00 02/27/24 09:00 02/27/24 09:00 02/27/24 09:00 02/27/24 09:00 02/27/24 08:45 02/27/24 08:45 FiO2 80 02/25/24 01:50 Laboratory Results - last 24 hr 02/26/24 12:14: Sodium 122 L, Potassium 4.0, Chloride 82 L, Carbon Dioxide 31 H, Anion Gap 13.0, BUN 29 H D, Creatinine 1.00 D, Estimated Creat Clear 58, Estimated GFR 53 L, Est GFR ( Amer) 65 D, Glucose 124 H, Calcium 8.6 02/26/24 23:35: Stool Occult Blood Positive A, Stl Aeromonas (PCR) Not detected, Stl C. cayetanensis PCR Not detected, Stool Rotavirus (PCR) Not detected, Stl Adenov F 40/41 PCR Not detected, Stool Astrovirus (PCR) Not detected, Stool Campylobacter PCR Not detected, Stl C.difficile Tox PCR Not detected, Stool Cryptosporidium PCR Not detected, Stl E.coli Shiga Tox PCR Not detected, Stool E coli O157 PCR Not detected, Stl Enterotoxigenic E PCR Not detected, Stool EPEC (PCR) Not detected, Stool EAEC (PCR) Not detected, Stl E. histolytica PCR Not detected, Stool Giardia Lamblia PCR Not detected, Stool Salmonella PCR Not detected, Stool Sapovirus (PCR) Not detected, Stl P. shigelloides PCR Not detected, Stl Shigella/EIEC PCR Not detected, St Y.enterocolitica PCR Not detected, Stool Vibrio (PCR) Not detected, Stl Vibrio cholerae PCR Not detected, Stl Norovirus GI/GII PCR Not detected 02/27/24 05:25: WBC 23.1 H* D, RBC 4.95, Hgb 14.8, Hct 43.1, MCV 87.1, MCH 29.9, MCHC 34.3, RDW 13.2, Plt Count 504 H, MPV 9.9, Neut % (Auto) 83.6 H, Lymph % (Auto) 5.2 L, [place] % (Auto) 10.2 H, Eos % (Auto) 0.1, Baso % (Auto) 0.3, Neut # (Auto) 19.3 H, Lymph # (Auto) 1.2, [place] # (Auto) 2.4 H, Eos # (Auto) 0.0, Baso # (Auto) 0.1, Total Counted 100, Neutrophils % (Manual) 89 H, Lymphocytes % (Manual) 9 L, Monocytes % (Manual) 2, Platelet Estimate Moderate increase, RBC Morphology Normal, Sodium 119 L, Potassium 4.3, Chloride 87 L, Carbon Dioxide 24, Anion Gap 12.3, BUN 44 H D, Creatinine 1.00, Estimated Creat Clear 58, Estimated GFR 53 L, Est GFR ( Amer) 65, Glucose 81 D, Calcium 8.3 L 02/27/24 07:45: Urine Color Yellow, Urine Appearance Cloudy, Urine pH 5.5, Ur Specific [place] >= 1.030, Urine Protein Negative, Urine Glucose (UA) Negative, Urine Ketones Trace, Urine Blood Trace-i, Urine Nitrate Negative, Urine Bilirubin 1+ A, Urine Urobilinogen 1.0, Ur Leukocyte Esterase Negative, Urine RBC None, Urine WBC Occasional, Ur Squamous Epith Cells Occasional, Urine Bacteria 4+ I & O for Last 24 hours: Intake & Output 02/24/24 02/25/24 02/26/24 02/27/24 23:59 23:59 23:59 23:59 Intake Total 2675.087 / 2675.087 1012.166 / 1132.166 347 / 347 135 / 135 Output Total 1450 / 2650 2800 / 2800 450 / 450 200 / 200 Balance 1225.087 / 25.087 -1787.834 / -1667.834 -103 / -103 -65 / -65 Weight 183 lb 15.965 oz 190 lb 4.8 oz 181 lb 1.6 oz 181 lb 3.52 oz Constitutional Constitutional: no acute distress and average body habitus *Routine HEENT Exam Head: Present normocephalic and atraumatic ENT: Present mucous membranes moist *Routine Neck Exam Neck: Present supple, full ROM and normal carotid upstroke; Absent JVD, carotid bruit or lymphadenopathy *Routine Respiratory Exam Respiratory: Present CTA bilaterally, normal respiratory effort, able to speak in complete sentences and symmetric chest movement *Routine Cardiovascular Exam Cardiovascular: Present Normal S1, Normal S2 and irregularly irregular; Absent murmur or gallop *Routine Abdominal Exam Abdominal: Present soft and normoactive bowel sounds; Absent tenderness, distended or organomegaly *Routine Extremities Exam Extremities: Present full ROM, pulses intact and normal capillary refill; Absent cyanosis, clubbing or edema *Routine Skin Exam Skin: Present intact and warm; Absent erythema *Routine Neurological Exam Neurological: Present alert, oriented X3 and CN II-XII intact; Absent sensory deficit or motor deficit Routine Psychiatric Exam Psychiatric: Present normal affect Progress Note: A&P Assessment and plan (1) Nonischemic cardiomyopathy: Status: Acute (2) Acute HFrEF (heart failure with reduced ejection fraction): Status: Acute (3) Hypertensive urgency: Status: Acute (4) Atrial fibrillation, new onset: Status: Acute (5) Pulmonary edema: Status: Acute (6) HTN (hypertension): Status: Acute (7) Acute respiratory failure with hypoxia: Status: Acute (8) Hyponatremia: Status: Acute (9) Cough: Status: Acute Assessment and Plan Assessment and Plan for All Diagnoses:: Plan: 1. The patient was admitted to the hospital with acute HFrEF. Her ejection fraction is estimated at 30%. The patient did have an episode of acute pulmonary edema where she had to be on BiPAP. She has now been weaned to room air. The patient was being diuresed with IV Lasix. However, the patient was significantly hyponatremic yesterday so her diuretics were stopped. Will continue to hold her diuretics, Lasix and spironolactone, through the weekend. 2. The patient's sodium is 119 today. Recommend that the patient increase her p.o. intake of food and fluids which will help to improve her hyponatremia. She does not require any more 3% saline at this time. 3. The patient was probably over diuresed which caused her hypotension and hyponatremia. As mentioned above we want to encourage her oral intake of food and fluid over the weekend. Early next week she will need to be restarted on low-dose diuretics for her HFrEF. 4. The patient underwent left cardiac catheterization during this hospitalization was found to have mild nonocclusive coronary artery disease. Recommend aspirin 81 mg daily. 5. The patient has non-ischemic cardiomyoapthy. She does have severe LV dysfunction. Her ejection fraction is 30%. She had is increased risk for sudden cardiac due to her severe LV dysfunction. Recommend LifeVest prior to discharge home. Will get her LifeVest ordered today. 6. The patient remains in atrial fibrillation with rate control. Continue oral amiodarone and metoprolol for rate control. 7. The patient is on Eliquis for long-term anticoagulation. 8. Her blood pressure is well-controlled this morning. Continue current doses of Toprol and Entresto. 9. Acute HFrEF is present. She remains on Entresto and Toprol. No Lasix or Aldactone at this time due to her hyponatremia. Will try to get these restarted at the beginning of next week as mentioned above. 10. Consider Jardiance once the patient is euvolemic and her hyponatremia has improved. 11. Her LDL goal is less than 55. Her LDL is 88. She has been started on a statin. 12. Her renal duplex does show a left renal cyst. No masses. 13. Further recommendations will be made pending the patient's response to treatment. Thank you for the opportunity to have participate in the care of this patient. All recommendations and orders are per Dr. Newell.
--- NOTE | 2024-02-27 10:33 | HMH.PTEV ---
Physical Therapy Evaluation Rehab PT IP Evaluation Start: 02/27/24 09:13 Freq: ONCE Status: Active Protocol: Document 02/27/24 10:14 DEBRA (Rec: 02/27/24 10:31 DEBRA [id number]) Subjective/History History History Per H&P: Mrs. Daugherty is an 79 year old patient of [facility] who presented to [facility] ER yesterday with complaints of elevated blood pressure and some shortness of breath. She measured her blood pressure at home around 200/120 on several different BP monitors yesterday. She also noted some headache and generalized fatigue. She reports having a lumbar spine epidural a few days ago and her BP was noted to be high then as well. Subjective Subjective Pt has been at [facility] since 02/19 and reports she has not trialed OOB mobility yet. Pt reports she is normally IND with mobility and ambulation using RW. Pt lives with her family who are able to assist as needed per daughter. New diagnosis of cancer in past 12 No months? Rehab PT IP Eval Objective Appearance Patient Behavior Appropriate,Cooperative Patient Orientation Person,Situation Difficulty following instructions none Speech Pattern Clear Ambulation Patient Able to Ambulate Yes Ambulation Observation IP General Gait Pattern Observation Wide Based Gait,Hips Posterior to MALIK Ambulation Distance (feet) 28 Ambulation Assistive Device Rolling Walker Ambulation Ability Contact Guard/Hand Hold, Maximum x 1 (75% assist) Balance Ability to Arise Able, uses arms to help Sitting Balance Steady, safe Standing Balance Steady, wide stance Dynamic Sitting Balance Ability Good Dynamic Standing Balance Ability Fair Transfers Bed Transfer Ability Supervision/Stand by Sit to Stand Bed Transfer Ability Contact Guard/Hand Hold Rehab PT IP prob,goals,plan Problems Date of Evaluation: 02/27/24 PT IP Problems Transfers,Gait,Balance,Self care,Safety Rehab Potential Rehab Potential Good Equipment Needs Assistive Devices Rolling / Wheeled Walker Plan PT Intervention Plan Transfers,Gait,Balance,Self care,Safety,Therapeutic Exercise Other Intervention Plan 1-2 times PT Plan Frequency Daily Duration LOS Discharge Goals Bed Transfer Ability Independent Sit to Stand Chair Transfer Ability Independent Ambulation Assistive Device Rolling Walker Ambulation Distance (feet) 40 Discharge Plan PT Discharge Plan Pt demo'd fair ambulation ability but this was her first ambulation trial since admission 7 days ago so pt demo'd impaired endurance. Pt required Max A when she was ~ 5' from bed d/t LE fatigue and buckling. Prior to LE buckling, pt was CGA-Min A for ambulating using RW. Pt reports she wishes to go home and that she will have family' s assistance. PT educated on pt obtaining a BSC d/t decreased ambulation ability and reported far distance from bedroom to bathroom. If pt has 24/7 assistance, PT services, and the necessary DME/ADs, pt may be appropriate to d/c home. If pt does not have 24/7 assistance, pt would be most appropriate for inpatient rehabilitation. Pt would benefit from skilled acute care PT to address deficits. Eval Complexity Eval Charge Codes 60973 - Moderate Complexity PHYSICIAN CERTIFICATION: I certify the specified therapy services for Evelyn Daugherty are required, authorized, and reviewed every 30 days.
--- NOTE | 2024-02-27 10:34 | HMH.OTEV ---
OT Inpatient Evaluation Rehab OT IP Evaluation Start: 02/27/24 09:13 Freq: ONCE Status: Active Protocol: Document 02/27/24 10:02 BETZY (Rec: 02/27/24 10:34 [email or web address] [id number]) Rehab OT IP Assessment Subjective History Mrs. Daugherty is an 79 year old patient of [facility] who presented to [facility] ER yesterday with complaints of elevated blood pressure and some shortness of breath. She measured her blood pressure at home around 200/120 on several different BP monitors yesterday. She also noted some headache and generalized fatigue. She reports having a lumbar spine epidural a few days ago and her BP was noted to be high then as well. Patient lives in 2 story home with 1-2 MARILYN. Lives with , daughter, son-in-law, grandchildren. Other daughter lives close by. Patient was independent with ADLs and fx'l mobility prior to hospitalization. Patient verbalize using an RW to ambulate. Subjective I can get up. Instructed Patient on proper hand and foot placement to complete bed mobility from supine->sit @ EOB->stand with usage of RW. Instructed Patient on safety awareness to complete fx'l mobility with usage of RW. Patient required Min A For all transfers. Patient completed fx'l mobility with usage of RW ~ 20ft with needing Mod A x2 towards last 5ft of mobility. Patient exhibit fatigue and needing increase assistance to return back to EOB. Left Patient sitting upright in bed at end of session. Objective Patient Orientation Person,Place,Name,Age Right Upper Extremity Gross ROM WFL Left Upper Extremity Gross ROM WFL Bed Mobility bed mobility - supine/sit Assist Level Minimal x 1 (25% assist) Transfer Training Sit/Stand Transfer Assist Level Minimal x 1 (25% assist) Lower Body Dressing Ability Maximum Assistance Rehab OT IP prob,goals,plan Problems Date of Evaluation: 02/27/24 OT IP Problems Bed Mobility,Transfers,Balance ,Self care,Safety Rehab Potential Rehab Potential Good Equipment Needs Assistive Devices Standard Walker Plan OT intervention Plan Bed Mobility,Transfers,Balance ,Self care,Safety,Therapeutic Exercise OT Plan Frequency Daily Duration LOS Discharge Goals Bed Mobility Ability Standby Assistance Sit to Stand Chair Transfer Ability Contact Guard/Hand Hold Chair Transfer Ability Contact Guard/Hand Hold Chair Transfer Technique Sit to/from Ambulatory Chair Transfer Assistive Devices Rolling Walker Discharge Plan OT Discharge Plan Recommend placement for 09/09 care with rehab and nursing care. Patient requires assistance of x2 to complete fx'l mobility ~20ft due to fatigue and generalized weakness. Without assistance, patient is a high fall risk. Patient will benefit from rehab in order to increase safety, strength and endurance for ADLs and fx'l mobility. However if patient request to return home with family, recommend 24/7 care with services. Patient to continue skilled OT services while here at [facility]. Eval Complexity Eval Charge Codes 63390 - Low Complexity PHYSICIAN CERTIFICATION: I certify the specified therapy services for Evelyn Daugherty are required, authorized, and reviewed every 30 days.
--- NOTE | 2024-02-27 10:46 | DIET.NUTRFU ---
Had multiple BM, nursing reported increased appetite today. Was given an ensure and drank 100%, all continue on all trays until food intake improves.
--- NOTE | 2024-02-27 11:10 | SW/DCPLANNER ---
Addendum entered by [facility] 03/01/24 15:48: Per Arlene guzman/ [facility] patient has been accepted for services. Addendum entered by [facility] 03/01/24 14:34: Patient and family prefer that patient return home w/ home health services at this time. I did explain to family that there is a chance I may not be able to establish home health services due to insurance. At this time [facility], [facility], [facility] and [facility] are not able to accept. Patient information/order has been faxed to Arlene guzman/ [facility]. If [facility] can not accept patient/family are agreeable to outpatient PT services. I will continue to follow up w/ patient, family and [facility]. Addendum entered by [facility] 03/01/24 09:08: Updated patient information faxed to Inocencia guzman/ [facility]. Addendum entered by [facility] 02/27/24 12:40: Per Inocencia guzman/ [facility] she can accept this patient SNF level of care. I have updated patient and family: they are agreeable to facility. Inocencia will start precert today. Original Note: I spoke w/ this patient and her daughter regarding plans once medically stable for discharge. PT/OT evaluated patient and recommended SNF level of care at this time. Patient and daughter discussed discharge plans and they are agreeable for information to be faxed to SNF level of care at this time. Patient requested [facility] but they do not currently have any beds available. I did inform patient/daughter that [facility] and [facility] in [place] do have female beds and they do accept patient's insurance. Patient is agreeable for information to be faxed to both facilities while they speak w/ other family members regarding discharge plans. I will continue to follow up w/ patient, family, MD and facilities. Discharge date is unknown at this time.
--- NOTE | 2024-02-27 13:08 | PC.NURSE ---
pt/ot at bedside working with pt at this time
--- NOTE | 2024-02-27 17:11 | PC.NURSE ---
SPOKE WITH DR GARCÍA REGARDING PT BEING TRANSFERRED TO THE FLOOR PER HOUSE REQUEST. HE STATED SHE CAN GO TO THE FLOOR AND BE TRANSFERRED TO [facility]. HOUSE AND CHARGE AWARE. ADMISSIONS AWARE WELL
--- NOTE | 2024-02-27 17:40 | PC.NURSE ---
CALLED REPORT TO KATINA BRISENO
--- NOTE | 2024-02-27 17:51 | PC.NURSE ---
DR GARCÍA AT BEDSIDE
--- NOTE | 2024-02-27 17:57 | PC.NURSE ---
pt transported to room 218 via bed with marianne lazo rn and claribel marcum
[2024-02-27] MEDS: ATORVASTATIN 20MG TABLET 20 MG PO (21:28)
[2024-02-28] VITALS (12 sets, daily range): BP systolic 74–121; BP diastolic 46–76; PULSE 83–111; RESP 16–22; TEMP 36.4–36.6; O2SAT 91–98; BMI 32.8
--- NOTE | 2024-02-28 05:28 | PC.NURSE ---
Patient had a good night and has been able to rest. BP has been soft but provider was notified and medication was held. Patient sats appropriately on RA when she is awake but does drop to the high 80s when asleep, 2L NC was applied and patient would sat in the low 90s. No other complaints family remains at bedside
[2024-02-28 07:06] LABS: Basophils # 0.1 K/mm3 (0-0.2); Basophils % 0.6 % (0.1-2.0); Eosinophils # 0.1 K/mm3 (0.0-0.4); Eosinophils % 0.9 % (0.1-12.0); Hematocrit 41.1 % (37.0-47.0); Hemoglobin 14.3 g/dL (12.2-16.2); Lymphocytes # 1.3 K/mm3 (0.7-4.5); Lymphocytes % 11.3 % (10-50); Mean Corpuscular HGB Conc 34.8 g/dL (31.8-35.4); Mean Corpuscular Hemoglobin 30.3 pg (27.0-31.2); Mean Corpuscular Volume 87.1 fl (81-99); Mean Platelet Volume 9.5 fl (7.4-10.4); Monocytes # 1.3 K/mm3 (0.1-1.0); Monocytes % 10.6 % (1.7-9.3); Neutrophils % 75.9 % (37.0-80.0); Platelet Count 550 K/mm3 (142-424); Red Blood Count 4.72 M/mm3 (4.20-5.40); Red Cell Distribution Width 13.2 % (11.5-17.5); White Blood Count 11.8 K/mm3 (4.8-10.8)
[2024-02-28 07:31] LABS: Albumin Level 2.9 g/dl (3.5-5.0); Chloride 85 mmol/L (98-107); Potassium 3.6 mmoL/L (3.5-5.1); Sodium 118 mmol/L (136-145)
[2024-02-28 07:33] LABS: Blood Urea Nitrogen 36 mg/dl (7-17); Creatinine Clearance Estimated 62 mL/min (50-200); Estimated Glomerular Filt Rate 69 ml/min (>60); GFR (African American) 84 ML/MIN (>60)
[2024-02-28 07:34] LABS: Alanine Aminotransferase 20 U/L (12-78); Albumin/Globulin Ratio 1.2 (1.1-1.8); Alkaline Phosphatase 56 U/L (38-126); Anion Gap 4.6 mEq/L (5-15); Aspartate Amino Transferase 35 U/L (14-36); Bilirubin,Total 0.7 mg/dl (0.2-1.3); Calcium 8.5 mg/dl (8.4-10.2); Carbon Dioxide 32 mmol/L (22.0-30.0); Globulin 2.4 g/dL (1.3-3.2); Glucose 108 mg/dl (74-100); Total Protein,Serum 5.3 g/dl (6.3-8.2)
[2024-02-28] MEDS: ERTAPENEM SODIUM 1 GM in 0.9 % SODIUM CHLORIDE 50 ML IV (08:27)
[2024-02-28] MEDS: AMIODARONE 200MG TABLET 400 MG PO ×3 (08:27→21:32)
[2024-02-28] MEDS: ASPIRIN EC 81MG TABLET 81 MG PO (08:27)
[2024-02-28] MEDS: APIXABAN 5MG TABLET 5 MG PO ×2 (08:27→21:32)
[2024-02-28] MEDS: FAMOTIDINE 20MG TABLET 20 MG PO ×2 (08:27→21:32)
[2024-02-28] MEDS: TRIAMCINOLONE ACETONIDE CREAM 30GM TUBE TP (08:30)
--- NOTE | 2024-02-28 09:01 | EXP.ACUTE.PN ---
Subjective *Date: 02/28/24 *Time: 09:01 Interval history: Patient was able to get out of bed yesterday with assistance. Tremors have resolved. She was able to eat a little. She was transferred out of ICU to step down. Nurse reports BP was low yesterday several times. Metoprolol and Entresto were not given. Medical Exam Vital signs and Labs for Last 24 Hours: Vital Signs Temp Pulse Pulse Resp BP BP Pulse Ox 02/28/24 08:00 97.6 F 88 22 85/50 L 93 L 02/28/24 06:57 02/28/24 06:00 83 18 97/50 L 92 L 02/28/24 05:00 02/28/24 04:00 90 02/28/24 04:00 92 H 18 121/51 L 92 L 02/28/24 04:00 02/28/24 03:00 02/28/24 02:00 91 H 16 110/76 97 02/28/24 01:00 02/28/24 00:00 90 02/28/24 00:00 90 18 93/46 L 91 L 02/27/24 23:00 02/27/24 22:00 85 20 101/75 L 93 L 02/27/24 21:00 02/27/24 20:00 80 02/27/24 20:00 87 20 117/51 L 94 L 02/27/24 20:00 02/27/24 20:00 97.1 F L 02/27/24 18:36 02/27/24 18:00 82 134/77 95 02/27/24 17:10 02/27/24 16:31 137/63 02/27/24 16:20 79 92 L 02/27/24 16:00 97.8 F 02/27/24 16:00 76 02/27/24 16:00 98/50 L 02/27/24 16:00 70 21 93 L 02/27/24 15:05 02/27/24 15:02 80 18 94 L 02/27/24 15:02 148/83 H 02/27/24 14:01 89 18 92 L 02/27/24 14:01 126/60 02/27/24 13:05 02/27/24 13:00 78 13 92 L 02/27/24 13:00 133/65 02/27/24 12:35 77 92 L 02/27/24 12:00 97.6 F 02/27/24 12:00 88 02/27/24 12:00 85 21 87 L 02/27/24 12:00 124/61 02/27/24 11:01 121/63 02/27/24 11:01 80 20 92 L 02/27/24 11:00 02/27/24 10:00 108/52 L 02/27/24 10:00 87 22 91 L 02/27/24 09:05 O2 Del Method O2 Flow Rate 02/28/24 08:00 Nasal Cannula 2 02/28/24 06:57 Nasal Cannula 2 02/28/24 06:00 Nasal Cannula 2 02/28/24 05:00 Nasal Cannula 2 02/28/24 04:00 02/28/24 04:00 Nasal Cannula 2 02/28/24 04:00 Nasal Cannula 2 02/28/24 03:00 Nasal Cannula 2 02/28/24 02:00 Nasal Cannula 2 02/28/24 01:00 Nasal Cannula 2 02/28/24 00:00 02/28/24 00:00 Nasal Cannula 2 02/27/24 23:00 Nasal Cannula 2 02/27/24 22:00 Nasal Cannula 2 02/27/24 21:00 Nasal Cannula 2 02/27/24 20:00 02/27/24 20:00 Nasal Cannula 2 02/27/24 20:00 Nasal Cannula 2 02/27/24 20:00 02/27/24 18:36 Nasal Cannula 2 02/27/24 18:00 Nasal Cannula 2 02/27/24 17:10 Room Air 02/27/24 16:31 02/27/24 16:20 Room Air 02/27/24 16:00 02/27/24 16:00 02/27/24 16:00 02/27/24 16:00 Room Air 02/27/24 15:05 Room Air 02/27/24 15:02 02/27/24 15:02 02/27/24 14:01 02/27/24 14:01 02/27/24 13:05 Room Air 02/27/24 13:00 02/27/24 13:00 02/27/24 12:35 Room Air 02/27/24 12:00 02/27/24 12:00 02/27/24 12:00 02/27/24 12:00 02/27/24 11:01 02/27/24 11:01 02/27/24 11:00 Nasal Cannula 1 02/27/24 10:00 02/27/24 10:00 02/27/24 09:05 Nasal Cannula 1 Intake and Output 02/27/24 02/28/24 02/28/24 23:59 07:59 15:59 Intake Total 390 / 1001 0 / 0 Output Total 125 / 125 Balance 390 / 801 -125 / -125 Intake: Intake, Oral Amount 390 / 1001 0 / 0 Output: Output, Urine Amount 125 / 125 Other: Weight 192 lb Patient Weight 02/28/24 23:59 Weight 192 lb Laboratory Results - last 24 hr 02/27/24 07:45: Urine Color Yellow, Urine Appearance Cloudy, Urine pH 5.5, Ur Specific [place] >= 1.030, Urine Protein Negative, Urine Glucose (UA) Negative, Urine Ketones Trace, Urine Blood Trace-i, Urine Nitrate Negative, Urine Bilirubin 1+ A, Urine Urobilinogen 1.0, Ur Leukocyte Esterase Negative, Urine RBC None, Urine WBC Occasional, Ur Squamous Epith Cells Occasional, Urine Bacteria 4+ 02/28/24 06:49: WBC 11.8 H D, RBC 4.72, Hgb 14.3, Hct 41.1, MCV 87.1, MCH 30.3, MCHC 34.8, RDW 13.2, Plt Count 550 H, MPV 9.5, Neut % (Auto) 75.9, Lymph % (Auto) 11.3, [place] % (Auto) 10.6 H, Eos % (Auto) 0.9, Baso % (Auto) 0.6, Neut # (Auto) 9.0 H, Lymph # (Auto) 1.3, [place] # (Auto) 1.3 H, Eos # (Auto) 0.1, Baso # (Auto) 0.1, Sodium 118 L, Potassium 3.6, Chloride 85 L, Carbon Dioxide 32 H, Anion Gap 4.6 L, BUN 36 H, Creatinine 0.80, Estimated Creat Clear 62, Estimated GFR 69, Est GFR ( Amer) 84 D, Glucose 108 H, Calcium 8.5, Total Bilirubin 0.7, AST 35, ALT 20, Alkaline Phosphatase 56, Total Protein 5.3 L, Albumin 2.9 L, Globulin 2.4, Albumin/Globulin Ratio 1.2 I & O for Labs for Last 24 Hours: Intake & Output 02/25/24 02/26/24 02/27/24 02/28/24 23:59 23:59 23:59 23:59 Intake Total 1012.166 / 1132.166 347 / 347 1001 / 1001 0 / 0 Output Total 2800 / 2800 450 / 450 200 / 200 125 / 125 Balance -1787.834 / -1667.834 -103 / -103 801 / 801 -125 / -125 Weight 190 lb 4.8 oz 181 lb 1.6 oz 181 lb 3.52 oz 192 lb Microbiology Reports for the Last 24 Hours: Microbiology 02/27/24 07:45 Urine,Clean Catch Urine Culture - Preliminary Gram Negative Rods Constitutional: Present no acute distress Respiratory: Present decreased breath sounds; Absent rhonchi or wheezes Cardiac: Present Irregularly Regular GI: Present soft and normal bowel sounds; Absent distention, tenderness or guarding Extremities: Absent tenderness or edema Skin: Present dry and warm Neuro: Present alert, awake and moves all extremities Assessment and Plan *Assessment and plan (1) Pulmonary edema: Status: Acute Qualifiers: Chronicity: acute Qualified Code(s): J81.0 - Acute pulmonary edema Category: Medical Code(s): J81.1 - Chronic pulmonary edema (2) Atrial fibrillation, new onset: Status: Acute Category: Medical Code(s): I48.91 - Unspecified atrial fibrillation (3) Generalized weakness: Status: Acute Category: Medical Code(s): R53.1 - Weakness (4) HTN (hypertension): Status: Acute Qualifiers: Hypertension type: unspecified Qualified Code(s): I10 - Essential (primary) hypertension Category: Medical Code(s): I10 - Essential (primary) hypertension (5) Elevated brain natriuretic peptide (BNP) level: Status: Acute Category: Medical Code(s): R79.89 - Other specified abnormal findings of blood chemistry (6) Hypokalemia: Status: Resolved Category: Medical Code(s): E87.6 - Hypokalemia (7) Acute respiratory failure with hypoxia: Status: Acute Category: Medical Code(s): J96.01 - Acute respiratory failure with hypoxia (8) New onset of congestive heart failure: Status: Acute Category: Medical Code(s): I50.9 - Heart failure, unspecified (9) Hypertensive urgency: Status: Acute Category: Medical Code(s): I16.0 - Hypertensive urgency (10) Acute HFrEF (heart failure with reduced ejection fraction): Status: Acute Category: Medical Code(s): I50.21 - Acute systolic (congestive) heart failure (11) Hyponatremia: Status: Acute Category: Medical Code(s): E87.1 - Hypo-osmolality and hyponatremia (12) Cough: Status: Acute Category: Medical Code(s): R05.9 - Cough, unspecified (13) Tremor: Status: Acute Category: Medical Code(s): R25.1 - Tremor, unspecified Plan Patient has improved, WBC count is lower today, sodium is still low, will decrease Metoprolol dose. Check labs tomorrow.
--- NOTE | 2024-02-28 17:15 | PC.NURSE ---
Pt alert and oriented x4. She is on RA and Lungs are diminished upon auscultation. Pt BP has been low today, MD has been made aware and has made adjustments to medications. Pt has c/o feeling weak and tired. Pt attempted to ambulate to bathroom with assist x2 but was unable to make it, pt is using bedside commode and purewick instead. Pt has been resting in bed majority of the day with family at bedside. Tolerating meals. call light in reach with no complaints at this time.
[2024-02-28] MEDS: 0.9 % SODIUM CHLORIDE 500 ML 50 ML IV (17:36)
[2024-02-28] MEDS: ATORVASTATIN 20MG TABLET 20 MG PO (21:32)
[2024-02-29] VITALS (11 sets, daily range): BP systolic 91–146; BP diastolic 54–83; PULSE 74–109; RESP 16–20; TEMP 36.3–36.9; O2SAT 92–97; BMI 33.1
[2024-02-29 07:46] LABS: Basophils # 0.1 K/mm3 (0-0.2); Basophils % 1.1 % (0.1-2.0); Eosinophils # 0.1 K/mm3 (0.0-0.4); Eosinophils % 1.5 % (0.1-12.0); Hematocrit 47.1 % (37.0-47.0); Hemoglobin 15.7 g/dL (12.2-16.2); Lymphocytes # 1.2 K/mm3 (0.7-4.5); Lymphocytes % 13.9 % (10-50); Mean Corpuscular HGB Conc 33.3 g/dL (31.8-35.4); Mean Corpuscular Hemoglobin 30.5 pg (27.0-31.2); Mean Corpuscular Volume 91.6 fl (81-99); Mean Platelet Volume 9.9 fl (7.4-10.4); Monocytes # 0.7 K/mm3 (0.1-1.0); Monocytes % 8.5 % (1.7-9.3); Neutrophils # 6.3 K/mm3 (1.8-7.8); Neutrophils % 74.1 % (37.0-80.0); Platelet Count 481 K/mm3 (142-424); Red Blood Count 5.14 M/mm3 (4.20-5.40); Red Cell Distribution Width 13.9 % (11.5-17.5); White Blood Count 8.6 K/mm3 (4.8-10.8)
[2024-02-29 07:56] LABS: Chloride 88 mmol/L (98-107); Sodium 119 mmol/L (136-145)
[2024-02-29 07:57] LABS: Potassium 5.4 mmoL/L (3.5-5.1)
[2024-02-29 07:59] LABS: Blood Urea Nitrogen 23 mg/dl (7-17); Creatinine Clearance Estimated 62 mL/min (50-200); Estimated Glomerular Filt Rate 119 ml/min (>60); GFR (African American) 144 ML/MIN (>60)
[2024-02-29 08:00] LABS: Anion Gap 8.4 mEq/L (5-15); Calcium 8.8 mg/dl (8.4-10.2); Carbon Dioxide 28 mmol/L (22.0-30.0); Glucose 98 mg/dl (74-100)
[2024-02-29] MEDS: APIXABAN 5MG TABLET 5 MG PO ×2 (09:05→21:23)
[2024-02-29] MEDS: FAMOTIDINE 20MG TABLET 20 MG PO ×2 (09:05→21:23)
[2024-02-29] MEDS: AMIODARONE 200MG TABLET 400 MG PO ×3 (09:05→21:23)
[2024-02-29] MEDS: ASPIRIN EC 81MG TABLET 81 MG PO (09:05)
[2024-02-29] MEDS: ERTAPENEM SODIUM 1 GM in 0.9 % SODIUM CHLORIDE 50 ML IV (09:05)
--- NOTE | 2024-02-29 10:08 | P.PN_ITS ---
Subjective *Date: 02/29/24 *Time: 10:08 Interval history: Patient feels a little better today, was able to eat more breakfast this morning. Medical Exam Vital signs and Labs for Last 24 Hours: Vital Signs Temp Pulse Pulse Resp BP Pulse Ox O2 Del Method 02/29/24 09:15 95 Nasal Cannula 02/29/24 09:00 Room Air 02/29/24 07:53 97.4 F L 02/29/24 06:29 Room Air 02/29/24 06:00 78 20 128/56 L 93 L Nasal Cannula 02/29/24 05:00 Room Air 02/29/24 04:00 97.6 F 02/29/24 04:00 80 02/29/24 04:00 95 H Nasal Cannula 02/29/24 04:00 74 16 102/57 L 93 L Nasal Cannula 02/29/24 03:00 Room Air 02/29/24 02:00 100 H 18 107/59 L 92 L Nasal Cannula 02/29/24 01:00 Room Air 02/29/24 00:00 97.4 F L 02/29/24 00:00 90 02/29/24 00:00 74 20 91/54 L 92 L Room Air 02/28/24 23:00 Room Air 02/28/24 22:00 93 H 20 103/46 L 91 L Room Air 02/28/24 21:00 Room Air 02/28/24 20:00 100 H 02/28/24 20:00 111 H Room Air 02/28/24 20:00 111 H 16 100/61 L 96 Room Air 02/28/24 20:00 97.9 F 02/28/24 18:42 Room Air 02/28/24 18:00 98 H 20 109/56 L 91 L Room Air 02/28/24 17:00 Room Air 02/28/24 16:00 100 H 02/28/24 16:00 89 18 95/50 L 94 L Room Air 02/28/24 15:28 Room Air 02/28/24 15:00 Room Air 02/28/24 14:00 100 H 18 94/47 L 93 L Room Air 02/28/24 13:00 Room Air 02/28/24 12:00 100 H 02/28/24 12:00 91 H 18 83/63 L 91 L Room Air 02/28/24 11:00 Room Air O2 Flow Rate 02/29/24 09:15 1 02/29/24 09:00 02/29/24 07:53 02/29/24 06:29 02/29/24 06:00 1 02/29/24 05:00 02/29/24 04:00 02/29/24 04:00 02/29/24 04:00 1 02/29/24 04:00 1 02/29/24 03:00 02/29/24 02:00 1 02/29/24 01:00 02/29/24 00:00 02/29/24 00:00 02/29/24 00:00 02/28/24 23:00 02/28/24 22:00 02/28/24 21:00 02/28/24 20:00 02/28/24 20:00 02/28/24 20:00 02/28/24 20:00 02/28/24 18:42 02/28/24 18:00 02/28/24 17:00 02/28/24 16:00 02/28/24 16:00 02/28/24 15:28 02/28/24 15:00 02/28/24 14:00 02/28/24 13:00 02/28/24 12:00 02/28/24 12:00 02/28/24 11:00 Intake and Output 02/28/24 02/29/24 02/29/24 23:59 07:59 15:59 Intake Total 120 / 770 440 / 1020 580 / 1020 Output Total 700 / 700 Balance 120 / 145 -260 / 320 580 / 320 Intake: Intake, Oral Amount 580 / 580 Intake, Total IV Amount 120 / 170 440 / 440 0.9 % Sodium Chloride 500 ml @ 60 / 60 440 / 440 50 mls/hr IV .Q10H ONE Rx#: [id number] Ertapenem Sodium 1 gm In 0.9 % 60 / 110 Sodium Chloride 50 ml @ 100 mls /hr IV 0900 [facility] Rx#:[id number] Output: Output, Urine Amount 700 / 700 Other: Weight 194 lb 1.872 oz Patient Weight 02/29/24 23:59 Weight 194 lb 1.872 oz Laboratory Results - last 24 hr 02/29/24 07:00: WBC 8.6 D, RBC 5.14, Hgb 15.7, Hct 47.1 H, MCV 91.6, MCH 30.5, MCHC 33.3, RDW 13.9, Plt Count 481 H, MPV 9.9, Neut % (Auto) 74.1, Lymph % (Auto) 13.9, [place] % (Auto) 8.5, Eos % (Auto) 1.5, Baso % (Auto) 1.1, Neut # (Auto) 6.3, Lymph # (Auto) 1.2, [place] # (Auto) 0.7, Eos # (Auto) 0.1, Baso # (Auto) 0.1, Sodium 119 L, Potassium 5.4 H D, Chloride 88 L, Carbon Dioxide 28, Anion Gap 8.4, BUN 23 H D, Creatinine 0.50 L D, Estimated Creat Clear 62, Estimated GFR 119, Est GFR ( Amer) 144 D, Glucose 98, Calcium 8.8, Magnesium 2.0 I & O for Labs for Last 24 Hours: Intake & Output 02/26/24 02/27/24 02/28/24 02/29/24 23:59 23:59 23:59 23:59 Intake Total 347 / 347 1001 / 1001 770 / 770 1020 / 1020 Output Total 450 / 450 200 / 200 625 / 625 700 / 700 Balance -103 / -103 801 / 801 145 / 145 320 / 320 Weight 181 lb 1.6 oz 181 lb 3.52 oz 192 lb 194 lb 1.872 oz Microbiology Reports for the Last 24 Hours: Microbiology 02/27/24 07:45 Urine,Clean Catch Urine Culture - Final Escherichia coli Constitutional: Present no acute distress Respiratory: Present decreased breath sounds; Absent rhonchi or wheezes Cardiac: Present Irregularly Regular GI: Present soft and normal bowel sounds; Absent distention, tenderness or guarding Extremities: Absent tenderness or edema Skin: Present dry and warm Neuro: Present alert, awake and moves all extremities Assessment and Plan *Assessment and plan (1) Pulmonary edema: Status: Acute Qualifiers: Chronicity: acute Qualified Code(s): J81.0 - Acute pulmonary edema Category: Medical Code(s): J81.1 - Chronic pulmonary edema (2) Atrial fibrillation, new onset: Status: Acute Category: Medical Code(s): I48.91 - Unspecified atrial fibrillation (3) Generalized weakness: Status: Acute Category: Medical Code(s): R53.1 - Weakness (4) HTN (hypertension): Status: Acute Qualifiers: Hypertension type: unspecified Qualified Code(s): I10 - Essential (primary) hypertension Category: Medical Code(s): I10 - Essential (primary) hypertension (5) Elevated brain natriuretic peptide (BNP) level: Status: Acute Category: Medical Code(s): R79.89 - Other specified abnormal findings of blood chemistry (6) Hypokalemia: Status: Resolved Category: Medical Code(s): E87.6 - Hypokalemia (7) Acute respiratory failure with hypoxia: Status: Acute Category: Medical Code(s): J96.01 - Acute respiratory failure with hypoxia (8) New onset of congestive heart failure: Status: Acute Category: Medical Code(s): I50.9 - Heart failure, unspecified (9) Hypertensive urgency: Status: Acute Category: Medical Code(s): I16.0 - Hypertensive urgency (10) Acute HFrEF (heart failure with reduced ejection fraction): Status: Acute Category: Medical Code(s): I50.21 - Acute systolic (congestive) heart failure (11) Hyponatremia: Status: Acute Category: Medical Code(s): E87.1 - Hypo-osmolality and hyponatremia (12) Cough: Status: Acute Category: Medical Code(s): R05.9 - Cough, unspecified (13) Tremor: Status: Acute Category: Medical Code(s): R25.1 - Tremor, unspecified Plan Patient continues to improve. WBC count is normal today, BP was low again last night. Metoprolol and Entresto were held. She did receive 500 mL's of NS IV overnight. Plan to recheck LV EF tomorrow. Continue current treatment.
--- NOTE | 2024-02-29 12:58 | PC.NURSE ---
pt is sitting up in her chair. using IS i provided and educated pt on. She is doing well and states she feels stronger today
[2024-02-29] MEDS: SACUBITRIL/VALSARTAN 24-26MG TABLET 1 EACH PO (21:22)
[2024-02-29] MEDS: ATORVASTATIN 20MG TABLET 20 MG PO (21:23)
[2024-02-29] MEDS: METOPROLOL TARTRATE 25MG TABLET 12.5 MG PO (21:24)
[2024-03-01] VITALS: BP 153/82; PULSE 70; PULSE 72; RESP 16; TEMP 36.9; O2SAT 94
[2024-03-01 04:00] VITALS: BP 136/80; PULSE 70; PULSE 82; RESP 14; TEMP 36.6; O2SAT 96; BMI 31.1
--- NOTE | 2024-03-01 06:47 | PC.NURSE ---
Pt. is alert and orientated x 4. Pt. is on room air. Tele shows A-fib. Pt. asyptomatic. Pt. has a purewick in place. Pt. had no c/o's overnight. Slept well. VSS. Personal items and call katz in reach.
--- NOTE | 2024-03-01 07:00 | CA_ITS ---
APPROVED REPORT EXAM: Limited 2D Echocardiogram Glue Cook: Hortencia Laird CRT Ht: 5 ft 4 in Wt: 194lbs BSA: 1.93 BP: 179/111 mmHg Indications: ef check, cath 02/25/24, flu 3 wks ago, ef 30% echo 02-20-24 2D Dimensions LA Volume 53.70 mL LA Volume Index 27.10 mL/m2 (M/F) 16-34 M-Mode Dimensions RVDd 3.01 cm (0.9-2.6) LVDd 4.77 cm (3.5-5.7) LVDs 2.70 cm (3.5-5.7) IVSd 1.60 cm (0.6-1.1) PWd 0.89 cm (0.6-1.1) EF (Teich) 74.50% FS 43.40% EDV (Teich) 106.00 mL ESV (Teich) 27.00 mL Other Information Study Quality: Fair Conclusion This is a limited TTE to evaluate for LV systolic function after HR control in the setting of prior A-fib/RVR. Limited windows were obtained. The left ventricle is normal in size. There is increased LV wall thickness. There is normal global LV systolic function. No regional wall motion abnormalities are noted. LVEF is 55-60%. Compared to prior study from 02/23/2024, the LVEF is now improved. Electronically signed by : Lashon Newell MD 03/01/2024 10:07:25
[2024-03-01 07:35] VITALS: BP 148/87; PULSE 82; RESP 20; TEMP 36.4; O2SAT 97
[2024-03-01 08:00] VITALS: PULSE 90
--- NOTE | 2024-03-01 08:08 | EXP.PHA.PN ---
Subjective *Date: 03/01/24 *Time: 08:08 Medical Exam Vital signs and Labs for Last 24 Hours: Vital Signs Temp Pulse Pulse Resp BP Pulse Ox O2 Del Method 03/01/24 08:01 Room Air 03/01/24 07:35 97.5 F L 82 20 148/87 H 97 Room Air 03/01/24 07:00 Room Air 03/01/24 05:00 Room Air 03/01/24 04:00 70 03/01/24 04:00 97.9 F 82 14 136/80 96 Room Air 03/01/24 03:00 Room Air 03/01/24 01:00 Room Air 03/01/24 00:00 70 03/01/24 00:00 98.4 F 72 16 153/82 H 94 L Room Air 02/29/24 23:00 Room Air 02/29/24 21:00 Room Air 02/29/24 20:00 Room Air 02/29/24 20:00 90 02/29/24 20:00 97.6 F 101 H 16 115/55 L 95 Room Air 02/29/24 18:50 Room Air 02/29/24 17:00 Room Air 02/29/24 16:00 97.8 F 87 19 146/83 H 94 L Room Air 02/29/24 15:00 Room Air 02/29/24 13:00 Room Air 02/29/24 12:00 90 02/29/24 12:00 98.4 F 02/29/24 11:00 Room Air 02/29/24 10:00 109 H 20 102/82 L 95 Room Air 02/29/24 09:15 95 Nasal Cannula 02/29/24 09:00 Room Air O2 Flow Rate 03/01/24 08:01 03/01/24 07:35 03/01/24 07:00 03/01/24 05:00 03/01/24 04:00 03/01/24 04:00 03/01/24 03:00 03/01/24 01:00 03/01/24 00:00 03/01/24 00:00 02/29/24 23:00 02/29/24 21:00 02/29/24 20:00 02/29/24 20:00 02/29/24 20:00 02/29/24 18:50 02/29/24 17:00 02/29/24 16:00 02/29/24 15:00 02/29/24 13:00 02/29/24 12:00 02/29/24 12:00 02/29/24 11:00 02/29/24 10:00 02/29/24 09:15 1 02/29/24 09:00 Intake and Output 02/29/24 03/01/24 03/01/24 23:59 07:59 15:59 Intake Total 240 / 1740 Output Total 500 / 500 Balance 240 / 1040 -500 / -500 Intake: Intake, Oral Amount 240 / 1300 Output: Output, Urine Amount 500 / 500 Other: Number of Unmeasured Voids 0 Number of Bowel Movements 1 Weight 82.735 kg Patient Weight 03/01/24 23:59 Weight 82.735 kg Laboratory Results - last 24 hr 02/29/24 07:00: Glucose 98, Calcium 8.8, Magnesium 2.0 I & O for Labs for Last 24 Hours: Intake & Output 02/27/24 02/28/24 02/29/24 03/01/24 23:59 23:59 23:59 23:59 Intake Total 1001 / 1001 770 / 770 1740 / 1740 Output Total 200 / 200 625 / 625 700 / 700 500 / 500 Balance 801 / 801 145 / 145 1040 / 1040 -500 / -500 Weight 82.2 kg 87.09 kg 88.05 kg 82.735 kg Microbiology Reports for the Last 24 Hours: Microbiology 02/27/24 07:45 Urine,Clean Catch Urine Culture - Final Escherichia coli The patient's infection will respond to the chosen ABx?: Yes Is the patient receiving the right drug, dose, and route?: Yes Could a more targeted ABx be ordered?: No (WBC IMPROVED, E. COLI POSITIVE IN URINE-SENSITIVE TO INVANZ.)
--- NOTE | 2024-03-01 08:49 | EXP.ACUTE.PN ---
Subjective *Date: 03/01/24 *Time: 09:40 Interval history: Patient states she feels well but is just weak. She is eating okay. Bowels have moved. She is voiding QS. She denies chest pain and shortness of breath. She has been up in the room and is tolerated well. stayed with her last night and said she did well with minimal cough. Medical Exam Vital signs and Labs for Last 24 Hours: Vital Signs Temp Pulse Pulse Resp BP Pulse Ox O2 Del Method 03/01/24 08:01 Room Air 03/01/24 07:35 97.5 F L 82 20 148/87 H 97 Room Air 03/01/24 07:00 Room Air 03/01/24 05:00 Room Air 03/01/24 04:00 70 03/01/24 04:00 97.9 F 82 14 136/80 96 Room Air 03/01/24 03:00 Room Air 03/01/24 01:00 Room Air 03/01/24 00:00 70 03/01/24 00:00 98.4 F 72 16 153/82 H 94 L Room Air 02/29/24 23:00 Room Air 02/29/24 21:00 Room Air 02/29/24 20:00 Room Air 02/29/24 20:00 90 02/29/24 20:00 97.6 F 101 H 16 115/55 L 95 Room Air 02/29/24 18:50 Room Air 02/29/24 17:00 Room Air 02/29/24 16:00 97.8 F 87 19 146/83 H 94 L Room Air 02/29/24 15:00 Room Air 02/29/24 13:00 Room Air 02/29/24 12:00 90 02/29/24 12:00 98.4 F 02/29/24 11:00 Room Air 02/29/24 10:00 109 H 20 102/82 L 95 Room Air 02/29/24 09:15 95 Nasal Cannula 02/29/24 09:00 Room Air O2 Flow Rate 03/01/24 08:01 03/01/24 07:35 03/01/24 07:00 03/01/24 05:00 03/01/24 04:00 03/01/24 04:00 03/01/24 03:00 03/01/24 01:00 03/01/24 00:00 03/01/24 00:00 02/29/24 23:00 02/29/24 21:00 02/29/24 20:00 02/29/24 20:00 02/29/24 20:00 02/29/24 18:50 02/29/24 17:00 02/29/24 16:00 02/29/24 15:00 02/29/24 13:00 02/29/24 12:00 02/29/24 12:00 02/29/24 11:00 02/29/24 10:00 02/29/24 09:15 1 02/29/24 09:00 Intake and Output 02/29/24 03/01/24 03/01/24 19:59 03:59 11:59 Intake Total 720 / 720 240 / 960 Output Total 0 / 0 500 / 500 Balance 720 / 720 0 / 720 -260 / 460 Intake: Intake, Oral Amount 720 / 720 240 / 960 Output: Output, Urine Amount 0 / 0 500 / 500 Other: Number of Unmeasured Voids 1 0 Number of Bowel Movements 1 Weight 182 lb 6.4 oz Patient Weight 03/01/24 11:59 Weight 182 lb 6.4 oz I & O for Labs for Last 24 Hours: Intake & Output 02/27/24 02/28/24 02/29/24 03/01/24 11:59 11:59 11:59 11:59 Intake Total 588 / 588 920 / 920 1500 / 1500 960 / 960 Output Total 200 / 200 625 / 625 700 / 700 500 / 500 Balance 388 / 388 295 / 295 800 / 800 460 / 460 Weight 181 lb 3.52 oz 192 lb 194 lb 1.872 oz 182 lb 6.4 oz Microbiology Reports for the Last 24 Hours: Microbiology 02/27/24 07:45 Urine,Clean Catch Urine Culture - Final Escherichia coli Constitutional: Present no acute distress Comment:: Sitting up in the bed and eating breakfast. She appears most comfortable. No dyspnea. Respiratory: Present CTA bilaterally (Anteriorly and posteriorly) Cardiac: Present Irregularly Regular (Monitor showing atrial fibrillation with a controlled ventricular response in the 70s.) GI: Present soft and normal bowel sounds; Absent distention, tenderness or guarding Extremities: Absent normal inspection, tenderness, edema or calf tenderness Skin: Present warm Neuro: Present alert, awake and oriented x 3 Assessment and Plan *Assessment and plan (1) Pulmonary edema: Status: Acute Qualifiers: Chronicity: acute Qualified Code(s): J81.0 - Acute pulmonary edema Category: Medical Code(s): J81.1 - Chronic pulmonary edema (2) Atrial fibrillation, new onset: Status: Acute Category: Medical Code(s): I48.91 - Unspecified atrial fibrillation (3) Generalized weakness: Status: Acute Category: Medical Code(s): R53.1 - Weakness (4) HTN (hypertension): Status: Acute Qualifiers: Hypertension type: unspecified Qualified Code(s): I10 - Essential (primary) hypertension Category: Medical Code(s): I10 - Essential (primary) hypertension (5) Elevated brain natriuretic peptide (BNP) level: Status: Acute Category: Medical Code(s): R79.89 - Other specified abnormal findings of blood chemistry (6) Hypokalemia: Status: Resolved Category: Medical Code(s): E87.6 - Hypokalemia (7) Acute respiratory failure with hypoxia: Status: Acute Category: Medical Code(s): J96.01 - Acute respiratory failure with hypoxia (8) New onset of congestive heart failure: Status: Acute Category: Medical Code(s): I50.9 - Heart failure, unspecified (9) Hypertensive urgency: Status: Acute Category: Medical Code(s): I16.0 - Hypertensive urgency (10) Acute HFrEF (heart failure with reduced ejection fraction): Status: Acute Category: Medical Code(s): I50.21 - Acute systolic (congestive) heart failure (11) Hyponatremia: Status: Acute Category: Medical Code(s): E87.1 - Hypo-osmolality and hyponatremia (12) Cough: Status: Acute Category: Medical Code(s): R05.9 - Cough, unspecified (13) Tremor: Status: Acute Category: Medical Code(s): R25.1 - Tremor, unspecified (14) E. coli UTI: Status: Acute Category: Medical Code(s): N39.0 - Urinary tract infection, site not specified; B96.20 - Unspecified Escherichia coli [E. coli] as the cause of diseases classified elsewhere Plan Continues to improve. Patient does plan to go home when medically stable. Continue with out of bed activity as tolerated. Will have left ventricular ejection fraction checked again today. Cardiology will see again today. Urine culture reveals E. coli with colony count greater than 100,000 pansensitive antibiotics. Will continue current regime. Dr. Pastor entry - Saw patient, agree with above note. Spoke to cardiology, should be able to resume some cardiac meds today as BP is higher.
[2024-03-01] MEDS: AMIODARONE 200MG TABLET 400 MG PO ×2 (09:23→12:43)
[2024-03-01] MEDS: APIXABAN 5MG TABLET 5 MG PO (09:23)
[2024-03-01] MEDS: SACUBITRIL/VALSARTAN 24-26MG TABLET 1 EACH PO (09:23)
[2024-03-01] MEDS: FAMOTIDINE 20MG TABLET 20 MG PO (09:23)
[2024-03-01] MEDS: METOPROLOL TARTRATE 25MG TABLET 12.5 MG PO (09:24)
[2024-03-01] MEDS: ASPIRIN EC 81MG TABLET 81 MG PO (09:24)
[2024-03-01] MEDS: ERTAPENEM SODIUM 1 GM in 0.9 % SODIUM CHLORIDE 50 ML IV (09:46)
[2024-03-01] MEDS: FUROSEMIDE 40 MG TABLET PO (10:20)
--- NOTE | 2024-03-01 10:25 | EXP.CARD.PN ---
Subjective Subjective Date: 03/01/24 Time: 08:00 Principal diagnosis: acute HFrEF, pulmonary edema, hypertensive urgency/malignant hypertension Interval history: Primary service reports patient remained hypotensive over the weekend and weak. Entresto and metoprolol were held and patient received gentle IV fluids with improvement of blood pressure and weakness. This morning patient is sitting up in chair resting comfortably, denies any symptoms. Reports is feeling better. Patient remains in A-fib at a rate of 70-100. Repeat limited echo shows an estimated ejection fraction of 60%. Blood pressure is stable at 148/87. LE edema present. Exam Data for Last 24 hours Vital signs and Labs for Last 24 Hours: Temp Pulse Resp BP Pulse Ox O2 Del Method O2 Flow Rate 97.5 F L 82 20 148/87 H 97 Room Air 1 03/01/24 07:35 03/01/24 07:35 03/01/24 07:35 03/01/24 07:35 03/01/24 07:35 03/01/24 08:01 02/29/24 09:15 FiO2 80 02/25/24 01:50 I & O for Last 24 hours: Intake & Output 02/27/24 02/28/24 02/29/24 03/01/24 23:59 23:59 23:59 23:59 Intake Total 1001 / 1001 770 / 770 1740 / 1740 240 / 240 Output Total 200 / 200 625 / 625 700 / 700 500 / 500 Balance 801 / 801 145 / 145 1040 / 1040 -260 / -260 Weight 181 lb 3.52 oz 192 lb 194 lb 1.872 oz 182 lb 6.4 oz Microbiology Reports for the Last 24 Hours: Microbiology 02/27/24 07:45 Urine,Clean Catch Urine Culture - Final Escherichia coli Constitutional Constitutional: no acute distress *Routine Respiratory Exam Respiratory: Present CTA bilaterally and symmetric chest movement *Routine Cardiovascular Exam Cardiovascular: Present Normal S1, Normal S2 and irregular rhythm Comments: A-fib noted *Routine Abdominal Exam Abdominal: Present soft and normoactive bowel sounds; Absent tenderness *Routine Extremities Exam Extremities: Present edema, full ROM and normal capillary refill *Routine Skin Exam Skin: Present intact, dry and warm Detailed Neck Exam: Thyroids Thyroid: Absent bruit Progress Note: A&P Assessment and plan (1) Pulmonary edema: Status: Acute (2) Atrial fibrillation, new onset: Status: Acute (3) Generalized weakness: Status: Acute (4) HTN (hypertension): Status: Acute (5) Elevated brain natriuretic peptide (BNP) level: Status: Acute (6) Hypokalemia: Status: Resolved (7) Acute respiratory failure with hypoxia: Status: Acute (8) New onset of congestive heart failure: Status: Acute (9) Hypertensive urgency: Status: Acute (10) Acute HFrEF (heart failure with reduced ejection fraction): Status: Acute (11) Hyponatremia: Status: Acute (12) Cough: Status: Acute (13) Tremor: Status: Acute (14) E. coli UTI: Status: Acute Assessment and Plan Assessment and Plan for All Diagnoses:: Acute HFrEF- Resolved, EF 60 Initial echo showed an EF of 30%. Repeat limited echo today shows an improved ejection fraction to 60%. Patient has not been able to tolerate Entresto due to hypotension. Will hold at this time. Will resume Lasix 40 mg p.o. daily for lower extremity edema. Continue beta robb Will consider Aldactone and Jardiance later. Atrial fibrillation, Chadsvasc score > 2 Patient remains in A-fib at a rate of 70-100. Will continue amiodarone, metoprolol and Eliquis. Hyponatremia Sodium was 119 yesterday, repeat labs are pending. Mild, nonocclusive coronary artery disease Noted on left heart catheterization 02/2024. Continue aspirin and statin Hypertension with episodes of hypotension Today blood pressures 148/87. Continue metoprolol 12.5 mg p.o. twice daily and add Lasix 40 mg p.o. daily. Entresto on hold due to hypotension. Normal renal arteries 02/2024 CV summary 03/01/2024: Resume metoprolol and Lasix. Morning labs pending. EF has improved to 60% so patient does not need LifeVest. Patient remains in A-fib but rate controlled. CV meds: Aspirin 81 mg p.o. daily Eliquis 5 mg p.o. twice daily Amiodarone 400 mg p.o. 3 times daily Lasix 40 mg p.o. daily Atorvastatin 20 mg p.o. daily Metoprolol tartrate 12.5 mg p.o. twice daily Entresto-on hold due to hypotension
[2024-03-01 11:06] LABS: Anion Gap 8.2 mEq/L (5-15); Blood Urea Nitrogen 17 mg/dl (7-17); Calcium 8.6 mg/dl (8.4-10.2); Carbon Dioxide 28 mmol/L (22.0-30.0); Chloride 93 mmol/L (98-107); Creatinine Clearance Estimated 59 mL/min (50-200); Estimated Glomerular Filt Rate 96 ml/min (>60); GFR (African American) 116 ML/MIN (>60); Glucose 101 mg/dl (74-100); Potassium 4.2 mmoL/L (3.5-5.1); Sodium 125 mmol/L (136-145)
[2024-03-01 12:00] VITALS: PULSE 80
--- NOTE | 2024-03-01 13:29 | EXP.ACUTE.PN ---
Subjective *Date: 03/01/24 *Time: 13:29 Interval history: Patient has done well today, walked with PT and a walker. PT states she is doing better with ambulation. Medical Exam Vital signs and Labs for Last 24 Hours: Vital Signs Temp Pulse Pulse Resp BP Pulse Ox O2 Del Method 03/01/24 13:00 Room Air 03/01/24 12:00 80 03/01/24 11:00 Room Air 03/01/24 08:01 Room Air 03/01/24 08:00 Room Air 03/01/24 08:00 90 03/01/24 07:35 97.5 F L 82 20 148/87 H 97 Room Air 03/01/24 07:00 Room Air 03/01/24 05:00 Room Air 03/01/24 04:00 70 03/01/24 04:00 97.9 F 82 14 136/80 96 Room Air 03/01/24 03:00 Room Air 03/01/24 01:00 Room Air 03/01/24 00:00 70 03/01/24 00:00 98.4 F 72 16 153/82 H 94 L Room Air 02/29/24 23:00 Room Air 02/29/24 21:00 Room Air 02/29/24 20:00 Room Air 02/29/24 20:00 90 02/29/24 20:00 97.6 F 101 H 16 115/55 L 95 Room Air 02/29/24 18:50 Room Air 02/29/24 17:00 Room Air 02/29/24 16:00 97.8 F 87 19 146/83 H 94 L Room Air 02/29/24 15:00 Room Air Intake and Output 02/29/24 03/01/24 03/01/24 23:59 07:59 15:59 Intake Total 240 / 1740 240 / 240 Output Total 500 / 1200 700 / 1200 Balance 240 / 1040 -500 / -960 -460 / -960 Intake: Intake, Oral Amount 240 / 1300 240 / 240 Output: Output, Urine Amount 500 / 1200 700 / 1200 Other: Number of Unmeasured Voids 0 Number of Bowel Movements 1 Weight 182 lb 6.4 oz Patient Weight 03/01/24 23:59 Weight 182 lb 6.4 oz Laboratory Results - last 24 hr 03/01/24 10:40: Sodium 125 L, Potassium 4.2 D, Chloride 93 L, Carbon Dioxide 28, Anion Gap 8.2, BUN 17 D, Creatinine 0.60, Estimated Creat Clear 59, Estimated GFR 96, Est GFR ( Amer) 116, Glucose 101 H, Calcium 8.6 I & O for Labs for Last 24 Hours: Intake & Output 02/27/24 02/28/24 02/29/24 03/01/24 23:59 23:59 23:59 23:59 Intake Total 1001 / 1001 770 / 770 1740 / 1740 240 / 240 Output Total 200 / 200 625 / 625 700 / 700 1200 / 1200 Balance 801 / 801 145 / 145 1040 / 1040 -960 / -960 Weight 181 lb 3.52 oz 192 lb 194 lb 1.872 oz 182 lb 6.4 oz Radiology Reports for the Last 24 Hours: LV EF is now 60% Assessment and Plan *Assessment and plan (1) Pulmonary edema: Status: Acute Qualifiers: Chronicity: acute Qualified Code(s): J81.0 - Acute pulmonary edema Category: Medical Code(s): J81.1 - Chronic pulmonary edema (2) Atrial fibrillation, new onset: Status: Acute Category: Medical Code(s): I48.91 - Unspecified atrial fibrillation (3) Generalized weakness: Status: Acute Category: Medical Code(s): R53.1 - Weakness (4) HTN (hypertension): Status: Acute Qualifiers: Hypertension type: unspecified Qualified Code(s): I10 - Essential (primary) hypertension Category: Medical Code(s): I10 - Essential (primary) hypertension (5) Elevated brain natriuretic peptide (BNP) level: Status: Acute Category: Medical Code(s): R79.89 - Other specified abnormal findings of blood chemistry (6) Hypokalemia: Status: Resolved Category: Medical Code(s): E87.6 - Hypokalemia (7) Acute respiratory failure with hypoxia: Status: Acute Category: Medical Code(s): J96.01 - Acute respiratory failure with hypoxia (8) New onset of congestive heart failure: Status: Acute Category: Medical Code(s): I50.9 - Heart failure, unspecified (9) Hypertensive urgency: Status: Acute Category: Medical Code(s): I16.0 - Hypertensive urgency (10) Acute HFrEF (heart failure with reduced ejection fraction): Status: Acute Category: Medical Code(s): I50.21 - Acute systolic (congestive) heart failure (11) Hyponatremia: Status: Acute Category: Medical Code(s): E87.1 - Hypo-osmolality and hyponatremia (12) Cough: Status: Acute Category: Medical Code(s): R05.9 - Cough, unspecified (13) Tremor: Status: Acute Category: Medical Code(s): R25.1 - Tremor, unspecified (14) E. coli UTI: Status: Acute Category: Medical Code(s): N39.0 - Urinary tract infection, site not specified; B96.20 - Unspecified Escherichia coli [E. coli] as the cause of diseases classified elsewhere Plan OK for discharge home today, plan office f/u next week.
--- NOTE | 2024-03-01 14:24 | HMH.PHAINT1 ---
Pharmacy Intervention Comments: COUNSELED PATIENT AND FAMILY ON NEW MEDICATIONS WELL DISCONTINUED MEDICATIONS. PATIENT AND FAMILY VERBALIZED UNDERSTANDING.
--- NOTE | 2024-03-01 14:48 | CARE MANAGER ---
Patient will require BSC as she cannot get to her bathroom in a timely manner. SUZANNA Moran
--- NOTE | 2024-03-01 16:13 | EXP.DC.SUM ---
General Admission date:: 02/20/24 Discharge date: 03/01/24 HPI HPI HPI: Mrs. Daugherty is an 79 year old patient of [facility] who presented to [facility] ER yesterday with complaints of elevated blood pressure and some shortness of breath. She measured her blood pressure at home around 200/120 on several different BP monitors yesterday. She also noted some headache and generalized fatigue. She reports having a lumbar spine epidural a few days ago and her BP was noted to be high then as well. Hospital Course Hospital Course Hospital Course: On admission patient was given IV Lasix, nitroglycerin, and metoprolol. Blood pressure then improved although she remained in atrial fib with rapid ventricular response. She was then started on a cardiozem drip and Eliquis was initiated.. She needed potassium replacement. She was placed on a trial of meclizine for dizziness. Potassium did normalize. She did convert briefly to sinus rhythm and was changed to oral Cardizem but then went back into atrial fibs with a rapid ventricular response. Cardizem drip was restarted. On 02/24/2024 she had a rapid decline. She had a hypertensive emergency with rapid ventricular response to her atrial fib She was placed on nonrebreather for significant respiratory distress and then BIPAP with physical exam indicating symptomatic crashing acute pulmonary edema. She was on esmolol at this point. nipride gtt was also initiated and cardizem changed to an amiodarone drip. She did improve with giving IV Lasix. Breathing also improved on the BiPAP. Sodium was low at 128 and kidney function was normal. She was seen by cardiology at this point. Blood pressure did improve on the nipride drip. She was started on Entresto, spironolactone, and Toprol 100 mg twice daily. Ejection fraction at this point was 30% on echo. Lasix was increased to 40 mg IV daily. She did have a cardiac catheterization on 02/25/2024 which showed mild luminal rate yet irregularities involving the coronary arteries and normal bilateral renal arteries. Blood pressure did increase at 1 time to 213/114. She was unable to tolerate BiPAP And was changed to O2 per nasal cannula at 5 L. Aldactone 50 mg was added p.o. daily as well as Isordil 10 mg 3 times daily. Esmolol drip was discontinued since she was in sinus rhythm. Cardiology followed her throughout her stay. She did have some confusion. Her sodium was noted to be low at 116. At this point she was given 3% saline 500 mL. Lasix was held as well as Aldactone. She did revert back and atrial fibs and IV metoprolol was given. Improvement of sodium to 122 after the 3% saline. Blood pressure then was low. Shortness of breath and cough were and improved. She was able to eat. White blood cell count was noted to be 23,100. Chest x-ray showed improvement with no pneumonia. Due to low blood pressure she was given another 500 mL of bolus fluids x 2. She then began to feel better. She was able to get out of the bed with assistance. She had had tremors which resolved. She was able to eat a little bit better. Metoprolol and Entresto were not given due to low blood pressure. White blood cell count improved to 11,800. She was noted to have a urinary tract infection and was started on Invanz. Metoprolol dose was decreased. She did require several doses of bolus fluids with normal saline. By 03/01/2024 patient was drastically improved. She was able to ambulate in the room with a walker. Echocardiogram revealed improved left ventricular ejection fraction at 60%. At this point she was felt stable to be discharged home. New medications at discharge included: 1. Amiodarone 400 mg 3 times daily 2. aspirin 81 mg daily 3. atorvastatin 40 mg daily 4. cefuroxime to 500 twice daily 5. Eliquis 5 mg twice daily 6. Lasix 40 mg daily 7. metoprolol 12.5 mg twice daily 8. potassium chloride She was to fu with Dr. Pastor and cardiology in 1 week Exam Data for Last 24 hours Vital signs and Labs for Last 24 Hours: Temp Pulse Resp BP Pulse Ox O2 Del Method O2 Flow Rate 97.5 F L 80 20 148/87 H 97 Room Air 1 03/01/24 07:35 03/01/24 12:00 03/01/24 07:35 03/01/24 07:35 03/01/24 07:35 03/01/24 13:00 02/29/24 09:15 FiO2 80 02/25/24 01:50 Laboratory Results - last 24 hr 03/01/24 10:40: Sodium 125 L, Potassium 4.2 D, Chloride 93 L, Carbon Dioxide 28, Anion Gap 8.2, BUN 17 D, Creatinine 0.60, Estimated Creat Clear 59, Estimated GFR 96, Est GFR ( Amer) 116, Glucose 101 H, Calcium 8.6 I & O for Last 24 hours: Intake & Output 02/28/24 02/29/24 03/01/24 03/02/24 11:59 11:59 11:59 11:59 Intake Total 920 / 920 1500 / 1500 960 / 960 Output Total 625 / 625 700 / 700 500 / 500 700 / 700 Balance 295 / 295 800 / 800 460 / 460 -700 / -700 Weight 192 lb 194 lb 1.872 oz 182 lb 6.4 oz Narrative: Constitutional: Present no acute distress Comment:: Sitting up in the bed and eating breakfast. She appears most comfortable. No dyspnea. Respiratory: Present CTA bilaterally (Anteriorly and posteriorly) Cardiac: Present Irregularly Regular (Monitor showing atrial fibrillation with a controlled ventricular response in the 70s.) GI: Present soft and normal bowel sounds; Absent distention, tenderness or guarding Extremities: Absent normal inspection, tenderness, edema or calf tenderness Skin: Present warm Neuro: Present alert, awake and oriented x 3 Results Data Completed and Pending Completed studies during hospitalization [Text1]: Conclusion This is a limited TTE to evaluate for LV systolic function after HR control in the setting of prior A-fib/RVR. Limited windows were obtained. The left ventricle is normal in size. There is increased LV wall thickness. There is normal global LV systolic function. No regional wall motion abnormalities are noted. LVEF is 55-60%. 02/20/[address] IMPRESSION: Mild mediastinal adenopathy, particularly evident in the right hilar region, may be reactive postinflammatory. Mild consolidation and atelectasis in the lingula. 02/26/2024 CXR MPRESSION: No acute cardiopulmonary process identified on today's exam. Resolution of previously seen airspace opacities and atelectasis. Labs on day of discharge: Labs from last 24 hours 03/01/24 10:40 Sodium 125 L Potassium 4.2 D Chloride 93 L Carbon Dioxide 28 Anion Gap 8.2 BUN 17 D Creatinine 0.60 Estimated Creat Clear 59 Estimated GFR 96 Est GFR ( Amer) 116 Glucose 101 H Calcium 8.6 DS: Diagnosis Discharge Diagnosis (1) Pulmonary edema: Status: Acute Code(s): J81.1 - Chronic pulmonary edema Qualifiers: Chronicity: acute Qualified Code(s): J81.0 - Acute pulmonary edema (2) Atrial fibrillation, new onset: Status: Acute Code(s): I48.91 - Unspecified atrial fibrillation (3) Generalized weakness: Status: Acute Code(s): R53.1 - Weakness (4) HTN (hypertension): Status: Acute Code(s): I10 - Essential (primary) hypertension Qualifiers: Hypertension type: unspecified Qualified Code(s): I10 - Essential (primary) hypertension (5) Elevated brain natriuretic peptide (BNP) level: Status: Acute Code(s): R79.89 - Other specified abnormal findings of blood chemistry (6) Hypokalemia: Status: Resolved Code(s): E87.6 - Hypokalemia (7) Acute respiratory failure with hypoxia: Status: Acute Code(s): J96.01 - Acute respiratory failure with hypoxia (8) New onset of congestive heart failure: Status: Acute Code(s): I50.9 - Heart failure, unspecified (9) Hypertensive urgency: Status: Acute Code(s): I16.0 - Hypertensive urgency (10) Acute HFrEF (heart failure with reduced ejection fraction): Status: Acute Code(s): I50.21 - Acute systolic (congestive) heart failure (11) Hyponatremia: Status: Acute Code(s): E87.1 - Hypo-osmolality and hyponatremia (12) Cough: Status: Acute Code(s): R05.9 - Cough, unspecified (13) Tremor: Status: Acute Code(s): R25.1 - Tremor, unspecified (14) E. coli UTI: Status: Acute Code(s): N39.0 - Urinary tract infection, site not specified; B96.20 - Unspecified Escherichia coli [E. coli] as the cause of diseases classified elsewhere Meds Home Medications and Allergies Home Medications ?Medication ?Instructions ?Recorded ?Confirmed ?Type raloxifene 60 mg tablet 60 mg PO DAILY Supplement 08/02/20 02/21/24 History hydroxychloroquine 200 mg tablet 200 mg PO BID 02/21/24 02/21/24 History amiodarone 400 mg tablet 400 mg PO TID 30 days #90 tabs 03/01/24 Rx apixaban 5 mg tablet (Eliquis) 5 mg PO BID #60 tabs 03/01/24 Rx aspirin 81 mg tablet,delayed 81 mg PO DAILY #30 tabs 03/01/24 Rx release atorvastatin 40 mg tablet 40 mg PO DAILY #30 tabs 03/01/24 Rx cefuroxime axetil 250 mg tablet 250 mg PO BID #10 tabs 03/01/24 Rx furosemide 40 mg tablet (Lasix) 40 mg PO DAILY #30 tabs 03/01/24 Rx metoprolol tartrate 25 mg tablet 12.5 mg (1/2 x 25 mg) PO BID #30 03/01/24 Rx tabs potassium chloride 10 mEq 10 meq PO DAILY #30 caps 03/01/24 Rx capsule,extended release New Prescriptions to Start Prescriptions: amiodarone Dawit,Rogelio apixaban [Eliquis] Davis,Rogelio aspirin Davis,Rogelio atorvastatin Davis,Rogelio cefuroxime axetil Davis,Rogelio furosemide [Lasix] Davis,Rogelio metoprolol tartrate Davis,Rogelio potassium chloride Davis,Rogelio Allergies Allergy/AdvReac Type Severity Reaction Status Date / Time Penicillins Allergy swelling Verified 07/01/23 13:35 promethazine (From Phenergan) AdvReac Verified 07/01/23 13:35 Discharge Plan Disposition Patient Disposition: Home Health Service Condition: Fair Discharge Order Discharge Orders: Discharge Order (Routine); Ordered 03/01/24 Ordered By: Rogelio Pastor Follow up Plan Follow up with: Rogelio Pastor MD [Staff Physician] - 03/09/24 10:15 am Brennon Newell MD [Staff Physician] - 03/10/24 1:45 pm Prescriptions/Medication Reconciliation: New aspirin 81 mg tablet,delayed release (DR/EC) 81 mg PO DAILY Qty: 30 0RF Eliquis 5 mg tablet 5 mg PO BID Qty: 60 0RF amiodarone 400 mg tablet 400 mg PO TID 30 Days Qty: 90 0RF furosemide [Lasix] 40 mg tablet 40 mg PO DAILY Qty: 30 0RF atorvastatin 40 mg tablet 40 mg PO DAILY Qty: 30 0RF metoprolol tartrate 25 mg tablet 12.5 mg PO BID Qty: 30 0RF potassium chloride 10 mEq capsule, extended release 10 meq PO DAILY Qty: 30 0RF cefuroxime axetil 250 mg tablet 250 mg PO BID Qty: 10 0RF Continued raloxifene 60 mg tablet 60 mg PO DAILY Patient Comments: TAKE 1 TABLET BY MOUTH ONCE DAILY hydroxychloroquine 200 mg tablet 200 mg PO BID Patient Comments: TAKE 1 TABLET BY MOUTH TWICE DAILY Discontinued metoprolol succinate 100 mg tablet extended release 24 hr 100 mg PO DAILY Patient Comments: TAKE 1 TABLET BY MOUTH ONCE DAILY hydrochlorothiazide 12.5 MG capsule 12.5 mg PO DAILY Patient Comments: TAKE 1 CAPSULE BY MOUTH ONCE DAILY FOR 90 DAYS meloxicam 7.5 mg tablet 7.5 mg PO DAILY Problem Reconciliation Problems Reviewed?: Yes Patient Discharge Instructions ACTIVITY: Limited activity DIET: continue same diet Patient Instructions: Heart-Healthy Diet, DI for Heart Failure, DI for Cardiac Catheterization, DI for Urinary Tract Infection (UTI), DI for Hyponatremia Print Language: [place] Providers Primary Care Provider: Mima Dawson Admit Provider: Tomi Andrade Attending Provider: Rogelio Pastor
--- NOTE | 2024-03-02 10:05 | SW/DCPLANNER ---
Spoke with patient on the phone. Patient stated that she is doing well since her Discharge. Patient stated that she is aware of her upcoming appointments and that she was able to get her medicine from [facility]. Patient stated that she has no concerns or questions right now. Roel Bello
== END 2024-03-01 14:48 | disposition home health service (06) | DRG 286 ==
LOC: ER 17:26 → ICU 20:12 → 2ND 02-27 17:16
PROVIDERS: Internal Medicine; Nurse Practitioner; Nurse Practitioner Family; Student in an Organized Health Care Education/Training Program; Admitting Provider Internal Medicine Adolescent Medicine; Emergency Provider Emergency Medicine; PCP Physician Assistant; Visit Provider Family Medicine
PROC: B2111ZZ Fluoroscopy of Multiple Coronary Arteries using Low Osmolar Contrast (ICD-10-PCS; principal; 2024-02-25 10:00)
PROC: B2111ZZ Fluoroscopy of Multiple Coronary Arteries using Low Osmolar Contrast (ICD-10-PCS; 2024-02-25 10:00)
DX: I11.0 Hypertensive heart disease with heart failure (principal); I50.21 Acute systolic (congestive) heart failure; J96.01 Acute respiratory failure with hypoxia; J81.1 Chronic pulmonary edema; E87.1 Hypo-osmolality and hyponatremia; N39.0 Urinary tract infection, site not specified; I48.91 Unspecified atrial fibrillation; E87.6 Hypokalemia; I25.10 Atherosclerotic heart disease of native coronary artery without angina pectoris; E78.5 Hyperlipidemia, unspecified; B96.20 Unspecified Escherichia coli [E. coli] as the cause of diseases classified elsewhere; I16.0 Hypertensive urgency; Z79.899 Other long term (current) drug therapy; R25.1 Tremor, unspecified
CPT/HCPCS: 36252; 36415; 71045; 71250; 76770; 80048; 80053; 80061; 81001; 82272; 83735; 83880; 84443; 84484; 85007; 85025; 85378; 86803; 87086; 87088; 87186; 87389; 87506; 93005; 93306; 93308; 93454; 94660; 94761; 97162; 97165; 97530; 99152; 99291; C1725; C1769; G0328; J0131; J0282; J1160; J1200; J1335; J1644; J1650; J1940; J2250; J2405; J2765; J3010; J3473; J3475; J7030; J7060; J7120; Q9967; S0028

== ENCOUNTER 2024-03-10 14:45 | Outpatient (CLI) | payer MEDICARE, SELFPAY ==
[2024-03-10 15:39] LABS: Basophils # 0.1 K/mm3 (0-0.2); Basophils % 0.6 % (0.1-2.0); Eosinophils # 0.1 K/mm3 (0.0-0.4); Eosinophils % 1.1 % (0.1-12.0); Hematocrit 43.3 % (37.0-47.0); Hemoglobin 14.4 g/dL (12.2-16.2); Lymphocytes # 1.1 K/mm3 (0.7-4.5); Lymphocytes % 9.7 % (10-50); Mean Corpuscular HGB Conc 33.3 g/dL (31.8-35.4); Mean Corpuscular Hemoglobin 29.9 pg (27.0-31.2); Monocytes # 0.7 K/mm3 (0.1-1.0); Monocytes % 6.5 % (1.7-9.3); Neutrophils # 9.2 K/mm3 (1.8-7.8); Neutrophils % 81.7 % (37.0-80.0); Platelet Count 851 K/mm3 (142-424); Red Blood Count 4.81 M/mm3 (4.20-5.40); Red Cell Distribution Width 13.7 % (11.5-17.5); White Blood Count 11.3 K/mm3 (4.8-10.8)
[2024-03-10 16:21] LABS: Alanine Aminotransferase 24 U/L (12-78); Albumin Level 4.1 g/dl (3.5-5.0); Alkaline Phosphatase 68 U/L (38-126); Anion Gap 14.2 mEq/L (5-15); Aspartate Amino Transferase 35 U/L (14-36); Bilirubin,Direct 0.2 mg/dl (0.0-0.4); Bilirubin,Indirect 0.5 mg/dL (0.0-0.9); Bilirubin,Total 0.7 mg/dl (0.2-1.3); Bilirubin,Unconjugated 0.5 mg/dL (0.0-1.1); Blood Urea Nitrogen 14 mg/dl (7-17); Calcium 9.2 mg/dl (8.4-10.2); Carbon Dioxide 30 mmol/L (22.0-30.0); Chloride 90 mmol/L (98-107); Chol/HDL Ratio 1.7 (1-3.5); Cholesterol 120 mg/dl (140-200); Estimated Glomerular Filt Rate 81 ml/min (>60); GFR (African American) 97 ML/MIN (>60); Glucose 94 mg/dl (74-100); HDL Cholesterol 69 mg/dl (40-60); Magnesium 1.6 mg/dl (1.6-2.3); Potassium 4.2 mmoL/L (3.5-5.1); Sodium 130 mmol/L (136-145); Total Protein,Serum 6.6 g/dl (6.3-8.2); Triglycerides 58 mg/dl (30-150); VLDL Cholesterol 12 mg/dL (0-40)
[2024-03-10 16:39] LABS: Free T4 (Free Thyroxine) 2.71 ng/dl (0.78-2.19)
[2024-03-10 16:52] LABS: Thyroid Stimulating Hormone 4.29 uIU/mL (0.465-4.68)
== END 2024-03-10 23:59 | disposition home or self-care (01) ==
LOC: LAB 14:46
PROVIDERS: PCP Family Medicine; Visit Provider Nurse Practitioner
DX: E78.5 Hyperlipidemia, unspecified (principal); I25.10 Atherosclerotic heart disease of native coronary artery without angina pectoris; E87.1 Hypo-osmolality and hyponatremia; I50.9 Heart failure, unspecified; I10 Essential (primary) hypertension; R53.1 Weakness
CPT/HCPCS: 36415; 80048; 80061; 80076; 83735; 84439; 84443; 85025

== ENCOUNTER 2024-04-22 14:45 | Outpatient (CLI) | payer MEDICARE, SELFPAY ==
[2024-04-22 16:03] LABS: Basophils # 0.1 K/mm3 (0-0.2); Basophils % 0.6 % (0.1-2.0); Hematocrit 42.7 % (37.0-47.0); Hemoglobin 13.9 g/dL (12.2-16.2); Lymphocytes # 0.9 K/mm3 (0.7-4.5); Lymphocytes % 9.2 % (10-50); Mean Corpuscular HGB Conc 32.6 g/dL (31.8-35.4); Mean Corpuscular Hemoglobin 30.3 pg (27.0-31.2); Mean Corpuscular Volume 93.2 fl (81-99); Monocytes # 0.9 K/mm3 (0.1-1.0); Monocytes % 8.4 % (1.7-9.3); Neutrophils # 8.2 K/mm3 (1.8-7.8); Red Blood Count 4.58 M/mm3 (4.20-5.40); Red Cell Distribution Width 15.7 % (11.5-17.5); White Blood Count 10.2 K/mm3 (4.8-10.8)
[2024-04-22 16:09] LABS: Platelet Count 610 K/mm3 (142-424)
[2024-04-22 16:30] LABS: Alanine Aminotransferase 31 U/L (12-78); Alkaline Phosphatase 54 U/L (38-126); Anion Gap 10.4 mEq/L (5-15); Aspartate Amino Transferase 40 U/L (14-36); Bilirubin,Indirect 0.7 mg/dL (0.0-0.9); Bilirubin,Total 0.7 mg/dl (0.2-1.3); Bilirubin,Unconjugated 1.1 mg/dL (0.0-1.1); Blood Urea Nitrogen 21 mg/dl (7-17); Carbon Dioxide 32 mmol/L (22.0-30.0); Chloride 95 mmol/L (98-107); Cholesterol 134 mg/dl (140-200); Estimated Glomerular Filt Rate 69 ml/min (>60); GFR (African American) 84 ML/MIN (>60); Glucose 101 mg/dl (74-100); HDL Cholesterol 67 mg/dl (40-60); Potassium 4.4 mmoL/L (3.5-5.1); Sodium 133 mmol/L (136-145); Triglycerides 69 mg/dl (30-150); VLDL Cholesterol 14 mg/dL (0-40)
[2024-04-22 16:41] LABS: Direct LDL Cholesterol 49.85 mg/dL (100-129)
[2024-04-22 16:45] LABS: Free T4 (Free Thyroxine) 2.19 ng/dl (0.78-2.19)
[2024-04-22 17:00] LABS: Thyroid Stimulating Hormone 4.57 uIU/mL (0.465-4.68)
== END 2024-04-22 23:59 | disposition home or self-care (01) ==
LOC: LAB 14:46
PROVIDERS: PCP Family Medicine; Visit Provider Internal Medicine
DX: I10 Essential (primary) hypertension (principal); Z79.01 Long term (current) use of anticoagulants; E78.5 Hyperlipidemia, unspecified; I25.10 Atherosclerotic heart disease of native coronary artery without angina pectoris
CPT/HCPCS: 36415; 80048; 80061; 80076; 84439; 84443; 85025

== ENCOUNTER 2024-04-28 14:01 | Outpatient (CLI) | payer MEDICARE, SELFPAY ==
--- NOTE | 2024-04-28 14:03 | CA_ITS ---
FINAL REPORT TECHNIQUE: Left lower extremity venous duplex was performed with augmentation and compression. CLINICAL HISTORY: Left ankle pain, edema. On blood thinners. Wheel chair dependent. FINDINGS: Proper flow is seen throughout the deep venous system. There is no evidence of deep venous thrombosis. IMPRESSION: No evidence of left lower extremity DVT. Reviewed, Interpreted and Dictated by Nadeem Heredia MD Transcribed by Kimberly Ford Authenticated and [facility]
== END 2024-04-28 23:59 | disposition home or self-care (01) ==
LOC: RT 14:01
PROVIDERS: PCP Family Medicine; Visit Provider Internal Medicine
DX: M25.572 Pain in left ankle and joints of left foot (principal); R60.0 Localized edema; R53.1 Weakness; I25.10 Atherosclerotic heart disease of native coronary artery without angina pectoris; Z79.01 Long term (current) use of anticoagulants; Z99.3 Dependence on wheelchair
CPT/HCPCS: 93971

== ENCOUNTER 2024-05-31 14:17 | Outpatient (CLI) | payer MEDICARE, SELFPAY ==
[2024-05-31 17:36] LABS: Chloride 99 mmol/L (98-107); Potassium 4.1 mmoL/L (3.5-5.1); Sodium 135 mmol/L (136-145)
[2024-05-31 17:39] LABS: Anion Gap 11.1 mEq/L (5-15); Blood Urea Nitrogen 15 mg/dl (7-17); Calcium 8.8 mg/dl (8.4-10.2); Carbon Dioxide 29 mmol/L (22.0-30.0); Estimated Glomerular Filt Rate 96 ml/min (>60); GFR (African American) 116 ML/MIN (>60); Glucose 111 mg/dl (74-100)
== END 2024-05-31 23:59 | disposition home or self-care (01) ==
PROVIDERS: PCP Family Medicine; Visit Provider Internal Medicine
DX: I10 Essential (primary) hypertension (principal); I35.1 Nonrheumatic aortic (valve) insufficiency; Z79.01 Long term (current) use of anticoagulants; I48.0 Paroxysmal atrial fibrillation; I42.8 Other cardiomyopathies; E78.49 Other hyperlipidemia; I25.10 Atherosclerotic heart disease of native coronary artery without angina pectoris; E87.1 Hypo-osmolality and hyponatremia
CPT/HCPCS: 36415; 80048

== ENCOUNTER 2024-10-04 16:27 | Emergency (ER) | payer MEDICARE, SELFPAY ==
--- OUTSIDE RECORDS SUMMARY | 2024-05-04 07:00 | XMS_ITS ---
Author Organization [facility] Address [address] [place] [id number] Care Team Providers Care Group Contract Analyst Name Role Phone Rogelio Pastor Primary Care Provider Allergies Allergen (clinical drug ingredient) Drug/Non Drug Allergy documented on EMR Reaction Allergy Type Onset Date Status erythromycin Erythromycin vomiting Drug Allergy A ctive lisinopril Lisinopril cough Drug Allergy Activ e Penicillin swelling Drug Allergy Active Results Component Value Reference Range Notes EGD Reviewed date:08/05/2024 11:51:38 AM Interpretation:pt declined Performing Lab: Notes/Report: pt declined REASON FOR VISIT 3 week f/u Medications Medication SIG (Take, Route, Frequency, Duration) Notes Start Date End Date Status Losartan Potassium 25 MG 1 tablet Orally Once a day; Duration: 30 day(s) Active Atorvastatin Calcium 40 MG 1 tablet Oral ly Once a day; Duration: 30 day(s) Active Aspirin 81 MG 1 tablet Orally Once a day; Duration: 30 day(s) Active Wheelchair - as directed As needed 03/01/2024 Active Raloxifene HCl 60 MG 1 tablet Orally Onc e a day; Duration: 30 day(s) Active Hydroxychloroquine Sulfate 2 00 MG as directed Orally Active Ondansetron HCl 4 MG 1 tablet Orally thr ee times a day as needed 04/06/2024 Active Metoprolol Tartrate 25 MG 1/2 tablet wit h food Orally Twice a day Active Eliquis 5 MG 1 cap(s) Orally Two times a day Active amLODIPine Besylate 5 MG 1 tablet Orally Once a day Active Potassium Chloride ER 10 MEQ Take 1 caps ule by mouth once daily; Duration: 30 Active Amiodarone HCl 200 MG 1 tablet Orally on ce daily Active Furosemide 40 MG 1 tablet Orally Once a day Active Problems Problem Type SNOMED Code ICD Code Onset Dates Problem Status W/U Status Risk Notes Problem History of fundoplication (Z98.890) Active confirmed Vital Signs Blood pressure systolic 136 mm Hg 05/05/19 25 Blood pressure diastolic 80 mm Hg 025 Heart Rate 76 /min 05/04/2024 Height 64 in 05/04/2024 Weight 169 lbs 05/04/2024 BMI 29.01 kg/m2 05/04/2024 Encounters Encounter Location Date Provider Diagnosis [facility] [address] [facility] [address] [place] [id number] 05/04/2024 Rogelio Pastor Paroxysmal atrial fibrillation I48.0 ; Nausea and vomiting, unspecified vomiting type R11.2 and History of fundoplication Z98.890 Assessments Encounter Date Diagnosis (ICD Code) Assessment Notes Treatment Notes Treatment Clinical Notes Section Notes 05/04/2024 Paroxysmal atrial fibrillation (ICD-10 - I48.0) Patient to keep follow up with [facility] cardiology 05/04/2024 Nausea and vomiting, unspecified vomiting type (ICD-10 - R11.2) 05/04/2024 History of fundoplication (ICD-10 - Z98.890) Spoke to Dr. Cain. He will scope patient at [facility] Plan Of Treatment Treatment Notes Assessment Notes Paroxysmal atrial fibrillation Patient t o keep follow up with [facility] cardiology History of fundoplication Spoke to Dr. Tran hancock. He will scope patient at [facility] Next Appt Details Follow Up: 2 Months, Reason: Provider Name:Rogelio Perez ry, 11/01/2024 10:15:00 AM, [address] [facility], [address], [place], [phone], Progress Notes * GLORIA VALENTINDALIAOB:1945 (79 yo F)Acc No.[id number]:05/04/2024 Patient: KERRI HOU Provider: Mario Alberto Pastor M.D. :1945 A ge:79 Y S ex:Female Date:05/04/2024 Address:[address] [place] [address], [place], [id number] Subjective: * Chief Complaints: * 1 . 3 week f/u. * HPI: C ardiology: 79 year old female presents with c/o Blood Pressure Elevated?Pt here to f/u on hypertension. Pt states she is doing better since having Amiodarone decreased to 200mg once daily. Pt states tremors have improved and she is able to control her legs better as well. * ROS: D ERMATOLOGY: no R ruth. n o H dago. G ASTROENTEROLOGY: no N ausea. n o V omiting. U ROLOGY: no D ifficulty urinating. n o B lood in urine. * Medical History: H ypertension, Hyperlipidemia, Breast Cancer, 08/1991, Mild MR, 05/2001, Colon Polyps (EGD & Colonscope- 07/21, no polyps in 2010), Osteoporosis, H/o rheumatic fever, Allergic rhinitis, s/p immunotherapy x 10 years, Incarcerated Hiatal hernia, s/p surgical repair at 2018, Squamous cell skin cancer, dorsum left hand July 2020, Rheumatoid arthritis, Lumbar Disc Disease, Lumbar Disc Herniation, Lumbar facet arthropathy, Lumbar Spinal Stenosis, MRI 2022. * Surgical History: R T Mastectomy , EGD with Colonoscopy 07/2003, Colonoscopy 09/2010, Hiatal Hernia Repair (toupe fundoplication) - 02/2018. * Hospitalization/Major Diagno stic Procedure: A bdmoninal Pain- [facility] 02/2018, Hiatal hernia Surgery- 02/2018, Abdominal Pain- 06/2018. * Family History: F ather: alive. M other: . 2 daughter(s) . . * Social History: C URRENT TOBACCO USE S moking Status: Patient does NOT smoke. C affeine: no. Marital Status: . Past smoking status: no. Alcohol: no. * Medications: T aking Hydroxychloroquine Sulfate 200 MG Tablet as directed Orally , Taking Raloxifene HCl 60 MG Tablet 1 tablet Orally Once a day , Taking Losartan Potassium 25 MG Tablet 1 tablet Orally Once a day , Taking Atorvastatin Calcium 40 MG Tablet 1 tablet Orally Once a day , Taking Aspirin 81 MG Tablet Delayed Release 1 tablet Orally Once a day , Taking Wheelchair - Miscellaneous as directed As needed , Taking Furosemide 40 MG Tablet 1 tablet Orally Once a day , Taking Metoprolol Tartrate 25 MG Tablet 1/2 tablet with food Orally Twice a day , Taking Eliquis 5 MG Tablet 1 cap(s) Orally Two times a day , Taking amLODIPine Besylate 5 MG Tablet 1 tablet Orally Once a day , Taking Potassium Chloride ER 10 MEQ Capsule Extended Release Take 1 capsule by mouth once daily , Taking Amiodarone HCl 200 MG Tablet 1 tablet Orally once daily , Taking Ondansetron HCl 4 MG Tablet 1 tablet Orally three times a day as needed , Discontinued Phenazopyridine HCl 200 MG Tablet 1 tablet after meals Orally Three times a day , Discontinued Cipro 500 MG Tablet 1 tablet Orally every 12 hrs , Discontinued Omeprazole 40 MG Capsule Delayed Release TAKE 1 CAPSULE BY MOUTH ONCE DAILY ONE-HALF TO ONE HOUR BEFORE MORNING MEAL ONCE A DAY FOR 30 DAYS , Medication List reviewed and reconciled with the patient * Allergies: E rythromycin: vomiting - Side Effects, Lisinopril: cough - Side Effects, Penicillin: swelling - Allergy. Objective: * Vitals: W t:169, Temp:97.9, BP:136/80, HR:76, Nurse:zane, Ht: 64, BMI:29.01. * Examination: G eneral Examination: General Appearance: N AD, sitting in a wheelchair. H eart: R SR. L ungs: c lear to auscultation. A bdomen: bowel sounds present, soft and nontender. Assessment: * Assessment: 1. P aroxysmal atrial fibrillation - I48.0 (Primary) 2 . N ausea and vomiting, unspecified vomiting type - R11.2 3 . H istory of fundoplication - Z98.890? Plan: * Treatment: 2. N ausea and vomiting, unspecified vomiting type I maging: EGD (Performed Date - 08/05/2024) p t declined 3.?History of fundoplication? Notes: Spoke to Dr. Cain. He will scope patient at [facility]?? * Procedure Codes: G 2211 Complex e/m visit add on, 3075F SYST BP GE 130 - 139MM HG, 3079F DIAST BP 80-89 MM HG * Follow Up: 2 Months * Images: Billing Information: * Visit Code: 59462 Office Visit, Est Pt., Level 4. * Procedure Codes: G2211 Complex e/m visit add on. 3075F SYST BP GE 130 - 139MM HG. 3079F DIAST BP 80-89 MM HG. * Electronic signature of Alicia Pastor MD on 10/04/2024 at 06:48 PM EDT Sign off status: Pending * Provider: Mario Alberto Pastor M.D. Date: 0 05/04/2024 Generated for Helen collado/Peyton/Gerriitting on: 0 10/04/2024 06:48 PM EDT History and Physical Notes * HPI (History of Present Illness) Category Sub-Category Detail Notes Category Not es Cardiology Blood Pressure Elevated Pt here to f/u on hypertension. Pt states she is doing better since having Amiodarone decreased to 200mg once daily. Pt states tremors have improved and she is able to control her legs better as well Examination Category Sub-Category Detail Notes Category Not es General Examination Heart: RSR Lungs: clear to auscultatio n Abdomen: bowel sounds present , soft and nontender General Appearance: NAD, sitting in a wh eelchair
--- OUTSIDE RECORDS SUMMARY | 2024-06-29 06:00 | XMS_ITS ---
[facility] Address [address] [facility] [address] [place] [id number] Care Team Providers Care Crib Clerk Name Role Phone Rogelio Pastor Primary Care Provider [phone] Allergies Allergen (clinical drug ingredient) Drug/Non Drug Allergy documented on EMR Reaction Allergy Type Onset Date Status erythromycin Erythromycin vomiting Drug Allergy A ctive lisinopril Lisinopril cough Drug Allergy Activ e Penicillin swelling Drug Allergy Active REASON FOR VISIT 2 month ckup Medications Medication SIG (Take, Route, Frequency, Duration) Notes Start Date End Date Status Wheelchair - as directed As needed 03/01/2024 Active Aspirin 81 MG 1 tablet Orally Once a day; Duration: 30 day(s) Active Amiodarone HCl 200 MG 1 tablet Orally on ce daily Active Hydroxychloroquine Sulfate 2 00 MG as directed Orally Active Eliquis 5 MG 1 cap(s) Orally Two times a day Active Metoprolol Tartrate 25 MG 1/2 tablet wit h food Orally Twice a day Active Losartan Potassium 50 MG 1 tablet Orally Once a day Active Potassium Chloride ER 10 MEQ Take 1 caps ule by mouth once daily; Duration: 30 Active Raloxifene HCl 60 MG Take 1 tablet by [facility] once daily; Duration: 30 Active Furosemide 40 MG 1 tablet Orally Once a day Active Ondansetron HCl 4 MG 1 tablet Orally thr ee times a day as needed 04/06/2024 Active Problems Problem Type SNOMED Code ICD Code Onset Dates Problem Status W/U Status Risk Notes Problem Sciatica (91543554) Lumbago with sciatica, right side (M54.41) Active confirmed Problem Chronic pain (62583967) Other chronic pain (G89.29) Active confirmed Vital Signs Blood pressure systolic 126 mm Hg 06/30/19 25 Blood pressure diastolic 84 mm Hg 025 Heart Rate 69 /min 06/29/2024 Height 64 in 06/29/2024 Weight 168.8 lbs 06/29/2024 BMI 28.97 kg/m2 06/29/2024 Encounters Encounter Location Date Provider Diagnosis [facility] [address] [facility] [address] [facility] [address] [place] [id number] 06/29/2024 Rogelio Pastor Essential hypertensi on I10 ; Paroxysmal atrial fibrillation I48.0 ; Lumbago with sciatica, right side M54.41 ; Other chronic pain G89.29 and BMI 28.0-28.9,adult Z68.28 Assessments Encounter Date Diagnosis (ICD Code) Assessment Notes Treatment Notes Treatment Clinical Notes Section Notes 06/29/2024 Essential hypertension (ICD-10 - I10) 06/29/2024 Paroxysmal atrial fibrillation (ICD-10 - I48.0) 06/29/2024 Lumbago with sciatica, right side (ICD-10 - M54.41) Discussed using a rollator walker to assist with ambulation 06/29/2024 Other chronic pain (ICD-10 - G89.29) 06/29/2024 BMI 28.0-28.9,adult (ICD-10 - Z68.28) Plan Of Treatment Medication Medication Name Sig Start Date Stop Date Notes Amiodarone HCl 200 MG 1 tablet Orally once daily Eliquis 5 MG 1 cap(s) Orally Two times a day Metoprolol Tartrate 25 MG 1/2 tablet wit h food Orally Twice a day Losartan Potassium 50 MG 1 tablet Orally Once a day Treatment Notes Assessment Notes Lumbago with sciatica, right side Discus sed using a rollator walker to assist with ambulation Next Appt Details Follow Up: 4 Months, Reason: Provider Name:Rogelio nj, 11/01/2024 10:15:00 AM, [address] [facility] [address] [facility], [address], [place], [phone], Progress Notes * TERRIE VALENTINOB:1945 (79 yo F)Acc No.[id number]:06/29/2024 Progress Notes Patient: GLORIA HOUYCE Provider: Mario Alberto Pastor M.D. :1945 A ge:79 Y S ex:Female Date:06/29/2024 Address:[address], [place], [id number] Subjective: * Chief Complaints: * 1 . 2 month ckup. * HPI: C ardiology: Blood Pressure Elevated P t presents today for a 2 month follow up on A-Fib and Hypertension. Pt sts that Dr. Oates has changed some medications. Dr. Oates discontinued Atorvastatin and Amlodipine and increased Losartan to 50 mg. Pt would like to see about getting a power scooter. * ROS: D ERMATOLOGY: no R ruth. [...] 09/2010, Hiatal Hernia Repair (toupe fundoplication) - 02/2018, Nerve Ablation on SI Joint 06/17/2024. * Hospitalization/Major Diagno stic Procedure: A bdmoninal Pain- [facility] 02/2018, Hiatal hernia Surgery- 02/2018, Abdominal Pain- 06/2018. * Family History: F ather: alive. M other: . 2 daughter(s) . . * Social History: C URRENT TOBACCO USE S moking Status: Patient does NOT smoke. C affeine: no. Marital Status: . Past smoking status: no. Alcohol: no. * Medications: T aking Hydroxychloroquine Sulfate 200 MG Tablet as directed Orally , Taking Losartan Potassium 50 MG Tablet 1 tablet Orally Once a [...] Orally Two times a day , Taking Amiodarone HCl 200 MG Tablet 1 tablet Orally once daily , Taking Ondansetron HCl 4 MG Tablet 1 tablet Orally three times a day as needed , Taking Raloxifene HCl 60 MG Tablet Take 1 tablet by mouth once daily , Taking Potassium Chloride ER 10 MEQ Capsule Extended Release Take 1 capsule by mouth once daily , Discontinued amLODIPine Besylate 5 MG Tablet 1 tablet Orally Once a day , Medication List reviewed and reconciled with the patient * Allergies: E rythromycin: vomiting - Side Effects, Lisinopril: cough - Side Effects, Penicillin: swelling - Allergy. Objective: * Vitals: W t: 168.8, Temp: 98.2, BP: 126/84, HR: 69, Nurse: DANA, Ht: 64, BMI:28.97. * Examination: G eneral Examination: General Appearance: N AD, sitting in a wheelchair. H eart: R . L ungs: c lear to auscultation. Assessment: * Assessment: 1. E ssential hypertension - I10 (Primary) 2 . P aroxysmal atrial fibrillation - I48.0 3 . L umbago with sciatica, right side - M54.41 4 .?Other chronic pain - G89.29 5 . B SC 28.0-28.9,adult - Z68.28 ? Plan: * Treatment: 2. P aroxysmal atrial fibrillation Continue Eliquis Tablet, 5 MG, 1 cap(s), Orally, Two times a day; C ontinue Amiodarone HCl Tablet, 200 MG, 1 tablet, Orally, once daily. 3. L umbago with sciatica, right side Notes: Discussed using a rollator walker to assist with ambulation * Procedure Codes: G 2211 Complex e/m visit add on, 3074F SYST BP LT 130 MM HG, 3079F DIAST BP 80-89 MM HG * Follow Up: 4 Months * Images: Billing Information: * Visit Code: 77860 Office Visit, Est Pt., Level 3. * Procedure Codes: G2211 Complex e/m visit add on. 3074F SYST BP LT 130 MM HG. 3079F DIAST BP 80-89 MM HG. * Electronic signature of Alicia Pastor MD on 10/04/2024 at 06:48 PM EDT Sign off status: Pending * Provider: Mario Alberto Pastor M.D. Date: 0 06/29/2024 Generated for Helen collado/Peyton/Gerriitting on: 0 10/04/2024 06:48 PM EDT History and Physical Notes * HPI (History of Present Illness) Category Sub-Category Detail Notes Category Not es Cardiology Blood Pressure Elevated Pt prese nts today for a 2 month follow up on A-Fib and Hypertension. Pt sts that Dr. Oates has changed some medications. Dr. Oates discontinued Atorvastatin and Amlodipine and increased Losartan to 50 mg. Pt would like to see about getting a power scooter Examination Category Sub-Category Detail Notes Category Not es General Examination Heart: RSR Lungs: clear to auscultatio n General Appearance: NAD, sitting in a wh eelchair
--- OUTSIDE RECORDS SUMMARY | 2024-08-26 07:15 | XMS_ITS ---
Author Organization [facility] Address [address] [place] [id number] Care Team Providers Care Ecommerce Merchandising Manager Name Role Phone Rogelio Pastor Primary Care Provider [phone] Allergies Allergen (clinical drug ingredient) Drug/Non Drug Allergy documented on EMR Reaction Allergy Type Onset Date Status erythromycin Erythromycin vomiting Drug Allergy A ctive lisinopril Lisinopril cough Drug Allergy Activ e Penicillin swelling Drug Allergy Active Results Component Value Reference Range Notes Urinalysis - Inhouse Reviewed date:08/26/2024 01:56:17 PM Interpretation: Performing Lab: Notes/Report: Color/Clarity cloudy yellow Leuk 3+ Nitrite neg Urobili 1.6 Protein neg pH 7.0 Blood 1+ Sp. Gr. 1.020 Ketone neg Bili neg Gluc neg P-Hepatic Function Panel Reviewed date:08/30/2024 01:05:19 PM Interpretation:Normal Performing Lab: Notes/Report: Test performed by [employer], [employer] [address] [place] [address] , [address], [place] [address] Mike Jc MD, Catalyst Operator CLIA: [id number] Protein 6.4 6.0-8.3 g/dL Albumin 4.1 3.5-5.3 g/dL Alkaline Phosphatase 65 35-121 IU/L ALT (SGPT) 16 <5-47 IU/L AST (SGOT) 26 <5-40 IU/L Bilirubin, Total 0.5 <0.2-1.2 mg/dL Bilirubin, Direct 0.2 <0.07-0.2 mg/dL Bilirubin, Indirect 0.3 0.2-1.3 mg/dL TEN-UTI panel Reviewed date:08/30/2024 01:04:46 PM Interpretation:E. Coli Performing Lab: Notes/Report: E. Coli REASON FOR VISIT Possible UTI Medications Medication SIG (Take, Route, Frequency, Duration) Notes Start Date End Date Status Metoprolol Tartrate 25 MG 1 tablet with food Orally Twice a day; Duration: 90 days Active Eliquis 5 MG 1 cap(s) Orally Two times a day Active Amiodarone HCl 200 MG 1 tablet Orally on ce daily Active Losartan Potassium 50 MG 1 tablet Orally Once a day Active Wheelchair - as directed As needed 03/01/2024 Active Potassium Chloride ER 10 MEQ Take 1 caps ule by mouth once daily; Duration: 30 Active Raloxifene HCl 60 MG Take 1 tablet by [facility] once daily; Duration: 30 Active Furosemide 40 MG 1 tablet Orally Once a day Active Ondansetron HCl 4 MG 1 tablet Orally thr ee times a day as needed 04/06/2024 Active Aspirin 81 MG 1 tablet Orally Once a day; Duration: 30 day(s) Active Terbinafine HCl 250 MG 1 tablet Orally O nce a day; Duration: 90 days 08/26/2024 Active Nitrofurantoin Monohyd Macro 100 MG 1 capsule with food Orally every 12 hrs; Duration: 5 days 08/26/2024 Active Hydroxychloroquine Sulfate 2 00 MG as directed Orally Active Vital Signs Blood pressure systolic 132 mm Hg 08/27/19 25 Blood pressure diastolic 82 mm Hg 025 Heart Rate 65 /min 08/26/2024 Height 64 in 08/26/2024 Weight 173 lbs 08/26/2024 BMI 29.69 kg/m2 08/26/2024 Encounters Encounter Location Date Provider Diagnosis [facility] [address] [facility] [address] [place], [place] [id number] 08/26/2024 Rogelio Norwood Acute UTI N39.0 ; Onychomycosis B35.1 ; long term care pharmacist use of drug Z79.899 and BMI 29.0-29.9,adult Z68.29 Assessments Encounter Date Diagnosis (ICD Code) Assessment Notes Treatment Notes Treatment Clinical Notes Section Notes 08/26/2024 Acute UTI (ICD-10 - N39.0) 08/26/2024 Onychomycosis (ICD-10 - B35.1) 08/26/2024 long term care pharmacist use of drug (ICD-10 - Z79.899) 08/26/2024 BMI 29.0-29.9,adult (ICD-10 - Z68.29) Plan Of Treatment Medication Medication Name Sig Start Date Stop Date Notes Terbinafine HCl 250 MG 1 tablet Orally O nce a day; Duration: 90 days 08/26/2024 Nitrofurantoin Monohyd Macro 100 MG 1 capsule with food Orally every 12 hrs; Duration: 5 days 08/26/2024 Next Appt Details Follow Up: via phone to repo rt test results, Reason: Provider Name:Rogelio Perez ry, 11/01/2024 10:15:00 AM, [address], [address], [place], [place], [id number], Progress Notes * ORLANDO VALENTINEDOB:1945 (79 yo F)Acc No.[id number]:08/26/2024 Progress Notes Patient: KERRI HOU Provider: Mario Alberto Pastor M.D. :1945 A ge:79 Y S ex:Female Date:08/26/2024 Address:[facility] [address] , [place], [id number] Subjective: * Chief Complaints: * 1 . Possible UTI. * HPI: U rology: 79 year old female presents with c/o UTI P t complains of lower back in that started last night. Pt states she wants to make sure she does not have a uti because she does get them so frequently. * ROS: C ARDIOLOGY: no D izziness. n o C hest pain. D ERMATOLOGY: Positive for b oth great toenails are thickened and discolored yellow, OTC treatments have not helped. n o R ruth. n o H dago. G ASTROENTEROLOGY: no N ausea. n o V omiting. * Medical History: H ypertension, Hyperlipidemia, Breast [...] Hospitalization/Major Diagno stic Procedure: A bdmoninal Pain- [facility] 02/2018, Hiatal hernia Surgery- 02/2018, Abdominal Pain- 06/2018. * Family History: F ather: alive. M other: . 2 daughter(s) . . * Social History: Lani RILEY TOBACCO USE: No . C affeine: no. Marital Status: . Past smoking status: no. Alcohol: no. * Medications: T aking Hydroxychloroquine Sulfate 200 MG Tablet as directed Orally , Taking Aspirin 81 MG Tablet Delayed Release 1 tablet Orally Once a day , Taking Wheelchair - Miscellaneous as directed As needed , Taking Furosemide 40 MG Tablet 1 tablet Orally Once a day , Taking Ondansetron HCl 4 MG Tablet 1 tablet Orally three times a day as needed , Taking Raloxifene HCl 60 MG Tablet Take 1 tablet by mouth once daily , Taking Potassium Chloride ER 10 MEQ Capsule Extended Release Take 1 capsule by mouth once daily , Taking Losartan Potassium 50 MG Tablet 1 tablet Orally Once a day , Taking Eliquis 5 MG Tablet 1 cap(s) Orally Two times a day , Taking Amiodarone HCl 200 MG Tablet 1 tablet Orally once daily , Taking Metoprolol Tartrate 25 MG Tablet 1 tablet with food Orally Twice a day , Discontinued Cefuroxime Axetil 500 MG Tablet 1 tablet Orally every 12 hrs , Medication List reviewed and reconciled with the patient * Allergies: E rythromycin: vomiting - Side Effects, Lisinopril: cough - Side Effects, Penicillin: swelling - Allergy. Objective: * Vitals: W t: 173, Temp: 98.0, BP: 132/82, HR: 65, Nurse: zane, Ht: 64, BMI:29.69. * Examination: G eneral Examination: General Appearance: N AD, sitting in a wheelchair. H eart: R SR. L ungs: c lear to auscultation. Assessment: * Assessment: 1. A cute UTI - N39.0 (Primary) 2 . O nychomycosis - B35.1 3 . L jose alejandro term use of drug - Z79.899 4 . B LA 29.0-29.9,adult - Z68.29 ? Plan: * Treatment: Value Reference Range C olor/Clarity cloudy yellow * L euk 3+ * N itrite neg * U robili 1.6 * P rotein neg * p H 7.0 * B lood 1+ * S p. Gr. 1.020 * K etone neg * B florentin neg * G jemal neg * Hiwot Simon 08/26/2024 11:2 0:54 AM EDT > Provider reviewed results while patient in office. ?LAB: TEN-UTI panel (Collection Date & Time - 08/26/2024)?E. Coli* Taylor Estrada 08/30/2024 11: 56:04 AM EDT > pt started on Macrobid. Have pt complete abx and return for any lingering or reoccuring symtpoms.Eryn Manning 08/30/2024 01:04:26 PM EDT > Pt informed 2.?Onychomycosis? Start Terbinafine HCl Tablet, 250 MG, 1 tablet, Orally, Once a day, 90 days, 90 Tablet, Refills 0. ?3.?USP use of drug?LAB: P-Hepatic Function Panel (Collection Date & Time - 08/26/2024 11:07 AM)?Normal* Value Reference Range A lbumin 4.1 3.5-5.3 - g/dL * A lkaline Phosphatase 65 35-121 - IU/L * A LT (SGPT) 16 <5-47 - IU/L * A ST (SGOT) 26 <5-40 - IU/L * B ilirubin, Direct 0.2 <0.07-0.2 - mg/dL * B ilirubin, Indirect 0.3 0.2-1.3 - mg/dL * B ilirubin, Total 0.5 <0.2-1.2 - mg/dL * P rotein 6.4 6.0-8.3 - g/dL * Taylor Estrada 08/27/2024 10: 43:08 AM EDT > UTI panel still pendingEryn Manning 08/27/2024 11:19:07 AM EDT > LM for pt to return callEryn Manning 08/30/2024 01:05:07 PM EDT > Pt informed * Procedure Codes: G 2211 Complex e/[place], [address] Urinalysis, no micro, 1036F TOBACCO NON- USER, G8420 BMI<30 AND >=22 CALC & DOCU, G8783 BP SCR PRFRM RCMDD DEFIND SCR INTVL, G8752 MOST RECENT SYSTOLIC BP < 140MM HG, G8754 MOST RECENT DIASTOLIC BP < 90MM HG * Follow Up: v ia phone to report test results * Images: Billing Information: * Visit Code: 63839 Office Visit, Est Pt., Level 4. * Procedure Codes: G2211 Complex e/[place] [address] Urinalysis, no micro. 1036F TOBACCO NON-USER. G8420 BMI<30 AND >=22 CALC & DOCU. G8783 BP SCR PRFRM RCMDD DEFIND SCR INTVL. G8752 MOST RECENT SYSTOLIC BP < 140MM HG. G8754 MOST RECENT DIASTOLIC BP < 90MM HG. * Electronic signature of Alicia Pastor MD on 10/04/2024 at 06:47 PM EDT Sign off status: Pending * Provider: Mario Alberto Pastor M.D. Date: 0 08/26/2024 Generated for Helen collado/Peyton/Gerriitting on: 10/04/2024 06:47 PM EDT History and Physical Notes * HPI (History of Present Illness) Category Sub-Category Detail Notes Category Not es Urology UTI Pt complains of lower back in that started last night. Pt states she wants to make sure she does not have a uti because she does get them so frequently Examination Category Sub-Category Detail Notes Category Not es General Examination Heart: RSR Lungs: clear to auscultatio n General Appearance: NAD, sitting in a wh eelchair
--- NOTE | 2024-10-04 18:31 | ED_ITS ---
<Statement entered by Morteza Alcala MD - 10/05/24 14:38> I was consulted by the JORDAN, and we discussed the complexity of the problems being addressed. I approve the treatment and management plan for this patient's care in the emergency department, thus performing a substantive portion of the medical decision making. Morteza Alcala MD Discharge Plan Disposition Patient Disposition: Home, Self-Care Condition: Good Prescriptions Prescriptions: No Action raloxifene 60 mg tablet 60 mg PO DAILY Patient Comments: TAKE 1 TABLET BY MOUTH ONCE DAILY aspirin 81 mg tablet,delayed release (DR/EC) 81 mg PO DAILY Qty: 30 5RF furosemide [Lasix] 40 mg tablet 40 mg PO DAILY Qty: 90 3RF metoprolol tartrate 25 mg tablet 12.5 mg PO BID Qty: 60 5RF amiodarone 200 mg tablet 200 mg PO DAILY 30 Days Qty: 30 5RF losartan 100 mg tablet 100 mg PO DAILY Qty: 30 2RF Eliquis 5 mg tablet See Rx Instructions .ROUTE .COMPLEX Qty: 60 3RF Dose Instruction: Take 1 tablet by mouth twice daily Rx Instructions: Take 1 tablet by mouth twice daily hydroxychloroquine 200 mg tablet 200 mg PO BID Patient Comments: TAKE 1 TABLET BY MOUTH TWICE DAILY potassium chloride 10 mEq capsule, extended release 10 meq PO DAILY Qty: 30 0RF Referrals Follow up/Referrals: Rogelio Pastor MD [Primary Care Provider, Medical] - See instructions Activity Restrictions/Add. Instructions Additional Instructions/Restrictions: Please return to the emergency department any worsening signs or symptoms, please utilize your erythromycin ointment 4 times daily for 5 days or until eye doctor follow-up. Please call [facility] in [facility], at [phone] for follow-up Here's a more detailed breakdown: 1.?Prepare: * Wash your hands thoroughly with soap and water.? * If the ointment is cold, you can warm the tube by running it under warm water for a few seconds to make it easier to squeeze.? * Remove the cap from the ointment tube.?2.?Apply the ointment: * Tilt your head back and look upward.? * Gently pull down your lower eyelid with your index finger to create a small pocket.? * Hold the ointment tube close to your eye, but avoid touching your eyelashes or eyelid with the tube tip.? * Squeeze a thin ribbon of ointment, about 1/4 to 1/2 inch long, into the pocket you created.? * Avoid touching the tube to your eye to prevent contamination.?3.?Finish: * Release your eyelid and gently close your eye.? * Blink a few times to help distribute the ointment across your eye.? * Wipe away any excess ointment with a clean tissue.? * Replace the cap on the ointment tube.? * If using the ointment before bed, your vision may be blurry, so avoid driving or operating machinery after application.? Clinical Impressions Clinical Impression: Corneal abrasion, right Instructions Patient Instructions: DI for Corneal Abrasion Print Language Print Language: Hebrew Discharge ED Provider: Morteza Alcala Adult HPI General Chief complaint: Eye Problems Stated complaint: AO 10/04/24 scratched right eye with finger nail Time Seen by Provider: 10/04/24 18:31 Mode of Arrival: Ambulatory Source of Information: Patient and Spouse Limitations: No Limitations History of Present Illness HPI narrative: 79-year-old female presents the emergency department with right eye irritation/tearing, this started after she poked myself in the eye with my thumb today after trying to take off my gown , patient states that she was able to drive today, no blurry vision no double vision, no visual disturbance, patient Nu[place] any fever chills chest pain shortness of breath nausea vomiting constipation diarrhea, no headache no lightheadedness no dizziness, no urinary type symptomatology, patient is non-smoker, denies any alcohol tobacco or drug use, was seen by her PCP today and had a good bill health, states she did not want to bring it up because it did not start getting really irritated , until she got home, she does endorse some photophobia with this. Other past medical history is consistent with CAD, hyperlipidemia, atrial fibrillation on anticoagulation therapy with Eliquis, aortic insufficiency, hypertension initial triage of vitals notable for hypertension at 187 systolic, patient to take her blood pressure medication today, be due in the setting of pain, patient does have history of hypertension, was unremarkable. Please note that above description of symptoms, in this electronic medical record under categorization of recalled from ER triage doctor by RN are reflective of an initial nursing assessment, however, is not reflective of my full history and physical exam that was personally taken and clarified. Consequentially, this preceding description of symptoms, which may include the patient's categorized chief complaint in the EMR, do not reflect my personal clinical impression, and the ultimate description of history of present illness and patient stated complaints should be deferred to this section of the note. Unless stated otherwise or congruent with this section of the note, additional signs, symptoms, or incongruence should be interpreted as inaccurate with my clinical impression. Onset (ago): hour(s) Related Data Home Medications ?Medication ?Instructions ?Recorded ?Confirmed raloxifene 60 mg tablet 60 mg PO DAILY Supplement 09/09/24 hydroxychloroquine 200 mg tablet 200 mg PO BID 5 09/09/24 Previous Rx's ?Medication ?Instructions ?Recorded potassium chloride 10 mEq 10 meq PO DAILY #30 caps capsule,extended release aspirin 81 mg tablet,delayed 81 mg PO DAILY #30 tabs 0 03/10/24 release furosemide 40 mg tablet (Lasix) 40 mg PO DAILY #90 tab s 03/10/24 metoprolol tartrate 25 mg tablet 12.5 mg (1/2 x 25 mg) PO BID #60 03/10/24 tabs amiodarone 200 mg tablet 200 mg PO DAILY 30 days #30 tabs 04/22/24 losartan 100 mg tablet 100 mg PO DAILY #30 tabs apixaban 5 mg tablet (Eliquis) See Rx Instructions .Ro [place] 09/20/24 .COMPLEX #60 tabs Allergies Allergy/AdvReac Type Severity Reaction Status Date / Time Penicillins Allergy swelling Verified 09/09/24 13:34 amlodipine AdvReac Severe Verified 09/09/24 13:34 atorvastatin AdvReac Severe Verified 09/09/24 13:34 promethazine (From Phenergan) AdvReac Verified 09/09/24 13:34 [facility] Disclaimer: The information contained in this section may have been updated after the patient was seen, as this information can be updated by other users. Medical History AI (aortic insufficiency) Essential (primary) hypertension intermission coordinator (current) use of anticoagulants Other fci (current) drug therapy Paroxysmal atrial fibrillation Elevated brain natriuretic peptide (BNP) level Bronchitis Nonischemic cardiomyopathy Coronary artery disease Atrial fibrillation, new onset Hypertensive urgency Acute respiratory failure with hypoxia Pulmonary edema Acute HFrEF (heart failure with reduced ejection fraction) Acute hyponatremia Rheumatoid arthritis Allergic rhinitis Rheumatic fever Age related osteoporosis Colon polyp Mitral regurgitation Breast cancer Hyperlipidemia Abnormal results of liver function studies Hypokalemia HTN (hypertension) Acute cholecystitis Diverticulitis Diaphragmatic hernia Gastric outlet obstruction Surgical History History of cardiac cath Hx of cholecystectomy H/O hernia repair History of mastectomy No significant past surgical history Family History Other No significant family history Social History Smoking Status: Never smoker second hand exposure: Yes alcohol intake: never counseling provided: none substance use type: denies use current occupational status: retired Travel in the last 8 weeks?: None household members: spouse housing: house caffeine: Yes Have you lived/traveled outside US in past 30 days?: No Contact w/someone who lives/traveled outside US past 30 days?: No Exposure to someone with infectious disease in past 14 days?: No Do you have a fever (greater than 100.4 F or 38 C)?: No Have you tested positive for COVID-19?: No Exposed to someone with COVID-19 in past 14 days?: No Do you have a sore throat?: No Do you have a cough?: No Do you have any weakness?: No Do you have any diarrhea?: No Are you experiencing any unusual bleeding?: No Do you have any muscle aches/pain?: No Do you have any abdominal pain?: No Are you experiencing loss of taste or smell?: No Other Medical History Have you received the Flu Vaccine for this season: No Have you received the Pneumonia Vaccine: No ROS Obtained: Yes All systems reviewed & no additional complaints except as documented Physical Exam General General appearance: alert and in no apparent distress Head Head exam: atraumatic and normocephalic Eye Eye exam: Present PERRL, EOMI, conjunctival injection, discharge and other (Watery discharge and conjunctival injection, obvious corneal abrasion noted to the 11 AM/1 PM aspect of the patient's right eye); Absent scleral icterus or conjunctival redness ENT ENT exam: Present mucous membranes moist Neck Neck exam: Present normal inspection Chest Chest inspection: Present normal inspection and symmetric chest wall rise Respiratory Respiratory exam: Present normal lung sounds bilaterally; Absent respiratory distress Cardiovascular Cardiovascular exam: Present regular rate and normal rhythm Abdominal Exam Abdominal exam: Present soft; Absent tenderness Extremities Exam Extremities exam: Present normal inspection Neurological Exam Neurological exam: Present alert and oriented X3 Psychiatric Psychiatric exam: Present normal affect Skin Skin exam: Present warm and dry Medical Decision Making Medical Records Medical records reviewed: Yes I reviewed the patient's medical records. Screening: Per USPSTF and CDC recommendations, given the prevalence of disease in our region, it is our hospital?s policy to screen for HIV and viral Hepatitis for all patients aged 18 and over and those with ongoing risk factors. Chris Inquiry Pt receiving controlled substance: No Chris was queried for this patient: No Vital Signs: 10/04/24 18:44 10/04/24 18:44 10/04/24 18:45 Temperature 98.8 F 98.8 F Temperature Source Oral Pulse Rate 67 67 Pulse Rate [Right] 67 Respiratory Rate 18 18 Blood Pressure 187/110 H 187/110 H Blood Pressure [Right Arm] 187/110 H Blood Pressure Mean [Right Arm] 135 02 Sat by Pulse Oximetry 95 95 95 Oxygen Delivery Method Room Air Room Air Orders (Tests/Meds): ED MEDICATIONS Discontinued Medications Generic Name Dose Route Start Last Admin Trade Name Freq PRN Reason Stop Dose Admin Erythromycin 0.5 gm 10/04/24 18:42 Erythromycin Base 1 Gm Oint...G. OP 10/04/24 18:43 ONCE ONE Fluorescein Sodium 1 mg 10/04/24 18:41 Fluorescein Sodium 1mg Strip OP 10/04/24 18:42 ONCE ONE Tetracaine HCl 0 ml 10/04/24 18:42 Tetracaine 0.5% Opth Alexandrea 15ml OP 10/04/24 18:43 ONCE ONE Medical Decision Narrative: 79-year-old female presents emergency department with right eye irritation and discomfort, after poking herself in the eye this morning, differential diagnose include but not limited to keratitis, corneal abrasion, corneal ulcer, traumatic iritis among others. I discussed this patient's case with the attending physician I performed fluorescein dye test with Ivan lamp examination after utilizing 0.5 with 2 drops of tetracaine in the OD, patient has obvious corneal dye uptake, with obvious corneal abrasion to the superior aspect of her cornea, around 11 AM to 1 PM, patient has no other acute symptomatology, no ulcer formation, no Sidel sign, no other acute complaints, I do believe the patient has a clinical corneal abrasion, patient is clear to be discharged home to self-care, I will prescribe the patient erythromycin ointment 4 times daily for 5 days or until ophthalmology/optometry follow-up, patient does not wear any contacts or glasses, patient was given strict ED return precautions. Patient and family voiced understanding and agreement with the treatment plan/discharge plan. Critical Care Critical Care Time Critical Care Time: No
[2024-10-04 18:44] VITALS: BP 187/110; PULSE 67; RESP 18; TEMP 37.1; O2SAT 95; BMI 29.2
[2024-10-04 18:45] VITALS: BP 187/110; PULSE 67; O2SAT 95
--- OUTSIDE RECORDS SUMMARY | 2024-10-04 18:48 | XMS_ITS | Clinical Summary ---
Author Organization Healthcare Address [address] [place] [address] Care Team Providers Care Storm Door Maker Name Role Phone Unavailable Primary Care Provider Unavailabl e Family History Medical History Relation Name Comments Alzheimer's disease Mother Relation Name Status Comments Mother Social History Tobacco Use Types Packs/Day Years Used Date Smoking Tobacco: Never Alcohol Use Standard Drinks/Week Comments No 0 (1 standard drink = 0.6 oz pure alcohol) Alcoholic Drinks/day: Denies alcohol consumption Comments Unknown Sex and Gender Information Value Date Recorded Sex Assigned at Not on file Legal Sex Female 6:56 PM EDT Gender Identity Not on file Sexual Orientation Not on file Last Filed Vital Signs Vital Sign Reading Time Taken Comments Blood Pressure 151/104 04/10/2018 12:53 PM EST Pulse 81 04/10/2018 12:53 PM EST Temperature 36.7 C (98.1 F) 04/10/2018 12:53 PM EST Respiratory Rate - - Oxygen Saturation - - Inhaled Oxygen Concentration - - Weight 65.6 kg (144 lb 10 oz) 04/10/2018 12:53 P M EST Height 160 cm (5' 3 ) 04/10/2018 12:53 PM EST Body Mass Index 25.62 04/10/2018 12:53 PM EST Plan of Treatment Not on file
--- OUTSIDE RECORDS SUMMARY | 2024-10-04 18:48 | XMS_ITS | Patient Health Record ---
[facility] Organization [facility] Address [address] [place] [id number] Care Team Providers Care Sports Leadership Instructor Name Role Phone Lennie Pastorian Primary Care Provider Mima Dawson Unavailable [phone] Allergies Allergen (clinical drug ingredient) Drug/Non Drug Allergy documented on EMR Reaction Allergy Type Onset Date Status erythromycin Erythromycin vomiting Drug Allergy A ctive lisinopril Lisinopril cough Drug Allergy Activ e Penicillin swelling Drug Allergy Active Results Component Value Reference Range Notes P-Basic Metabolic Panel (BMP ) Reviewed date:04/08/2024 09:58:52 AM Interpretation:satisfactory Performing Lab: Notes/Report: Test performed by [facility] [address] , [address], [place] [address] Mike Jc MD, Food Dehydrator Operator CLIA: [id number] Sodium 134 135-145 mmol/L Potassium 4.5 3.5-5.3 mmol/L Chloride 94 97-108 mmol/L CO2 30 22-32 mmol/L Glucose 106 65-99 mg/dL BUN 16 8-23 mg/dL Creatinine 0.89 0.50-1.00 mg/dL Calcium 9.6 8.6-10.4 mg/dL eGFR by Creatinine 65 >59 mL/min/1.73m2 Urinalysis - Inhouse Reviewed date:03/09/2024 12:52:21 PM Interpretation: Performing Lab: Notes/Report: Color/Clarity yellow/clear Leuk Neg Nitrite Neg Urobili 16 Protein Neg pH 7.5 Blood Neg Sp. Gr. 1.020 Ketone Neg Bili Neg Gluc Neg H-CBC Reviewed date:02/26/2024 09:10:53 AM Interpretation: Performing Lab: Notes/Report: WBC 13.3 4.8-10.8 K/mm3 RBC 5.14 4.20-5.40 M/mm3 HGB 15.5 12.2-16.2 g/dL HCT 44.0 37.0-47.0 % MCV 85.6 81-99 fl MCH 30.2 27.0-31.2 pg MCHC 35.2 31.8-35.4 g/dL RDW 13.2 11.5-17.5 % PLT 627 142-424 K/mm3 MPV 9.5 7.4-10.4 fl NE% 79.3 37.0-80.0 % LY% 7.8 10-50 % MO% 11.7 1.7-9.3 % EO% 0.2 0.1-12.0 % BA% 0.2 0.1-2.0 % NE# 10.5 1.8-7.8 K/mm3 LY# 1.0 0.7-4.5 K/mm3 MO# 1.6 0.1-1.0 K/mm3 EO# 0.0 0.0-0.4 K/mm3 BA# 0.0 0-0.2 K/mm3 H-BMP Reviewed date:02/26/2024 09:10:53 AM Interpretation: Performing Lab: Notes/Report: NA 116 136-145 mmol/L K 4.0 3.5-5.1 mmoL/L CL 80 98-107 mmol/L CO2 30 22.0-30.0 mmol/L GAP 10.0 5-15 mEq/L BUN 22 7-17 mg/dl Delta: 14 on 02/25/24 CREATT 0.80 0.52-1.04 mg/dl Delta: 0.60 on 02/25/24 CRCLE 58 50-200 mL/min GFRAA 84 >60 ML/MIN Delta: 116 on 02/25/24 EGFR 69 >60 ml/min GLU 115 74-100 mg/dl CA 8.8 8.4-10.2 mg/dl H-Diarrhea 6-11 Panel, Cdiff PCR Reviewed date:02/27/2024 08:30:34 AM Interpretation: Performing Lab: Notes/Report: AEROMONAS Not Detected NotDetected CAMPYLOBACTER Not Detected NotDetected CLOSTR DIFFICIL Not Detected NotDetected PLESIOMONAS Not Detected NotDetected SALMONELLA, PCR Not Detected NotDetected YERSINIA Not Detected NotDetected VIBRIO, PCR Not Detected NotDetected VIBRIO CHOLERAE Not Detected NotDetected ECOLI (EAEC) Not Detected NotDetected ECOLI (EPEC) Not Detected NotDetected ECOLI (ETEC) Not Detected NotDetected SHIGATOXIN Not Detected NotDetected ECOLI O157 Not Detected NotDetected SHIG-INVAS ECOL Not Detected NotDetected CRYPTO Not Detected NotDetected CYCLOSPORA Not Detected NotDetected EHISTOLYTICA Not Detected NotDetected GIARDIA Not Detected NotDetected ADENO STOOL Not Detected NotDetected ASTROVIRUS Not Detected NotDetected NOROVIRUS Not Detected NotDetected ROTOVIRUS A Not Detected NotDetected SAPOVIRUS Not Detected NotDetected H-Occult Blood, Stool Reviewed date:02/27/2024 08:30:34 AM Interpretation: Performing Lab: Notes/Report: OB Positive Negative H-CBC Reviewed date:02/27/2024 08:30:34 AM Interpretation: Performing Lab: Notes/Report: WBC 23.1 4.8-10.8 K/mm3 Delta: 13.3 o n 02/26/24 RBC 4.95 4.20-5.40 M/mm3 HGB 14.8 12.2-16.2 g/dL HCT 43.1 37.0-47.0 % MCV 87.1 81-99 fl MCH 29.9 27.0-31.2 pg MCHC 34.3 31.8-35.4 g/dL RDW 13.2 11.5-17.5 % PLT 504 142-424 K/mm3 MPV 9.9 7.4-10.4 fl NE% 83.6 37.0-80.0 % LY% 5.2 10-50 % MO% 10.2 1.7-9.3 % EO% 0.1 0.1-12.0 % BA% 0.3 0.1-2.0 % NE# 19.3 1.8-7.8 K/mm3 LY# 1.2 0.7-4.5 K/mm3 MO# 2.4 0.1-1.0 K/mm3 EO# 0.0 0.0-0.4 K/mm3 BA# 0.1 0-0.2 K/mm3 H-DIFF Reviewed date:02/27/2024 08:30:34 AM Interpretation: Performing Lab: Notes/Report: CAROLINE MANUAL DIFFERENTIAL MANUAL DIFF TCC 100 NEUT%M 89 42-76 % LYMPH%M 9 10-50 % MONO%M 2 2-9 % PLTE Moderate Increase RM Normal H-UA Reviewed date:02/27/2024 08:35:43 AM Interpretation: Performing Lab: Notes/Report: Method to collect specimen clean catch UCOL YELLOW Yellow UAPP CLOUDY Clear UPH 5.5 5.0-8.5 USG >= 1.030 1.005-1.030 UPRO Negative Negative UGLU Negative Negative UKET TRACE Negative UBLD TRACE-I Negative UNIT Negative Negative UBIL 1+ Negative CONFIRM BILIRUB IN RESULT WITH ICTOTEST: NEGATIVE UURO 1.0 0.2 EU/dl ULEU Negative Negative UMICU URINE MICROSCOPIC MICROSCOPIC URBC None 0-3 #/hpf UWBC Occasional 0-3 #/hpf USQEPI Occasional 0-5 #/hpf UBACT 4+ NONE /lpf H-BMP Reviewed date:02/27/2024 08:30:34 AM Interpretation: Performing Lab: Notes/Report: NA 119 136-145 mmol/L K 4.3 3.5-5.1 mmoL/L CL 87 98-107 mmol/L CO2 24 22.0-30.0 mmol/L GAP 12.3 5-15 mEq/L BUN 44 7-17 mg/dl Delta: 29 on 02/26/24 CREATT 1.00 0.52-1.04 mg/dl CRCLE 58 50-200 mL/min GFRAA 65 >60 ML/MIN EGFR 53 >60 ml/min GLU 81 74-100 mg/dl Delta: 124 on 02/26/24 CA 8.3 8.4-10.2 mg/dl H-Urine Culture and Sensitiv ity Reviewed date:02/29/2024 05:10:55 PM Interpretation: Performing Lab: Notes/Report: CUU ORGANISM 1: Escheric hia coli RX CACERES: R- Resistant S- Susceptible I- Intermediate * Not on [facility] CUU [place] Count >100,000 RX CACERES: R- Resistant S- Susceptible I- Intermediate * Not on [facility] CUU RX CACERES: R- Resistant S- Susceptible I- Intermediate * Not on [facility] CUU RX CACERES: R- Resistant S- Susceptible I- Intermediate * Not on [facility] Escherichia coli: REACTION RX CACERES: R- Resistant S- Susceptible I- Intermediate * [facility] Am[facility]8 [facility] RX CACERES: R- Resistant S- Susceptible I- Intermediate * [facility] Ampicillin <=4 S RX CACERES: R- Resistant S- Susceptible I- Intermediate * Not on [facility] Aztreonam <=2 S RX CACERES: R- Resistant S- Susceptible I- Intermediate * Not on [facility] Cefepime <=1 S RX CACERES: R- Resistant S- Susceptible I- Intermediate * Not on [facility] Ceftazidime <=2 S RX CACERES: R- Resistant S- Susceptible I- Intermediate * Not on [facility] Ceftriaxone <=1 S RX CACERES: R- Resistant S- Susceptible I- Intermediate * Not on [facility] Ciprofloxacin <=0.25 S RX CACERES: R- Resistant S- Susceptible I- Intermediate * Not on [facility] Ertapenem <=0.25 S RX CACERES: R- Resistant S- Susceptible I- Intermediate * Not on [facility] Gentamicin <=2 S RX CACERES: R- Resistant S- Susceptible I- Intermediate * Not on [facility] Levofloxacin <=0.5 S RX CACERES: R- Resistant S- Susceptible I- Intermediate * Not on [facility] Meropenem <=0.5 S RX CACERES: R- Resistant S- Susceptible I- Intermediate * Not on [facility] Nitrofurantoin <=16 S RX CACERES: R- Resistant S- Susceptible I- Intermediate * Not on [facility] Tetracycline <=2 S RX CACERES: R- Resistant S- Susceptible I- Intermediate * [facility] Tobram[facility] <=2 S RX CACERES: R- Resistant S- Susceptible I- Intermediate * Not on [facility] Trimethoprim/Sulfame thox azole <=0.5/9.5 S RX CACERES: R- Resistant S- Susceptible I- Intermediate * Not on [facility] CUU Piperacillin/Tazobac pereira 4/4 S RX CACERES: R- Resistant S- Susceptible I- Intermediate * Not on [facility] CUU RX CACERES: R- Resistant S- Susceptible I- Intermediate * Not on [facility] H-CBC Reviewed date:02/29/2024 05:10:55 PM Interpretation: Performing Lab: Notes/Report: WBC 11.8 4.8-10.8 K/mm3 Delta: 23.1 o n 02/27/24 RBC 4.72 4.20-5.40 M/mm3 HGB 14.3 12.2-16.2 g/dL HCT 41.1 37.0-47.0 % MCV 87.1 81-99 fl MCH 30.3 27.0-31.2 pg MCHC 34.8 31.8-35.4 g/dL RDW 13.2 11.5-17.5 % PLT 550 142-424 K/mm3 MPV 9.5 7.4-10.4 fl NE% 75.9 37.0-80.0 % LY% 11.3 10-50 % MO% 10.6 1.7-9.3 % EO% 0.9 0.1-12.0 % BA% 0.6 0.1-2.0 % NE# 9.0 1.8-7.8 K/mm3 LY# 1.3 0.7-4.5 K/mm3 MO# 1.3 0.1-1.0 K/mm3 EO# 0.1 0.0-0.4 K/mm3 BA# 0.1 0-0.2 K/mm3 H-CBC Reviewed date:02/29/2024 05:10:54 PM Interpretation: Performing Lab: Notes/Report: WBC 8.6 4.8-10.8 K/mm3 Delta: 11.8 o n 02/28/24 RBC 5.14 4.20-5.40 M/mm3 HGB 15.7 12.2-16.2 g/dL HCT 47.1 37.0-47.0 % MCV 91.6 81-99 fl MCH 30.5 27.0-31.2 pg MCHC 33.3 31.8-35.4 g/dL RDW 13.9 11.5-17.5 % PLT 481 142-424 K/mm3 MPV 9.9 7.4-10.4 fl NE% 74.1 37.0-80.0 % LY% 13.9 10-50 % MO% 8.5 1.7-9.3 % EO% 1.5 0.1-12.0 % BA% 1.1 0.1-2.0 % NE# 6.3 1.8-7.8 K/mm3 LY# 1.2 0.7-4.5 K/mm3 MO# 0.7 0.1-1.0 K/mm3 EO# 0.1 0.0-0.4 K/mm3 BA# 0.1 0-0.2 K/mm3 H-BMP Reviewed date:02/29/2024 05:10:55 PM Interpretation: Performing Lab: Notes/Report: NA 119 136-145 mmol/L K 5.4 3.5-5.1 mmoL/L Delta: 3.6 on 02/28/24 CL 88 98-107 mmol/L CO2 28 22.0-30.0 mmol/L GAP 8.4 5-15 mEq/L BUN 23 7-17 mg/dl Delta: 36 on 02/28/24 CREATT 0.50 0.52-1.04 mg/dl Delta: 0.80 on 02/28/24 CRCLE 62 50-200 mL/min GFRAA 144 >60 ML/MIN Delta: 84 on 02/28/24 EGFR 119 >60 ml/min GLU 98 74-100 mg/dl CA 8.8 8.4-10.2 mg/dl H-Magnesium Reviewed date:02/29/2024 05:10:55 PM Interpretation: Performing Lab: Notes/Report: MG 2.0 1.6-2.3 mg/dl H-CMP Reviewed date:02/29/2024 05:10:55 PM Interpretation: Performing Lab: Notes/Report: NA 118 136-145 mmol/L K 3.6 3.5-5.1 mmoL/L CL 85 98-107 mmol/L CO2 32 22.0-30.0 mmol/L GAP 4.6 5-15 mEq/L BUN 36 7-17 mg/dl CREATT 0.80 0.52-1.04 mg/dl CRCLE 62 50-200 mL/min GFRAA 84 >60 ML/MIN Delta: 65 on 02/27/24 EGFR 69 >60 ml/min GLU 108 74-100 mg/dl CA 8.5 8.4-10.2 mg/dl BILIT 0.7 0.2-1.3 mg/dl AST 35 14-36 U/L ALT 20 12-78 U/L TP 5.3 6.3-8.2 g/dl ALB 2.9 3.5-5.0 g/dl GLOB 2.4 1.3-3.2 g/dL AGRATIO 1.2 1.1-1.8 ALP 56 38-126 U/L Urinalysis - Inhouse Reviewed date:03/10/2024 04:22:09 PM Interpretation: Performing Lab: Notes/Report: Color/Clarity yellow/clear Leuk 1+ Nitrite Neg Urobili 16 Protein Neg pH 7.0 Blood Trace-Intact Sp. Gr. 1.015 Ketone Neg Bili Neg Gluc Neg Urinalysis - Inhouse Reviewed date:04/13/2024 09:27:24 AM Interpretation: Performing Lab: Notes/Report: Color/Clarity cesar/cloudy Leuk Trace Nitrite Neg Urobili >=131 Protein 1+ pH 6.0 Blood Neg Sp. Gr. >=1.030 Ketone Trace Bili Neg Gluc Neg Urinalysis - Inhouse Reviewed date:08/26/2024 01:56:17 PM Interpretation: Performing Lab: Notes/Report: Color/Clarity cloudy yellow Leuk 3+ Nitrite neg Urobili 1.6 Protein neg pH 7.0 Blood 1+ Sp. Gr. 1.020 Ketone neg Bili neg Gluc neg P-Hepatic Function Panel Reviewed date:08/30/2024 01:05:19 PM Interpretation:Normal Performing Lab: Notes/Report: Test performed by [facility] [address] [place] [address] , [address], [place] [address] Mike Jc MD, Food Dehydrator Operator CLIA: [id number] Protein 6.4 6.0-8.3 g/dL Albumin 4.1 3.5-5.3 g/dL Alkaline Phosphatase 65 35-121 IU/L ALT (SGPT) 16 <5-47 IU/L AST (SGOT) 26 <5-40 IU/L Bilirubin, Total 0.5 <0.2-1.2 mg/dL Bilirubin, Direct 0.2 <0.07-0.2 mg/dL Bilirubin, Indirect 0.3 0.2-1.3 mg/dL TEN-UTI panel Reviewed date:08/30/2024 01:04:46 PM Interpretation:E. Coli Performing Lab: Notes/Report: E. Coli TEN-UTI panel Reviewed date:04/15/2024 08:39:02 AM Interpretation:E. Coli Performing Lab: Notes/Report: E. Coli TEN-UTI panel Reviewed date:03/15/2024 11:27:02 AM Interpretation:sensitive Performing Lab: Notes/Report: sensitive EGD Reviewed date:08/05/2024 11:51:38 AM Interpretation:pt declined Performing Lab: Notes/Report: pt declined Medications Medication SIG (Take, Route, Frequency, Duration) Notes Start Date End Date Status Aspirin 81 MG 1 tablet Orally Once a day; Duration: 30 day(s) Active Wheelchair - as directed As needed 03/01/2024 Active Hydroxychloroquine Sulfate 2 00 MG as directed Orally Active Metoprolol Tartrate 25 MG 1 tablet with food Orally Twice a day; Duration: 90 days Active Eliquis 5 MG 1 cap(s) Orally Two times a day Active Amiodarone HCl 200 MG 1 tablet Orally on ce daily Active Potassium Chloride ER 10 MEQ Take 1 caps ule by mouth once daily; Duration: 30 Active Losartan Potassium 50 MG 1 tablet Orally Once a day Active Furosemide 40 MG 1 tablet Orally Once a day Active Ondansetron HCl 4 MG 1 tablet Orally thr ee times a day as needed 04/06/2024 Active Terbinafine HCl 250 MG 1 tablet Orally O nce a day; Duration: 90 days 08/26/2024 Active Nitrofurantoin Monohyd Macro 100 MG 1 capsule with food Orally every 12 hrs; Duration: 5 days 08/26/2024 Active Raloxifene HCl 60 MG Take 1 tablet by [facility] once daily; Duration: 90 Active Immunizations Vaccine Route Administration Date Status Comme nts xFluzone High Dose-private (65yr&older) IM Intramuscular 10/17/2014 Administered Tetanus Tdap-Adacel (over 7yrs) IM Intramuscular 03/13/2011 Administered Prevnar (PCV20) IM Intramuscular 04/10/2023 Administered Prevnar (PCV13) IM Intramuscular 10/17/2014 Administered PNEUMOVAX 23 VACCINE IM Intramuscular 01/16/2016 Administ rufino Fluzone PF Quad (6-35 months) Unknown 02/03/2019 Administered Fluzone High Dose (65yr and older) IM Intramuscular 12/28/2012 Administered Fluzone High Dose (65yr and older) IM Intramuscular 01/16/2016 Administered Fluzone High Dose (65yr and older) IM Intramuscular 10/14/2019 Administered Fluzone High Dose (65yr and older) IM Intramuscular 04/10/2023 Administered Fluzone High Dose (65yr and older) Unknown 02/26/2024 Pending DT, 7 YEARS OR OLDER Unknown 04/20/1996 Administered COVID 19 Moderna Unknown 03/29/2020 Administered COVID 19 Moderna Unknown 04/26/2020 Administered COVID 19 Moderna Unknown 12/20/2020 Administered Problems Problem Type SNOMED Code ICD Code Onset Dates Problem Status W/U Status Risk Notes Problem Essential hypertension (99517443) Essential (primary) hypertension (I10) Active confirmed Problem Vitamin D deficiency (78954323) Vitamin D deficiency (E55.9) Active confirmed Problem Essential hypertension (26703698) Essential hypertension (I10) Active confirmed Problem Osteopenia (836474573) Osteopenia (M85.80) Active confirmed Problem History of anemia (861589680) History of anemia (Z86.2) Active confirmed Problem Arthritis (4967029) Arthritis (M19.90) Active c onfirmed Problem Hiatal hernia (67303389) Hiatal hernia (K44.9) Active confirmed Problem Paroxysmal atrial fibrillation (129972174) Paroxysmal atrial fibrillation (I48.0) Active confirmed Problem Sciatica (31045549) Lumbago with sciatica, right side (M54.41) Active confirmed Problem Age-related osteoporosis (164153020) Age-related osteoporosis without current pathological fracture (M81.0) Active confirmed Problem Chronic pain (76783996) Other chronic pain (G89.29) Active confirmed Problem Thrombocytopenia (077049041) Thrombocytopenia (D69.6) Active confirmed Problem Atrial fibrillation (12888140) Atrial fibrillation, unspecified type (I48.91) Active confirmed Problem Hyperlipidaemia (09353983) Hyperlipidemia, unspecified hyperlipidemia type (E78.5) Active confirmed Problem Body mass index 30.00 to 34.99 (368404754537531) BMI 31.0-31.9,adult (Z68.31) Active confirmed Problem Allergic rhinitis (51391311) Seasonal allergic rhinitis due to other allergic trigger (J30.89) Active confirmed Problem Hearing loss (45576490) Decreased hearing of both ears (H91.93) Active confirmed Problem Hypertensive urgency (508784799) Hypertensive urgency (I16.0) Active confirmed Problem Age-related osteoporosis (932755193) Osteoporosis without current pathological fracture, unspecified osteoporosis type (M81.0) Active confirmed Problem Rheumatic mitral regurgitation (09830465) Rheumatic mitral regurgitation (I05.1) Active confirmed Problem Heart failure (46180554) Congestive heart failure, unspecified HF chronicity, unspecified heart failure type (I50.9) Active confirmed Problem Squamous cell carcinoma of skin of left hand (C44.629) Active confirmed Problem Rheumatoid arthritis (75229197) Rheumatoid arthritis with positive rheumatoid factor, involving unspecified site (M05.9) Active confirmed Problem Systolic heart failure (945535314) HFrEF (heart failure with reduced ejection fraction) (I50.20) Active confirmed Problem History of fundoplication (976223102) History of fundoplication (Z98.890) Active confirmed Vital Signs Heart Rate 65 /min 08/26/2024 Blood pressure diastolic 82 mm Hg 08/26/2024 Height 64 in 08/26/2024 Blood pressure systolic 132 mm Hg 08/26/2024 Weight 173 lbs 08/26/2024 BMI 29.69 kg/m2 08/26/2024 Encounters Encounter Location Date Provider Diagnosis [facility] [address] [place], [place] [id number] 03/09/2024 Rogelio Bethel Hypertensive urgency I16.0 ; Paroxysmal atrial fibrillation I48.0 and Acute UTI N39.0 [facility] [address] [place], [place] [id number] 03/10/2024 Rogelio Bethel Acute UTI N39.0 [facility] [address] [place], [place] [id number] 04/06/2024 Rogelio Bethel Paroxysmal atrial fibrillation I48.0 ; Nausea R11.0 ; Low back pain, unspecified M54.50 ; Hyponatremia E87.1 and HFrEF (heart failure with reduced ejection fraction) I50.20 [facility] [address] [facility] [address] [place], [place] [id number] 04/12/2024 Rogelio Bethel UTI symptoms R39.9 [facility] [address] [facility] [address] [place], [place] [id number] 05/04/2024 Rogelio Bethel Paroxysmal atrial fibrillation I48.0 ; Nausea and vomiting, unspecified vomiting type R11.2 and History of fundoplication Z98.890 [facility] [address] [facility] [address] [place], [place] [id number] 06/29/2024 Rogelio Bethel Essential hypertensi on I10 ; Paroxysmal atrial fibrillation I48.0 ; Lumbago with sciatica, right side M54.41 ; Other chronic pain G89.29 and BMI 28.0-28.9,adult Z68.28 [facility] [address] [facility] [address] [place], [place] [id number] 08/26/2024 Rogelio Bethel Acute UTI N39.0 ; Onychomycosis B35.1 ; intermediate accountant use of drug Z79.899 and BMI 29.0-29.9,adult Z68.29 [facility] [address] [facility] [address] [place], [place] [id number] 03/01/2024 Rogelio Bethel [facility] [address] [place], [place] [id number] 03/01/2024 Rogelio Bethel [facility] [address] [place] [id number] 03/03/2024 Rogelio Bethel Essential hypertensi on I10 [facility] [address] [place] [id number] 03/04/2024 Rogelio Bethel [facility] [address] [facility] [address] [place] [id number] 03/10/2024 Rogelio Bethel [facility] [address] [place] [id number] 03/11/2024 Rogelio Bethel [facility] [address] [place] [id number] 03/15/2024 Rogelio Bethel [facility] [address] [place] [id number] 03/22/2024 Rogelio Bethel [facility] [address] [place] [id number] 03/29/2024 Rogelio Bethel [facility] [address] [place] [id number] 04/05/2024 Rogelio Bethel [facility] [address] [place], [place] [id number] 04/12/2024 Rogelio Bethel [facility] [address] [place] [id number] 04/13/2024 Rogelio Bethel [facility] [address] [place] [id number] 04/13/2024 Rogelio Bethel [facility] [address] [place] [id number] 04/16/2024 Rogelio Bethel [facility] [address] [place] [id number] 04/19/2024 Rogelio Bethel [facility] [address] [place] [id number] 04/29/2024 Rogelio Bethel [facility] [address] [place], [place] [id number] 05/05/2024 Rogelio Bethel [facility] [address] [place] [id number] 07/30/2024 Rogelio Bethel [facility] [address] [place], [place] [id number] 08/02/2024 Rogelio Bethel Essential hypertensi on I10 [facility] [address] [facility] [address] [place], [place] [id number] 09/14/2024 Rogelio Pastor Assessments Encounter Date Diagnosis (ICD Code) Assessment Notes Treatment Notes Treatment Clinical Notes Section Notes 08/26/2024 Onychomycosis (ICD-10 - B35.1) 08/26/2024 Acute UTI (ICD-10 - N39.0) 04/12/2024 UTI symptoms (ICD-10 - R39.9) 08/02/2024 Essential hypertension (ICD-10 - I10) 06/29/2024 Essential hypertension (ICD-10 - I10) 06/29/2024 Paroxysmal atrial fibrillation (ICD-10 - I48.0) 05/04/2024 Paroxysmal atrial fibrillation (ICD-10 - I48.0) Patient to keep follow up with [facility] cardiology 05/04/2024 Nausea and vomiting, unspecified vomiting type (ICD-10 - R11.2) 04/06/2024 Paroxysmal atrial fibrillation (ICD-10 - I48.0) 04/06/2024 Nausea (ICD-10 - R11.0) 03/09/2024 Hypertensive urgency (ICD-10 - I16.0) Resolved, patient is doing well on current BP meds, continue BP journal 03/03/2024 Essential hypertension (ICD-10 - I10) 03/10/2024 Acute UTI (ICD-10 - N39.0) 03/09/2024 Paroxysmal atrial fibrillation (ICD-10 - I48.0) Patient has follow appt. with cardiology tomorrow 03/09/2024 Acute UTI (ICD-10 - N39.0) Patient has completed the antibiotic course 04/06/2024 Low back pain, unspecified (ICD-10 - M54.50) 05/04/2024 History of fundoplication (ICD-10 - Z98.890) Spoke to Dr. Cain. He will scope patient at [facility] 06/29/2024 Lumbago with sciatica, right side (ICD-10 - M54.41) Discussed using a rollator walker to assist with ambulation 08/26/2024 intermediate accountant use of drug (ICD-10 - Z79.899) 08/26/2024 BMI 29.0-29.9,adult (ICD-10 - Z68.29) 06/29/2024 Other chronic pain (ICD-10 - G89.29) 04/06/2024 Hyponatremia (ICD-10 - E87.1) 04/06/2024 HFrEF (heart failure with reduced ejection fraction) (ICD-10 - I50.20) 06/29/2024 BMI 28.0-28.9,adult (ICD-10 - Z68.28) 03/09/2024 Other Discharge summary with available lab/diagnostic imaging results obtained and reviewed. Discharge medication list reconciled. Appropriate counseling provided. Moderate Complexity Plan Of Treatment Next Appt Details Provider Name:Rogelio nj, 11/01/2024 10:15:00 AM, [address] [facility], [address], [place], [place], [id number], Insurance Providers Payer Name Payer Address Payer Phone Subscriber Number Group Number Insured Name Patient Relationship to Insured Coverage Start Date Coverage End Date [facility] [address] [address] [place] [address] [phone] [id number] KERRI VALENTIN Self - patient is the insured Medical (General) History Medical History History ICD Code Hypertension Hyperlipidemia Breast Cancer, 08/1991 Mild MR, 05/2001 Colon Polyps (EGD & Colonscope- 07/21, no polyps in 2010) Osteoporosis h/o rheumatic fever allergic rhinitis, s/p immunotherapy x 1 0 years Incarcerated Hiatal hernia, s/p surgical repair at 2018 Squamous cell skin cancer, dorsum left and July 2020 rheumatoid arthritis Lumbar Disc Disease Lumbar Disc Herniation Lumbar facet arthropathy Lumbar Spinal Stenosis, MRI 2022 Surgical History Surgery Date(Month/Year) RT Mastectomy EGD with Colonoscopy 07/2003 Colonoscopy 09/2010 Hiatal Hernia Repair (toupe fundoplicati on) - 02/2018 Nerve Ablation on SI Joint 06/17/2024 Hospitalization History Reason Date(Month/Year) Abdominal Pain- 06/2018 Hiatal hernia Surgery- 02/2018 Abdmoninal Pain- [facility] 02/2018
[2024-10-04] MEDS: TETRACAINE 0.5% OPTH SOL 15ML OP (18:52)
[2024-10-04] MEDS: ERYTHROMYCIN BASE 1 GM OINT...G. 0.5 GM OP (18:53)
[2024-10-04] MEDS: FLUORESCEIN SODIUM 1MG STRIP 1 MG OP (18:53)
[2024-10-04 19:13] VITALS: BP 187/98; PULSE 67; RESP 18; TEMP 36.7; O2SAT 98
--- NOTE | 2024-10-04 19:14 | PC.NURSE ---
Report received from Dara BRISENO Pt resting quietly in bed Family at bedside Pt discharged with instructions and assisted to the lobby in a wheelchair. Skin pink warm and dry Resp full and easy Speech clear and appropriate
== END 2024-10-04 19:16 | disposition home or self-care (01) ==
PROVIDERS: Emergency Provider Student in an Organized Health Care Education/Training Program; PCP Family Medicine
DX: S05.01XA Injury of conjunctiva and corneal abrasion without foreign body, right eye, initial encounter (principal); W26.8XXA Contact with other sharp object(s), not elsewhere classified, initial encounter
CPT/HCPCS: 99283